=== PATIENT | female | born 1965 | race Caucasian/White ===

== ENCOUNTER 2018-04-27 13:51 | Inpatient (IN) | payer OTHER ==
[~2018-04-27] VITALS: Ht 177.8 cm; Wt 64.2 kg
[2018-04-27] MEDS ORDERED: SODIUM CHLORIDE 0.9% 1,000ML IVBOLUS ONE (15:00)
[2018-04-27] MEDS ORDERED: SODIUM CHLORIDE FLUSH 10ML SYR IVF ONE (15:00)
[2018-04-27 15:24] LABS: ALBUMIN 3.7 g/dL (3.4-5.0); ANION GAP 6 mmol/L (5-15); CALCIUM 8.6 mg/dL (8.5-10.1); CHLORIDE 111 mmol/L (98-107)
[2018-04-27 15:28] LABS: ALANINE AMINOTRANSFERASE 34 U/L (12-78); ALKALINE PHOSPHATASE 79 U/L (45-117); BILIRUBIN,TOTAL 0.7 mg/dL (0.2-1.0); CREATININE 0.86 mg/dL (0.55-1.02); TOTAL PROTEIN 6.9 g/dL (6.4-8.2)
--- NOTE | 2018-04-27 15:33 | NUR ---
PT AMBULTORY WITH STEADY GAIT.
--- NOTE | 2018-04-27 15:55 | NUR ---
TASK RN: 52 Y/O FEMALE PRESENTS TO ED WITH C/O ABNORMAL LABS. "I HAVEN'T BEEN FEELING FOR GOOD FOR ABOUT 4 WEEKS. I DECIDED TO GET LABS YESTERDAY. MY DR CALLED ME AND SAID TO COME HERE THAT MY LABS WERE OFF. MY WBC WAS 56 AND MY HGB WAS 4 OR SOMETHING. I JUST DON'T FEEL GOOD. I THOUGHT IT WAS THE FLU." PIV ESTABLISHED. PT TOLERATED WITH NO COMPLICATIONS. NO C/O N/V/D, TRAUMA, SYNCOPE, CP, SOB. PT PLACED ON FOUNDRY ENGINEER, NIBP, CONT PULSE OX,
--- NOTE | 2018-04-27 16:38 | NUR ---
TASK RN: BEDSIDE REPORT TO FRANCES PAULINO.
[2018-04-27 16:43] LABS: MEAN CORPUSCULAR HEMOGLOBIN 34.4 pg (27.0-34.8); MEAN CORPUSCULAR HGB CONC 34.3 g/dL (32.4-35.8); MEAN CORPUSCULAR VOLUME 100.3 fL (80-100); RED BLOOD COUNT 1.35 x10^6/uL (3.82-5.3); RED CELL DISTRIBUTION WIDTH 16.3 % (9.6-15.2)
[2018-04-27 16:44] LABS: HEMOGRAM NOTE RECHECKED; MEAN PLATELET VOLUME 10.5 fL (7.4-10.4)
[2018-04-27 16:47] LABS: PLATELET COUNT 34 x10^3/uL (130-400)
[2018-04-27 16:48] LABS: MD YES
[2018-04-27] MEDS ORDERED: POTASSIUM CHLORIDE 20 MEQ TAB.ER.PRT PO ONE (17:00)
--- NOTE | 2018-04-27 17:35 | NUR ---
TASK RN: NEW ORDER FOR IRRADIATED PRBC. SPOKE WITH BLOOD BANK. CHANGES BEING MADE.
[2018-04-27] MEDS ORDERED: NS + 20MEQ KCL 1,000 ML IV SCH (17:48)
[2018-04-27 17:50] LABS: INTERNATIONAL NORMALIZED RATIO 1.05 (0.93-1.1)
--- NOTE | 2018-04-27 17:53 | NUR ---
REPORT GIVEN TO ONC RN, ROOM DIRTY AT THIS TIME, WILL CALL WHEN READY
[2018-04-27] MEDS ORDERED: ONDANSETRON 2MG/ML, 2ML IVPush PRN (18:00)
--- NOTE | 2018-04-27 18:32 | NUR ---
PT AMBULATED TO BATHROOM WITH STEADY GAIT, PT BACK TO ROOM AND PLACED ON MONITOR. AWIATING ONC BED TO BE CLEANED
[2018-04-27 18:46] VITALS: BP 104/61
--- NOTE | 2018-04-27 18:50 | NUR ---
FIRST UNIT OF BLOOD STARTED
[2018-04-27 19:09] VITALS: BP 119/65
--- NOTE | 2018-04-27 19:13 | NUR ---
PT RESTING ON GURNEY, PRBC'S INFUSING, NO S/S OF TRANSFUSION REACTION NOTED, MONITORS IN PLACE, SIDERAILS UP X2, CALL LIGHT WITHIN REACH. AWAITING ROOM TO BE CLEANED FOR PT TRANSFER
[2018-04-27] MEDS ORDERED: PROG100C16 PO (19:25)
[2018-04-27 19:44] LABS: LYMPH#(MANUAL) 10.82 x10^3/uL (1-3.4); LYMPHS% (MANUAL) 13 % (22-44); METAMYELOCYTES# (MANUAL) 0.83 x10^3/uL (0-0); METAMYELOCYTES% (MANUAL) 1 % (0-1); MONOS#(MANUAL) 5.82 x10^3/uL (0.3-2.7); MONOS% (MANUAL) 7 % (2-9); MYELOCYTES# (MANUAL) 1.66 x10^3/uL (0-0); MYELOCYTES% (MANUAL) 2 % (0-0); SEG#(MANUAL) 14.14 x10^3/uL (1.8-6.8); SEGS% (MANUAL) 17 % (42-75)
[2018-04-27 19:45] LABS: BLASTS # (MANUAL) 49.92 x10^3/uL (0-0); BLASTS % (MANUAL) 60 % (0-0)
[2018-04-27 19:46] LABS: ANISOCYTOSIS 1+; HYPOCHROMIA 1+; MICROCYTOSIS 1+
[2018-04-27 19:47] LABS: <PLATELET ESTIMATE> DECREASED; <PLT MORPHOLOGY> QNS FOR PLT MORPH
[2018-04-27] MEDS ORDERED: SODIUM CHLORIDE 0.9% 1,000 ML IV SCH (20:00)
[2018-04-27] MEDS ORDERED: HYDROXYUREA 500 MG CAPSULE PO ONE (20:00)
[2018-04-27] MEDS ORDERED: ALLOPURINOL 300 MG TABLET PO ONE (20:00)
[2018-04-27 20:06] VITALS: BP 112/70
[2018-04-27 20:31] VITALS: BP 118/73
[2018-04-27 20:36] LABS: RED BLOOD COUNT 1.32 x10^6/uL (3.82-5.3)
[2018-04-27] MEDS: ACETAMINOPHEN 325 MG TABLET PO PRN (20:52)
[2018-04-27 21:05] VITALS: BP 116/71
[2018-04-27 21:13] LABS: ABSOLUTE RETICS # 0.01 x10^6/uL (0.5-2.5); RETICULOCYTE COUNT % 0.73 % (0.5-1.5)
[2018-04-27] MEDS: NS + 20MEQ KCL 1,000 ML IV SCH (22:30)
[2018-04-27 22:33] VITALS: BP 94/57
[2018-04-28] VITALS (15 sets, daily range): BP systolic 101–122; BP diastolic 66–82
[2018-04-28 04:05] LABS: ALANINE AMINOTRANSFERASE 25 U/L (12-78); ALBUMIN 2.9 g/dL (3.4-5.0); ANION GAP 6 mmol/L (5-15); CALCIUM 7.6 mg/dL (8.5-10.1); CHLORIDE 118 mmol/L (98-107); CREATININE 0.67 mg/dL (0.55-1.02)
[2018-04-28 04:07] LABS: ALKALINE PHOSPHATASE 67 U/L (45-117); BILIRUBIN,TOTAL 0.3 mg/dL (0.2-1.0); TOTAL PROTEIN 5.6 g/dL (6.4-8.2)
[2018-04-28 04:56] LABS: MEAN CORPUSCULAR HEMOGLOBIN 32.1 pg (27.0-34.8); MEAN CORPUSCULAR VOLUME 94.4 fL (80-100); RED BLOOD COUNT 1.75 x10^6/uL (3.82-5.3); RED CELL DISTRIBUTION WIDTH 17.9 % (9.6-15.2)
[2018-04-28 05:51] LABS: MD YES
[2018-04-28] MEDS: NS + 20MEQ KCL 1,000 ML IV SCH ×2 (05:59→14:18)
[2018-04-28 06:07] LABS: BASOS#(MANUAL) 0.51 x10^3/uL (0-0.1); BASOS% (MANUAL) 1 % (0-1); EOS#(MANUAL) 0.51 x10^3/uL (0.0-0.4); EOS% (MANUAL) 1 % (1-7); LYMPH#(MANUAL) 6.57 x10^3/uL (1-3.4); LYMPHS% (MANUAL) 13 % (22-44); METAMYELOCYTES# (MANUAL) 0.51 x10^3/uL (0-0); METAMYELOCYTES% (MANUAL) 1 % (0-1); MONOS#(MANUAL) 2.53 x10^3/uL (0.3-2.7); MONOS% (MANUAL) 5 % (2-9); MYELOCYTES# (MANUAL) 0.51 x10^3/uL (0-0); MYELOCYTES% (MANUAL) 1 % (0-0); SEGS% (MANUAL) 19 % (42-75)
[2018-04-28 06:08] LABS: BLASTS % (MANUAL) 59 % (0-0); MEAN PLATELET VOLUME 11.2 fL (7.4-10.4); PLATELET COUNT 21 x10^3/uL (130-400)
[2018-04-28 06:09] LABS: <PLATELET ESTIMATE> DECREASED; ANISOCYTOSIS 1+; HYPOCHROMIA 1+; HYPOGRAN PLTS 1+; LARGE PLATELETS 1+; MICROCYTOSIS 1+
[2018-04-28 06:11] LABS: OVALOCYTES 1+
[2018-04-28 06:22] LABS: MICROSCOPIC NOT IND
[2018-04-28 06:25] LABS: CULTURE INDICATED? NO
[2018-04-28] MEDS ORDERED: ACETAMINOPHEN 325 MG TABLET PO ONE (06:30)
[2018-04-28] MEDS ORDERED: DIPHENHYDRAMINE 25 MG CAPSULE PO ONE (06:30)
[2018-04-28 09:26] LABS: ALANINE AMINOTRANSFERASE 28 U/L (12-78); ALBUMIN 3.2 g/dL (3.4-5.0); ANION GAP 10 mmol/L (5-15); CHLORIDE 114 mmol/L (98-107); CREATININE 0.69 mg/dL (0.55-1.02)
[2018-04-28 09:28] LABS: ALKALINE PHOSPHATASE 77 U/L (45-117); BILIRUBIN,TOTAL 0.4 mg/dL (0.2-1.0); TOTAL PROTEIN 6.1 g/dL (6.4-8.2)
[2018-04-28] MEDS: ALLOPURINOL 300 MG TABLET PO SCH (09:50)
[2018-04-28 10:08] LABS: MEAN CORPUSCULAR HEMOGLOBIN 31.8 pg (27.0-34.8); MEAN CORPUSCULAR HGB CONC 34.1 g/dL (32.4-35.8); MEAN CORPUSCULAR VOLUME 93.2 fL (80-100); MEAN PLATELET VOLUME 9.9 fL (7.4-10.4); RED CELL DISTRIBUTION WIDTH 18.7 % (9.6-15.2)
[2018-04-28 10:10] LABS: PLATELET COUNT 23 x10^3/uL (130-400)
[2018-04-28 10:11] LABS: MD YES
[2018-04-28 10:27] LABS: BAND#(MANUAL) 1.66 x10^3/uL; BANDS%(MANUAL) 3 % (0-7); EOS#(MANUAL) 0.55 x10^3/uL (0.0-0.4); EOS% (MANUAL) 1 % (1-7); LYMPH#(MANUAL) 6.65 x10^3/uL (1-3.4); LYMPHS% (MANUAL) 12 % (22-44); METAMYELOCYTES# (MANUAL) 1.66 x10^3/uL (0-0); METAMYELOCYTES% (MANUAL) 3 % (0-1); MONOS#(MANUAL) 1.66 x10^3/uL (0.3-2.7); MONOS% (MANUAL) 3 % (2-9); MYELOCYTES# (MANUAL) 0.55 x10^3/uL (0-0); MYELOCYTES% (MANUAL) 1 % (0-0); SEG#(MANUAL) 11.63 x10^3/uL (1.8-6.8); SEGS% (MANUAL) 21 % (42-75)
[2018-04-28 10:28] LABS: <PLATELET ESTIMATE> ADEQUATE; ANISOCYTOSIS 1+; BLASTS # (MANUAL) 31.02 x10^3/uL (0-0); BLASTS % (MANUAL) 56 % (0-0); HYPOCHROMIA 1+; MICROCYTOSIS 1+; OVALOCYTES 1+
[2018-04-28 10:29] LABS: HYPOGRAN PLTS 1+; LARGE PLATELETS 1+
[2018-04-28 18:13] LABS: ALANINE AMINOTRANSFERASE 33 U/L (12-78); ALBUMIN 3.1 g/dL (3.4-5.0); ANION GAP 8 mmol/L (5-15); CALCIUM 7.8 mg/dL (8.5-10.1); CHLORIDE 116 mmol/L (98-107); CREATININE 0.68 mg/dL (0.55-1.02)
[2018-04-28 18:15] LABS: ALKALINE PHOSPHATASE 74 U/L (45-117); BILIRUBIN,TOTAL 0.6 mg/dL (0.2-1.0)
[2018-04-28 18:22] LABS: MEAN CORPUSCULAR HEMOGLOBIN 31.2 pg (27.0-34.8); MEAN CORPUSCULAR HGB CONC 34.1 g/dL (32.4-35.8); MEAN CORPUSCULAR VOLUME 91.5 fL (80-100); MEAN PLATELET VOLUME 8.9 fL (7.4-10.4); PLATELET COUNT 60 x10^3/uL (130-400); RED CELL DISTRIBUTION WIDTH 18.2 % (9.6-15.2)
[2018-04-28 18:24] LABS: MD YES
[2018-04-28] MEDS ORDERED: HYDROXYUREA 500 MG CAPSULE PO ONE ×2 (19:00→21:00)
[2018-04-28 19:02] LABS: BAND#(MANUAL) 0.44 x10^3/uL; BANDS%(MANUAL) 1 % (0-7); BASOS#(MANUAL) 0.44 x10^3/uL (0-0.1); BASOS% (MANUAL) 1 % (0-1); LYMPH#(MANUAL) 4.88 x10^3/uL (1-3.4); LYMPHS% (MANUAL) 11 % (22-44); METAMYELOCYTES# (MANUAL) 1.33 x10^3/uL (0-0); METAMYELOCYTES% (MANUAL) 3 % (0-1); MONOS#(MANUAL) 1.33 x10^3/uL (0.3-2.7); MONOS% (MANUAL) 3 % (2-9); MYELOCYTES# (MANUAL) 0.89 x10^3/uL (0-0); MYELOCYTES% (MANUAL) 2 % (0-0); SEG#(MANUAL) 7.99 x10^3/uL (1.8-6.8); SEGS% (MANUAL) 18 % (42-75)
[2018-04-28 19:03] LABS: BLASTS # (MANUAL) 27.08 x10^3/uL (0-0); BLASTS % (MANUAL) 61 % (0-0)
[2018-04-28 19:06] LABS: ANISOCYTOSIS 1+; HYPOCHROMIA 1+; MICROCYTOSIS 1+; OVALOCYTES 1+
[2018-04-28 19:07] LABS: <PLATELET ESTIMATE> DECREASED; HYPOGRAN PLTS 1+; LARGE PLATELETS 1+
[2018-04-28 19:08] LABS: HEMOGRAM NOTE RECHECKED
[2018-04-28] MEDS: SODIUM CHLORIDE 0.9% 1,000 ML IV SCH (19:45)
[2018-04-28] MEDS: ACETAMINOPHEN 325 MG TABLET PO PRN (20:22)
[2018-04-29 01:41] VITALS: BP 107/62
[2018-04-29] MEDS: SODIUM CHLORIDE 0.9% 1,000 ML IV SCH ×2 (02:36→19:47)
[2018-04-29 05:53] LABS: MEAN CORPUSCULAR HEMOGLOBIN 31.6 pg (27.0-34.8); MEAN CORPUSCULAR HGB CONC 34.5 g/dL (32.4-35.8); MEAN CORPUSCULAR VOLUME 91.6 fL (80-100); MEAN PLATELET VOLUME 9.3 fL (7.4-10.4); PLATELET COUNT 61 x10^3/uL (130-400); RED BLOOD COUNT 2.36 x10^6/uL (3.82-5.3); RED CELL DISTRIBUTION WIDTH 18.6 % (9.6-15.2)
[2018-04-29 06:01] LABS: CHLORIDE 117 mmol/L (98-107)
[2018-04-29 06:05] LABS: ALANINE AMINOTRANSFERASE 45 U/L (12-78); ALBUMIN 3.1 g/dL (3.4-5.0); ALKALINE PHOSPHATASE 78 U/L (45-117); ANION GAP 6 mmol/L (5-15); BILIRUBIN,TOTAL 0.5 mg/dL (0.2-1.0); CALCIUM 7.8 mg/dL (8.5-10.1); CREATININE 0.59 mg/dL (0.55-1.02); TOTAL PROTEIN 5.8 g/dL (6.4-8.2)
[2018-04-29 06:23] LABS: MD YES
[2018-04-29 06:29] LABS: BAND#(MANUAL) 1.55 x10^3/uL; BANDS%(MANUAL) 4 % (0-7); EOS#(MANUAL) 0.39 x10^3/uL (0.0-0.4); EOS% (MANUAL) 1 % (1-7); LYMPH#(MANUAL) 3.87 x10^3/uL (1-3.4); LYMPHS% (MANUAL) 10 % (22-44); MONOS#(MANUAL) 2.71 x10^3/uL (0.3-2.7); MONOS% (MANUAL) 7 % (2-9); SEG#(MANUAL) 6.97 x10^3/uL (1.8-6.8); SEGS% (MANUAL) 18 % (42-75)
[2018-04-29 06:31] LABS: BLASTS # (MANUAL) 23.22 x10^3/uL (0-0); BLASTS % (MANUAL) 60 % (0-0); NRBC % (MANUAL) 1 % (0-1)
[2018-04-29 06:32] LABS: ANISOCYTOSIS 1+; HYPOCHROMIA 1+
[2018-04-29 06:33] LABS: <PLATELET ESTIMATE> DECREASED; LARGE PLATELETS 1+; OVALOCYTES 1+
[2018-04-29 06:34] LABS: HYPOGRAN PLTS 1+
[2018-04-29 06:48] VITALS: BP 115/74
[2018-04-29] MEDS ORDERED: LIDOCAINE-MPF 1%, 5ML ONE (08:31)
[2018-04-29] MEDS ORDERED: FENTANYL PF 100 MCG/2ML ONE (08:52)
[2018-04-29] MEDS ORDERED: NALOXONE 1 MG/ML, 2ML ONE (08:52)
[2018-04-29] MEDS ORDERED: MIDAZOLAM 1 MG/ML, 5ML ONE ×2 (08:52)
[2018-04-29] MEDS ORDERED: FLUMAZENIL 0.1 MG/1 ML, 5ML ONE (08:52)
[2018-04-29 12:47] VITALS: BP 93/73
[2018-04-29] MEDS: ALLOPURINOL 300 MG TABLET PO SCH (13:57)
[2018-04-29] MEDS: ACETAMINOPHEN 325 MG TABLET PO PRN ×2 (14:48→21:21)
[2018-04-29 19:24] VITALS: BP 110/61
[2018-04-29] MEDS ORDERED: OMEPRAZOLE 20 MG CAPSULE.DR ONE (21:20)
[2018-04-30 00:37] VITALS: BP 102/61
[2018-04-30] MEDS: SODIUM CHLORIDE 0.9% 1,000 ML IV SCH ×2 (02:52→14:28)
[2018-04-30] MEDS: OMEPRAZOLE 20 MG CAPSULE.DR PO SCH (05:40)
[2018-04-30] MEDS: ACETAMINOPHEN 325 MG TABLET PO PRN ×2 (05:40→11:19)
[2018-04-30 06:04] LABS: CHLORIDE 112 mmol/L (98-107)
[2018-04-30 06:16] LABS: ALANINE AMINOTRANSFERASE 36 U/L (12-78); ALKALINE PHOSPHATASE 86 U/L (45-117); ANION GAP 7 mmol/L (5-15); BILIRUBIN,TOTAL 0.5 mg/dL (0.2-1.0); CALCIUM 8.2 mg/dL (8.5-10.1); CREATININE 0.59 mg/dL (0.55-1.02); TOTAL PROTEIN 5.8 g/dL (6.4-8.2)
[2018-04-30 07:18] VITALS: BP 114/72
[2018-04-30] MEDS ORDERED: POTASSIUM CHLORIDE 20 MEQ TAB.ER.PRT PO ONE (07:30)
[2018-04-30] MEDS: ALLOPURINOL 300 MG TABLET PO SCH (07:48)
[2018-04-30 08:49] LABS: MEAN CORPUSCULAR HEMOGLOBIN 31.7 pg (27.0-34.8); MEAN CORPUSCULAR HGB CONC 34.8 g/dL (32.4-35.8); MEAN CORPUSCULAR VOLUME 91.1 fL (80-100); MEAN PLATELET VOLUME 8.9 fL (7.4-10.4); RED BLOOD COUNT 2.34 x10^6/uL (3.82-5.3); RED CELL DISTRIBUTION WIDTH 19.2 % (9.6-15.2)
[2018-04-30 08:52] LABS: PLATELET COUNT 44 x10^3/uL (130-400)
[2018-04-30 08:53] LABS: MD YES
[2018-04-30 09:07] LABS: BAND#(MANUAL) 1.03 x10^3/uL; BANDS%(MANUAL) 3 % (0-7); BASOS#(MANUAL) 1.03 x10^3/uL (0-0.1); BASOS% (MANUAL) 3 % (0-1); EOS#(MANUAL) 0.34 x10^3/uL (0.0-0.4); EOS% (MANUAL) 1 % (1-7); METAMYELOCYTES# (MANUAL) 0.34 x10^3/uL (0-0); METAMYELOCYTES% (MANUAL) 1 % (0-1); MONOS#(MANUAL) 1.38 x10^3/uL (0.3-2.7); MONOS% (MANUAL) 4 % (2-9); MYELOCYTES# (MANUAL) 0.34 x10^3/uL (0-0); MYELOCYTES% (MANUAL) 1 % (0-0); PROGRANULOCYTES# (MANUAL) 0.34 x10^3/uL (0-0); PROGRANULOCYTES% (MANUAL) 1 % (0-0)
[2018-04-30 09:10] LABS: LYMPH#(MANUAL) 4.13 x10^3/uL (1-3.4); LYMPHS% (MANUAL) 12 % (22-44)
[2018-04-30 09:12] LABS: SEG#(MANUAL) 8.94 x10^3/uL (1.8-6.8); SEGS% (MANUAL) 26 % (42-75)
[2018-04-30 09:13] LABS: BLASTS % (MANUAL) 48 % (0-0)
[2018-04-30 09:14] LABS: <PLATELET ESTIMATE> DECREASED; <PLT MORPHOLOGY> NORMAL PLT MORPH
[2018-04-30 09:16] LABS: ANISOCYTOSIS 1+
[2018-04-30 09:17] LABS: OVALOCYTES 1+
[2018-04-30 13:18] VITALS: BP 125/72
[2018-04-30 20:40] VITALS: BP 127/80
[2018-05-01] MEDS: SODIUM CHLORIDE 0.9% 1,000 ML IV SCH ×3 (00:17→22:12)
[2018-05-01 02:19] VITALS: BP 122/72
[2018-05-01] MEDS: OMEPRAZOLE 20 MG CAPSULE.DR PO SCH (05:25)
[2018-05-01 05:52] LABS: ALANINE AMINOTRANSFERASE 34 U/L (12-78); ALBUMIN 2.9 g/dL (3.4-5.0); ANION GAP 6 mmol/L (5-15); CHLORIDE 115 mmol/L (98-107)
[2018-05-01 05:57] LABS: ALKALINE PHOSPHATASE 80 U/L (45-117); BILIRUBIN,TOTAL 0.3 mg/dL (0.2-1.0); CREATININE 0.62 mg/dL (0.55-1.02); TOTAL PROTEIN 5.7 g/dL (6.4-8.2)
[2018-05-01 06:13] LABS: MEAN CORPUSCULAR HEMOGLOBIN 30.9 pg (27.0-34.8); MEAN CORPUSCULAR HGB CONC 33.8 g/dL (32.4-35.8); MEAN CORPUSCULAR VOLUME 91.6 fL (80-100); RED BLOOD COUNT 2.39 x10^6/uL (3.82-5.3); RED CELL DISTRIBUTION WIDTH 18.4 % (9.6-15.2)
[2018-05-01 06:15] LABS: MEAN PLATELET VOLUME 9.4 fL (7.4-10.4); PLATELET COUNT 40 x10^3/uL (130-400)
[2018-05-01 06:16] LABS: MD YES
[2018-05-01 06:21] LABS: BAND#(MANUAL) 2.02 x10^3/uL; BANDS%(MANUAL) 5 % (0-7); LYMPH#(MANUAL) 6.05 x10^3/uL (1-3.4); LYMPHS% (MANUAL) 15 % (22-44); METAMYELOCYTES# (MANUAL) 0.81 x10^3/uL (0-0); METAMYELOCYTES% (MANUAL) 2 % (0-1); MONOS#(MANUAL) 0.81 x10^3/uL (0.3-2.7); MONOS% (MANUAL) 2 % (2-9); MYELOCYTES# (MANUAL) 0.81 x10^3/uL (0-0); MYELOCYTES% (MANUAL) 2 % (0-0)
[2018-05-01 06:25] LABS: BASOS#(MANUAL) 1.61 x10^3/uL (0-0.1); BASOS% (MANUAL) 4 % (0-1); SEG#(MANUAL) 7.25 x10^3/uL (1.8-6.8); SEGS% (MANUAL) 18 % (42-75)
[2018-05-01 06:26] LABS: BLASTS % (MANUAL) 52 % (0-0)
[2018-05-01 06:27] LABS: ANISOCYTOSIS 1+; OVALOCYTES 1+
[2018-05-01 06:28] LABS: <PLATELET ESTIMATE> DECREASED; <PLT MORPHOLOGY> NORMAL PLT MORPH
[2018-05-01 07:23] VITALS: BP 115/66
[2018-05-01] MEDS: SENNA/DOCUSATE TABLET PO SCH (07:42)
[2018-05-01] MEDS: ALLOPURINOL 300 MG TABLET PO SCH (07:42)
[2018-05-01] MEDS: DIPHENHYDRAMINE/ZINC CRM 2%, 30GM TP PRN (07:43)
[2018-05-01 14:08] VITALS: BP 117/74
[2018-05-01 19:49] VITALS: BP 115/73
[2018-05-02 03:40] VITALS: BP 113/70
[2018-05-02] MEDS: OMEPRAZOLE 20 MG CAPSULE.DR PO SCH (06:34)
[2018-05-02] MEDS: SODIUM CHLORIDE 0.9% 1,000 ML IV SCH ×2 (06:35→17:29)
[2018-05-02 07:50] VITALS: BP 110/68
[2018-05-02] MEDS: SENNA/DOCUSATE TABLET PO SCH (09:00)
[2018-05-02] MEDS: ALLOPURINOL 300 MG TABLET PO SCH (09:08)
[2018-05-02 12:06] LABS: ALANINE AMINOTRANSFERASE 37 U/L (12-78); ALBUMIN 3.3 g/dL (3.4-5.0); ANION GAP 6 mmol/L (5-15); CALCIUM 8.7 mg/dL (8.5-10.1); CHLORIDE 112 mmol/L (98-107); CREATININE 0.71 mg/dL (0.55-1.02)
[2018-05-02 12:08] LABS: ALKALINE PHOSPHATASE 92 U/L (45-117); BILIRUBIN,TOTAL 0.4 mg/dL (0.2-1.0); TOTAL PROTEIN 6.5 g/dL (6.4-8.2)
[2018-05-02 12:21] LABS: MD YES; MEAN CORPUSCULAR HEMOGLOBIN 31.4 pg (27.0-34.8); MEAN CORPUSCULAR HGB CONC 34.1 g/dL (32.4-35.8); MEAN CORPUSCULAR VOLUME 91.8 fL (80-100); MEAN PLATELET VOLUME 9.8 fL (7.4-10.4); RED BLOOD COUNT 2.57 x10^6/uL (3.82-5.3); RED CELL DISTRIBUTION WIDTH 18.8 % (9.6-15.2)
[2018-05-02 12:31] LABS: PLATELET COUNT 35 x10^3/uL (130-400)
[2018-05-02 12:33] LABS: BAND#(MANUAL) 2.17 x10^3/uL; BANDS%(MANUAL) 4 % (0-7); BLASTS # (MANUAL) 29.32 x10^3/uL (0-0); BLASTS % (MANUAL) 54 % (0-0); EOS#(MANUAL) 1.09 x10^3/uL (0.0-0.4); EOS% (MANUAL) 2 % (1-7); LYMPH#(MANUAL) 6.52 x10^3/uL (1-3.4); LYMPHS% (MANUAL) 12 % (22-44); METAMYELOCYTES# (MANUAL) 2.72 x10^3/uL (0-0); METAMYELOCYTES% (MANUAL) 5 % (0-1); MONOS#(MANUAL) 3.26 x10^3/uL (0.3-2.7); MONOS% (MANUAL) 6 % (2-9); SEG#(MANUAL) 9.23 x10^3/uL (1.8-6.8); SEGS% (MANUAL) 17 % (42-75)
[2018-05-02 12:34] LABS: <PLATELET ESTIMATE> DECREASED; <PLT MORPHOLOGY> NORMAL PLT MORPH; ANISOCYTOSIS 1+; OVALOCYTES 1+
[2018-05-02 13:24] VITALS: BP 100/65
[2018-05-02] MEDS ORDERED: POTASSIUM CHLORIDE 20 MEQ TAB.ER.PRT PO ONE (13:30)
[2018-05-02] MEDS: HYDROXYUREA 500 MG CAPSULE PO SCH (17:25)
[2018-05-02] MEDS ORDERED: HYDROCORTISONE OINT 1%, 28GM TP PRN (17:30)
[2018-05-02 19:34] VITALS: BP 111/71
[2018-05-02] MEDS: HYDROCORTISONE CRM 1%, 30GM TP PRN (22:22)
[2018-05-03 03:26] VITALS: BP 100/64
[2018-05-03] MEDS: SODIUM CHLORIDE 0.9% 1,000 ML IV SCH ×2 (03:41→14:54)
[2018-05-03 04:30] LABS: ALBUMIN 2.9 g/dL (3.4-5.0); ANION GAP 5 mmol/L (5-15); CALCIUM 8.4 mg/dL (8.5-10.1); CHLORIDE 113 mmol/L (98-107)
[2018-05-03 04:38] LABS: ALANINE AMINOTRANSFERASE 39 U/L (12-78); ALKALINE PHOSPHATASE 83 U/L (45-117); BILIRUBIN,TOTAL 0.5 mg/dL (0.2-1.0); CREATININE 0.58 mg/dL (0.55-1.02); TOTAL PROTEIN 5.8 g/dL (6.4-8.2)
[2018-05-03 04:40] LABS: MEAN CORPUSCULAR HEMOGLOBIN 30.2 pg (27.0-34.8); MEAN CORPUSCULAR VOLUME 91.4 fL (80-100); MEAN PLATELET VOLUME 9.7 fL (7.4-10.4); RED BLOOD COUNT 2.31 x10^6/uL (3.82-5.3); RED CELL DISTRIBUTION WIDTH 18.6 % (9.6-15.2)
[2018-05-03 05:06] LABS: PLATELET COUNT 36 x10^3/uL (130-400)
[2018-05-03 05:41] LABS: MD YES
[2018-05-03 06:09] LABS: BAND#(MANUAL) 1.45 x10^3/uL; BANDS%(MANUAL) 3 % (0-7); BASOS#(MANUAL) 0.48 x10^3/uL (0-0.1); BASOS% (MANUAL) 1 % (0-1); EOS#(MANUAL) 0.48 x10^3/uL (0.0-0.4); EOS% (MANUAL) 1 % (1-7); LYMPH#(MANUAL) 8.69 x10^3/uL (1-3.4); LYMPHS% (MANUAL) 18 % (22-44); METAMYELOCYTES# (MANUAL) 1.93 x10^3/uL (0-0); METAMYELOCYTES% (MANUAL) 4 % (0-1); MONOS#(MANUAL) 0.97 x10^3/uL (0.3-2.7); MONOS% (MANUAL) 2 % (2-9); MYELOCYTES# (MANUAL) 1.93 x10^3/uL (0-0); MYELOCYTES% (MANUAL) 4 % (0-0); SEG#(MANUAL) 9.18 x10^3/uL (1.8-6.8); SEGS% (MANUAL) 19 % (42-75)
[2018-05-03 06:15] LABS: BLASTS # (MANUAL) 23.18 x10^3/uL (0-0); BLASTS % (MANUAL) 48 % (0-0)
[2018-05-03 06:17] LABS: <PLATELET ESTIMATE> DECREASED; <PLT MORPHOLOGY> NORMAL PLT MORPH; ANISOCYTOSIS 1+; OVALOCYTES 1+
[2018-05-03] MEDS: OMEPRAZOLE 20 MG CAPSULE.DR PO SCH (07:35)
[2018-05-03 08:30] VITALS: BP 128/75
[2018-05-03] MEDS: SENNA/DOCUSATE TABLET PO SCH (09:00)
[2018-05-03] MEDS: ALLOPURINOL 300 MG TABLET PO SCH (09:02)
[2018-05-03] MEDS: HYDROXYUREA 500 MG CAPSULE PO SCH (09:05)
[2018-05-03] MEDS: HYDROCORTISONE CRM 1%, 30GM TP PRN ×2 (12:10→20:52)
[2018-05-03] MEDS ORDERED: ACETAMINOPHEN 325 MG TABLET PO ONE (16:00)
[2018-05-03] MEDS ORDERED: DIPHENHYDRAMINE 50 MG/ML, 1ML IVPush ONE (16:00)
[2018-05-03 18:13] VITALS: BP 111/74
[2018-05-03 18:30] VITALS: BP 124/76
[2018-05-03 19:57] VITALS: BP 121/75
[2018-05-03 19:58] VITALS: BP 121/75
[2018-05-04] MEDS: SODIUM CHLORIDE 0.9% 1,000 ML IV SCH ×5 (02:19→23:24)
[2018-05-04 04:53] VITALS: BP 119/73
[2018-05-04] MEDS: OMEPRAZOLE 20 MG CAPSULE.DR PO SCH (04:56)
[2018-05-04 05:28] LABS: MEAN CORPUSCULAR HEMOGLOBIN 31.1 pg (27.0-34.8); MEAN CORPUSCULAR HGB CONC 34.6 g/dL (32.4-35.8); MEAN CORPUSCULAR VOLUME 89.9 fL (80-100); RED BLOOD COUNT 2.69 x10^6/uL (3.82-5.3); RED CELL DISTRIBUTION WIDTH 17.8 % (9.6-15.2)
[2018-05-04 05:33] LABS: CHLORIDE 114 mmol/L (98-107)
[2018-05-04 05:39] LABS: ALANINE AMINOTRANSFERASE 41 U/L (12-78); ALKALINE PHOSPHATASE 86 U/L (45-117); ANION GAP 7 mmol/L (5-15); BILIRUBIN,TOTAL 0.3 mg/dL (0.2-1.0); CALCIUM 8.2 mg/dL (8.5-10.1); CREATININE 0.67 mg/dL (0.55-1.02); TOTAL PROTEIN 5.9 g/dL (6.4-8.2)
[2018-05-04 06:25] LABS: MD YES
[2018-05-04 06:42] LABS: BAND#(MANUAL) 4.92 x10^3/uL; BANDS%(MANUAL) 11 % (0-7); BASOS#(MANUAL) 1.34 x10^3/uL (0-0.1); BASOS% (MANUAL) 3 % (0-1); LYMPH#(MANUAL) 6.71 x10^3/uL (1-3.4); LYMPHS% (MANUAL) 15 % (22-44); METAMYELOCYTES# (MANUAL) 0.89 x10^3/uL (0-0); METAMYELOCYTES% (MANUAL) 2 % (0-1); MONOS#(MANUAL) 2.24 x10^3/uL (0.3-2.7); MONOS% (MANUAL) 5 % (2-9); SEG#(MANUAL) 6.26 x10^3/uL (1.8-6.8); SEGS% (MANUAL) 14 % (42-75)
[2018-05-04 06:46] LABS: BLASTS # (MANUAL) 22.35 x10^3/uL (0-0); BLASTS % (MANUAL) 50 % (0-0); MEAN PLATELET VOLUME 10.5 fL (7.4-10.4); PLATELET COUNT 27 x10^3/uL (130-400)
[2018-05-04 06:48] LABS: ANISOCYTOSIS 1+; OVALOCYTES 1+
[2018-05-04 06:49] LABS: <PLATELET ESTIMATE> DECREASED; LARGE PLATELETS 1+
[2018-05-04 07:36] VITALS: BP 124/81
[2018-05-04] MEDS: SENNA/DOCUSATE TABLET PO SCH (09:00)
[2018-05-04] MEDS: ALLOPURINOL 300 MG TABLET PO SCH (09:04)
[2018-05-04] MEDS: HYDROXYUREA 500 MG CAPSULE PO SCH (09:04)
[2018-05-04] MEDS ORDERED: CATHFLO-ALTEPLASE 2 MG/2 ML CATHFLUSH ONE ×2 (12:30)
[2018-05-04] MEDS ORDERED: FOSAPREPITANT 150 MG in SODIUM CHLORIDE 0.9% 145 ML IV ONE (14:00)
[2018-05-04] MEDS ORDERED: ONDANSETRON 16 MG, DEXAMETHASONE 10 MG in SODIUM CHLORIDE 0.9% 50 ML IVPB SCH (14:00)
[2018-05-04 14:36] VITALS: BP 123/71
[2018-05-04] MEDS: HYDROCORTISONE CRM 1%, 30GM TP PRN ×2 (15:32→20:17)
[2018-05-04 19:52] VITALS: BP 112/69
[2018-05-05 03:00] VITALS: BP 115/73
[2018-05-05] MEDS: OMEPRAZOLE 20 MG CAPSULE.DR PO SCH (04:58)
[2018-05-05 05:45] LABS: MEAN CORPUSCULAR HEMOGLOBIN 31.1 pg (27.0-34.8); MEAN CORPUSCULAR HGB CONC 34.6 g/dL (32.4-35.8); MEAN CORPUSCULAR VOLUME 90.1 fL (80-100); RED BLOOD COUNT 2.76 x10^6/uL (3.82-5.3); RED CELL DISTRIBUTION WIDTH 18.1 % (9.6-15.2)
[2018-05-05 05:53] LABS: ANION GAP 6 mmol/L (5-15); CALCIUM 8.3 mg/dL (8.5-10.1); CHLORIDE 111 mmol/L (98-107)
[2018-05-05 05:58] LABS: ALANINE AMINOTRANSFERASE 41 U/L (12-78); ALKALINE PHOSPHATASE 79 U/L (45-117); BILIRUBIN,TOTAL 0.5 mg/dL (0.2-1.0); CREATININE 0.62 mg/dL (0.55-1.02); TOTAL PROTEIN 6.2 g/dL (6.4-8.2)
[2018-05-05 06:31] LABS: MD YES
[2018-05-05 06:34] LABS: BAND#(MANUAL) 0.79 x10^3/uL; BANDS%(MANUAL) 2 % (0-7); BASOS% (MANUAL) 1 % (0-1); BLASTS # (MANUAL) 20.64 x10^3/uL (0-0); EOS#(MANUAL) 0.79 x10^3/uL (0.0-0.4); EOS% (MANUAL) 2 % (1-7); LYMPH#(MANUAL) 4.76 x10^3/uL (1-3.4); LYMPHS% (MANUAL) 12 % (22-44); METAMYELOCYTES% (MANUAL) 1 % (0-1); MONOS#(MANUAL) 2.38 x10^3/uL (0.3-2.7); MONOS% (MANUAL) 6 % (2-9); NRBC % (MANUAL) 1 % (0-1); SEG#(MANUAL) 9.53 x10^3/uL (1.8-6.8); SEGS% (MANUAL) 24 % (42-75)
[2018-05-05 06:36] LABS: MEAN PLATELET VOLUME 11.1 fL (7.4-10.4)
[2018-05-05 06:37] LABS: ANISOCYTOSIS 1+; BLASTS % (MANUAL) 52 % (0-0); PLATELET COUNT 23 x10^3/uL (130-400)
[2018-05-05 06:38] LABS: <PLATELET ESTIMATE> DECREASED; LARGE PLATELETS 1+; OVALOCYTES 1+
[2018-05-05] MEDS ORDERED: POTASSIUM CHLORIDE 20 MEQ TAB.ER.PRT PO ONE (07:00)
[2018-05-05 07:28] VITALS: BP 120/74
[2018-05-05] MEDS: SENNA/DOCUSATE TABLET PO SCH (09:00)
[2018-05-05] MEDS: ALLOPURINOL 300 MG TABLET PO SCH (10:20)
[2018-05-05] MEDS: SODIUM CHLORIDE 0.9% 1,000 ML IV SCH ×2 (10:20→23:37)
[2018-05-05] MEDS ORDERED: NYSTATIN/TRIAMCINOLONE OINT 15GM TP PRN (13:30)
[2018-05-05] MEDS ORDERED: CLOTRIMAZOLE CRM 1%, 15GM TP PRN (13:30)
[2018-05-05 14:25] VITALS: BP 103/66
[2018-05-05 20:30] VITALS: BP 110/70
[2018-05-05] MEDS: DIPHENHYDRAMINE/ZINC CRM 2%, 30GM TP PRN (20:56)
[2018-05-06 06:23] LABS: ALBUMIN 2.9 g/dL (3.4-5.0); ANION GAP 6 mmol/L (5-15); CALCIUM 8.3 mg/dL (8.5-10.1); CHLORIDE 113 mmol/L (98-107)
[2018-05-06 06:26] VITALS: BP 111/71
[2018-05-06 06:28] LABS: ALANINE AMINOTRANSFERASE 41 U/L (12-78); ALKALINE PHOSPHATASE 72 U/L (45-117); BILIRUBIN,TOTAL 0.3 mg/dL (0.2-1.0); CREATININE 0.69 mg/dL (0.55-1.02)
[2018-05-06] MEDS: OMEPRAZOLE 20 MG CAPSULE.DR PO SCH (06:28)
[2018-05-06 07:43] LABS: MEAN CORPUSCULAR HEMOGLOBIN 31.1 pg (27.0-34.8); MEAN CORPUSCULAR HGB CONC 34.2 g/dL (32.4-35.8); MEAN PLATELET VOLUME 10.1 fL (7.4-10.4); RED BLOOD COUNT 2.68 x10^6/uL (3.82-5.3); RED CELL DISTRIBUTION WIDTH 17.5 % (9.6-15.2)
[2018-05-06 07:45] LABS: MD YES
[2018-05-06 07:49] LABS: <PLATELET ESTIMATE> DECREASED; ANISOCYTOSIS 1+; BAND#(MANUAL) 0.81 x10^3/uL; BANDS%(MANUAL) 2 % (0-7); BLASTS # (MANUAL) 21.92 x10^3/uL (0-0); LARGE PLATELETS 1+; LYMPH#(MANUAL) 3.65 x10^3/uL (1-3.4); LYMPHS% (MANUAL) 9 % (22-44); METAMYELOCYTES# (MANUAL) 0.41 x10^3/uL (0-0); METAMYELOCYTES% (MANUAL) 1 % (0-1); MONOS#(MANUAL) 3.25 x10^3/uL (0.3-2.7); MONOS% (MANUAL) 8 % (2-9); MYELOCYTES# (MANUAL) 1.62 x10^3/uL (0-0); MYELOCYTES% (MANUAL) 4 % (0-0); OVALOCYTES 1+; PROGRANULOCYTES# (MANUAL) 0.41 x10^3/uL (0-0); PROGRANULOCYTES% (MANUAL) 1 % (0-0); SEG#(MANUAL) 8.53 x10^3/uL (1.8-6.8); SEGS% (MANUAL) 21 % (42-75)
[2018-05-06 07:50] LABS: BLASTS % (MANUAL) 54 % (0-0); PLATELET COUNT 30 x10^3/uL (130-400)
[2018-05-06 07:52] LABS: SMUDGE CELLS 1+
[2018-05-06] MEDS: SENNA/DOCUSATE TABLET PO SCH (09:00)
[2018-05-06] MEDS: ALLOPURINOL 300 MG TABLET PO SCH (09:14)
[2018-05-06] MEDS: SODIUM CHLORIDE 0.9% 1,000 ML IV SCH ×2 (09:15→19:42)
[2018-05-06 13:48] VITALS: BP 95/59
[2018-05-06] MEDS ORDERED: FOSAPREPITANT 150 MG in SODIUM CHLORIDE 0.9% 145 ML IV ONE (15:30)
[2018-05-06] MEDS ORDERED: CYTARABINE IV SCH (16:30)
[2018-05-06] MEDS ORDERED: SODIUM CHLORIDE 0.9% IV SCH (16:30)
[2018-05-06] MEDS: ONDANSETRON 16 MG, DEXAMETHASONE 10 MG in SODIUM CHLORIDE 0.9% 50 ML IVPB SCH (17:37)
[2018-05-06] MEDS ORDERED: maalox/diphenh/lido/sucralfate 5 ML PO PRN (19:00)
[2018-05-06] MEDS ORDERED: PROCHLORPERAZINE 25 MG SUPP PR PRN (19:00)
[2018-05-06] MEDS ORDERED: PROCHLORPERAZINE 10MG TABLET PO PRN (19:00)
[2018-05-06 19:39] VITALS: BP 93/58
[2018-05-06] MEDS: IDARUBICIN IV SCH (20:28)
[2018-05-06] MEDS: SODIUM CHLORIDE 0.9% IV SCH (21:42)
[2018-05-06] MEDS: CYTARABINE IV SCH (21:42)
[2018-05-06] MEDS: NYSTATIN 500,000 UNITS/5 ML UDC PO SCH (22:09)
[2018-05-07] MEDS: SODIUM CHLORIDE 0.9% 1,000 ML IV SCH ×2 (04:43→14:28)
[2018-05-07 06:00] VITALS: BP 96/59
[2018-05-07 06:27] LABS: MEAN CORPUSCULAR HEMOGLOBIN 29.8 pg (27.0-34.8); MEAN CORPUSCULAR HGB CONC 32.8 g/dL (32.4-35.8); MEAN CORPUSCULAR VOLUME 90.8 fL (80-100); RED BLOOD COUNT 2.73 x10^6/uL (3.82-5.3); RED CELL DISTRIBUTION WIDTH 17.3 % (9.6-15.2)
[2018-05-07 06:28] LABS: MEAN PLATELET VOLUME 11.3 fL (7.4-10.4); PLATELET COUNT 23 x10^3/uL (130-400)
[2018-05-07 06:33] LABS: ANION GAP 8 mmol/L (5-15); CALCIUM 8.6 mg/dL (8.5-10.1); CHLORIDE 112 mmol/L (98-107)
[2018-05-07 06:36] LABS: ALANINE AMINOTRANSFERASE 37 U/L (12-78); ALKALINE PHOSPHATASE 78 U/L (45-117); BILIRUBIN,TOTAL 0.3 mg/dL (0.2-1.0); CREATININE 0.54 mg/dL (0.55-1.02); TOTAL PROTEIN 6.4 g/dL (6.4-8.2)
[2018-05-07] MEDS: OMEPRAZOLE 20 MG CAPSULE.DR PO SCH (06:45)
[2018-05-07] MEDS: NYSTATIN 500,000 UNITS/5 ML UDC PO SCH ×3 (06:45→18:34)
[2018-05-07 06:55] LABS: MD YES
[2018-05-07 06:58] LABS: ANISOCYTOSIS 1+; BAND#(MANUAL) 0.44 x10^3/uL; BANDS%(MANUAL) 1 % (0-7); BLASTS # (MANUAL) 25.02 x10^3/uL (0-0); LYMPH#(MANUAL) 5.27 x10^3/uL (1-3.4); LYMPHS% (MANUAL) 12 % (22-44); MONOS#(MANUAL) 5.27 x10^3/uL (0.3-2.7); MONOS% (MANUAL) 12 % (2-9); OVALOCYTES 1+; SEGS% (MANUAL) 18 % (42-75)
[2018-05-07 06:59] LABS: <PLATELET ESTIMATE> DECREASED; LARGE PLATELETS 1+; SMUDGE CELLS 1+
[2018-05-07 07:02] LABS: BLASTS % (MANUAL) 57 % (0-0)
[2018-05-07 07:54] VITALS: BP 99/64
[2018-05-07] MEDS: SENNA/DOCUSATE TABLET PO SCH (09:00)
[2018-05-07] MEDS: ALLOPURINOL 300 MG TABLET PO SCH (10:21)
[2018-05-07 14:11] VITALS: BP 96/60
[2018-05-07] MEDS: ONDANSETRON 16 MG, DEXAMETHASONE 10 MG in SODIUM CHLORIDE 0.9% 50 ML IVPB SCH (20:42)
[2018-05-07 20:52] VITALS: BP 111/71
[2018-05-07] MEDS: IDARUBICIN IV SCH (21:34)
[2018-05-07] MEDS: SODIUM CHLORIDE 0.9% IV SCH (21:35)
[2018-05-07] MEDS: CYTARABINE IV SCH (21:35)
[2018-05-07] MEDS: ZOLPIDEM 5MG TABLET PO PRN (22:07)
[2018-05-08] MEDS: SODIUM CHLORIDE 0.9% 1,000 ML IV SCH ×3 (00:30→20:44)
[2018-05-08] MEDS: NYSTATIN 500,000 UNITS/5 ML UDC PO SCH ×4 (02:17→20:36)
[2018-05-08 02:20] VITALS: BP 106/70
[2018-05-08 02:48] LABS: MEAN CORPUSCULAR VOLUME 90.8 fL (80-100); RED BLOOD COUNT 2.57 x10^6/uL (3.82-5.3); RED CELL DISTRIBUTION WIDTH 17.3 % (9.6-15.2)
[2018-05-08 02:57] LABS: ALANINE AMINOTRANSFERASE 32 U/L (12-78); ALBUMIN 2.9 g/dL (3.4-5.0); ANION GAP 7 mmol/L (5-15); CALCIUM 8.3 mg/dL (8.5-10.1); CHLORIDE 113 mmol/L (98-107); CREATININE 0.68 mg/dL (0.55-1.02)
[2018-05-08 02:59] LABS: ALKALINE PHOSPHATASE 69 U/L (45-117); BILIRUBIN,TOTAL 0.2 mg/dL (0.2-1.0); MEAN PLATELET VOLUME 11.6 fL (7.4-10.4); PLATELET COUNT 21 x10^3/uL (130-400); TOTAL PROTEIN 6.1 g/dL (6.4-8.2)
[2018-05-08 03:32] LABS: MD YES
[2018-05-08 03:35] LABS: EOS#(MANUAL) 0.34 x10^3/uL (0.0-0.4); EOS% (MANUAL) 1 % (1-7); LYMPH#(MANUAL) 4.04 x10^3/uL (1-3.4); LYMPHS% (MANUAL) 12 % (22-44); MONOS#(MANUAL) 1.69 x10^3/uL (0.3-2.7); MONOS% (MANUAL) 5 % (2-9); SEG#(MANUAL) 9.44 x10^3/uL (1.8-6.8); SEGS% (MANUAL) 28 % (42-75)
[2018-05-08 03:36] LABS: <PLATELET ESTIMATE> DECREASED; ANISOCYTOSIS 1+; BLASTS % (MANUAL) 54 % (0-0); OVALOCYTES 1+; SMUDGE CELLS 1+
[2018-05-08 03:37] LABS: LARGE PLATELETS 1+
[2018-05-08] MEDS: OMEPRAZOLE 20 MG CAPSULE.DR PO SCH (06:25)
[2018-05-08 07:10] VITALS: BP 97/58
[2018-05-08] MEDS: SENNA/DOCUSATE TABLET PO SCH (09:00)
[2018-05-08] MEDS: ALLOPURINOL 300 MG TABLET PO SCH (09:45)
[2018-05-08] MEDS ORDERED: HYDROCORTISONE 100 MG INJ. IVPush PRN (12:30)
[2018-05-08 14:49] VITALS: BP 96/64
[2018-05-08 18:48] LABS: MD YES; MEAN CORPUSCULAR HEMOGLOBIN 30.7 pg (27.0-34.8); MEAN CORPUSCULAR HGB CONC 33.9 g/dL (32.4-35.8); MEAN CORPUSCULAR VOLUME 90.6 fL (80-100); MEAN PLATELET VOLUME 11.5 fL (7.4-10.4); RED BLOOD COUNT 2.48 x10^6/uL (3.82-5.3); RED CELL DISTRIBUTION WIDTH 17.4 % (9.6-15.2)
[2018-05-08 18:52] LABS: LYMPH#(MANUAL) 2.64 x10^3/uL (1-3.4); LYMPHS% (MANUAL) 10 % (22-44)
[2018-05-08 18:55] LABS: SEGS% (MANUAL) 25 % (42-75)
[2018-05-08 18:56] LABS: BLASTS # (MANUAL) 14.78 x10^3/uL (0-0); MONOS#(MANUAL) 2.38 x10^3/uL (0.3-2.7); MONOS% (MANUAL) 9 % (2-9)
[2018-05-08 18:58] LABS: BLASTS % (MANUAL) 56 % (0-0); PLATELET COUNT 20 x10^3/uL (130-400)
[2018-05-08 18:59] LABS: ANISOCYTOSIS 1+; OVALOCYTES 1+; SMUDGE CELLS 1+
[2018-05-08 19:00] LABS: <PLATELET ESTIMATE> DECREASED; LARGE PLATELETS 1+
[2018-05-08 20:12] VITALS: BP 93/56
[2018-05-08] MEDS ORDERED: DIPHENHYDRAMINE 50 MG/ML, 1ML IVPush ONE (20:30)
[2018-05-08] MEDS ORDERED: ACETAMINOPHEN 325 MG TABLET PO ONE (20:30)
[2018-05-08] MEDS ORDERED: methylPREDNISolone SOD SUCC 125 MG/2 ML IVPush ONE (21:00)
[2018-05-08] MEDS ORDERED: ONDANSETRON 16 MG, DEXAMETHASONE 10 MG in SODIUM CHLORIDE 0.9% 50 ML IVPB ONE ×2 (21:00→23:30)
[2018-05-08] MEDS ORDERED: FILTER 0.22 MICRON IV ONE (21:30)
[2018-05-08] MEDS ORDERED: SODIUM CHLORIDE 0.9% IVPB ONE (21:30)
[2018-05-08] MEDS ORDERED: IDARUBICIN IV ONE (21:30)
[2018-05-08] MEDS ORDERED: ACETAMINOPHEN 325 MG TABLET PO PRN (21:30)
[2018-05-08] MEDS ORDERED: DIPHENHYDRAMINE 50 MG/ML, 1ML IVPush PRN (21:30)
[2018-05-08] MEDS ORDERED: [UNRECOGNIZED DRUG - OTHER] IVPB ONE (21:30)
[2018-05-09] MEDS ORDERED: IDARUBICIN IV ONE
[2018-05-09] MEDS ORDERED: ACETAMINOPHEN 325 MG TABLET PO PRN (00:30)
[2018-05-09] MEDS: CYTARABINE IV SCH (01:12)
[2018-05-09] MEDS: SODIUM CHLORIDE 0.9% IV SCH (01:12)
[2018-05-09] MEDS: NYSTATIN 500,000 UNITS/5 ML UDC PO SCH ×4 (01:30→20:48)
[2018-05-09 01:37] VITALS: BP 102/59
[2018-05-09] MEDS: OMEPRAZOLE 20 MG CAPSULE.DR PO SCH (06:08)
[2018-05-09] MEDS: SODIUM CHLORIDE 0.9% 1,000 ML IV SCH ×2 (06:08→18:34)
[2018-05-09 06:41] LABS: ALANINE AMINOTRANSFERASE 27 U/L (12-78); ALBUMIN 2.8 g/dL (3.4-5.0); ANION GAP 7 mmol/L (5-15); CALCIUM 8.5 mg/dL (8.5-10.1); CHLORIDE 111 mmol/L (98-107); CREATININE 0.53 mg/dL (0.55-1.02)
[2018-05-09 06:44] LABS: ALKALINE PHOSPHATASE 61 U/L (45-117); BILIRUBIN,TOTAL 0.3 mg/dL (0.2-1.0)
[2018-05-09 07:07] LABS: MEAN CORPUSCULAR HEMOGLOBIN 30.1 pg (27.0-34.8); MEAN CORPUSCULAR HGB CONC 33.2 g/dL (32.4-35.8); MEAN CORPUSCULAR VOLUME 90.8 fL (80-100); RED BLOOD COUNT 2.55 x10^6/uL (3.82-5.3); RED CELL DISTRIBUTION WIDTH 17.5 % (9.6-15.2)
[2018-05-09 07:09] LABS: MD YES; PLATELET COUNT 21 x10^3/uL (130-400)
[2018-05-09 07:15] VITALS: BP 96/62
[2018-05-09 07:17] LABS: LYMPH#(MANUAL) 2.12 x10^3/uL (1-3.4); LYMPHS% (MANUAL) 18 % (22-44); MONOS#(MANUAL) 0.94 x10^3/uL (0.3-2.7); MONOS% (MANUAL) 8 % (2-9)
[2018-05-09 07:19] LABS: BLASTS % (MANUAL) 53 % (0-0)
[2018-05-09 07:20] LABS: BLASTS # (MANUAL) 6.25 x10^3/uL (0-0); SEG#(MANUAL) 2.48 x10^3/uL (1.8-6.8); SEGS% (MANUAL) 21 % (42-75)
[2018-05-09 07:21] LABS: ANISOCYTOSIS 1+; OVALOCYTES 1+
[2018-05-09 07:23] LABS: <PLATELET ESTIMATE> DECREASED; <PLT MORPHOLOGY> NORMAL PLT MORPH
[2018-05-09] MEDS: SENNA/DOCUSATE TABLET PO SCH (08:06)
[2018-05-09] MEDS: ALLOPURINOL 300 MG TABLET PO SCH (08:46)
[2018-05-09 13:17] VITALS: BP 100/63
[2018-05-09 20:40] VITALS: BP 102/65
[2018-05-09] MEDS: ZOLPIDEM 5MG TABLET PO PRN (20:48)
[2018-05-09] MEDS: PROCHLORPERAZINE 5 MG/ML, 2ML IVPush PRN (20:48)
[2018-05-10 00:32] VITALS: BP 106/62
[2018-05-10] MEDS: SODIUM CHLORIDE 0.9% IV SCH (00:36)
[2018-05-10] MEDS: CYTARABINE IV SCH (00:36)
[2018-05-10] MEDS: NYSTATIN 500,000 UNITS/5 ML UDC PO SCH ×4 (02:04→20:30)
[2018-05-10] MEDS: SODIUM CHLORIDE 0.9% 1,000 ML IV SCH ×2 (03:07→12:56)
[2018-05-10] MEDS: OMEPRAZOLE 20 MG CAPSULE.DR PO SCH (05:33)
[2018-05-10 06:02] LABS: CHLORIDE 110 mmol/L (98-107)
[2018-05-10 06:11] LABS: ALANINE AMINOTRANSFERASE 24 U/L (12-78); ALBUMIN 2.8 g/dL (3.4-5.0); ALKALINE PHOSPHATASE 57 U/L (45-117); ANION GAP 7 mmol/L (5-15); BILIRUBIN,TOTAL 0.4 mg/dL (0.2-1.0); CALCIUM 8.2 mg/dL (8.5-10.1); CREATININE 0.41 mg/dL (0.55-1.02); TOTAL PROTEIN 5.8 g/dL (6.4-8.2)
[2018-05-10 06:19] LABS: MEAN CORPUSCULAR HEMOGLOBIN 30.5 pg (27.0-34.8); MEAN CORPUSCULAR HGB CONC 33.9 g/dL (32.4-35.8); MEAN CORPUSCULAR VOLUME 90.1 fL (80-100); RED BLOOD COUNT 2.64 x10^6/uL (3.82-5.3); RED CELL DISTRIBUTION WIDTH 17.3 % (9.6-15.2)
[2018-05-10 06:40] LABS: MD YES
[2018-05-10 06:43] LABS: MEAN PLATELET VOLUME 11.5 fL (7.4-10.4); PLATELET COUNT 18 x10^3/uL (130-400)
[2018-05-10 06:48] LABS: BAND#(MANUAL) 0.03 x10^3/uL; BANDS%(MANUAL) 1 % (0-7); BLASTS # (MANUAL) 0.84 x10^3/uL (0-0); LYMPHS% (MANUAL) 40 % (22-44); MONOS#(MANUAL) 0.33 x10^3/uL (0.3-2.7); MONOS% (MANUAL) 11 % (2-9); SEGS% (MANUAL) 20 % (42-75)
[2018-05-10 06:49] LABS: <PLATELET ESTIMATE> DECREASED; <PLT MORPHOLOGY> NORMAL PLT MORPH; ANISOCYTOSIS 1+; OVALOCYTES 1+
[2018-05-10 06:52] LABS: BLASTS % (MANUAL) 28 % (0-0)
[2018-05-10] MEDS: PROCHLORPERAZINE 5 MG/ML, 2ML IVPush PRN ×3 (09:33→22:12)
[2018-05-10] MEDS: ALLOPURINOL 300 MG TABLET PO SCH (09:34)
[2018-05-10] MEDS: SENNA/DOCUSATE TABLET PO SCH (09:35)
[2018-05-10 09:59] VITALS: BP 108/72
[2018-05-10] MEDS: ONDANSETRON 2MG/ML, 2ML IVPush PRN ×2 (12:55→18:49)
[2018-05-10 15:55] VITALS: BP 87/70
[2018-05-10 16:20] VITALS: BP 100/50
[2018-05-10] MEDS: LEVOFLOXACIN 500 MG TABLET PO SCH (18:47)
[2018-05-10] MEDS: ACYCLOVIR 200 MG CAPSULE PO SCH (20:30)
[2018-05-10] MEDS: ZOLPIDEM 5MG TABLET PO PRN (20:35)
[2018-05-10 21:15] VITALS: BP_SYST 94; BP_SYST 96; BP_DIAS 62
[2018-05-11] MEDS: CYTARABINE IV SCH (00:27)
[2018-05-11] MEDS: SODIUM CHLORIDE 0.9% IV SCH (00:27)
[2018-05-11] MEDS: SODIUM CHLORIDE 0.9% 1,000 ML IV SCH ×3 (00:30→20:21)
[2018-05-11 02:00] VITALS: BP 95/62
[2018-05-11] MEDS: NYSTATIN 500,000 UNITS/5 ML UDC PO SCH ×3 (02:06→13:35)
[2018-05-11] MEDS: OMEPRAZOLE 20 MG CAPSULE.DR PO SCH (05:31)
[2018-05-11] MEDS: ONDANSETRON 2MG/ML, 2ML IVPush PRN ×3 (05:35→20:18)
[2018-05-11 06:06] LABS: ALANINE AMINOTRANSFERASE 21 U/L (12-78); ALBUMIN 2.8 g/dL (3.4-5.0); ANION GAP 7 mmol/L (5-15); CALCIUM 8.4 mg/dL (8.5-10.1); CHLORIDE 107 mmol/L (98-107); CREATININE 0.49 mg/dL (0.55-1.02)
[2018-05-11 06:08] LABS: ALKALINE PHOSPHATASE 52 U/L (45-117); BILIRUBIN,TOTAL 0.4 mg/dL (0.2-1.0); TOTAL PROTEIN 5.8 g/dL (6.4-8.2)
[2018-05-11 06:35] LABS: MEAN CORPUSCULAR HEMOGLOBIN 31.1 pg (27.0-34.8); MEAN CORPUSCULAR HGB CONC 34.9 g/dL (32.4-35.8); MEAN CORPUSCULAR VOLUME 89.2 fL (80-100); RED BLOOD COUNT 2.53 x10^6/uL (3.82-5.3); RED CELL DISTRIBUTION WIDTH 16.9 % (9.6-15.2)
[2018-05-11 06:38] LABS: MEAN PLATELET VOLUME 11.3 fL (7.4-10.4)
[2018-05-11 06:39] LABS: PLATELET COUNT 13 x10^3/uL (130-400)
[2018-05-11 07:59] VITALS: BP 95/61
[2018-05-11 08:01] LABS: MD YES
[2018-05-11 08:12] LABS: BAND#(MANUAL) 0.01 x10^3/uL; BANDS%(MANUAL) 1 % (0-7); LYMPHS% (MANUAL) 44 % (22-44); MONOS#(MANUAL) 0.05 x10^3/uL (0.3-2.7); MONOS% (MANUAL) 6 % (2-9); REACTIVE LYMPHS # (MANUAL) 0.02 x10^3/uL (0-0); REACTIVE LYMPHS % (MANUAL) 2 % (0-0)
[2018-05-11 08:14] LABS: BLASTS # (MANUAL) 0.19 x10^3/uL (0-0); BLASTS % (MANUAL) 21 % (0-0)
[2018-05-11 08:15] LABS: SEG#(MANUAL) 0.23 x10^3/uL (1.8-6.8); SEGS% (MANUAL) 26 % (42-75)
[2018-05-11 08:16] LABS: <PLATELET ESTIMATE> DECREASED; ANISOCYTOSIS 1+; OVALOCYTES 1+
[2018-05-11 08:17] LABS: LARGE PLATELETS 1+
[2018-05-11] MEDS: ALLOPURINOL 300 MG TABLET PO SCH (09:37)
[2018-05-11] MEDS: SENNA/DOCUSATE TABLET PO SCH (09:37)
[2018-05-11] MEDS: ACYCLOVIR 200 MG CAPSULE PO SCH ×2 (09:37→21:52)
[2018-05-11] MEDS: PROCHLORPERAZINE 5 MG/ML, 2ML IVPush PRN ×2 (09:37→18:09)
[2018-05-11 13:24] VITALS: BP 100/69
[2018-05-11] MEDS: LEVOFLOXACIN 500 MG TABLET PO SCH (17:57)
[2018-05-11] MEDS: POSACONAZOLE 200 MG/5 ML ORAL SUSP PO SCH (17:58)
[2018-05-11 19:51] VITALS: BP 94/60
[2018-05-12] MEDS: PROCHLORPERAZINE 5 MG/ML, 2ML IVPush PRN ×2 (00:16→16:09)
[2018-05-12] MEDS: SODIUM CHLORIDE 0.9% IV SCH (02:12)
[2018-05-12] MEDS: CYTARABINE IV SCH (02:12)
[2018-05-12] MEDS: ONDANSETRON 2MG/ML, 2ML IVPush PRN ×2 (02:26→20:08)
[2018-05-12 02:33] VITALS: BP 98/65
[2018-05-12] MEDS: SODIUM CHLORIDE 0.9% 1,000 ML IV SCH ×2 (05:55→16:09)
[2018-05-12 06:05] LABS: MEAN CORPUSCULAR HEMOGLOBIN 30.5 pg (27.0-34.8); MEAN CORPUSCULAR HGB CONC 34.3 g/dL (32.4-35.8); MEAN CORPUSCULAR VOLUME 88.8 fL (80-100); RED BLOOD COUNT 2.39 x10^6/uL (3.82-5.3); RED CELL DISTRIBUTION WIDTH 16.4 % (9.6-15.2)
[2018-05-12 06:09] LABS: ALBUMIN 2.7 g/dL (3.4-5.0); ANION GAP 5 mmol/L (5-15); CALCIUM 8.3 mg/dL (8.5-10.1); CHLORIDE 107 mmol/L (98-107)
[2018-05-12 06:14] LABS: ALANINE AMINOTRANSFERASE 19 U/L (12-78); ALKALINE PHOSPHATASE 56 U/L (45-117); BILIRUBIN,TOTAL 0.4 mg/dL (0.2-1.0); CREATININE 0.47 mg/dL (0.55-1.02); TOTAL PROTEIN 5.9 g/dL (6.4-8.2)
[2018-05-12 06:35] LABS: PLATELET COUNT 11 x10^3/uL (130-400)
[2018-05-12 06:53] LABS: MD YES
[2018-05-12 07:01] LABS: BLASTS # (MANUAL) 0.08 x10^3/uL (0-0); LYMPH#(MANUAL) 0.43 x10^3/uL (1-3.4); LYMPHS% (MANUAL) 61 % (22-44); MONOS#(MANUAL) 0.01 x10^3/uL (0.3-2.7); MONOS% (MANUAL) 1 % (2-9); SEG#(MANUAL) 0.19 x10^3/uL (1.8-6.8); SEGS% (MANUAL) 27 % (42-75)
[2018-05-12 07:03] LABS: <PLATELET ESTIMATE> DECREASED; ANISOCYTOSIS 1+; BLASTS % (MANUAL) 11 % (0-0)
[2018-05-12 07:17] VITALS: BP 95/63
[2018-05-12 07:18] LABS: LARGE PLATELETS 1+
[2018-05-12 07:21] LABS: OVALOCYTES 1+
[2018-05-12] MEDS ORDERED: POSACONAZOLE 200 MG/5 ML ORAL SUSP PO SCH (09:00)
[2018-05-12] MEDS: SENNA/DOCUSATE TABLET PO SCH (09:00)
[2018-05-12] MEDS: ACYCLOVIR 200 MG CAPSULE PO SCH ×2 (09:22→21:05)
[2018-05-12] MEDS: POSACONAZOLE 200 MG/5 ML ORAL SUSP PO SCH ×3 (09:22→17:30)
[2018-05-12] MEDS: ALLOPURINOL 300 MG TABLET PO SCH (09:23)
[2018-05-12 12:36] VITALS: BP 102/68
[2018-05-12] MEDS: ONDANSETRON 8 MG TABLET PO PRN (13:52)
[2018-05-12] MEDS: LEVOFLOXACIN 500 MG TABLET PO SCH (17:30)
[2018-05-12 20:22] VITALS: BP 93/57
[2018-05-12] MEDS: ZOLPIDEM 5MG TABLET PO PRN (21:20)
[2018-05-13] VITALS (7 sets, daily range): BP systolic 80–99; BP diastolic 53–66
[2018-05-13] MEDS: PROCHLORPERAZINE 5 MG/ML, 2ML IVPush PRN ×2 (01:03→10:06)
[2018-05-13] MEDS: SODIUM CHLORIDE 0.9% 1,000 ML IV SCH ×3 (01:13→21:17)
[2018-05-13] MEDS ORDERED: SODIUM CHLORIDE 0.9% IV ONE (02:00)
[2018-05-13] MEDS ORDERED: CYTARABINE IV ONE (02:00)
[2018-05-13] MEDS: ONDANSETRON 2MG/ML, 2ML IVPush PRN ×3 (06:27→21:17)
[2018-05-13 06:50] LABS: ALANINE AMINOTRANSFERASE 20 U/L (12-78); ALBUMIN 2.8 g/dL (3.4-5.0); ANION GAP 7 mmol/L (5-15); CALCIUM 8.5 mg/dL (8.5-10.1); CHLORIDE 108 mmol/L (98-107); CREATININE 0.58 mg/dL (0.55-1.02)
[2018-05-13 06:52] LABS: ALKALINE PHOSPHATASE 57 U/L (45-117); BILIRUBIN,TOTAL 0.4 mg/dL (0.2-1.0); TOTAL PROTEIN 5.9 g/dL (6.4-8.2)
[2018-05-13 07:13] LABS: MEAN CORPUSCULAR HEMOGLOBIN 30.2 pg (27.0-34.8); MEAN CORPUSCULAR HGB CONC 34.2 g/dL (32.4-35.8); MEAN CORPUSCULAR VOLUME 88.4 fL (80-100); MEAN PLATELET VOLUME 11.1 fL (7.4-10.4); RED BLOOD COUNT 2.34 x10^6/uL (3.82-5.3); RED CELL DISTRIBUTION WIDTH 16.2 % (9.6-15.2)
[2018-05-13 07:14] LABS: MD YES; PLATELET COUNT 7 x10^3/uL (130-400)
[2018-05-13 07:20] LABS: BASOS#(MANUAL) 0.01 x10^3/uL (0-0.1); BASOS% (MANUAL) 1 % (0-1); EOS#(MANUAL) 0.04 x10^3/uL (0.0-0.4); EOS% (MANUAL) 7 % (1-7); LYMPH#(MANUAL) 0.35 x10^3/uL (1-3.4); LYMPHS% (MANUAL) 58 % (22-44); MONOS#(MANUAL) 0.01 x10^3/uL (0.3-2.7); MONOS% (MANUAL) 1 % (2-9); SEGS% (MANUAL) 33 % (42-75)
[2018-05-13 07:22] LABS: <PLATELET ESTIMATE> DECREASED; ANISOCYTOSIS 1+; OVALOCYTES 1+
[2018-05-13 07:23] LABS: <PLT MORPHOLOGY> NORMAL PLT MORPH
[2018-05-13] MEDS: ALLOPURINOL 300 MG TABLET PO SCH (09:55)
[2018-05-13] MEDS: SENNA/DOCUSATE TABLET PO SCH (09:55)
[2018-05-13] MEDS: POSACONAZOLE 200 MG/5 ML ORAL SUSP PO SCH ×3 (09:56→18:51)
[2018-05-13] MEDS: ACYCLOVIR 200 MG CAPSULE PO SCH ×2 (09:56→21:17)
[2018-05-13] MEDS: LEVOFLOXACIN 500 MG TABLET PO SCH (19:07)
[2018-05-13] MEDS: ZOLPIDEM 5MG TABLET PO PRN (21:17)
[2018-05-14] VITALS (7 sets, daily range): BP systolic 94–110; BP diastolic 58–72
[2018-05-14] MEDS: PROCHLORPERAZINE 5 MG/ML, 2ML IVPush PRN ×3 (01:42→20:12)
[2018-05-14] MEDS: ONDANSETRON 2MG/ML, 2ML IVPush PRN ×2 (06:16→15:57)
[2018-05-14] MEDS: SODIUM CHLORIDE 0.9% 1,000 ML IV SCH ×2 (06:27→20:12)
[2018-05-14 06:47] LABS: MEAN CORPUSCULAR HEMOGLOBIN 30.9 pg (27.0-34.8); MEAN CORPUSCULAR HGB CONC 35.1 g/dL (32.4-35.8); MEAN CORPUSCULAR VOLUME 88.2 fL (80-100); MEAN PLATELET VOLUME 9.1 fL (7.4-10.4); RED BLOOD COUNT 2.21 x10^6/uL (3.82-5.3); RED CELL DISTRIBUTION WIDTH 16.3 % (9.6-15.2)
[2018-05-14 06:48] LABS: PLATELET COUNT 36 x10^3/uL (130-400)
[2018-05-14 06:58] LABS: ALBUMIN 2.8 g/dL (3.4-5.0); ANION GAP 5 mmol/L (5-15); CALCIUM 8.4 mg/dL (8.5-10.1); CHLORIDE 109 mmol/L (98-107)
[2018-05-14 07:01] LABS: ALANINE AMINOTRANSFERASE 20 U/L (12-78); ALKALINE PHOSPHATASE 58 U/L (45-117); BILIRUBIN,TOTAL 0.4 mg/dL (0.2-1.0); CREATININE 0.59 mg/dL (0.55-1.02); TOTAL PROTEIN 5.9 g/dL (6.4-8.2)
[2018-05-14 07:08] LABS: MD YES
[2018-05-14 07:23] LABS: BAND#(MANUAL) 0.01 x10^3/uL; BANDS%(MANUAL) 2 % (0-7); BASOS#(MANUAL) 0.05 x10^3/uL (0-0.1); BASOS% (MANUAL) 7 % (0-1); EOS#(MANUAL) 0.01 x10^3/uL (0.0-0.4); EOS% (MANUAL) 1 % (1-7); LYMPH#(MANUAL) 0.38 x10^3/uL (1-3.4); LYMPHS% (MANUAL) 54 % (22-44); METAMYELOCYTES# (MANUAL) 0.01 x10^3/uL (0-0); METAMYELOCYTES% (MANUAL) 1 % (0-1); SEG#(MANUAL) 0.23 x10^3/uL (1.8-6.8); SEGS% (MANUAL) 33 % (42-75)
[2018-05-14 07:26] LABS: BLASTS # (MANUAL) 0.01 x10^3/uL (0-0); BLASTS % (MANUAL) 2 % (0-0)
[2018-05-14 07:27] LABS: ANISOCYTOSIS 1+; OVALOCYTES 1+
[2018-05-14 07:31] LABS: <PLATELET ESTIMATE> DECREASED; <PLT MORPHOLOGY> NORMAL PLT MORPH
[2018-05-14] MEDS: ALLOPURINOL 300 MG TABLET PO SCH (08:56)
[2018-05-14] MEDS: POSACONAZOLE 200 MG/5 ML ORAL SUSP PO SCH ×3 (08:56→17:46)
[2018-05-14] MEDS: SENNA/DOCUSATE TABLET PO SCH (08:57)
[2018-05-14] MEDS: ACYCLOVIR 200 MG CAPSULE PO SCH ×2 (09:02→20:12)
[2018-05-14] MEDS ORDERED: ACETAMINOPHEN 325 MG TABLET PO ONE (10:00)
[2018-05-14] MEDS ORDERED: DIPHENHYDRAMINE 25 MG CAPSULE PO ONE (10:00)
[2018-05-14] MEDS: LEVOFLOXACIN 500 MG TABLET PO SCH (17:49)
[2018-05-14] MEDS: ZOLPIDEM 5MG TABLET PO PRN (20:12)
[2018-05-15] MEDS: ONDANSETRON 2MG/ML, 2ML IVPush PRN ×2 (01:09→20:20)
[2018-05-15 01:15] VITALS: BP 93/56
[2018-05-15] MEDS: SODIUM CHLORIDE 0.9% 1,000 ML IV SCH ×2 (05:21→16:37)
[2018-05-15] MEDS: PROCHLORPERAZINE 5 MG/ML, 2ML IVPush PRN ×2 (05:37→16:37)
[2018-05-15 06:13] LABS: ALANINE AMINOTRANSFERASE 17 U/L (12-78); ALBUMIN 2.5 g/dL (3.4-5.0); CHLORIDE 111 mmol/L (98-107)
[2018-05-15 06:14] LABS: MEAN CORPUSCULAR HEMOGLOBIN 31.2 pg (27.0-34.8); MEAN CORPUSCULAR HGB CONC 35.6 g/dL (32.4-35.8); MEAN CORPUSCULAR VOLUME 87.7 fL (80-100); RED BLOOD COUNT 2.28 x10^6/uL (3.82-5.3)
[2018-05-15 06:20] LABS: ALKALINE PHOSPHATASE 51 U/L (45-117); ANION GAP 7 mmol/L (5-15); BILIRUBIN,TOTAL 0.3 mg/dL (0.2-1.0); CALCIUM 7.8 mg/dL (8.5-10.1); CREATININE 0.46 mg/dL (0.55-1.02); TOTAL PROTEIN 5.3 g/dL (6.4-8.2)
[2018-05-15 06:50] LABS: MD YES; MEAN PLATELET VOLUME 9.2 fL (7.4-10.4)
[2018-05-15 06:51] LABS: PLATELET COUNT 21 x10^3/uL (130-400)
[2018-05-15 07:12] LABS: EOS#(MANUAL) 0.05 x10^3/uL (0.0-0.4); EOS% (MANUAL) 7 % (1-7); LYMPH#(MANUAL) 0.36 x10^3/uL (1-3.4); LYMPHS% (MANUAL) 52 % (22-44); SEG#(MANUAL) 0.29 x10^3/uL (1.8-6.8); SEGS% (MANUAL) 41 % (42-75)
[2018-05-15 07:13] LABS: <PLATELET ESTIMATE> DECREASED; <PLT MORPHOLOGY> NORMAL PLT MORPH; ANISOCYTOSIS 1+; OVALOCYTES 1+
[2018-05-15 07:57] VITALS: BP 100/63
[2018-05-15] MEDS: ACYCLOVIR 200 MG CAPSULE PO SCH ×2 (09:02→20:21)
[2018-05-15] MEDS: POSACONAZOLE 200 MG/5 ML ORAL SUSP PO SCH ×3 (09:02→17:00)
[2018-05-15] MEDS: SENNA/DOCUSATE TABLET PO SCH ×2 (09:02→09:03)
[2018-05-15] MEDS: ALLOPURINOL 300 MG TABLET PO SCH (09:02)
[2018-05-15] MEDS: ONDANSETRON 8 MG TABLET PO PRN (11:26)
[2018-05-15 13:30] VITALS: BP 101/63
[2018-05-15] MEDS: LEVOFLOXACIN 500 MG TABLET PO SCH (17:23)
[2018-05-15 19:55] VITALS: BP 96/61
[2018-05-15] MEDS ORDERED: TEMAZEPAM 15 MG CAPSULE ONE (20:18)
[2018-05-15] MEDS: TEMAZEPAM 15 MG CAPSULE PO PRN (20:21)
[2018-05-16] MEDS: SODIUM CHLORIDE 0.9% 1,000 ML IV SCH ×2 (01:16→17:11)
[2018-05-16] MEDS: PROCHLORPERAZINE 5 MG/ML, 2ML IVPush PRN (01:16)
[2018-05-16 02:15] VITALS: BP 102/89
[2018-05-16] MEDS: ONDANSETRON 2MG/ML, 2ML IVPush PRN (05:41)
[2018-05-16 06:17] LABS: ALBUMIN 2.5 g/dL (3.4-5.0); ANION GAP 7 mmol/L (5-15); CALCIUM 8.5 mg/dL (8.5-10.1); CHLORIDE 108 mmol/L (98-107)
[2018-05-16 06:22] LABS: ALANINE AMINOTRANSFERASE 16 U/L (12-78); ALKALINE PHOSPHATASE 55 U/L (45-117); BILIRUBIN,TOTAL 0.3 mg/dL (0.2-1.0); CREATININE 0.46 mg/dL (0.55-1.02); TOTAL PROTEIN 5.7 g/dL (6.4-8.2)
[2018-05-16 06:49] LABS: MEAN CORPUSCULAR HEMOGLOBIN 30.6 pg (27.0-34.8); MEAN CORPUSCULAR HGB CONC 34.7 g/dL (32.4-35.8); MEAN CORPUSCULAR VOLUME 88.1 fL (80-100); MEAN PLATELET VOLUME 9.4 fL (7.4-10.4); RED BLOOD COUNT 2.39 x10^6/uL (3.82-5.3); RED CELL DISTRIBUTION WIDTH 15.1 % (9.6-15.2)
[2018-05-16 06:52] LABS: PLATELET COUNT 15 x10^3/uL (130-400)
[2018-05-16 06:54] LABS: MD YES
[2018-05-16 06:57] LABS: EOS#(MANUAL) 0.02 x10^3/uL (0.0-0.4); EOS% (MANUAL) 4 % (1-7); LYMPH#(MANUAL) 0.31 x10^3/uL (1-3.4); LYMPHS% (MANUAL) 52 % (22-44); SEG#(MANUAL) 0.26 x10^3/uL (1.8-6.8); SEGS% (MANUAL) 44 % (42-75)
[2018-05-16 06:58] LABS: <PLATELET ESTIMATE> DECREASED; <PLT MORPHOLOGY> NORMAL PLT MORPH; ANISOCYTOSIS 1+; ROULEAUX 1+
[2018-05-16 07:50] VITALS: BP 96/66
[2018-05-16] MEDS: POSACONAZOLE 200 MG/5 ML ORAL SUSP PO SCH ×3 (08:12→17:10)
[2018-05-16] MEDS: SENNA/DOCUSATE TABLET PO SCH (09:00)
[2018-05-16] MEDS: ACYCLOVIR 200 MG CAPSULE PO SCH ×2 (09:15→20:26)
[2018-05-16] MEDS: ALLOPURINOL 300 MG TABLET PO SCH (09:15)
[2018-05-16] MEDS ORDERED: CATHFLO-ALTEPLASE 2 MG/2 ML CATHFLUSH ONE ×2 (10:30)
[2018-05-16 14:00] VITALS: BP 105/67
[2018-05-16] MEDS: LEVOFLOXACIN 500 MG TABLET PO SCH (17:51)
[2018-05-16 18:50] VITALS: BP 100/68
[2018-05-16 19:11] LABS: OCCULT BLOOD POSITIVE (NEGATIVE)
[2018-05-16] MEDS: TEMAZEPAM 15 MG CAPSULE PO PRN (20:25)
[2018-05-16 20:52] LABS: CLOSTRIDIUM DIFFICILE ANTIGEN NEGATIVE; CLOSTRIDIUM DIFFICILE TOXIN NEGATIVE (Negative)
[2018-05-16 22:00] LABS: MEAN CORPUSCULAR HEMOGLOBIN 31.4 pg (27.0-34.8); MEAN CORPUSCULAR HGB CONC 35.6 g/dL (32.4-35.8); MEAN CORPUSCULAR VOLUME 88.1 fL (80-100); MEAN PLATELET VOLUME 8.8 fL (7.4-10.4); RED BLOOD COUNT 2.33 x10^6/uL (3.82-5.3); RED CELL DISTRIBUTION WIDTH 15.1 % (9.6-15.2)
[2018-05-16 22:01] LABS: PLATELET COUNT 13 x10^3/uL (130-400)
[2018-05-16 22:03] LABS: MD YES
[2018-05-16 22:29] LABS: ANISOCYTOSIS 1+; BASOS#(MANUAL) 0.01 x10^3/uL (0-0.1); BASOS% (MANUAL) 1 % (0-1); EOS#(MANUAL) 0.03 x10^3/uL (0.0-0.4); EOS% (MANUAL) 5 % (1-7); LYMPH#(MANUAL) 0.37 x10^3/uL (1-3.4); LYMPHS% (MANUAL) 61 % (22-44); OVALOCYTES 1+; SEGS% (MANUAL) 33 % (42-75); TEAR DROPS 1+
[2018-05-16 22:30] LABS: <PLATELET ESTIMATE> DECREASED; <PLT MORPHOLOGY> QNS FOR PLT MORPH
[2018-05-16] MEDS ORDERED: DIPHENHYDRAMINE 25 MG CAPSULE PO ONE (22:30)
[2018-05-16] MEDS ORDERED: ACETAMINOPHEN 325 MG TABLET PO ONE (22:30)
[2018-05-17] VITALS (7 sets, daily range): BP systolic 91–115; BP diastolic 53–74
[2018-05-17] MEDS: SODIUM CHLORIDE 0.9% 1,000 ML IV SCH ×3 (04:07→23:58)
[2018-05-17 06:19] LABS: MEAN CORPUSCULAR HEMOGLOBIN 30.6 pg (27.0-34.8); MEAN CORPUSCULAR VOLUME 87.5 fL (80-100); MEAN PLATELET VOLUME 7.4 fL (7.4-10.4); PLATELET COUNT 62 x10^3/uL (130-400); RED BLOOD COUNT 2.29 x10^6/uL (3.82-5.3); RED CELL DISTRIBUTION WIDTH 14.7 % (9.6-15.2)
[2018-05-17 06:24] LABS: ALANINE AMINOTRANSFERASE 17 U/L (12-78); ALBUMIN 2.6 g/dL (3.4-5.0); ANION GAP 8 mmol/L (5-15); CALCIUM 8.3 mg/dL (8.5-10.1); CHLORIDE 107 mmol/L (98-107); CREATININE 0.52 mg/dL (0.55-1.02)
[2018-05-17 06:26] LABS: ALKALINE PHOSPHATASE 60 U/L (45-117); BILIRUBIN,TOTAL 0.3 mg/dL (0.2-1.0); TOTAL PROTEIN 5.8 g/dL (6.4-8.2)
[2018-05-17 06:39] LABS: MD YES
[2018-05-17 06:49] LABS: ANISOCYTOSIS 1+; EOS#(MANUAL) 0.03 x10^3/uL (0.0-0.4); EOS% (MANUAL) 6 % (1-7); LYMPH#(MANUAL) 0.39 x10^3/uL (1-3.4); LYMPHS% (MANUAL) 78 % (22-44); OVALOCYTES 1+; SEG#(MANUAL) 0.08 x10^3/uL (1.8-6.8); SEGS% (MANUAL) 16 % (42-75)
[2018-05-17 06:50] LABS: <PLATELET ESTIMATE> DECREASED; <PLT MORPHOLOGY> NORMAL PLT MORPH
[2018-05-17] MEDS: POSACONAZOLE 200 MG/5 ML ORAL SUSP PO SCH ×3 (08:06→17:00)
[2018-05-17] MEDS: SENNA/DOCUSATE TABLET PO SCH (09:00)
[2018-05-17] MEDS: ALLOPURINOL 300 MG TABLET PO SCH (09:41)
[2018-05-17] MEDS: ACYCLOVIR 200 MG CAPSULE PO SCH ×2 (09:41→20:00)
[2018-05-17] MEDS: PROCHLORPERAZINE 5 MG/ML, 2ML IVPush PRN (13:26)
[2018-05-17] MEDS: LEVOFLOXACIN 500 MG TABLET PO SCH (17:43)
[2018-05-17] MEDS: TEMAZEPAM 15 MG CAPSULE PO PRN (20:00)
[2018-05-18] VITALS (7 sets, daily range): BP systolic 93–105; BP diastolic 61–68
[2018-05-18] MEDS: ONDANSETRON 2MG/ML, 2ML IVPush PRN ×3 (05:43→20:21)
[2018-05-18 06:07] LABS: MEAN CORPUSCULAR HEMOGLOBIN 30.9 pg (27.0-34.8); MEAN CORPUSCULAR HGB CONC 35.5 g/dL (32.4-35.8); MEAN CORPUSCULAR VOLUME 87.1 fL (80-100); RED BLOOD COUNT 2.33 x10^6/uL (3.82-5.3); RED CELL DISTRIBUTION WIDTH 14.9 % (9.6-15.2)
[2018-05-18 06:09] LABS: CHLORIDE 108 mmol/L (98-107)
[2018-05-18 06:43] LABS: ALANINE AMINOTRANSFERASE 20 U/L (12-78); ALBUMIN 2.8 g/dL (3.4-5.0); ALKALINE PHOSPHATASE 64 U/L (45-117); ANION GAP 5 mmol/L (5-15); BILIRUBIN,TOTAL 0.4 mg/dL (0.2-1.0); CALCIUM 8.5 mg/dL (8.5-10.1); CREATININE 0.56 mg/dL (0.55-1.02); TOTAL PROTEIN 6.1 g/dL (6.4-8.2)
[2018-05-18 06:59] LABS: MEAN PLATELET VOLUME 7.2 fL (7.4-10.4)
[2018-05-18 07:01] LABS: PLATELET COUNT 44 x10^3/uL (130-400)
[2018-05-18 07:06] LABS: MD YES
[2018-05-18 07:10] LABS: EOS#(MANUAL) 0.02 x10^3/uL (0.0-0.4); EOS% (MANUAL) 4 % (1-7)
[2018-05-18 07:11] LABS: <PLATELET ESTIMATE> DECREASED; <PLT MORPHOLOGY> NORMAL PLT MORPH; ANISOCYTOSIS 1+; LYMPH#(MANUAL) 0.34 x10^3/uL (1-3.4); LYMPHS% (MANUAL) 68 % (22-44); OVALOCYTES 1+; SEG#(MANUAL) 0.14 x10^3/uL (1.8-6.8); SEGS% (MANUAL) 28 % (42-75)
[2018-05-18] MEDS: POSACONAZOLE 200 MG/5 ML ORAL SUSP PO SCH ×3 (08:14→16:54)
[2018-05-18] MEDS: SENNA/DOCUSATE TABLET PO SCH (09:00)
[2018-05-18] MEDS: ACYCLOVIR 200 MG CAPSULE PO SCH ×2 (10:03→20:14)
[2018-05-18] MEDS: SODIUM CHLORIDE 0.9% 1,000 ML IV SCH ×2 (10:03→20:14)
[2018-05-18] MEDS: ALLOPURINOL 300 MG TABLET PO SCH (10:03)
[2018-05-18] MEDS ORDERED: DIPHENHYDRAMINE 25 MG CAPSULE PO ONE (12:30)
[2018-05-18] MEDS ORDERED: ACETAMINOPHEN 325 MG TABLET PO ONE (12:30)
[2018-05-18] MEDS: LEVOFLOXACIN 500 MG TABLET PO SCH (16:54)
[2018-05-18] MEDS: TEMAZEPAM 15 MG CAPSULE PO PRN (20:14)
[2018-05-19] VITALS (10 sets, daily range): BP systolic 87–173; BP diastolic 57–84
[2018-05-19] MEDS: ONDANSETRON 2MG/ML, 2ML IVPush PRN ×3 (01:59→17:57)
[2018-05-19] MEDS: SODIUM CHLORIDE 0.9% 1,000 ML IV SCH ×2 (05:42→16:04)
[2018-05-19 06:00] LABS: MEAN CORPUSCULAR HEMOGLOBIN 30.6 pg (27.0-34.8); MEAN CORPUSCULAR HGB CONC 35.7 g/dL (32.4-35.8); MEAN CORPUSCULAR VOLUME 85.8 fL (80-100); MEAN PLATELET VOLUME 6.6 fL (7.4-10.4); RED BLOOD COUNT 2.17 x10^6/uL (3.82-5.3); RED CELL DISTRIBUTION WIDTH 14.6 % (9.6-15.2)
[2018-05-19 06:08] LABS: ALBUMIN 2.6 g/dL (3.4-5.0); ANION GAP 5 mmol/L (5-15); CHLORIDE 106 mmol/L (98-107)
[2018-05-19 06:12] LABS: ALANINE AMINOTRANSFERASE 17 U/L (12-78); ALKALINE PHOSPHATASE 64 U/L (45-117); BILIRUBIN,TOTAL 0.4 mg/dL (0.2-1.0)
[2018-05-19 06:34] LABS: PLATELET COUNT 49 x10^3/uL (130-400)
[2018-05-19 06:47] LABS: MD YES
[2018-05-19 06:53] LABS: ANISOCYTOSIS 1+; LYMPH#(MANUAL) 0.33 x10^3/uL (1-3.4); LYMPHS% (MANUAL) 82 % (22-44); SEG#(MANUAL) 0.07 x10^3/uL (1.8-6.8); SEGS% (MANUAL) 18 % (42-75)
[2018-05-19 06:54] LABS: <PLATELET ESTIMATE> DECREASED; <PLT MORPHOLOGY> NORMAL PLT MORPH; OVALOCYTES 1+
[2018-05-19] MEDS ORDERED: DIPHENHYDRAMINE 25 MG CAPSULE PO ONE (07:00)
[2018-05-19] MEDS ORDERED: ACETAMINOPHEN 325 MG TABLET PO ONE (07:00)
[2018-05-19] MEDS: POSACONAZOLE 200 MG/5 ML ORAL SUSP PO SCH ×4 (08:00→17:00)
[2018-05-19] MEDS: SENNA/DOCUSATE TABLET PO SCH ×2 (09:00→09:53)
[2018-05-19] MEDS: ALLOPURINOL 300 MG TABLET PO SCH (09:53)
[2018-05-19] MEDS: ACYCLOVIR 200 MG CAPSULE PO SCH ×2 (09:53→21:00)
[2018-05-19] MEDS: ONDANSETRON 8 MG TABLET PO PRN (14:32)
[2018-05-19] MEDS ORDERED: MAGNESIUM SULFATE PMX 2GM/50ML 50 ML IV ONE (16:00)
[2018-05-19] MEDS: LEVOFLOXACIN 500 MG TABLET PO SCH (17:56)
[2018-05-19] MEDS ORDERED: PROCHLORPERAZINE 5 MG/ML, 2ML IVPush PRN (20:30)
[2018-05-19] MEDS: PROCHLORPERAZINE 5 MG/ML, 2ML IVPush PRN (21:13)
[2018-05-19] MEDS: ACETAMINOPHEN 325 MG TABLET PO PRN (21:14)
[2018-05-19] MEDS ORDERED: VANCOMYCIN 1,000 MG in SODIUM CHLORIDE 0.9% 100 ML IV SCH (21:30)
[2018-05-19] MEDS ORDERED: VANCOMYCIN PMX 1GM/200ML 200 ML IV ONE (22:00)
[2018-05-19] MEDS: MEROPENEM 2 GM in SODIUM CHLORIDE 0.9% 100 ML IV SCH (23:00)
[2018-05-20 02:05] VITALS: BP 127/71
[2018-05-20 02:08] LABS: MICROSCOPIC INDICATED
[2018-05-20 02:14] LABS: CULTURE INDICATED? NO
[2018-05-20] MEDS: SODIUM CHLORIDE 0.9% 1,000 ML IV SCH ×3 (06:13→21:54)
[2018-05-20 06:42] LABS: MEAN CORPUSCULAR HEMOGLOBIN 30.3 pg (27.0-34.8); MEAN CORPUSCULAR HGB CONC 35.7 g/dL (32.4-35.8); RED BLOOD COUNT 2.88 x10^6/uL (3.82-5.3); RED CELL DISTRIBUTION WIDTH 15.3 % (9.6-15.2)
[2018-05-20 06:50] LABS: ALANINE AMINOTRANSFERASE 15 U/L (12-78); ALBUMIN 2.4 g/dL (3.4-5.0); ANION GAP 8 mmol/L (5-15); CALCIUM 7.7 mg/dL (8.5-10.1); CHLORIDE 103 mmol/L (98-107)
[2018-05-20 06:52] LABS: ALKALINE PHOSPHATASE 60 U/L (45-117); BILIRUBIN,TOTAL 0.7 mg/dL (0.2-1.0); TOTAL PROTEIN 5.9 g/dL (6.4-8.2)
[2018-05-20 06:57] LABS: MD YES; MEAN PLATELET VOLUME 7.2 fL (7.4-10.4)
[2018-05-20 06:58] LABS: PLATELET COUNT 21 x10^3/uL (130-400)
[2018-05-20 07:22] LABS: EOS#(MANUAL) 0.01 x10^3/uL (0.0-0.4); EOS% (MANUAL) 4 % (1-7); LYMPH#(MANUAL) 0.18 x10^3/uL (1-3.4); LYMPHS% (MANUAL) 92 % (22-44); SEG#(MANUAL) 0.01 x10^3/uL (1.8-6.8); SEGS% (MANUAL) 4 % (42-75)
[2018-05-20 07:23] LABS: <PLATELET ESTIMATE> DECREASED; <PLT MORPHOLOGY> NORMAL PLT MORPH; ANISOCYTOSIS 1+; OVALOCYTES 1+
[2018-05-20] MEDS: MEROPENEM 2 GM in SODIUM CHLORIDE 0.9% 100 ML IV SCH ×3 (07:35→22:48)
[2018-05-20 07:37] VITALS: BP 100/64
[2018-05-20] MEDS: POSACONAZOLE 200 MG/5 ML ORAL SUSP PO SCH ×3 (08:00→17:00)
[2018-05-20] MEDS: SENNA/DOCUSATE TABLET PO SCH (08:03)
[2018-05-20] MEDS: ACYCLOVIR 200 MG CAPSULE PO SCH ×2 (08:03→20:14)
[2018-05-20] MEDS: ALLOPURINOL 300 MG TABLET PO SCH (08:04)
[2018-05-20] MEDS ORDERED: POTASSIUM CHLORIDE 20 MEQ TAB.ER.PRT PO ONE (08:30)
[2018-05-20] MEDS ORDERED: LIDOCAINE-MPF 1%, 5ML ONE (09:19)
[2018-05-20] MEDS ORDERED: MIDAZOLAM 1 MG/ML, 5ML ONE (09:43)
[2018-05-20] MEDS ORDERED: FLUMAZENIL 0.1 MG/1 ML, 5ML ONE (09:43)
[2018-05-20] MEDS ORDERED: FENTANYL PF 100 MCG/2ML ONE (09:43)
[2018-05-20] MEDS ORDERED: NALOXONE 1 MG/ML, 2ML ONE (09:43)
[2018-05-20 10:52] VITALS: BP 110/70
[2018-05-20] MEDS ORDERED: POTASSIUM CHLORIDE 40 MEQ in SODIUM CHLORIDE 0.9% 100 ML IV ONE (12:00)
[2018-05-20 13:03] VITALS: BP 96/63
[2018-05-20] MEDS: ACETAMINOPHEN 325 MG TABLET PO PRN ×2 (15:46→18:21)
[2018-05-20] MEDS: PROCHLORPERAZINE 5 MG/ML, 2ML IVPush PRN ×2 (15:46→22:48)
[2018-05-20 20:04] VITALS: BP 95/59
[2018-05-20] MEDS: ONDANSETRON 2MG/ML, 2ML IVPush PRN (20:14)
[2018-05-21] VITALS (7 sets, daily range): BP systolic 89–101; BP diastolic 52–66
[2018-05-21] MEDS: ONDANSETRON 2MG/ML, 2ML IVPush PRN ×3 (04:41→19:11)
[2018-05-21] MEDS: PROCHLORPERAZINE 5 MG/ML, 2ML IVPush PRN ×3 (06:09→21:46)
[2018-05-21 07:18] LABS: CHLORIDE 107 mmol/L (98-107)
[2018-05-21 07:25] LABS: ALANINE AMINOTRANSFERASE 12 U/L (12-78); ALBUMIN 2.2 g/dL (3.4-5.0); ALKALINE PHOSPHATASE 55 U/L (45-117); ANION GAP 6 mmol/L (5-15); BILIRUBIN,TOTAL 0.6 mg/dL (0.2-1.0); CREATININE 0.42 mg/dL (0.55-1.02); TOTAL PROTEIN 5.7 g/dL (6.4-8.2)
[2018-05-21 07:44] LABS: MEAN CORPUSCULAR HEMOGLOBIN 29.6 pg (27.0-34.8); MEAN CORPUSCULAR HGB CONC 34.6 g/dL (32.4-35.8); MEAN CORPUSCULAR VOLUME 85.4 fL (80-100); MEAN PLATELET VOLUME 8.8 fL (7.4-10.4); RED CELL DISTRIBUTION WIDTH 15.2 % (9.6-15.2)
[2018-05-21 07:47] LABS: PLATELET COUNT 9 x10^3/uL (130-400)
[2018-05-21] MEDS: POSACONAZOLE 200 MG/5 ML ORAL SUSP PO SCH ×4 (08:00→16:14)
[2018-05-21 08:12] LABS: MD YES
[2018-05-21 08:14] LABS: LYMPH#(MANUAL) 0.19 x10^3/uL (1-3.4); LYMPHS% (MANUAL) 96 % (22-44); SEG#(MANUAL) 0.01 x10^3/uL (1.8-6.8)
[2018-05-21 08:17] LABS: <PLATELET ESTIMATE> DECREASED; <PLT MORPHOLOGY> NORMAL PLT MORPH; ANISOCYTOSIS 1+; OVALOCYTES 1+
[2018-05-21 08:18] LABS: SEGS% (MANUAL) 4 % (42-75)
[2018-05-21] MEDS: MEROPENEM 2 GM in SODIUM CHLORIDE 0.9% 100 ML IV SCH ×3 (08:23→23:54)
[2018-05-21] MEDS: ALLOPURINOL 300 MG TABLET PO SCH (08:26)
[2018-05-21] MEDS: ACYCLOVIR 200 MG CAPSULE PO SCH ×2 (08:26→19:11)
[2018-05-21] MEDS ORDERED: POTASSIUM PHOSPHATE 44 MEQ in SODIUM CHLORIDE 0.9% 500 ML IV ONE (08:30)
[2018-05-21] MEDS: SENNA/DOCUSATE TABLET PO SCH (09:00)
[2018-05-21] MEDS: LACTATED RINGERS 1,000 ML IV SCH ×2 (14:45→21:47)
[2018-05-21] MEDS ORDERED: FAMOTIDINE 20 MG/2 ML ONE (21:43)
[2018-05-21] MEDS: FAMOTIDINE 20 MG/2 ML IVPush SCH (21:47)
[2018-05-22] VITALS (7 sets, daily range): BP systolic 87–102; BP diastolic 54–66
[2018-05-22] MEDS: ONDANSETRON 2MG/ML, 2ML IVPush PRN ×4 (01:23→22:59)
[2018-05-22] MEDS: PROCHLORPERAZINE 5 MG/ML, 2ML IVPush PRN ×3 (05:24→19:04)
[2018-05-22 06:26] LABS: CHLORIDE 105 mmol/L (98-107)
[2018-05-22 06:32] LABS: ALANINE AMINOTRANSFERASE 10 U/L (12-78); ALBUMIN 2.1 g/dL (3.4-5.0); ALKALINE PHOSPHATASE 54 U/L (45-117); ANION GAP 6 mmol/L (5-15); BILIRUBIN,TOTAL 0.5 mg/dL (0.2-1.0); CALCIUM 7.9 mg/dL (8.5-10.1); CREATININE 0.38 mg/dL (0.55-1.02); TOTAL PROTEIN 5.5 g/dL (6.4-8.2)
[2018-05-22 07:16] LABS: MEAN CORPUSCULAR HEMOGLOBIN 29.9 pg (27.0-34.8); MEAN CORPUSCULAR HGB CONC 34.9 g/dL (32.4-35.8); MEAN CORPUSCULAR VOLUME 85.6 fL (80-100); MEAN PLATELET VOLUME 8.4 fL (7.4-10.4); RED CELL DISTRIBUTION WIDTH 14.4 % (9.6-15.2)
[2018-05-22 07:18] LABS: PLATELET COUNT 24 x10^3/uL (130-400)
[2018-05-22 07:37] LABS: MD YES
[2018-05-22 07:40] LABS: LYMPH#(MANUAL) 0.29 x10^3/uL (1-3.4); LYMPHS% (MANUAL) 96 % (22-44); SEG#(MANUAL) 0.01 x10^3/uL (1.8-6.8)
[2018-05-22 07:41] LABS: <PLATELET ESTIMATE> DECREASED; <PLT MORPHOLOGY> NORMAL PLT MORPH; ANISOCYTOSIS 1+; OVALOCYTES 1+
[2018-05-22 07:42] LABS: SEGS% (MANUAL) 4 % (42-75)
[2018-05-22] MEDS ORDERED: POTASSIUM PHOSPHATE 44 MEQ in SODIUM CHLORIDE 0.9% 500 ML IV ONE (08:00)
[2018-05-22] MEDS: MEROPENEM 2 GM in SODIUM CHLORIDE 0.9% 100 ML IV SCH ×2 (08:49→18:00)
[2018-05-22] MEDS: NEUTRA PHOS K 250 MG TABLET PO SCH ×3 (08:49→20:22)
[2018-05-22] MEDS: ACYCLOVIR 200 MG CAPSULE PO SCH ×2 (08:49→20:21)
[2018-05-22] MEDS: ALLOPURINOL 300 MG TABLET PO SCH (08:49)
[2018-05-22] MEDS: SENNA/DOCUSATE TABLET PO SCH (08:50)
[2018-05-22] MEDS: FAMOTIDINE 20 MG/2 ML IVPush SCH (08:50)
[2018-05-22] MEDS: POSACONAZOLE 200 MG/5 ML ORAL SUSP PO SCH ×4 (08:50→16:21)
[2018-05-22] MEDS: LACTATED RINGERS 1,000 ML IV SCH ×2 (12:04→20:21)
[2018-05-22] MEDS ORDERED: OXYMETAZOLINE NASAL SPRAY 0.05%, 15ML NAS PRN (13:00)
[2018-05-22] MEDS: TEMAZEPAM 15 MG CAPSULE PO PRN (20:22)
[2018-05-23 02:00] VITALS: BP 101/65
[2018-05-23] MEDS: MEROPENEM 2 GM in SODIUM CHLORIDE 0.9% 100 ML IV SCH ×4 (02:00→19:56)
[2018-05-23] MEDS: PROCHLORPERAZINE 5 MG/ML, 2ML IVPush PRN ×3 (02:27→17:50)
[2018-05-23] MEDS: ONDANSETRON 2MG/ML, 2ML IVPush PRN ×3 (05:42→20:51)
[2018-05-23] MEDS: LACTATED RINGERS 1,000 ML IV SCH ×2 (05:42→17:50)
[2018-05-23 06:34] LABS: CHLORIDE 106 mmol/L (98-107)
[2018-05-23 06:37] LABS: MEAN CORPUSCULAR HEMOGLOBIN 30.8 pg (27.0-34.8); MEAN CORPUSCULAR HGB CONC 35.8 g/dL (32.4-35.8); MEAN CORPUSCULAR VOLUME 86.1 fL (80-100); RED BLOOD COUNT 2.34 x10^6/uL (3.82-5.3); RED CELL DISTRIBUTION WIDTH 14.3 % (9.6-15.2)
[2018-05-23 06:55] LABS: ALANINE AMINOTRANSFERASE 12 U/L (12-78); ALBUMIN 2.4 g/dL (3.4-5.0); ALKALINE PHOSPHATASE 56 U/L (45-117); ANION GAP 6 mmol/L (5-15); BILIRUBIN,TOTAL 0.4 mg/dL (0.2-1.0); CALCIUM 8.3 mg/dL (8.5-10.1); CREATININE 0.38 mg/dL (0.55-1.02); TOTAL PROTEIN 5.9 g/dL (6.4-8.2)
[2018-05-23 06:57] LABS: MD YES
[2018-05-23 07:05] LABS: LYMPHS% (MANUAL) 100 % (22-44)
[2018-05-23 07:22] LABS: SEGS% (MANUAL) 0 % (42-75)
[2018-05-23 07:23] LABS: <PLATELET ESTIMATE> DECREASED; <PLT MORPHOLOGY> NORMAL PLT MORPH; ANISOCYTOSIS 1+; OVALOCYTES 1+
[2018-05-23 07:25] LABS: MEAN PLATELET VOLUME 7.3 fL (7.4-10.4)
[2018-05-23 07:26] LABS: PLATELET COUNT 42 x10^3/uL (130-400)
[2018-05-23] MEDS ORDERED: POTASSIUM CHLORIDE 10% 40 MEQ/30 ML UDC PO ONE (07:30)
[2018-05-23] MEDS ORDERED: POTASSIUM PHOSPHATE 44 MEQ in SODIUM CHLORIDE 0.9% 500 ML IV ONE (07:30)
[2018-05-23] MEDS: SENNA/DOCUSATE TABLET PO SCH (09:00)
[2018-05-23] MEDS: ALLOPURINOL 300 MG TABLET PO SCH (09:24)
[2018-05-23] MEDS: POSACONAZOLE 200 MG/5 ML ORAL SUSP PO SCH ×3 (09:24→17:50)
[2018-05-23] MEDS: NEUTRA PHOS K 250 MG TABLET PO SCH ×3 (09:24→20:55)
[2018-05-23] MEDS: ACYCLOVIR 200 MG CAPSULE PO SCH ×2 (09:24→20:51)
[2018-05-23] MEDS: FAMOTIDINE 20 MG/2 ML IVPush SCH (09:24)
[2018-05-23 09:39] VITALS: BP 92/59
[2018-05-23 13:29] VITALS: BP 92/59
[2018-05-23 18:43] VITALS: BP 93/67
[2018-05-23] MEDS: MICAFUNGIN 100 MG in SODIUM CHLORIDE 0.9% 100 ML IV SCH (20:51)
[2018-05-23] MEDS: TEMAZEPAM 15 MG CAPSULE PO PRN (20:51)
[2018-05-24] MEDS: LACTATED RINGERS 1,000 ML IV SCH ×2 (00:33→09:37)
[2018-05-24 01:23] VITALS: BP 96/64
[2018-05-24] MEDS: MEROPENEM 2 GM in SODIUM CHLORIDE 0.9% 100 ML IV SCH ×3 (04:06→21:21)
[2018-05-24] MEDS: PROCHLORPERAZINE 5 MG/ML, 2ML IVPush PRN ×2 (04:11→19:04)
[2018-05-24 04:36] LABS: ALBUMIN 2.5 g/dL (3.4-5.0); ANION GAP 4 mmol/L (5-15); CALCIUM 8.7 mg/dL (8.5-10.1); CHLORIDE 105 mmol/L (98-107)
[2018-05-24 04:40] LABS: ALANINE AMINOTRANSFERASE 15 U/L (12-78); ALKALINE PHOSPHATASE 57 U/L (45-117); BILIRUBIN,TOTAL 0.7 mg/dL (0.2-1.0); CREATININE 0.37 mg/dL (0.55-1.02); TOTAL PROTEIN 6.1 g/dL (6.4-8.2)
[2018-05-24 04:52] LABS: MEAN CORPUSCULAR HEMOGLOBIN 29.1 pg (27.0-34.8); MEAN CORPUSCULAR HGB CONC 33.9 g/dL (32.4-35.8); MEAN CORPUSCULAR VOLUME 85.9 fL (80-100); MEAN PLATELET VOLUME 7.3 fL (7.4-10.4); RED BLOOD COUNT 2.44 x10^6/uL (3.82-5.3); RED CELL DISTRIBUTION WIDTH 14.6 % (9.6-15.2)
[2018-05-24 04:56] LABS: PLATELET COUNT 35 x10^3/uL (130-400)
[2018-05-24 05:44] LABS: MD YES
[2018-05-24 05:47] LABS: LYMPHS% (MANUAL) 100 % (22-44)
[2018-05-24 05:48] LABS: <PLATELET ESTIMATE> DECREASED; <PLT MORPHOLOGY> NORMAL PLT MORPH; ANISOCYTOSIS 1+; OVALOCYTES 1+
[2018-05-24 08:14] VITALS: BP 105/66
[2018-05-24] MEDS: SENNA/DOCUSATE TABLET PO SCH (09:00)
[2018-05-24] MEDS: ACYCLOVIR 200 MG CAPSULE PO SCH ×2 (09:35→21:21)
[2018-05-24] MEDS: ALLOPURINOL 300 MG TABLET PO SCH (09:35)
[2018-05-24] MEDS: FAMOTIDINE 20 MG/2 ML IVPush SCH (09:35)
[2018-05-24 13:16] VITALS: BP 90/56
[2018-05-24] MEDS: ONDANSETRON 2MG/ML, 2ML IVPush PRN (16:14)
[2018-05-24] MEDS ORDERED: MIDOSTAURIN 25 MG HOMEMEDPO SCH (19:30)
[2018-05-24] MEDS: MICAFUNGIN 100 MG in SODIUM CHLORIDE 0.9% 100 ML IV SCH (19:46)
[2018-05-24] MEDS: MIDOSTAURIN 25 MG HOMEMEDPO SCH (19:46)
[2018-05-24 20:15] VITALS: BP 112/69
[2018-05-24] MEDS: FAMOTIDINE 20 MG TABLET PO SCH (21:21)
[2018-05-24] MEDS: TEMAZEPAM 15 MG CAPSULE PO PRN (21:22)
[2018-05-25 03:09] VITALS: BP 90/57
[2018-05-25] MEDS: MEROPENEM 2 GM in SODIUM CHLORIDE 0.9% 100 ML IV SCH ×3 (05:39→21:34)
[2018-05-25 06:18] LABS: ALANINE AMINOTRANSFERASE 16 U/L (12-78); ALBUMIN 2.7 g/dL (3.4-5.0); ANION GAP 6 mmol/L (5-15); CHLORIDE 105 mmol/L (98-107); MEAN CORPUSCULAR HEMOGLOBIN 30.6 pg (27.0-34.8); MEAN CORPUSCULAR HGB CONC 35.6 g/dL (32.4-35.8); RED BLOOD COUNT 2.54 x10^6/uL (3.82-5.3); RED CELL DISTRIBUTION WIDTH 13.7 % (9.6-15.2)
[2018-05-25 06:33] LABS: ALKALINE PHOSPHATASE 64 U/L (45-117); BILIRUBIN,TOTAL 0.3 mg/dL (0.2-1.0); TOTAL PROTEIN 6.4 g/dL (6.4-8.2)
[2018-05-25 06:46] LABS: MEAN PLATELET VOLUME 7.2 fL (7.4-10.4)
[2018-05-25 06:47] LABS: MD YES
[2018-05-25 06:48] LABS: PLATELET COUNT 27 x10^3/uL (130-400)
[2018-05-25 06:50] LABS: LYMPH#(MANUAL) 0.58 x10^3/uL (1-3.4); LYMPHS% (MANUAL) 96 % (22-44); SEG#(MANUAL) 0.02 x10^3/uL (1.8-6.8); SEGS% (MANUAL) 4 % (42-75)
[2018-05-25 06:51] LABS: <PLATELET ESTIMATE> DECREASED; <PLT MORPHOLOGY> NORMAL PLT MORPH; ANISOCYTOSIS 1+; HYPOCHROMIA 1+; MICROCYTOSIS 1+; OVALOCYTES 1+
[2018-05-25] MEDS: ONDANSETRON 2MG/ML, 2ML IVPush PRN ×2 (07:21→19:34)
[2018-05-25 07:25] VITALS: BP 101/58
[2018-05-25] MEDS: MIDOSTAURIN 25 MG HOMEMEDPO SCH ×2 (07:52→19:53)
[2018-05-25] MEDS: SENNA/DOCUSATE TABLET PO SCH (09:00)
[2018-05-25] MEDS ORDERED: LACTATED RINGERS 1,000 ML IV SCH (09:00)
[2018-05-25] MEDS: ACYCLOVIR 200 MG CAPSULE PO SCH ×2 (09:36→21:34)
[2018-05-25] MEDS: ALLOPURINOL 300 MG TABLET PO SCH (09:36)
[2018-05-25] MEDS: MICAFUNGIN 100 MG in SODIUM CHLORIDE 0.9% 100 ML IV SCH (19:44)
[2018-05-25 19:49] VITALS: BP 93/63
[2018-05-25] MEDS: FAMOTIDINE 20 MG TABLET PO SCH (21:34)
[2018-05-25] MEDS: TEMAZEPAM 15 MG CAPSULE PO PRN (21:34)
[2018-05-26 03:00] VITALS: BP 94/67
[2018-05-26] MEDS: MEROPENEM 2 GM in SODIUM CHLORIDE 0.9% 100 ML IV SCH ×3 (05:18→20:35)
[2018-05-26 05:36] LABS: MEAN CORPUSCULAR HEMOGLOBIN 29.4 pg (27.0-34.8); MEAN CORPUSCULAR HGB CONC 34.5 g/dL (32.4-35.8); MEAN CORPUSCULAR VOLUME 85.2 fL (80-100); MEAN PLATELET VOLUME 7.5 fL (7.4-10.4); RED BLOOD COUNT 2.41 x10^6/uL (3.82-5.3)
[2018-05-26 05:38] LABS: PLATELET COUNT 18 x10^3/uL (130-400)
[2018-05-26 05:49] LABS: CHLORIDE 105 mmol/L (98-107)
[2018-05-26 06:04] LABS: ALANINE AMINOTRANSFERASE 17 U/L (12-78); ALBUMIN 2.7 g/dL (3.4-5.0); ALKALINE PHOSPHATASE 63 U/L (45-117); ANION GAP 5 mmol/L (5-15); BILIRUBIN,TOTAL 0.3 mg/dL (0.2-1.0); CALCIUM 9.1 mg/dL (8.5-10.1); CREATININE 0.49 mg/dL (0.55-1.02); TOTAL PROTEIN 6.2 g/dL (6.4-8.2)
[2018-05-26 06:41] LABS: MD YES
[2018-05-26 07:10] LABS: ANISOCYTOSIS 1+; BASOS#(MANUAL) 0.01 x10^3/uL (0-0.1); BASOS% (MANUAL) 2 % (0-1); LYMPH#(MANUAL) 0.49 x10^3/uL (1-3.4); LYMPHS% (MANUAL) 98 % (22-44); SEGS% (MANUAL) 0 % (42-75)
[2018-05-26 07:11] LABS: <PLATELET ESTIMATE> DECREASED; <PLT MORPHOLOGY> NORMAL PLT MORPH; MICROCYTOSIS 1+; OVALOCYTES 1+
[2018-05-26] MEDS: ONDANSETRON 2MG/ML, 2ML IVPush PRN ×2 (07:27→19:53)
[2018-05-26 07:35] VITALS: BP 91/60
[2018-05-26] MEDS: SENNA/DOCUSATE TABLET PO SCH (08:22)
[2018-05-26] MEDS: ALLOPURINOL 300 MG TABLET PO SCH (08:23)
[2018-05-26] MEDS: ACYCLOVIR 200 MG CAPSULE PO SCH ×2 (08:23→20:35)
[2018-05-26] MEDS: MIDOSTAURIN 25 MG HOMEMEDPO SCH ×2 (08:26→20:34)
[2018-05-26 13:25] VITALS: BP 96/57
[2018-05-26 19:42] VITALS: BP 103/70
[2018-05-26] MEDS: MICAFUNGIN 100 MG in SODIUM CHLORIDE 0.9% 100 ML IV SCH (19:53)
[2018-05-26] MEDS: FAMOTIDINE 20 MG TABLET PO SCH (20:35)
[2018-05-26] MEDS: TEMAZEPAM 15 MG CAPSULE PO PRN (20:35)
[2018-05-27] VITALS (10 sets, daily range): BP systolic 91–101; BP diastolic 55–68
[2018-05-27] MEDS: MEROPENEM 2 GM in SODIUM CHLORIDE 0.9% 100 ML IV SCH ×3 (05:04→21:14)
[2018-05-27 05:52] LABS: CHLORIDE 107 mmol/L (98-107)
[2018-05-27 06:07] LABS: MEAN CORPUSCULAR HGB CONC 35.3 g/dL (32.4-35.8); MEAN PLATELET VOLUME 7.6 fL (7.4-10.4); RED BLOOD COUNT 2.26 x10^6/uL (3.82-5.3); RED CELL DISTRIBUTION WIDTH 13.9 % (9.6-15.2)
[2018-05-27 06:09] LABS: ALANINE AMINOTRANSFERASE 16 U/L (12-78); ALBUMIN 2.7 g/dL (3.4-5.0); ALKALINE PHOSPHATASE 66 U/L (45-117); ANION GAP 6 mmol/L (5-15); BILIRUBIN,TOTAL 0.2 mg/dL (0.2-1.0); CALCIUM 8.8 mg/dL (8.5-10.1); CREATININE 0.52 mg/dL (0.55-1.02); PLATELET COUNT 11 x10^3/uL (130-400); TOTAL PROTEIN 6.2 g/dL (6.4-8.2)
[2018-05-27 06:13] LABS: MD YES
[2018-05-27 06:20] LABS: LYMPH#(MANUAL) 0.49 x10^3/uL (1-3.4); LYMPHS% (MANUAL) 98 % (22-44); MONOS#(MANUAL) 0.01 x10^3/uL (0.3-2.7); MONOS% (MANUAL) 2 % (2-9); SEGS% (MANUAL) 0 % (42-75)
[2018-05-27 06:21] LABS: <PLATELET ESTIMATE> DECREASED; <PLT MORPHOLOGY> NORMAL PLT MORPH; ANISOCYTOSIS 1+; MICROCYTOSIS 1+; OVALOCYTES 1+
[2018-05-27 06:25] LABS: SEDIMENTATION RATE > 120 mm/hr (0-20)
[2018-05-27 06:41] LABS: HCT (SEDRATE) 19.2 % (34.6-47.8)
[2018-05-27] MEDS: ONDANSETRON 8 MG TABLET PO PRN (08:06)
[2018-05-27] MEDS: ACYCLOVIR 200 MG CAPSULE PO SCH ×2 (08:07→21:47)
[2018-05-27] MEDS: MIDOSTAURIN 25 MG HOMEMEDPO SCH ×2 (08:51→21:14)
[2018-05-27] MEDS: SENNA/DOCUSATE TABLET PO SCH (09:00)
[2018-05-27] MEDS ORDERED: ACETAMINOPHEN 325 MG TABLET PO ONE (11:30)
[2018-05-27] MEDS: DIPHENHYDRAMINE 25 MG CAPSULE PO PRN (12:05)
[2018-05-27] MEDS ORDERED: CATHFLO-ALTEPLASE 2 MG/2 ML CATHFLUSH ONE (19:30)
[2018-05-27] MEDS: MICAFUNGIN 100 MG in SODIUM CHLORIDE 0.9% 100 ML IV SCH (20:23)
[2018-05-27] MEDS: FAMOTIDINE 20 MG TABLET PO SCH (20:23)
[2018-05-27] MEDS: ONDANSETRON 2MG/ML, 2ML IVPush PRN (20:24)
[2018-05-27] MEDS: TEMAZEPAM 15 MG CAPSULE PO PRN (20:24)
[2018-05-28 05:02] VITALS: BP 95/63
[2018-05-28] MEDS: MEROPENEM 2 GM in SODIUM CHLORIDE 0.9% 100 ML IV SCH ×3 (05:02→20:54)
[2018-05-28 05:50] LABS: MEAN CORPUSCULAR HEMOGLOBIN 29.3 pg (27.0-34.8); MEAN CORPUSCULAR HGB CONC 34.5 g/dL (32.4-35.8); MEAN CORPUSCULAR VOLUME 84.9 fL (80-100); RED BLOOD COUNT 2.45 x10^6/uL (3.82-5.3); RED CELL DISTRIBUTION WIDTH 14.4 % (9.6-15.2)
[2018-05-28 05:51] LABS: ALANINE AMINOTRANSFERASE 14 U/L (12-78); ALBUMIN 2.6 g/dL (3.4-5.0); ANION GAP 5 mmol/L (5-15); CALCIUM 8.7 mg/dL (8.5-10.1); CHLORIDE 106 mmol/L (98-107); CREATININE 0.47 mg/dL (0.55-1.02)
[2018-05-28 05:54] LABS: ALKALINE PHOSPHATASE 68 U/L (45-117); BILIRUBIN,TOTAL 0.4 mg/dL (0.2-1.0)
[2018-05-28 06:16] LABS: MEAN PLATELET VOLUME 7.3 fL (7.4-10.4)
[2018-05-28 06:19] LABS: MD YES
[2018-05-28 06:20] LABS: PLATELET COUNT 18 x10^3/uL (130-400)
[2018-05-28 06:24] LABS: LYMPHS% (MANUAL) 100 % (22-44); SEGS% (MANUAL) 0 % (42-75)
[2018-05-28 06:25] LABS: <PLATELET ESTIMATE> DECREASED; <PLT MORPHOLOGY> NORMAL PLT MORPH; ANISOCYTOSIS 1+; MICROCYTOSIS 1+; OVALOCYTES 1+
[2018-05-28 07:55] VITALS: BP 90/59
[2018-05-28] MEDS: ACYCLOVIR 200 MG CAPSULE PO SCH ×2 (08:06→20:19)
[2018-05-28] MEDS: ONDANSETRON 2MG/ML, 2ML IVPush PRN ×2 (08:06→20:16)
[2018-05-28] MEDS: MIDOSTAURIN 25 MG HOMEMEDPO SCH ×2 (08:45→20:54)
[2018-05-28] MEDS: SENNA/DOCUSATE TABLET PO SCH (08:46)
[2018-05-28 13:30] VITALS: BP 100/69
[2018-05-28 19:39] VITALS: BP 109/67
[2018-05-28] MEDS: MICAFUNGIN 100 MG in SODIUM CHLORIDE 0.9% 100 ML IV SCH (20:16)
[2018-05-28] MEDS: FAMOTIDINE 20 MG TABLET PO SCH (20:18)
[2018-05-28] MEDS: TEMAZEPAM 15 MG CAPSULE PO PRN (20:58)
[2018-05-29 04:52] VITALS: BP 99/62
[2018-05-29] MEDS: MEROPENEM 2 GM in SODIUM CHLORIDE 0.9% 100 ML IV SCH ×3 (05:05→21:01)
[2018-05-29 05:38] LABS: ALBUMIN 2.6 g/dL (3.4-5.0); ANION GAP 7 mmol/L (5-15); CALCIUM 8.8 mg/dL (8.5-10.1); CHLORIDE 107 mmol/L (98-107)
[2018-05-29 05:39] LABS: MEAN CORPUSCULAR HEMOGLOBIN 30.1 pg (27.0-34.8); MEAN CORPUSCULAR HGB CONC 35.6 g/dL (32.4-35.8); MEAN CORPUSCULAR VOLUME 84.4 fL (80-100); RED BLOOD COUNT 2.34 x10^6/uL (3.82-5.3); RED CELL DISTRIBUTION WIDTH 13.7 % (9.6-15.2)
[2018-05-29 05:45] LABS: ALANINE AMINOTRANSFERASE 17 U/L (12-78); ALKALINE PHOSPHATASE 71 U/L (45-117); BILIRUBIN,TOTAL 0.3 mg/dL (0.2-1.0); CREATININE 0.47 mg/dL (0.55-1.02)
[2018-05-29 06:03] LABS: MD YES
[2018-05-29 06:09] LABS: LYMPHS% (MANUAL) 100 % (22-44); SEGS% (MANUAL) 0 % (42-75)
[2018-05-29 06:10] LABS: <PLATELET ESTIMATE> DECREASED; <PLT MORPHOLOGY> NORMAL PLT MORPH; ANISOCYTOSIS 1+; MICROCYTOSIS 1+; OVALOCYTES 1+
[2018-05-29 06:17] LABS: MEAN PLATELET VOLUME 7.9 fL (7.4-10.4); PLATELET COUNT 12 x10^3/uL (130-400)
[2018-05-29 07:32] VITALS: BP 92/61
[2018-05-29] MEDS: ONDANSETRON 2MG/ML, 2ML IVPush PRN ×2 (08:08→19:57)
[2018-05-29] MEDS: MIDOSTAURIN 25 MG HOMEMEDPO SCH ×2 (08:55→20:34)
[2018-05-29] MEDS: SENNA/DOCUSATE TABLET PO SCH (08:55)
[2018-05-29] MEDS: ACYCLOVIR 200 MG CAPSULE PO SCH ×2 (08:56→19:57)
[2018-05-29 13:36] VITALS: BP 92/66
[2018-05-29] MEDS: FAMOTIDINE 20 MG TABLET PO SCH (19:57)
[2018-05-29] MEDS: MICAFUNGIN 100 MG in SODIUM CHLORIDE 0.9% 100 ML IV SCH (19:57)
[2018-05-29 20:00] VITALS: BP 101/67
[2018-05-29] MEDS: TEMAZEPAM 15 MG CAPSULE PO PRN (20:34)
[2018-05-30] VITALS (10 sets, daily range): BP systolic 88–122; BP diastolic 56–74
[2018-05-30] MEDS: MEROPENEM 2 GM in SODIUM CHLORIDE 0.9% 100 ML IV SCH ×3 (05:15→20:50)
[2018-05-30 05:39] LABS: ALANINE AMINOTRANSFERASE 17 U/L (12-78); ALBUMIN 2.8 g/dL (3.4-5.0); ANION GAP 6 mmol/L (5-15); CALCIUM 8.6 mg/dL (8.5-10.1); CHLORIDE 109 mmol/L (98-107); CREATININE 0.48 mg/dL (0.55-1.02)
[2018-05-30 05:42] LABS: ALKALINE PHOSPHATASE 68 U/L (45-117); BILIRUBIN,TOTAL 0.2 mg/dL (0.2-1.0); TOTAL PROTEIN 5.9 g/dL (6.4-8.2)
[2018-05-30 06:07] LABS: MEAN CORPUSCULAR HGB CONC 35.6 g/dL (32.4-35.8); MEAN CORPUSCULAR VOLUME 84.2 fL (80-100); MEAN PLATELET VOLUME 7.9 fL (7.4-10.4); RED BLOOD COUNT 2.23 x10^6/uL (3.82-5.3); RED CELL DISTRIBUTION WIDTH 13.9 % (9.6-15.2)
[2018-05-30 06:10] LABS: PLATELET COUNT 11 x10^3/uL (130-400)
[2018-05-30 06:21] LABS: LYMPHS% (MANUAL) 100 % (22-44); MD YES
[2018-05-30 06:22] LABS: <PLATELET ESTIMATE> DECREASED; <PLT MORPHOLOGY> NORMAL PLT MORPH; ANISOCYTOSIS 1+; MICROCYTOSIS 1+; OVALOCYTES 1+; SEGS% (MANUAL) 0 % (42-75)
[2018-05-30] MEDS ORDERED: POTASSIUM CHLORIDE 60 MEQ in SODIUM CHLORIDE 0.9% 1,000 ML IV ONE (07:30)
[2018-05-30] MEDS: SENNA/DOCUSATE TABLET PO SCH (09:00)
[2018-05-30] MEDS: ACYCLOVIR 200 MG CAPSULE PO SCH ×2 (09:05→20:06)
[2018-05-30] MEDS: NEUTRA PHOS K 250 MG TABLET PO SCH ×2 (09:05→20:07)
[2018-05-30] MEDS: ONDANSETRON 2MG/ML, 2ML IVPush PRN ×2 (09:05→20:07)
[2018-05-30] MEDS: MIDOSTAURIN 25 MG HOMEMEDPO SCH ×2 (09:42→20:50)
[2018-05-30] MEDS: DIPHENHYDRAMINE 25 MG CAPSULE PO PRN (11:51)
[2018-05-30] MEDS: FAMOTIDINE 20 MG TABLET PO SCH (20:07)
[2018-05-30] MEDS: MICAFUNGIN 100 MG in SODIUM CHLORIDE 0.9% 100 ML IV SCH (20:07)
[2018-05-30] MEDS: TEMAZEPAM 15 MG CAPSULE PO PRN (20:50)
[2018-05-31 05:03] VITALS: BP 112/66
[2018-05-31] MEDS: MEROPENEM 2 GM in SODIUM CHLORIDE 0.9% 100 ML IV SCH ×3 (05:17→21:54)
[2018-05-31 05:49] LABS: ALBUMIN 2.8 g/dL (3.4-5.0); ANION GAP 6 mmol/L (5-15); CALCIUM 8.2 mg/dL (8.5-10.1); CHLORIDE 109 mmol/L (98-107)
[2018-05-31 05:52] LABS: ALANINE AMINOTRANSFERASE 22 U/L (12-78); ALKALINE PHOSPHATASE 74 U/L (45-117); BILIRUBIN,TOTAL 0.2 mg/dL (0.2-1.0); CREATININE 0.48 mg/dL (0.55-1.02); TOTAL PROTEIN 6.1 g/dL (6.4-8.2)
[2018-05-31 06:41] LABS: MEAN CORPUSCULAR HGB CONC 35.5 g/dL (32.4-35.8); MEAN CORPUSCULAR VOLUME 84.7 fL (80-100); MEAN PLATELET VOLUME 7.6 fL (7.4-10.4); RED BLOOD COUNT 2.52 x10^6/uL (3.82-5.3); RED CELL DISTRIBUTION WIDTH 13.1 % (9.6-15.2)
[2018-05-31 06:43] LABS: PLATELET COUNT 46 x10^3/uL (130-400)
[2018-05-31 06:44] LABS: MD YES
[2018-05-31 06:48] LABS: SEGS% (MANUAL) 0 % (42-75)
[2018-05-31 06:49] LABS: LYMPHS% (MANUAL) 100 % (22-44)
[2018-05-31 06:53] LABS: <PLATELET ESTIMATE> DECREASED; <PLT MORPHOLOGY> NORMAL PLT MORPH; ANISOCYTOSIS 1+; MICROCYTOSIS 1+; OVALOCYTES 1+
[2018-05-31] MEDS ORDERED: POTASSIUM CHLORIDE 10% 40 MEQ/30 ML UDC PO ONE (07:00)
[2018-05-31 07:12] VITALS: BP 103/69
[2018-05-31] MEDS: ONDANSETRON 2MG/ML, 2ML IVPush PRN ×2 (08:27→20:08)
[2018-05-31] MEDS: SENNA/DOCUSATE TABLET PO SCH (09:00)
[2018-05-31] MEDS: ACYCLOVIR 200 MG CAPSULE PO SCH ×2 (09:02→20:08)
[2018-05-31] MEDS: NEUTRA PHOS K 250 MG TABLET PO SCH ×2 (09:02→21:54)
[2018-05-31] MEDS: MIDOSTAURIN 25 MG HOMEMEDPO SCH ×2 (09:03→20:08)
[2018-05-31 15:53] VITALS: BP 99/71
[2018-05-31] MEDS: FAMOTIDINE 20 MG TABLET PO SCH (20:07)
[2018-05-31] MEDS: MICAFUNGIN 100 MG in SODIUM CHLORIDE 0.9% 100 ML IV SCH (20:08)
[2018-05-31 20:16] VITALS: BP 100/64
[2018-05-31] MEDS: TEMAZEPAM 15 MG CAPSULE PO PRN (21:54)
[2018-06-01 02:45] VITALS: BP 108/68
[2018-06-01] MEDS: MEROPENEM 2 GM in SODIUM CHLORIDE 0.9% 100 ML IV SCH ×3 (05:24→21:55)
[2018-06-01 05:51] LABS: ALANINE AMINOTRANSFERASE 19 U/L (12-78); ALBUMIN 2.9 g/dL (3.4-5.0); ANION GAP 6 mmol/L (5-15); CALCIUM 8.4 mg/dL (8.5-10.1); CHLORIDE 107 mmol/L (98-107); CREATININE 0.59 mg/dL (0.55-1.02)
[2018-06-01 05:53] LABS: ALKALINE PHOSPHATASE 78 U/L (45-117); BILIRUBIN,TOTAL 0.2 mg/dL (0.2-1.0); TOTAL PROTEIN 6.5 g/dL (6.4-8.2)
[2018-06-01 07:02] LABS: MEAN CORPUSCULAR HEMOGLOBIN 29.6 pg (27.0-34.8); MEAN CORPUSCULAR HGB CONC 35.1 g/dL (32.4-35.8); MEAN CORPUSCULAR VOLUME 84.3 fL (80-100); MEAN PLATELET VOLUME 7.6 fL (7.4-10.4); RED BLOOD COUNT 2.58 x10^6/uL (3.82-5.3); RED CELL DISTRIBUTION WIDTH 13.5 % (9.6-15.2)
[2018-06-01 07:15] VITALS: BP 99/64
[2018-06-01 07:37] LABS: PLATELET COUNT 38 x10^3/uL (130-400)
[2018-06-01 07:57] LABS: MD YES
[2018-06-01 08:04] LABS: LYMPHS% (MANUAL) 100 % (22-44); SEGS% (MANUAL) 0 % (42-75)
[2018-06-01 08:05] LABS: <PLATELET ESTIMATE> DECREASED; <PLT MORPHOLOGY> NORMAL PLT MORPH; ANISOCYTOSIS 1+; MICROCYTOSIS 1+; OVALOCYTES 1+
[2018-06-01] MEDS: SENNA/DOCUSATE TABLET PO SCH (09:00)
[2018-06-01] MEDS: ONDANSETRON 2MG/ML, 2ML IVPush PRN (09:07)
[2018-06-01] MEDS: ACYCLOVIR 200 MG CAPSULE PO SCH ×2 (09:15→20:41)
[2018-06-01] MEDS: MIDOSTAURIN 25 MG HOMEMEDPO SCH ×2 (09:15→21:55)
[2018-06-01 12:18] VITALS: BP 94/64
[2018-06-01] MEDS: NEUTRA PHOS K 250 MG TABLET PO SCH ×2 (13:27→20:41)
[2018-06-01] MEDS: FAMOTIDINE 20 MG TABLET PO SCH (18:21)
[2018-06-01 19:56] VITALS: BP 110/68
[2018-06-01] MEDS: MICAFUNGIN 100 MG in SODIUM CHLORIDE 0.9% 100 ML IV SCH (20:41)
[2018-06-01] MEDS: TEMAZEPAM 15 MG CAPSULE PO PRN (22:00)
[2018-06-02 01:34] VITALS: BP 97/57
[2018-06-02] MEDS: MEROPENEM 2 GM in SODIUM CHLORIDE 0.9% 100 ML IV SCH ×3 (05:39→22:48)
[2018-06-02] MEDS: ONDANSETRON 2MG/ML, 2ML IVPush PRN ×3 (05:50→19:58)
[2018-06-02 06:12] LABS: ANION GAP 7 mmol/L (5-15); CALCIUM 8.3 mg/dL (8.5-10.1); CHLORIDE 105 mmol/L (98-107)
[2018-06-02 06:16] LABS: ALANINE AMINOTRANSFERASE 20 U/L (12-78); ALKALINE PHOSPHATASE 70 U/L (45-117); BILIRUBIN,TOTAL 0.4 mg/dL (0.2-1.0); CREATININE 0.55 mg/dL (0.55-1.02); TOTAL PROTEIN 6.7 g/dL (6.4-8.2)
[2018-06-02 06:21] LABS: MEAN CORPUSCULAR HEMOGLOBIN 29.7 pg (27.0-34.8); MEAN CORPUSCULAR HGB CONC 35.6 g/dL (32.4-35.8); MEAN CORPUSCULAR VOLUME 83.4 fL (80-100); MEAN PLATELET VOLUME 7.1 fL (7.4-10.4); RED BLOOD COUNT 2.61 x10^6/uL (3.82-5.3); RED CELL DISTRIBUTION WIDTH 13.4 % (9.6-15.2)
[2018-06-02 06:22] LABS: PLATELET COUNT 20 x10^3/uL (130-400)
[2018-06-02 06:38] LABS: MD YES
[2018-06-02 06:45] LABS: ANISOCYTOSIS 1+; LYMPHS% (MANUAL) 100 % (22-44); MICROCYTOSIS 1+
[2018-06-02 06:46] LABS: <PLATELET ESTIMATE> DECREASED; <PLT MORPHOLOGY> NORMAL PLT MORPH; OVALOCYTES 1+
[2018-06-02 06:57] VITALS: BP 100/66
[2018-06-02] MEDS: ACYCLOVIR 200 MG CAPSULE PO SCH ×2 (08:50→20:00)
[2018-06-02] MEDS: NEUTRA PHOS K 250 MG TABLET PO SCH ×2 (08:50→20:00)
[2018-06-02] MEDS: SENNA/DOCUSATE TABLET PO SCH (09:00)
[2018-06-02] MEDS: MIDOSTAURIN 25 MG HOMEMEDPO SCH ×2 (09:36→20:21)
[2018-06-02 12:54] VITALS: BP 94/60
[2018-06-02] MEDS: PROCHLORPERAZINE 5 MG/ML, 2ML IVPush PRN (14:40)
[2018-06-02 19:41] VITALS: BP 92/60
[2018-06-02] MEDS: ACETAMINOPHEN 325 MG TABLET PO PRN (19:59)
[2018-06-02] MEDS: MICAFUNGIN 100 MG in SODIUM CHLORIDE 0.9% 100 ML IV SCH (20:00)
[2018-06-02] MEDS: FAMOTIDINE 20 MG TABLET PO SCH (20:00)
[2018-06-02] MEDS: TEMAZEPAM 15 MG CAPSULE PO PRN (20:20)
[2018-06-03 05:33] VITALS: BP 90/59
[2018-06-03] MEDS: MEROPENEM 2 GM in SODIUM CHLORIDE 0.9% 100 ML IV SCH ×4 (05:51→21:57)
[2018-06-03] MEDS: ACETAMINOPHEN 325 MG TABLET PO PRN (06:02)
[2018-06-03 06:41] LABS: ALBUMIN 2.9 g/dL (3.4-5.0); ANION GAP 7 mmol/L (5-15); CALCIUM 8.4 mg/dL (8.5-10.1); CHLORIDE 104 mmol/L (98-107)
[2018-06-03 06:44] LABS: ALANINE AMINOTRANSFERASE 18 U/L (12-78); ALKALINE PHOSPHATASE 74 U/L (45-117); BILIRUBIN,TOTAL 0.6 mg/dL (0.2-1.0); CREATININE 0.61 mg/dL (0.55-1.02); TOTAL PROTEIN 6.6 g/dL (6.4-8.2)
[2018-06-03 06:51] LABS: MD YES
[2018-06-03 07:14] LABS: MEAN CORPUSCULAR HEMOGLOBIN 29.7 pg (27.0-34.8); MEAN CORPUSCULAR VOLUME 82.6 fL (80-100); MEAN PLATELET VOLUME 7.7 fL (7.4-10.4); RED BLOOD COUNT 2.54 x10^6/uL (3.82-5.3); RED CELL DISTRIBUTION WIDTH 13.4 % (9.6-15.2)
[2018-06-03 07:16] LABS: PLATELET COUNT 16 x10^3/uL (130-400)
[2018-06-03 07:19] LABS: LYMPH#(MANUAL) 0.38 x10^3/uL (1-3.4); LYMPHS% (MANUAL) 96 % (22-44); MONOS#(MANUAL) 0.01 x10^3/uL (0.3-2.7); MONOS% (MANUAL) 2 % (2-9); SEG#(MANUAL) 0.01 x10^3/uL (1.8-6.8); SEGS% (MANUAL) 2 % (42-75)
[2018-06-03 07:22] LABS: ANISOCYTOSIS 1+; MICROCYTOSIS 1+
[2018-06-03 07:23] LABS: <PLATELET ESTIMATE> DECREASED
[2018-06-03 07:37] VITALS: BP 91/56
[2018-06-03] MEDS: ONDANSETRON 2MG/ML, 2ML IVPush PRN ×2 (07:58→20:57)
[2018-06-03] MEDS: SENNA/DOCUSATE TABLET PO SCH (08:00)
[2018-06-03] MEDS: NEUTRA PHOS K 250 MG TABLET PO SCH ×4 (08:45→20:56)
[2018-06-03] MEDS: ACYCLOVIR 200 MG CAPSULE PO SCH ×2 (08:45→20:56)
[2018-06-03] MEDS: MIDOSTAURIN 25 MG HOMEMEDPO SCH ×2 (08:46→20:56)
[2018-06-03 14:08] VITALS: BP 102/72
[2018-06-03 19:00] VITALS: BP 88/54
[2018-06-03 19:29] VITALS: BP 101/61
[2018-06-03] MEDS: MICAFUNGIN 100 MG in SODIUM CHLORIDE 0.9% 100 ML IV SCH (19:40)
[2018-06-03 20:03] LABS: MICROSCOPIC INDICATED
[2018-06-03 20:13] LABS: CULTURE INDICATED? NO
[2018-06-03] MEDS: TEMAZEPAM 15 MG CAPSULE PO PRN (20:56)
[2018-06-03] MEDS: FAMOTIDINE 20 MG TABLET PO SCH (20:56)
[2018-06-04] VITALS (11 sets, daily range): BP systolic 88–101; BP diastolic 54–63
[2018-06-04] MEDS: MEROPENEM 2 GM in SODIUM CHLORIDE 0.9% 100 ML IV SCH ×3 (06:04→22:09)
[2018-06-04 06:43] LABS: ALBUMIN 2.6 g/dL (3.4-5.0); ANION GAP 6 mmol/L (5-15); CALCIUM 8.4 mg/dL (8.5-10.1); CHLORIDE 105 mmol/L (98-107)
[2018-06-04 06:47] LABS: ALANINE AMINOTRANSFERASE 18 U/L (12-78); ALKALINE PHOSPHATASE 59 U/L (45-117); BILIRUBIN,TOTAL 0.6 mg/dL (0.2-1.0); CREATININE 0.56 mg/dL (0.55-1.02); TOTAL PROTEIN 6.1 g/dL (6.4-8.2)
[2018-06-04 07:27] LABS: MEAN CORPUSCULAR HEMOGLOBIN 30.1 pg (27.0-34.8); MEAN CORPUSCULAR HGB CONC 35.9 g/dL (32.4-35.8); MEAN CORPUSCULAR VOLUME 83.7 fL (80-100); MEAN PLATELET VOLUME 7.3 fL (7.4-10.4); RED BLOOD COUNT 2.17 x10^6/uL (3.82-5.3); RED CELL DISTRIBUTION WIDTH 13.1 % (9.6-15.2)
[2018-06-04 07:28] LABS: PLATELET COUNT 8 x10^3/uL (130-400)
[2018-06-04] MEDS ORDERED: CATHFLO-ALTEPLASE 2 MG/2 ML CATHFLUSH STA (07:46)
[2018-06-04 07:59] LABS: MD YES
[2018-06-04 08:03] LABS: LYMPH#(MANUAL) 0.28 x10^3/uL (1-3.4); REACTIVE LYMPHS # (MANUAL) 0.02 x10^3/uL (0-0); REACTIVE LYMPHS % (MANUAL) 6 % (0-0)
[2018-06-04 08:08] LABS: LYMPHS% (MANUAL) 92 % (22-44); SEG#(MANUAL) 0.01 x10^3/uL (1.8-6.8); SEGS% (MANUAL) 2 % (42-75)
[2018-06-04 08:10] LABS: <PLATELET ESTIMATE> DECREASED; <PLT MORPHOLOGY> NORMAL PLT MORPH; ANISOCYTOSIS 1+; MICROCYTOSIS 1+
[2018-06-04] MEDS: ACYCLOVIR 200 MG CAPSULE PO SCH ×2 (09:26→20:36)
[2018-06-04] MEDS: NEUTRA PHOS K 250 MG TABLET PO SCH ×3 (09:26→20:35)
[2018-06-04] MEDS: SENNA/DOCUSATE TABLET PO SCH (09:27)
[2018-06-04] MEDS: ONDANSETRON 2MG/ML, 2ML IVPush PRN ×2 (09:30→20:35)
[2018-06-04] MEDS: MIDOSTAURIN 25 MG HOMEMEDPO SCH ×2 (09:41→20:47)
[2018-06-04] MEDS: MICAFUNGIN 100 MG in SODIUM CHLORIDE 0.9% 100 ML IV SCH (19:47)
[2018-06-04] MEDS: TEMAZEPAM 15 MG CAPSULE PO PRN (20:36)
[2018-06-04] MEDS: FAMOTIDINE 20 MG TABLET PO SCH (21:00)
[2018-06-05] VITALS (7 sets, daily range): BP systolic 87–97; BP diastolic 56–63
[2018-06-05] MEDS: MEROPENEM 2 GM in SODIUM CHLORIDE 0.9% 100 ML IV SCH ×3 (06:19→22:19)
[2018-06-05 06:29] LABS: MEAN CORPUSCULAR HEMOGLOBIN 29.7 pg (27.0-34.8); MEAN CORPUSCULAR HGB CONC 35.8 g/dL (32.4-35.8); RED CELL DISTRIBUTION WIDTH 14.3 % (9.6-15.2)
[2018-06-05 06:36] LABS: ALANINE AMINOTRANSFERASE 19 U/L (12-78); ALBUMIN 2.6 g/dL (3.4-5.0); ANION GAP 5 mmol/L (5-15); CALCIUM 8.1 mg/dL (8.5-10.1); CHLORIDE 107 mmol/L (98-107); CREATININE 0.49 mg/dL (0.55-1.02)
[2018-06-05 06:38] LABS: ALKALINE PHOSPHATASE 73 U/L (45-117); BILIRUBIN,TOTAL 0.5 mg/dL (0.2-1.0)
[2018-06-05 07:23] LABS: MEAN PLATELET VOLUME 7.1 fL (7.4-10.4); PLATELET COUNT 39 x10^3/uL (130-400)
[2018-06-05 07:25] LABS: MD YES
[2018-06-05 07:32] LABS: LYMPH#(MANUAL) 0.29 x10^3/uL (1-3.4); LYMPHS% (MANUAL) 98 % (22-44); SEG#(MANUAL) 0.01 x10^3/uL (1.8-6.8); SEGS% (MANUAL) 2 % (42-75)
[2018-06-05 07:33] LABS: ANISOCYTOSIS 1+; MICROCYTOSIS 1+
[2018-06-05 07:34] LABS: OVALOCYTES 1+
[2018-06-05 07:35] LABS: <PLATELET ESTIMATE> DECREASED
[2018-06-05 07:38] LABS: <PLT MORPHOLOGY> NORMAL PLT MORPH
[2018-06-05] MEDS ORDERED: POTASSIUM CHLORIDE 20 MEQ TAB.ER.PRT PO ONE ×2 (08:00→11:00)
[2018-06-05] MEDS ORDERED: SODIUM PHOSPHATE 4 MEQ/ML IV SCH (08:00)
[2018-06-05] MEDS ORDERED: SODIUM PHOSPHATE 30 MMOL in SODIUM CHLORIDE 0.9% 500 ML IV ONE (08:00)
[2018-06-05] MEDS: ONDANSETRON 2MG/ML, 2ML IVPush PRN ×2 (08:33→21:19)
[2018-06-05] MEDS: NEUTRA PHOS K 250 MG TABLET PO SCH ×3 (08:34→20:29)
[2018-06-05] MEDS: ACYCLOVIR 200 MG CAPSULE PO SCH ×2 (08:34→20:29)
[2018-06-05] MEDS: SENNA/DOCUSATE TABLET PO SCH (09:00)
[2018-06-05] MEDS: MIDOSTAURIN 25 MG HOMEMEDPO SCH ×2 (10:47→21:19)
[2018-06-05] MEDS: FAMOTIDINE 20 MG TABLET PO SCH (20:29)
[2018-06-05] MEDS: MICAFUNGIN 100 MG in SODIUM CHLORIDE 0.9% 100 ML IV SCH (20:29)
[2018-06-05] MEDS: TEMAZEPAM 15 MG CAPSULE PO PRN (21:19)
[2018-06-06 00:37] VITALS: BP 101/65
[2018-06-06] MEDS: MEROPENEM 2 GM in SODIUM CHLORIDE 0.9% 100 ML IV SCH ×3 (05:39→22:40)
[2018-06-06 06:05] LABS: CHLORIDE 110 mmol/L (98-107)
[2018-06-06 06:18] LABS: ALANINE AMINOTRANSFERASE 17 U/L (12-78); ALBUMIN 2.6 g/dL (3.4-5.0); ALKALINE PHOSPHATASE 79 U/L (45-117); ANION GAP 4 mmol/L (5-15); BILIRUBIN,TOTAL 0.6 mg/dL (0.2-1.0); CALCIUM 8.3 mg/dL (8.5-10.1); TOTAL PROTEIN 6.1 g/dL (6.4-8.2)
[2018-06-06 06:32] LABS: MEAN CORPUSCULAR HEMOGLOBIN 29.1 pg (27.0-34.8); MEAN CORPUSCULAR HGB CONC 35.9 g/dL (32.4-35.8); MEAN CORPUSCULAR VOLUME 81.2 fL (80-100); RED BLOOD COUNT 2.83 x10^6/uL (3.82-5.3); RED CELL DISTRIBUTION WIDTH 15.5 % (9.6-15.2)
[2018-06-06 07:22] LABS: MD YES
[2018-06-06 07:27] LABS: BAND#(MANUAL) 0.01 x10^3/uL; BANDS%(MANUAL) 2 % (0-7); LYMPH#(MANUAL) 0.37 x10^3/uL (1-3.4); LYMPHS% (MANUAL) 92 % (22-44); MONOS#(MANUAL) 0.01 x10^3/uL (0.3-2.7); MONOS% (MANUAL) 2 % (2-9); SEG#(MANUAL) 0.02 x10^3/uL (1.8-6.8); SEGS% (MANUAL) 4 % (42-75)
[2018-06-06 07:28] LABS: <PLATELET ESTIMATE> DECREASED; <PLT MORPHOLOGY> NORMAL PLT MORPH; ANISOCYTOSIS 1+; MICROCYTOSIS 1+; OVALOCYTES 1+
[2018-06-06 07:30] LABS: MEAN PLATELET VOLUME 6.8 fL (7.4-10.4); PLATELET COUNT 31 x10^3/uL (130-400)
[2018-06-06 08:18] VITALS: BP 106/69
[2018-06-06] MEDS: ACYCLOVIR 200 MG CAPSULE PO SCH ×2 (08:26→20:33)
[2018-06-06] MEDS: NEUTRA PHOS K 250 MG TABLET PO SCH ×3 (08:26→20:33)
[2018-06-06] MEDS: ONDANSETRON 2MG/ML, 2ML IVPush PRN ×2 (08:26→20:34)
[2018-06-06] MEDS: SENNA/DOCUSATE TABLET PO SCH (08:30)
[2018-06-06] MEDS: MIDOSTAURIN 25 MG HOMEMEDPO SCH ×2 (09:13→20:33)
[2018-06-06 13:03] VITALS: BP 102/64
[2018-06-06 20:06] VITALS: BP 98/62
[2018-06-06] MEDS: TEMAZEPAM 15 MG CAPSULE PO PRN (20:33)
[2018-06-06] MEDS: FAMOTIDINE 20 MG TABLET PO SCH (20:33)
[2018-06-07 03:00] VITALS: BP 117/79
[2018-06-07] MEDS: MEROPENEM 2 GM in SODIUM CHLORIDE 0.9% 100 ML IV SCH ×3 (06:12→22:18)
[2018-06-07 06:50] LABS: ALBUMIN 2.7 g/dL (3.4-5.0); ANION GAP 4 mmol/L (5-15); CALCIUM 8.6 mg/dL (8.5-10.1); CHLORIDE 110 mmol/L (98-107)
[2018-06-07 06:54] LABS: ALANINE AMINOTRANSFERASE 19 U/L (12-78); ALKALINE PHOSPHATASE 85 U/L (45-117); BILIRUBIN,TOTAL 0.4 mg/dL (0.2-1.0); CREATININE 0.52 mg/dL (0.55-1.02); TOTAL PROTEIN 6.4 g/dL (6.4-8.2)
[2018-06-07] MEDS ORDERED: POTASSIUM CHLORIDE 20 MEQ TAB.ER.PRT PO ONE ×2 (07:30)
[2018-06-07 07:37] LABS: MEAN CORPUSCULAR HEMOGLOBIN 28.1 pg (27.0-34.8); MEAN CORPUSCULAR HGB CONC 34.6 g/dL (32.4-35.8); MEAN CORPUSCULAR VOLUME 81.4 fL (80-100); RED BLOOD COUNT 2.97 x10^6/uL (3.82-5.3); RED CELL DISTRIBUTION WIDTH 15.2 % (9.6-15.2)
[2018-06-07 07:38] LABS: PLATELET COUNT 27 x10^3/uL (130-400)
[2018-06-07 07:46] LABS: MD YES
[2018-06-07 07:49] LABS: <PLATELET ESTIMATE> DECREASED; <PLT MORPHOLOGY> NORMAL PLT MORPH; ANISOCYTOSIS 1+; BAND#(MANUAL) 0.01 x10^3/uL; BANDS%(MANUAL) 2 % (0-7); LYMPH#(MANUAL) 0.26 x10^3/uL (1-3.4); LYMPHS% (MANUAL) 88 % (22-44); MICROCYTOSIS 1+; MONOS#(MANUAL) 0.01 x10^3/uL (0.3-2.7); MONOS% (MANUAL) 2 % (2-9); OVALOCYTES 1+; SEG#(MANUAL) 0.02 x10^3/uL (1.8-6.8); SEGS% (MANUAL) 8 % (42-75)
[2018-06-07 08:00] VITALS: BP 110/72
[2018-06-07] MEDS: ONDANSETRON 2MG/ML, 2ML IVPush PRN (08:30)
[2018-06-07] MEDS: SENNA/DOCUSATE TABLET PO SCH (09:00)
[2018-06-07] MEDS: ACYCLOVIR 200 MG CAPSULE PO SCH ×2 (09:27→20:06)
[2018-06-07] MEDS: NEUTRA PHOS K 250 MG TABLET PO SCH ×3 (09:27→20:06)
[2018-06-07] MEDS: MIDOSTAURIN 25 MG HOMEMEDPO SCH (09:27)
[2018-06-07 14:00] VITALS: BP 97/63
[2018-06-07] MEDS: TEMAZEPAM 15 MG CAPSULE PO PRN (20:06)
[2018-06-07] MEDS: FAMOTIDINE 20 MG TABLET PO SCH (20:06)
[2018-06-07 20:15] VITALS: BP 94/62
[2018-06-08 01:46] VITALS: BP 92/60
[2018-06-08] MEDS: MEROPENEM 2 GM in SODIUM CHLORIDE 0.9% 100 ML IV SCH ×3 (05:25→21:58)
[2018-06-08 06:02] LABS: CHLORIDE 110 mmol/L (98-107)
[2018-06-08 06:11] LABS: MEAN CORPUSCULAR HEMOGLOBIN 29.3 pg (27.0-34.8); MEAN CORPUSCULAR HGB CONC 35.6 g/dL (32.4-35.8); MEAN CORPUSCULAR VOLUME 82.1 fL (80-100); MEAN PLATELET VOLUME 7.3 fL (7.4-10.4); RED BLOOD COUNT 3.12 x10^6/uL (3.82-5.3); RED CELL DISTRIBUTION WIDTH 14.9 % (9.6-15.2)
[2018-06-08 06:17] LABS: ALANINE AMINOTRANSFERASE 21 U/L (12-78); ALBUMIN 2.8 g/dL (3.4-5.0); ALKALINE PHOSPHATASE 80 U/L (45-117); ANION GAP 6 mmol/L (5-15); BILIRUBIN,TOTAL 0.6 mg/dL (0.2-1.0); CREATININE 0.72 mg/dL (0.55-1.02); TOTAL PROTEIN 6.9 g/dL (6.4-8.2)
[2018-06-08 06:20] LABS: PLATELET COUNT 22 x10^3/uL (130-400)
[2018-06-08 06:34] LABS: MD YES
[2018-06-08 06:41] LABS: LYMPH#(MANUAL) 0.49 x10^3/uL (1-3.4); LYMPHS% (MANUAL) 82 % (22-44); MONOS#(MANUAL) 0.01 x10^3/uL (0.3-2.7); MONOS% (MANUAL) 2 % (2-9); SEGS% (MANUAL) 16 % (42-75)
[2018-06-08 06:42] LABS: <PLATELET ESTIMATE> DECREASED; <PLT MORPHOLOGY> NORMAL PLT MORPH; ANISOCYTOSIS 1+; OVALOCYTES 1+
[2018-06-08] MEDS: SENNA/DOCUSATE TABLET PO SCH (09:00)
[2018-06-08] MEDS: ACYCLOVIR 200 MG CAPSULE PO SCH ×2 (09:26→20:08)
[2018-06-08] MEDS: TBO-FILGRASTIM 480 MCG/0.8 ML SQ SCH (09:27)
[2018-06-08 09:28] VITALS: BP 96/69
[2018-06-08 14:02] VITALS: BP 93/64
[2018-06-08] MEDS ORDERED: LIDODERM 5% PATCH TD PRN (18:00)
[2018-06-08 20:06] VITALS: BP 91/57
[2018-06-08] MEDS: FAMOTIDINE 20 MG TABLET PO SCH (20:08)
[2018-06-08] MEDS: TEMAZEPAM 15 MG CAPSULE PO PRN (20:08)
[2018-06-09 03:58] VITALS: BP 88/55
[2018-06-09] MEDS: MEROPENEM 2 GM in SODIUM CHLORIDE 0.9% 100 ML IV SCH ×3 (05:44→21:50)
[2018-06-09 05:47] LABS: ALANINE AMINOTRANSFERASE 21 U/L (12-78); ALBUMIN 2.8 g/dL (3.4-5.0); ANION GAP 6 mmol/L (5-15); CALCIUM 8.6 mg/dL (8.5-10.1); CHLORIDE 108 mmol/L (98-107)
[2018-06-09 05:50] LABS: ALKALINE PHOSPHATASE 77 U/L (45-117); BILIRUBIN,TOTAL 0.5 mg/dL (0.2-1.0); TOTAL PROTEIN 6.4 g/dL (6.4-8.2)
[2018-06-09 05:58] LABS: MEAN CORPUSCULAR HEMOGLOBIN 28.2 pg (27.0-34.8); MEAN CORPUSCULAR HGB CONC 34.7 g/dL (32.4-35.8); MEAN CORPUSCULAR VOLUME 81.4 fL (80-100); RED BLOOD COUNT 3.08 x10^6/uL (3.82-5.3); RED CELL DISTRIBUTION WIDTH 15.1 % (9.6-15.2)
[2018-06-09 06:22] LABS: MEAN PLATELET VOLUME 8.1 fL (7.4-10.4)
[2018-06-09 06:23] LABS: MD YES
[2018-06-09 06:25] LABS: PLATELET COUNT 14 x10^3/uL (130-400)
[2018-06-09 06:29] LABS: <PLATELET ESTIMATE> DECREASED; ANISOCYTOSIS 1+; BANDS%(MANUAL) 14 % (0-7); LYMPH#(MANUAL) 0.43 x10^3/uL (1-3.4); LYMPHS% (MANUAL) 62 % (22-44); OVALOCYTES 1+; SEG#(MANUAL) 0.17 x10^3/uL (1.8-6.8); SEGS% (MANUAL) 24 % (42-75)
[2018-06-09 06:30] LABS: <PLT MORPHOLOGY> NORMAL PLT MORPH; TOXIC GRAN 1+
[2018-06-09 07:02] VITALS: BP 91/60
[2018-06-09] MEDS: SENNA/DOCUSATE TABLET PO SCH (09:00)
[2018-06-09] MEDS: ACYCLOVIR 200 MG CAPSULE PO SCH ×2 (09:53→20:28)
[2018-06-09] MEDS: TBO-FILGRASTIM 480 MCG/0.8 ML SQ SCH (10:58)
[2018-06-09 13:47] VITALS: BP 92/61
[2018-06-09 20:10] VITALS: BP 94/57
[2018-06-09] MEDS: TEMAZEPAM 15 MG CAPSULE PO PRN (20:28)
[2018-06-09] MEDS: FAMOTIDINE 20 MG TABLET PO SCH (20:28)
[2018-06-10 05:36] VITALS: BP 98/57
[2018-06-10] MEDS: MEROPENEM 2 GM in SODIUM CHLORIDE 0.9% 100 ML IV SCH ×3 (05:39→21:33)
[2018-06-10 06:01] LABS: HCT (SEDRATE) 23.6 % (34.6-47.8)
[2018-06-10 06:08] LABS: ALBUMIN 2.7 g/dL (3.4-5.0); ANION GAP 6 mmol/L (5-15); CALCIUM 9.1 mg/dL (8.5-10.1); CHLORIDE 110 mmol/L (98-107)
[2018-06-10 06:09] LABS: MEAN CORPUSCULAR HEMOGLOBIN 28.9 pg (27.0-34.8); MEAN CORPUSCULAR HGB CONC 35.4 g/dL (32.4-35.8); MEAN CORPUSCULAR VOLUME 81.4 fL (80-100); MEAN PLATELET VOLUME 7.1 fL (7.4-10.4); RED BLOOD COUNT 2.88 x10^6/uL (3.82-5.3); RED CELL DISTRIBUTION WIDTH 14.9 % (9.6-15.2)
[2018-06-10 06:13] LABS: PLATELET COUNT 13 x10^3/uL (130-400)
[2018-06-10 06:19] LABS: ALANINE AMINOTRANSFERASE 21 U/L (12-78); ALKALINE PHOSPHATASE 78 U/L (45-117); BILIRUBIN,TOTAL 0.6 mg/dL (0.2-1.0); CREATINE KINASE, TOTAL 33 U/L (26-192); CREATININE 0.57 mg/dL (0.55-1.02); TOTAL PROTEIN 6.4 g/dL (6.4-8.2)
[2018-06-10 08:07] LABS: MD YES
[2018-06-10 08:18] LABS: BAND#(MANUAL) 0.13 x10^3/uL; BANDS%(MANUAL) 14 % (0-7); NRBC % (MANUAL) 2 % (0-1)
[2018-06-10 08:19] LABS: LYMPH#(MANUAL) 0.34 x10^3/uL (1-3.4); LYMPHS% (MANUAL) 38 % (22-44); SEG#(MANUAL) 0.43 x10^3/uL (1.8-6.8); SEGS% (MANUAL) 48 % (42-75)
[2018-06-10 08:20] LABS: ANISOCYTOSIS 1+
[2018-06-10 08:21] LABS: <PLATELET ESTIMATE> DECREASED; <PLT MORPHOLOGY> NORMAL PLT MORPH; TOXIC GRAN 1+
[2018-06-10 08:26] VITALS: BP 101/70
[2018-06-10] MEDS: TBO-FILGRASTIM 480 MCG/0.8 ML SQ SCH (09:51)
[2018-06-10] MEDS: SENNA/DOCUSATE TABLET PO SCH (09:51)
[2018-06-10] MEDS: ACYCLOVIR 200 MG CAPSULE PO SCH ×2 (09:51→19:48)
[2018-06-10 14:14] VITALS: BP 110/76
[2018-06-10 19:17] VITALS: BP 105/68
[2018-06-10] MEDS: FAMOTIDINE 20 MG TABLET PO SCH (19:47)
[2018-06-10] MEDS: TEMAZEPAM 15 MG CAPSULE PO PRN (19:47)
[2018-06-11 03:55] VITALS: BP 100/66
[2018-06-11] MEDS: MEROPENEM 2 GM in SODIUM CHLORIDE 0.9% 100 ML IV SCH ×3 (05:40→22:15)
[2018-06-11 06:04] LABS: MEAN CORPUSCULAR HEMOGLOBIN 28.9 pg (27.0-34.8); MEAN CORPUSCULAR HGB CONC 35.4 g/dL (32.4-35.8); MEAN CORPUSCULAR VOLUME 81.5 fL (80-100); RED CELL DISTRIBUTION WIDTH 14.9 % (9.6-15.2)
[2018-06-11 06:12] LABS: ALANINE AMINOTRANSFERASE 18 U/L (12-78); ALBUMIN 2.7 g/dL (3.4-5.0); ANION GAP 6 mmol/L (5-15); CALCIUM 8.6 mg/dL (8.5-10.1); CHLORIDE 110 mmol/L (98-107)
[2018-06-11 06:15] LABS: ALKALINE PHOSPHATASE 81 U/L (45-117); BILIRUBIN,TOTAL 0.3 mg/dL (0.2-1.0); TOTAL PROTEIN 6.3 g/dL (6.4-8.2)
[2018-06-11 06:38] LABS: PLATELET COUNT 12 x10^3/uL (130-400)
[2018-06-11 06:39] LABS: MD YES
[2018-06-11 06:41] LABS: BAND#(MANUAL) 0.04 x10^3/uL; BANDS%(MANUAL) 4 % (0-7); LYMPH#(MANUAL) 0.68 x10^3/uL (1-3.4); LYMPHS% (MANUAL) 62 % (22-44); MONOS#(MANUAL) 0.02 x10^3/uL (0.3-2.7); MONOS% (MANUAL) 2 % (2-9); SEG#(MANUAL) 0.35 x10^3/uL (1.8-6.8); SEGS% (MANUAL) 32 % (42-75)
[2018-06-11 06:42] LABS: <PLATELET ESTIMATE> DECREASED; <PLT MORPHOLOGY> NORMAL PLT MORPH; ANISOCYTOSIS 1+
[2018-06-11 06:43] LABS: TOXIC GRAN 1+
[2018-06-11 06:49] VITALS: BP 89/60
[2018-06-11] MEDS: ACYCLOVIR 200 MG CAPSULE PO SCH ×2 (08:30→20:01)
[2018-06-11 08:35] VITALS: BP 94/59
[2018-06-11] MEDS: SENNA/DOCUSATE TABLET PO SCH (09:00)
[2018-06-11] MEDS: TBO-FILGRASTIM 480 MCG/0.8 ML SQ SCH (10:14)
[2018-06-11 14:35] VITALS: BP 114/74
[2018-06-11 19:53] VITALS: BP 104/71
[2018-06-11] MEDS: FAMOTIDINE 20 MG TABLET PO SCH (20:01)
[2018-06-11] MEDS: TEMAZEPAM 15 MG CAPSULE PO PRN (20:03)
[2018-06-12 05:33] VITALS: BP 107/67
[2018-06-12] MEDS: MEROPENEM 2 GM in SODIUM CHLORIDE 0.9% 100 ML IV SCH ×2 (05:47→17:47)
[2018-06-12 06:16] LABS: ALANINE AMINOTRANSFERASE 20 U/L (12-78); ALBUMIN 2.8 g/dL (3.4-5.0); ANION GAP 7 mmol/L (5-15); CALCIUM 8.9 mg/dL (8.5-10.1); CHLORIDE 109 mmol/L (98-107)
[2018-06-12 06:19] LABS: ALKALINE PHOSPHATASE 89 U/L (45-117); BILIRUBIN,TOTAL 0.5 mg/dL (0.2-1.0); TOTAL PROTEIN 6.4 g/dL (6.4-8.2)
[2018-06-12 06:49] LABS: MEAN CORPUSCULAR HEMOGLOBIN 28.6 pg (27.0-34.8); MEAN CORPUSCULAR HGB CONC 35.6 g/dL (32.4-35.8); MEAN CORPUSCULAR VOLUME 80.3 fL (80-100); MEAN PLATELET VOLUME 9.3 fL (7.4-10.4); PLATELET COUNT 10 x10^3/uL (130-400); RED BLOOD COUNT 2.77 x10^6/uL (3.82-5.3); RED CELL DISTRIBUTION WIDTH 14.8 % (9.6-15.2)
[2018-06-12 06:50] LABS: MD YES
[2018-06-12 06:53] LABS: BAND#(MANUAL) 0.11 x10^3/uL; BANDS%(MANUAL) 10 % (0-7); EOS#(MANUAL) 0.02 x10^3/uL (0.0-0.4); EOS% (MANUAL) 2 % (1-7); LYMPH#(MANUAL) 0.44 x10^3/uL (1-3.4); LYMPHS% (MANUAL) 40 % (22-44); MONOS#(MANUAL) 0.04 x10^3/uL (0.3-2.7); MONOS% (MANUAL) 4 % (2-9); SEG#(MANUAL) 0.48 x10^3/uL (1.8-6.8); SEGS% (MANUAL) 44 % (42-75)
[2018-06-12 06:54] LABS: ANISOCYTOSIS 1+
[2018-06-12 06:56] LABS: <PLATELET ESTIMATE> DECREASED; <PLT MORPHOLOGY> NORMAL PLT MORPH; TOXIC GRAN 1+
[2018-06-12 07:50] VITALS: BP 99/64
[2018-06-12] MEDS: SENNA/DOCUSATE TABLET PO SCH (10:35)
[2018-06-12] MEDS: TBO-FILGRASTIM 480 MCG/0.8 ML SQ SCH (10:36)
[2018-06-12] MEDS: ACYCLOVIR 200 MG CAPSULE PO SCH ×2 (10:36→19:52)
[2018-06-12 13:15] VITALS: BP 100/64
[2018-06-12 19:45] VITALS: BP 91/59
[2018-06-12] MEDS: TEMAZEPAM 15 MG CAPSULE PO PRN (19:52)
[2018-06-12] MEDS: FAMOTIDINE 20 MG TABLET PO SCH (19:52)
[2018-06-13 04:18] VITALS: BP 88/55
[2018-06-13] MEDS: MEROPENEM 2 GM in SODIUM CHLORIDE 0.9% 100 ML IV SCH (04:31)
[2018-06-13 05:03] LABS: CHLORIDE 108 mmol/L (98-107); MEAN CORPUSCULAR HEMOGLOBIN 28.7 pg (27.0-34.8); MEAN CORPUSCULAR HGB CONC 35.2 g/dL (32.4-35.8); MEAN CORPUSCULAR VOLUME 81.6 fL (80-100); RED BLOOD COUNT 2.67 x10^6/uL (3.82-5.3); RED CELL DISTRIBUTION WIDTH 14.8 % (9.6-15.2)
[2018-06-13 05:10] LABS: ALANINE AMINOTRANSFERASE 19 U/L (12-78); ALBUMIN 2.8 g/dL (3.4-5.0); ALKALINE PHOSPHATASE 89 U/L (45-117); ANION GAP 7 mmol/L (5-15); BILIRUBIN,TOTAL 0.5 mg/dL (0.2-1.0); CALCIUM 8.4 mg/dL (8.5-10.1); CREATININE 0.61 mg/dL (0.55-1.02); TOTAL PROTEIN 6.4 g/dL (6.4-8.2)
[2018-06-13 05:47] LABS: MD YES
[2018-06-13 05:49] LABS: PLATELET COUNT 13 x10^3/uL (130-400)
[2018-06-13 05:52] LABS: <PLATELET ESTIMATE> DECREASED; <PLT MORPHOLOGY> NORMAL PLT MORPH; ANISOCYTOSIS 1+; BAND#(MANUAL) 0.07 x10^3/uL; BANDS%(MANUAL) 4 % (0-7); LYMPH#(MANUAL) 0.72 x10^3/uL (1-3.4); LYMPHS% (MANUAL) 40 % (22-44); MONOS#(MANUAL) 0.07 x10^3/uL (0.3-2.7); MONOS% (MANUAL) 4 % (2-9); SEG#(MANUAL) 0.94 x10^3/uL (1.8-6.8); SEGS% (MANUAL) 52 % (42-75); TOXIC GRAN 1+
[2018-06-13 05:56] LABS: SPHEROCYTES 1+
[2018-06-13 08:39] VITALS: BP 94/62
[2018-06-13] MEDS: ACYCLOVIR 200 MG CAPSULE PO SCH ×2 (10:15→20:15)
[2018-06-13] MEDS: SENNA/DOCUSATE TABLET PO SCH (10:15)
[2018-06-13] MEDS: TBO-FILGRASTIM 480 MCG/0.8 ML SQ SCH (10:15)
[2018-06-13 14:10] VITALS: BP 94/68
[2018-06-13] MEDS: FAMOTIDINE 20 MG TABLET PO SCH (20:15)
[2018-06-13] MEDS: TEMAZEPAM 15 MG CAPSULE PO PRN (20:15)
[2018-06-13 20:22] VITALS: BP 108/73
[2018-06-14 05:46] LABS: MEAN CORPUSCULAR HEMOGLOBIN 28.8 pg (27.0-34.8); MEAN CORPUSCULAR HGB CONC 34.8 g/dL (32.4-35.8); MEAN CORPUSCULAR VOLUME 82.8 fL (80-100); RED BLOOD COUNT 2.98 x10^6/uL (3.82-5.3); RED CELL DISTRIBUTION WIDTH 14.8 % (9.6-15.2)
[2018-06-14 05:50] LABS: PLATELET COUNT 13 x10^3/uL (130-400)
[2018-06-14 05:52] LABS: ANION GAP 6 mmol/L (5-15); CALCIUM 8.9 mg/dL (8.5-10.1); CHLORIDE 109 mmol/L (98-107)
[2018-06-14 05:57] LABS: ALANINE AMINOTRANSFERASE 19 U/L (12-78); ALKALINE PHOSPHATASE 96 U/L (45-117); BILIRUBIN,TOTAL 0.5 mg/dL (0.2-1.0); CREATININE 0.54 mg/dL (0.55-1.02); TOTAL PROTEIN 6.7 g/dL (6.4-8.2)
[2018-06-14 06:05] VITALS: BP 84/59
[2018-06-14 06:15] LABS: MD YES
[2018-06-14 06:18] LABS: BAND#(MANUAL) 0.06 x10^3/uL; BANDS%(MANUAL) 2 % (0-7); LYMPH#(MANUAL) 0.65 x10^3/uL (1-3.4); LYMPHS% (MANUAL) 21 % (22-44); MONOS#(MANUAL) 0.19 x10^3/uL (0.3-2.7); MONOS% (MANUAL) 6 % (2-9); SEGS% (MANUAL) 71 % (42-75)
[2018-06-14 06:19] LABS: ANISOCYTOSIS 1+; OVALOCYTES 1+
[2018-06-14 06:20] LABS: <PLATELET ESTIMATE> DECREASED; <PLT MORPHOLOGY> NORMAL PLT MORPH
[2018-06-14] MEDS ORDERED: POTASSIUM PHOSPHATE 44 MEQ in SODIUM CHLORIDE 0.9% 500 ML IV ONE (08:00)
[2018-06-14] MEDS: TBO-FILGRASTIM 480 MCG/0.8 ML SQ SCH (09:07)
[2018-06-14] MEDS: ACYCLOVIR 200 MG CAPSULE PO SCH (09:07)
[2018-06-14] MEDS: SENNA/DOCUSATE TABLET PO SCH (09:07)
[2018-06-14 09:45] VITALS: BP 101/69
[2018-06-14 14:44] VITALS: BP 89/60
[2018-06-14 19:35] VITALS: BP 109/72
[2018-06-14] MEDS: FAMOTIDINE 20 MG TABLET PO SCH (20:22)
[2018-06-14] MEDS: TEMAZEPAM 15 MG CAPSULE PO PRN (20:25)
[2018-06-15 03:59] VITALS: BP 108/75
[2018-06-15 04:51] LABS: ALBUMIN 2.8 g/dL (3.4-5.0); ANION GAP 5 mmol/L (5-15); CALCIUM 8.7 mg/dL (8.5-10.1); CHLORIDE 111 mmol/L (98-107)
[2018-06-15 04:55] LABS: ALANINE AMINOTRANSFERASE 19 U/L (12-78); ALKALINE PHOSPHATASE 103 U/L (45-117); BILIRUBIN,TOTAL 0.3 mg/dL (0.2-1.0); CREATININE 0.57 mg/dL (0.55-1.02); TOTAL PROTEIN 6.4 g/dL (6.4-8.2)
[2018-06-15 05:31] LABS: MEAN CORPUSCULAR HEMOGLOBIN 29.7 pg (27.0-34.8); MEAN CORPUSCULAR HGB CONC 35.8 g/dL (32.4-35.8); MEAN CORPUSCULAR VOLUME 82.9 fL (80-100); RED BLOOD COUNT 2.57 x10^6/uL (3.82-5.3); RED CELL DISTRIBUTION WIDTH 14.6 % (9.6-15.2)
[2018-06-15 06:04] LABS: MD YES
[2018-06-15 06:06] LABS: MEAN PLATELET VOLUME 8.8 fL (7.4-10.4)
[2018-06-15 06:07] LABS: PLATELET COUNT 15 x10^3/uL (130-400)
[2018-06-15 06:11] LABS: <PLATELET ESTIMATE> DECREASED; <PLT MORPHOLOGY> NORMAL PLT MORPH; ANISOCYTOSIS 1+; BAND#(MANUAL) 0.14 x10^3/uL; BANDS%(MANUAL) 6 % (0-7); BASOS#(MANUAL) 0.02 x10^3/uL (0-0.1); BASOS% (MANUAL) 1 % (0-1); LYMPH#(MANUAL) 0.82 x10^3/uL (1-3.4); LYMPHS% (MANUAL) 34 % (22-44); MONOS#(MANUAL) 0.05 x10^3/uL (0.3-2.7); MONOS% (MANUAL) 2 % (2-9); NRBC % (MANUAL) 1 % (0-1); OVALOCYTES 1+; SEG#(MANUAL) 1.37 x10^3/uL (1.8-6.8); SEGS% (MANUAL) 57 % (42-75)
[2018-06-15 06:12] LABS: POLYCHROMASIA 1+
[2018-06-15 06:14] LABS: TOXIC GRAN 1+
[2018-06-15 06:56] VITALS: BP 92/61
[2018-06-15] MEDS: SENNA/DOCUSATE TABLET PO SCH (08:47)
[2018-06-15 12:56] VITALS: BP 95/63
[2018-06-15 13:29] LABS: MEAN CORPUSCULAR HEMOGLOBIN 29.3 pg (27.0-34.8); MEAN CORPUSCULAR HGB CONC 35.3 g/dL (32.4-35.8); MEAN PLATELET VOLUME 9.9 fL (7.4-10.4); RED CELL DISTRIBUTION WIDTH 14.6 % (9.6-15.2)
[2018-06-15 13:30] LABS: PLATELET COUNT 16 x10^3/uL (130-400)
[2018-06-15 13:32] LABS: BASOPHILS # (AUTO) 0.03 x10^3/uL (0-0.1); BASOPHILS % (AUTO) 1 % (0-1); EOSINOPHILS % (AUTO) 0 % (1-7); LYMPHOCYTES # (AUTO) 1.02 x10^3/uL (1-3.4); LYMPHOCYTES % (AUTO) 32 % (22-44); MD SCAN; MONOCYTES % (AUTO) 6 % (2-9); NEUTROPHILS # (AUTO) 1.96 x10^3/uL (1.8-6.8); NEUTROPHILS % (AUTO) 61 % (42-75)
[2018-06-15 19:33] VITALS: BP 88/62
[2018-06-15] MEDS: FAMOTIDINE 20 MG TABLET PO SCH (20:58)
[2018-06-15] MEDS: TEMAZEPAM 15 MG CAPSULE PO PRN (20:58)
[2018-06-16 05:24] VITALS: BP 93/62
[2018-06-16 05:41] LABS: MEAN CORPUSCULAR HEMOGLOBIN 28.8 pg (27.0-34.8); MEAN CORPUSCULAR HGB CONC 35.1 g/dL (32.4-35.8); MEAN CORPUSCULAR VOLUME 81.8 fL (80-100); RED BLOOD COUNT 2.47 x10^6/uL (3.82-5.3); RED CELL DISTRIBUTION WIDTH 15.1 % (9.6-15.2)
[2018-06-16 05:44] LABS: PLATELET COUNT 15 x10^3/uL (130-400)
[2018-06-16 05:45] LABS: CHLORIDE 112 mmol/L (98-107)
[2018-06-16 05:50] LABS: ALANINE AMINOTRANSFERASE 21 U/L (12-78); ALBUMIN 2.9 g/dL (3.4-5.0); ALKALINE PHOSPHATASE 103 U/L (45-117); ANION GAP 5 mmol/L (5-15); BILIRUBIN,TOTAL 0.4 mg/dL (0.2-1.0); CALCIUM 8.8 mg/dL (8.5-10.1); CREATININE 0.51 mg/dL (0.55-1.02); TOTAL PROTEIN 6.1 g/dL (6.4-8.2)
[2018-06-16 06:06] LABS: BASOPHILS # (AUTO) 0.01 x10^3/uL (0-0.1); BASOPHILS % (AUTO) 0 % (0-1); EOSINOPHILS % (AUTO) 0 % (1-7); LYMPHOCYTES # (AUTO) 0.65 x10^3/uL (1-3.4); LYMPHOCYTES % (AUTO) 34 % (22-44); MD SCAN; MONOCYTES # (AUTO) 0.16 x10^3/uL (0.2-0.8); MONOCYTES % (AUTO) 8 % (2-9); NEUTROPHILS # (AUTO) 1.14 x10^3/uL (1.8-6.8); NEUTROPHILS % (AUTO) 58 % (42-75)
[2018-06-16 06:53] VITALS: BP 92/62
[2018-06-16] MEDS: SENNA/DOCUSATE TABLET PO SCH (09:00)
[2018-06-16] MEDS: POTASSIUM CHLORIDE 20 MEQ TAB.ER.PRT PO SCH ×2 (09:21→17:34)
[2018-06-16] MEDS: MAGNESIUM HYDROXIDE 8%, 30ML UDC PO SCH (09:46)
[2018-06-16 13:47] VITALS: BP 95/70
[2018-06-16 17:49] LABS: MD YES; MEAN CORPUSCULAR HEMOGLOBIN 29.1 pg (27.0-34.8); MEAN CORPUSCULAR HGB CONC 35.2 g/dL (32.4-35.8); MEAN CORPUSCULAR VOLUME 82.8 fL (80-100); MEAN PLATELET VOLUME 9.6 fL (7.4-10.4); RED BLOOD COUNT 2.54 x10^6/uL (3.82-5.3); RED CELL DISTRIBUTION WIDTH 14.9 % (9.6-15.2)
[2018-06-16 17:51] LABS: BANDS%(MANUAL) 4 % (0-7); LYMPHS% (MANUAL) 38 % (22-44); MONOS% (MANUAL) 3 % (2-9); SEGS% (MANUAL) 55 % (42-75)
[2018-06-16 17:53] LABS: BAND#(MANUAL) 0.08 x10^3/uL; LYMPH#(MANUAL) 0.72 x10^3/uL (1-3.4); MONOS#(MANUAL) 0.06 x10^3/uL (0.3-2.7); SEG#(MANUAL) 1.05 x10^3/uL (1.8-6.8)
[2018-06-16 17:54] LABS: PLATELET COUNT 18 x10^3/uL (130-400)
[2018-06-16 17:55] LABS: ANISOCYTOSIS 1+; OVALOCYTES 1+; TOXIC GRAN 1+
[2018-06-16 17:56] LABS: TEAR DROPS 1+
[2018-06-16 17:57] LABS: <PLATELET ESTIMATE> DECREASED; <PLT MORPHOLOGY> NORMAL PLT MORPH
[2018-06-16] MEDS: FAMOTIDINE 20 MG TABLET PO SCH (19:52)
[2018-06-16] MEDS: TEMAZEPAM 15 MG CAPSULE PO PRN (19:52)
[2018-06-16 19:57] VITALS: BP 95/68
[2018-06-16 19:58] VITALS: BP 95/68
[2018-06-16 20:14] VITALS: BP 102/61
[2018-06-17] VITALS (7 sets, daily range): BP systolic 84–99; BP diastolic 59–65
[2018-06-17 06:26] LABS: MEAN CORPUSCULAR HEMOGLOBIN 28.8 pg (27.0-34.8); MEAN CORPUSCULAR HGB CONC 35.1 g/dL (32.4-35.8); MEAN CORPUSCULAR VOLUME 82.1 fL (80-100); MEAN PLATELET VOLUME 9.8 fL (7.4-10.4); RED CELL DISTRIBUTION WIDTH 14.9 % (9.6-15.2)
[2018-06-17 06:27] LABS: PLATELET COUNT 18 x10^3/uL (130-400)
[2018-06-17 06:34] LABS: ALANINE AMINOTRANSFERASE 25 U/L (12-78); ALBUMIN 2.9 g/dL (3.4-5.0); ANION GAP 5 mmol/L (5-15); CALCIUM 8.7 mg/dL (8.5-10.1); CHLORIDE 112 mmol/L (98-107)
[2018-06-17 06:36] LABS: ALKALINE PHOSPHATASE 103 U/L (45-117); BILIRUBIN,TOTAL 0.3 mg/dL (0.2-1.0); TOTAL PROTEIN 6.2 g/dL (6.4-8.2)
[2018-06-17 06:51] LABS: MD YES
[2018-06-17 06:55] LABS: BAND#(MANUAL) 0.08 x10^3/uL; BANDS%(MANUAL) 5 % (0-7); LYMPH#(MANUAL) 0.57 x10^3/uL (1-3.4); LYMPHS% (MANUAL) 38 % (22-44); MONOS#(MANUAL) 0.09 x10^3/uL (0.3-2.7); MONOS% (MANUAL) 6 % (2-9); SEG#(MANUAL) 0.77 x10^3/uL (1.8-6.8); SEGS% (MANUAL) 51 % (42-75)
[2018-06-17 07:12] LABS: <PLATELET ESTIMATE> DECREASED; <PLT MORPHOLOGY> NORMAL PLT MORPH; ANISOCYTOSIS 1+; OVALOCYTES 1+
[2018-06-17 07:13] LABS: TOXIC GRAN 1+
[2018-06-17] MEDS: DIPHENHYDRAMINE 25 MG CAPSULE PO PRN (07:24)
[2018-06-17] MEDS: POTASSIUM CHLORIDE 20 MEQ TAB.ER.PRT PO SCH ×2 (08:00→17:20)
[2018-06-17] MEDS: SENNA/DOCUSATE TABLET PO SCH (09:00)
[2018-06-17] MEDS: MAGNESIUM HYDROXIDE 8%, 30ML UDC PO SCH (09:00)
[2018-06-17] MEDS: MEROPENEM 1 GM in SODIUM CHLORIDE 0.9% 100 ML IV SCH ×2 (12:10→20:15)
[2018-06-17] MEDS ORDERED: FENTANYL PF 100 MCG/2ML ONE (13:30)
[2018-06-17] MEDS ORDERED: FLUMAZENIL 0.1 MG/1 ML, 5ML ONE (13:30)
[2018-06-17] MEDS ORDERED: MIDAZOLAM 1 MG/ML, 5ML ONE (13:30)
[2018-06-17] MEDS ORDERED: NALOXONE 1 MG/ML, 2ML ONE (13:30)
[2018-06-17] MEDS ORDERED: LIDOCAINE-MPF 1%, 5ML ONE (13:31)
[2018-06-17] MEDS: TEMAZEPAM 15 MG CAPSULE PO PRN (20:15)
[2018-06-17] MEDS: FAMOTIDINE 20 MG TABLET PO SCH (20:15)
[2018-06-18 03:40] VITALS: BP 88/60
[2018-06-18] MEDS: MEROPENEM 1 GM in SODIUM CHLORIDE 0.9% 100 ML IV SCH ×2 (03:50→09:26)
[2018-06-18 04:14] LABS: MEAN CORPUSCULAR HEMOGLOBIN 29.3 pg (27.0-34.8); MEAN CORPUSCULAR HGB CONC 35.4 g/dL (32.4-35.8); MEAN CORPUSCULAR VOLUME 82.8 fL (80-100); RED CELL DISTRIBUTION WIDTH 14.5 % (9.6-15.2)
[2018-06-18 04:24] LABS: CALCIUM 8.7 mg/dL (8.5-10.1); CHLORIDE 110 mmol/L (98-107)
[2018-06-18 04:29] LABS: ALANINE AMINOTRANSFERASE 27 U/L (12-78); ALBUMIN 3.1 g/dL (3.4-5.0); ALKALINE PHOSPHATASE 100 U/L (45-117); ANION GAP 5 mmol/L (5-15); BILIRUBIN,TOTAL 0.4 mg/dL (0.2-1.0); CREATININE 0.59 mg/dL (0.55-1.02); TOTAL PROTEIN 6.3 g/dL (6.4-8.2)
[2018-06-18 05:15] LABS: BAND#(MANUAL) 0.06 x10^3/uL; BANDS%(MANUAL) 4 % (0-7); LYMPH#(MANUAL) 0.48 x10^3/uL (1-3.4); LYMPHS% (MANUAL) 30 % (22-44); MD YES; MEAN PLATELET VOLUME 7.7 fL (7.4-10.4); MONOS% (MANUAL) 6 % (2-9); PLATELET COUNT 67 x10^3/uL (130-400); SEG#(MANUAL) 0.96 x10^3/uL (1.8-6.8); SEGS% (MANUAL) 60 % (42-75)
[2018-06-18 05:16] LABS: <PLATELET ESTIMATE> DECREASED; <PLT MORPHOLOGY> NORMAL PLT MORPH; ANISOCYTOSIS 1+; OVALOCYTES 1+; TOXIC GRAN 1+
[2018-06-18 06:50] VITALS: BP 83/51
[2018-06-18] MEDS: MAGNESIUM HYDROXIDE 8%, 30ML UDC PO SCH (08:24)
[2018-06-18] MEDS: SENNA/DOCUSATE TABLET PO SCH (08:24)
[2018-06-18] MEDS: POTASSIUM CHLORIDE 20 MEQ TAB.ER.PRT PO SCH ×2 (08:24→17:51)
[2018-06-18 13:50] VITALS: BP 92/62
[2018-06-18] MEDS ORDERED: ACYC-114 PO (15:10)
[2018-06-18] MEDS ORDERED: LEVO500T47 PO (15:10)
[2018-06-18] MEDS ORDERED: LIDO700A20 TD (15:10)
[2018-06-18] MEDS ORDERED: FAMO20TA7 PO (15:10)
[2018-06-18] MEDS ORDERED: SENN-177 PO (15:10)
[2018-06-18] MEDS ORDERED: ONDA8TAB15 PO (15:11)
[2018-06-18] MEDS: FAMOTIDINE 20 MG TABLET PO SCH (20:16)
[2018-06-18] MEDS: TEMAZEPAM 15 MG CAPSULE PO PRN ×2 (20:16→21:02)
[2018-06-18 20:25] VITALS: BP 92/61
[2018-06-19 05:00] VITALS: BP 115/62
[2018-06-19 05:56] LABS: MEAN CORPUSCULAR HEMOGLOBIN 28.7 pg (27.0-34.8); MEAN CORPUSCULAR HGB CONC 34.5 g/dL (32.4-35.8); MEAN CORPUSCULAR VOLUME 83.2 fL (80-100); PLATELET COUNT 62 x10^3/uL (130-400); RED BLOOD COUNT 2.59 x10^6/uL (3.82-5.3); RED CELL DISTRIBUTION WIDTH 14.6 % (9.6-15.2)
[2018-06-19 06:03] LABS: CHLORIDE 110 mmol/L (98-107)
[2018-06-19 06:39] LABS: MD YES
[2018-06-19 06:41] LABS: ALANINE AMINOTRANSFERASE 23 U/L (12-78); ALBUMIN 3.1 g/dL (3.4-5.0); ALKALINE PHOSPHATASE 103 U/L (45-117); ANION GAP 7 mmol/L (5-15); BILIRUBIN,TOTAL 0.3 mg/dL (0.2-1.0); CALCIUM 9.4 mg/dL (8.5-10.1); CREATININE 0.62 mg/dL (0.55-1.02); TOTAL PROTEIN 6.6 g/dL (6.4-8.2)
[2018-06-19 06:42] LABS: LYMPH#(MANUAL) 0.56 x10^3/uL (1-3.4); LYMPHS% (MANUAL) 47 % (22-44)
[2018-06-19 06:43] LABS: BAND#(MANUAL) 0.02 x10^3/uL; BANDS%(MANUAL) 2 % (0-7); MONOS#(MANUAL) 0.11 x10^3/uL (0.3-2.7); MONOS% (MANUAL) 9 % (2-9); SEGS% (MANUAL) 42 % (42-75)
[2018-06-19 06:44] LABS: ANISOCYTOSIS 1+; OVALOCYTES 1+
[2018-06-19 06:45] LABS: <PLATELET ESTIMATE> DECREASED; <PLT MORPHOLOGY> NORMAL PLT MORPH; TOXIC GRAN 1+
[2018-06-19 07:56] VITALS: BP 91/61
[2018-06-19] MEDS: SENNA/DOCUSATE TABLET PO SCH (08:08)
[2018-06-19] MEDS: MAGNESIUM HYDROXIDE 8%, 30ML UDC PO SCH (08:08)
[2018-06-19] MEDS ORDERED: TEMA15CA6 PO (12:50)
[2018-06-19 13:04] VITALS: BP 82/57
== END 2018-06-19 14:39 | disposition home health service (06) | DRG 834 ==
LOC: ED 16:05 → EDIP 16:47 → 3NW 19:29 → 3NE 05-17 12:17 → 3NW 05-17 12:19
PROVIDERS: ADMIT Internal Medicine; ATTEND Internal Medicine
PROC: 30233N1 Transfusion of Nonautologous Red Blood Cells into Peripheral Vein, Percutaneous Approach (ICD-10-PCS; 2018-04-27)
PROC: 02HV33Z Insertion of Infusion Device into Superior Vena Cava, Percutaneous Approach (ICD-10-PCS; principal; 2018-04-28)
PROC: B5181ZA Fluoroscopy of Superior Vena Cava using Low Osmolar Contrast, Guidance (ICD-10-PCS; 2018-04-28)
PROC: B548ZZA Ultrasonography of Superior Vena Cava, Guidance (ICD-10-PCS; 2018-04-28)
PROC: 30233R1 Transfusion of Nonautologous Platelets into Peripheral Vein, Percutaneous Approach (ICD-10-PCS; 2018-04-28)
PROC: 07DR3ZX Extraction of Iliac Bone Marrow, Percutaneous Approach, Diagnostic (ICD-10-PCS; 2018-04-29)
PROC: 07DR3ZX Extraction of Iliac Bone Marrow, Percutaneous Approach, Diagnostic (ICD-10-PCS; 2018-05-20)
PROC: 07DR3ZX Extraction of Iliac Bone Marrow, Percutaneous Approach, Diagnostic (ICD-10-PCS; 2018-06-17)
DX: C92.00 Acute myeloblastic leukemia, not having achieved remission (principal); D61.810 Antineoplastic chemotherapy induced pancytopenia; E87.1 Hypo-osmolality and hyponatremia; D63.0 Anemia in neoplastic disease; D69.59 Other secondary thrombocytopenia; E83.39 Other disorders of phosphorus metabolism; E83.42 Hypomagnesemia; E87.6 Hypokalemia; G47.00 Insomnia, unspecified; D70.9 Neutropenia, unspecified; I10 Essential (primary) hypertension; K59.00 Constipation, unspecified; R04.0 Epistaxis; R50.81 Fever presenting with conditions classified elsewhere; T45.1X5A Adverse effect of antineoplastic and immunosuppressive drugs, initial encounter; Z79.899 Other long term (current) drug therapy; Z85.828 Personal history of other malignant neoplasm of skin; Z91.89 Other specified personal risk factors, not elsewhere classified
CPT/HCPCS: 36415; 87449; 87806; 99285; J3490; 36573; 38222; 71045; 71046; 76700; 77012; 80053; 81001; 81003; 82272; 82550; 82728; 83540; 83550; 83605; 83615; 83735; 84100; 84443; 84550; 85025; 85045; 85060; 85097; 85384; 85610; 85651; 85730; 86140; 86644; 86645; 86694; 86695; 86696; 86704; 86706; 86708; 86803; 86850; 86900; 86923; 87040; 87305; 87324; 87340; 88237; 88264; 88280; 88305; 88311; 88313; 88360; 93005; 93306; 99156; 99157; G0378; J1100; J1453; J2185; J2248; J2250; J2405; J2997; J3010; J3370; J3480; J9100; J9211; Q0162; C1751; G0475; J0780; J1200; J1447; J2310; J2930; J3475; J7030; J7040; J7120; J9203; P9037; P9040; Q0163

== ENCOUNTER 2018-08-05 09:30 | Inpatient (IN) | payer OTHER ==
[~2018-08-05] VITALS: Ht 172.7 cm; Wt 68.8 kg
[~2018-08-05 09:30] MED LIST: ACYC-114 PO; FAMO20TA7 PO; LEVO500T47 PO; LIDO700A20 TD; ONDA8TAB15 PO; PROG100C16 PO; SENN-177 PO; TEMA15CA6 PO
[2018-08-07 13:26] VITALS: BP 103/66
[2018-08-07 14:05] LABS: ALANINE AMINOTRANSFERASE 27 U/L (12-78); ANION GAP 6 mmol/L (5-15); CALCIUM 9.4 mg/dL (8.5-10.1); CHLORIDE 110 mmol/L (98-107); CREATININE 1.06 mg/dL (0.55-1.02)
[2018-08-07 14:07] LABS: ALKALINE PHOSPHATASE 83 U/L (45-117); BILIRUBIN,TOTAL 0.3 mg/dL (0.2-1.0); TOTAL PROTEIN 7.5 g/dL (6.4-8.2)
[2018-08-07] MEDS ORDERED: PROCHLORPERAZINE 10MG TABLET PO PRN (17:30)
[2018-08-07] MEDS: SODIUM CHLORIDE 0.9% 1,000 ML IV SCH (17:30)
[2018-08-07] MEDS ORDERED: CATHFLO-ALTEPLASE 2 MG/2 ML CATHFLUSH ONE (17:30)
[2018-08-07] MEDS: predniSOLONE OPHTH SUSP 1%, 5ML EACHEYE SCH (18:24)
[2018-08-07] MEDS: ONDANSETRON 16 MG, DEXAMETHASONE 10 MG in SODIUM CHLORIDE 0.9% 50 ML IVPB SCH (18:24)
[2018-08-07] MEDS ORDERED: FOSAPREPITANT 150 MG in SODIUM CHLORIDE 0.9% 150 ML IV ONE (18:30)
[2018-08-07 19:48] VITALS: BP 105/72
[2018-08-07] MEDS: ENOXAPARIN 40 MG/0.4 ML SQ SCH (20:28)
[2018-08-07] MEDS: ACYCLOVIR 200 MG CAPSULE PO SCH (20:28)
[2018-08-07] MEDS: SODIUM CHLORIDE 0.9% IV SCH (20:37)
[2018-08-07] MEDS: CYTARABINE IV SCH (20:37)
[2018-08-07] MEDS: TEMAZEPAM 15 MG CAPSULE PO PRN (20:57)
[2018-08-08] MEDS: predniSOLONE OPHTH SUSP 1%, 5ML EACHEYE SCH ×4 (00:21→17:51)
[2018-08-08 04:00] VITALS: BP 100/64
[2018-08-08] MEDS: SODIUM CHLORIDE 0.9% 1,000 ML IV SCH ×3 (04:08→22:21)
[2018-08-08 05:00] LABS: ALBUMIN 3.7 g/dL (3.4-5.0); ANION GAP 7 mmol/L (5-15); CALCIUM 8.9 mg/dL (8.5-10.1); CHLORIDE 113 mmol/L (98-107)
[2018-08-08 05:03] LABS: MEAN CORPUSCULAR HEMOGLOBIN 34.1 pg (27.0-34.8); MEAN CORPUSCULAR HGB CONC 33.4 g/dL (32.4-35.8); MEAN CORPUSCULAR VOLUME 102.2 fL (80-100); MEAN PLATELET VOLUME 8.2 fL (7.4-10.4); PLATELET COUNT 145 x10^3/uL (130-400); RED BLOOD COUNT 3.44 x10^6/uL (3.82-5.3); RED CELL DISTRIBUTION WIDTH 19.1 % (9.6-15.2)
[2018-08-08 05:04] LABS: ALANINE AMINOTRANSFERASE 23 U/L (12-78); ALKALINE PHOSPHATASE 76 U/L (45-117); BILIRUBIN,TOTAL 0.4 mg/dL (0.2-1.0); CREATININE 0.83 mg/dL (0.55-1.02); TOTAL PROTEIN 6.9 g/dL (6.4-8.2)
[2018-08-08 06:02] LABS: BASOPHILS % (AUTO) 0 % (0-1); EOSINOPHILS % (AUTO) 0 % (1-7); LYMPHOCYTES # (AUTO) 0.31 x10^3/uL (1-3.4); LYMPHOCYTES % (AUTO) 11 % (22-44); MD SCAN; MONOCYTES # (AUTO) 0.03 x10^3/uL (0.2-0.8); MONOCYTES % (AUTO) 1 % (2-9); NEUTROPHILS # (AUTO) 2.59 x10^3/uL (1.8-6.8); NEUTROPHILS % (AUTO) 88 % (42-75)
[2018-08-08 07:54] VITALS: BP 101/57
[2018-08-08] MEDS: CYTARABINE IV SCH (08:45)
[2018-08-08] MEDS: SODIUM CHLORIDE 0.9% IV SCH (08:45)
[2018-08-08] MEDS: ACYCLOVIR 200 MG CAPSULE PO SCH ×2 (09:03→20:38)
[2018-08-08] MEDS: SENNOSIDES 8.6 MG TABLET PO SCH (09:03)
[2018-08-08 13:59] VITALS: BP 109/62
[2018-08-08] MEDS ORDERED: ONDANSETRON 2MG/ML, 2ML IV PRN (19:00)
[2018-08-08] MEDS ORDERED: ONDANSETRON ODT 8 MG PO PRN (19:00)
[2018-08-08 19:12] VITALS: BP 118/70
[2018-08-08] MEDS: TEMAZEPAM 15 MG CAPSULE PO PRN (20:38)
[2018-08-08] MEDS: ENOXAPARIN 40 MG/0.4 ML SQ SCH (20:40)
[2018-08-09] MEDS: predniSOLONE OPHTH SUSP 1%, 5ML EACHEYE SCH ×4 (00:57→18:23)
[2018-08-09 01:06] VITALS: BP 118/79
[2018-08-09 05:10] LABS: MEAN CORPUSCULAR HEMOGLOBIN 34.7 pg (27.0-34.8); MEAN CORPUSCULAR HGB CONC 33.9 g/dL (32.4-35.8); MEAN CORPUSCULAR VOLUME 102.3 fL (80-100); MEAN PLATELET VOLUME 8.8 fL (7.4-10.4); PLATELET COUNT 111 x10^3/uL (130-400); RED BLOOD COUNT 3.24 x10^6/uL (3.82-5.3); RED CELL DISTRIBUTION WIDTH 19.5 % (9.6-15.2)
[2018-08-09 05:20] LABS: ALBUMIN 3.6 g/dL (3.4-5.0); ANION GAP 6 mmol/L (5-15); CALCIUM 8.9 mg/dL (8.5-10.1); CHLORIDE 113 mmol/L (98-107)
[2018-08-09 05:25] LABS: ALANINE AMINOTRANSFERASE 22 U/L (12-78); ALKALINE PHOSPHATASE 71 U/L (45-117); BILIRUBIN,TOTAL 0.5 mg/dL (0.2-1.0); CREATININE 0.57 mg/dL (0.55-1.02); TOTAL PROTEIN 6.8 g/dL (6.4-8.2)
[2018-08-09 05:53] LABS: BASOPHILS # (AUTO) 0.01 x10^3/uL (0-0.1); BASOPHILS % (AUTO) 0 % (0-1); EOSINOPHILS # (AUTO) 0.01 x10^3/uL (0-0.4); EOSINOPHILS % (AUTO) 0 % (1-7); LYMPHOCYTES # (AUTO) 0.45 x10^3/uL (1-3.4); LYMPHOCYTES % (AUTO) 11 % (22-44); MD SCAN; MONOCYTES # (AUTO) 0.31 x10^3/uL (0.2-0.8); MONOCYTES % (AUTO) 7 % (2-9); NEUTROPHILS # (AUTO) 3.45 x10^3/uL (1.8-6.8); NEUTROPHILS % (AUTO) 82 % (42-75)
[2018-08-09 07:03] VITALS: BP 115/72
[2018-08-09] MEDS: SENNOSIDES 8.6 MG TABLET PO SCH (10:56)
[2018-08-09] MEDS: ACYCLOVIR 200 MG CAPSULE PO SCH ×2 (10:56→21:01)
[2018-08-09] MEDS: SODIUM CHLORIDE 0.9% 1,000 ML IV SCH ×2 (10:56→18:56)
[2018-08-09 13:49] VITALS: BP 109/73
[2018-08-09] MEDS ORDERED: FOSAPREPITANT 150 MG in SODIUM CHLORIDE 0.9% 150 ML IV ONE (18:30)
[2018-08-09 19:01] VITALS: BP 121/82
[2018-08-09] MEDS: ONDANSETRON 16 MG, DEXAMETHASONE 10 MG in SODIUM CHLORIDE 0.9% 50 ML IVPB SCH (21:01)
[2018-08-09] MEDS: ENOXAPARIN 40 MG/0.4 ML SQ SCH (21:01)
[2018-08-09] MEDS: TEMAZEPAM 15 MG CAPSULE PO PRN (21:01)
[2018-08-09] MEDS: CYTARABINE IV SCH (21:44)
[2018-08-09] MEDS: SODIUM CHLORIDE 0.9% IV SCH (21:44)
[2018-08-10] MEDS: predniSOLONE OPHTH SUSP 1%, 5ML EACHEYE SCH ×4 (00:48→17:34)
[2018-08-10 00:49] VITALS: BP 107/62
[2018-08-10] MEDS: SODIUM CHLORIDE 0.9% 1,000 ML IV SCH ×2 (05:02→14:40)
[2018-08-10 05:28] LABS: ALBUMIN 3.4 g/dL (3.4-5.0); ANION GAP 7 mmol/L (5-15); CHLORIDE 111 mmol/L (98-107)
[2018-08-10 05:32] LABS: ALANINE AMINOTRANSFERASE 21 U/L (12-78); ALKALINE PHOSPHATASE 64 U/L (45-117); BILIRUBIN,TOTAL 0.3 mg/dL (0.2-1.0); CREATININE 0.69 mg/dL (0.55-1.02); TOTAL PROTEIN 6.9 g/dL (6.4-8.2)
[2018-08-10 05:45] LABS: MEAN CORPUSCULAR HEMOGLOBIN 33.4 pg (27.0-34.8); MEAN CORPUSCULAR HGB CONC 33.4 g/dL (32.4-35.8); MEAN CORPUSCULAR VOLUME 100.1 fL (80-100); MEAN PLATELET VOLUME 8.1 fL (7.4-10.4); PLATELET COUNT 132 x10^3/uL (130-400); RED BLOOD COUNT 3.33 x10^6/uL (3.82-5.3); RED CELL DISTRIBUTION WIDTH 18.4 % (9.6-15.2)
[2018-08-10 06:13] LABS: BASOPHILS # (AUTO) 0.02 x10^3/uL (0-0.1); BASOPHILS % (AUTO) 1 % (0-1); EOSINOPHILS % (AUTO) 0 % (1-7); LYMPHOCYTES # (AUTO) 0.12 x10^3/uL (1-3.4); LYMPHOCYTES % (AUTO) 6 % (22-44); MD SCAN; MONOCYTES # (AUTO) 0.01 x10^3/uL (0.2-0.8); MONOCYTES % (AUTO) 1 % (2-9); NEUTROPHILS # (AUTO) 1.91 x10^3/uL (1.8-6.8); NEUTROPHILS % (AUTO) 93 % (42-75)
[2018-08-10 06:57] VITALS: BP 104/65
[2018-08-10] MEDS: SENNOSIDES 8.6 MG TABLET PO SCH (09:00)
[2018-08-10] MEDS: SODIUM CHLORIDE 0.9% IV SCH (09:26)
[2018-08-10] MEDS: CYTARABINE IV SCH (09:26)
[2018-08-10] MEDS: ACYCLOVIR 200 MG CAPSULE PO SCH ×2 (09:35→20:43)
[2018-08-10 12:54] VITALS: BP 110/72
[2018-08-10 19:26] VITALS: BP 121/79
[2018-08-10] MEDS: TEMAZEPAM 15 MG CAPSULE PO PRN (20:43)
[2018-08-10] MEDS: ENOXAPARIN 40 MG/0.4 ML SQ SCH (20:45)
[2018-08-11] MEDS: predniSOLONE OPHTH SUSP 1%, 5ML EACHEYE SCH ×4 (00:48→18:01)
[2018-08-11] MEDS: SODIUM CHLORIDE 0.9% 1,000 ML IV SCH ×3 (00:49→19:56)
[2018-08-11 00:54] VITALS: BP 124/77
[2018-08-11 05:34] LABS: MEAN CORPUSCULAR HEMOGLOBIN 34.9 pg (27.0-34.8); MEAN CORPUSCULAR HGB CONC 34.2 g/dL (32.4-35.8); PLATELET COUNT 131 x10^3/uL (130-400); RED BLOOD COUNT 3.11 x10^6/uL (3.82-5.3); RED CELL DISTRIBUTION WIDTH 17.7 % (9.6-15.2)
[2018-08-11 05:40] LABS: ALANINE AMINOTRANSFERASE 21 U/L (12-78); ALBUMIN 3.7 g/dL (3.4-5.0); ANION GAP 7 mmol/L (5-15); CALCIUM 8.8 mg/dL (8.5-10.1); CHLORIDE 111 mmol/L (98-107); CREATININE 0.57 mg/dL (0.55-1.02)
[2018-08-11 05:42] LABS: ALKALINE PHOSPHATASE 65 U/L (45-117); BILIRUBIN,TOTAL 0.6 mg/dL (0.2-1.0); TOTAL PROTEIN 6.6 g/dL (6.4-8.2)
[2018-08-11 06:01] LABS: BASOPHILS % (AUTO) 0 % (0-1); EOSINOPHILS # (AUTO) 0.01 x10^3/uL (0-0.4); EOSINOPHILS % (AUTO) 0 % (1-7); LYMPHOCYTES # (AUTO) 0.41 x10^3/uL (1-3.4); LYMPHOCYTES % (AUTO) 12 % (22-44); MD SCAN; MONOCYTES % (AUTO) 3 % (2-9); NEUTROPHILS # (AUTO) 2.95 x10^3/uL (1.8-6.8); NEUTROPHILS % (AUTO) 85 % (42-75)
[2018-08-11] MEDS: SENNOSIDES 8.6 MG TABLET PO SCH (10:19)
[2018-08-11] MEDS: ACYCLOVIR 200 MG CAPSULE PO SCH ×2 (10:20→19:56)
[2018-08-11 10:33] VITALS: BP 116/72
[2018-08-11 14:00] VITALS: BP 107/73
[2018-08-11 19:17] VITALS: BP 109/75
[2018-08-11] MEDS: ENOXAPARIN 40 MG/0.4 ML SQ SCH (19:58)
[2018-08-11] MEDS: TEMAZEPAM 15 MG CAPSULE PO PRN (20:27)
[2018-08-11] MEDS: ONDANSETRON 16 MG, DEXAMETHASONE 10 MG in SODIUM CHLORIDE 0.9% 50 ML IVPB SCH (20:27)
[2018-08-11] MEDS: CYTARABINE IV SCH (20:56)
[2018-08-11] MEDS: SODIUM CHLORIDE 0.9% IV SCH (20:56)
[2018-08-12] MEDS: predniSOLONE OPHTH SUSP 1%, 5ML EACHEYE SCH ×2 (00:08→05:59)
[2018-08-12 05:34] VITALS: BP 104/63
[2018-08-12 06:22] LABS: MEAN CORPUSCULAR HEMOGLOBIN 34.6 pg (27.0-34.8); MEAN CORPUSCULAR HGB CONC 34.4 g/dL (32.4-35.8); MEAN CORPUSCULAR VOLUME 100.6 fL (80-100); MEAN PLATELET VOLUME 7.9 fL (7.4-10.4); PLATELET COUNT 136 x10^3/uL (130-400); RED BLOOD COUNT 3.22 x10^6/uL (3.82-5.3); RED CELL DISTRIBUTION WIDTH 17.2 % (9.6-15.2)
[2018-08-12 06:30] LABS: ALBUMIN 3.6 g/dL (3.4-5.0); ANION GAP 8 mmol/L (5-15); CALCIUM 9.1 mg/dL (8.5-10.1); CHLORIDE 110 mmol/L (98-107)
[2018-08-12 06:34] LABS: ALANINE AMINOTRANSFERASE 23 U/L (12-78); ALKALINE PHOSPHATASE 68 U/L (45-117); BILIRUBIN,TOTAL 0.7 mg/dL (0.2-1.0); CREATININE 0.65 mg/dL (0.55-1.02); TOTAL PROTEIN 6.8 g/dL (6.4-8.2)
[2018-08-12 06:41] LABS: MD YES
[2018-08-12] MEDS: SODIUM CHLORIDE 0.9% 1,000 ML IV SCH (06:42)
[2018-08-12 06:43] LABS: MONOS#(MANUAL) 0.02 x10^3/uL (0.3-2.7); MONOS% (MANUAL) 1 % (2-9)
[2018-08-12 06:44] LABS: ANISOCYTOSIS 1+; LYMPH#(MANUAL) 0.18 x10^3/uL (1-3.4); LYMPHS% (MANUAL) 10 % (22-44); OVALOCYTES 1+; SEGS% (MANUAL) 89 % (42-75)
[2018-08-12 06:45] LABS: <PLATELET ESTIMATE> ADEQUATE; <PLT MORPHOLOGY> NORMAL PLT MORPH
[2018-08-12 08:06] VITALS: BP 120/77
[2018-08-12] MEDS: SENNOSIDES 8.6 MG TABLET PO SCH ×2 (09:00→09:26)
[2018-08-12] MEDS: ACYCLOVIR 200 MG CAPSULE PO SCH (09:26)
[2018-08-12] MEDS: SODIUM CHLORIDE 0.9% IV SCH (09:45)
[2018-08-12] MEDS: CYTARABINE IV SCH (09:45)
== END 2018-08-12 13:58 | disposition home or self-care (01) | DRG 839 ==
LOC: 3NW 08-07 13:20
PROVIDERS: ADMIT Internal Medicine Hematology & Oncology; ATTEND Internal Medicine Hematology & Oncology
DX: Z51.11 Encounter for antineoplastic chemotherapy (principal); C92.00 Acute myeloblastic leukemia, not having achieved remission; F41.1 Generalized anxiety disorder; Z87.891 Personal history of nicotine dependence
CPT/HCPCS: 36415; Q0164; 80053; 85025; G0378; J1100; J1453; J1650; J2405; J9100; J7030; J7050

== ENCOUNTER 2018-08-20 14:39 | Inpatient (IN) | payer OTHER ==
[~2018-08-20] VITALS: Ht 172.7 cm; Wt 70.8 kg
[2018-08-20] MEDS ORDERED: SODIUM CHLORIDE 0.9% 1,000 ML IV ONE (15:11)
[2018-08-20] MEDS ORDERED: SODIUM CHLORIDE FLUSH 10ML SYR IVF ONE (15:30)
[2018-08-20] MEDS ORDERED: ONDANSETRON 2MG/ML, 2ML IVPush ONE (15:30)
[2018-08-20] MEDS ORDERED: PIPERACILLIN/TAZO/PMX 3.375GM 50 ML IVPB ONE (15:30)
[2018-08-20] MEDS ORDERED: VANCOMYCIN PER PHARMACY MC ONE (15:30)
[2018-08-20] MEDS ORDERED: ACETAMINOPHEN 500 MG TABLET PO ONE (15:30)
[2018-08-20] MEDS ORDERED: PIPERACILLIN/TAZO/PMX 3.375GM 50 ML ONE (15:51)
[2018-08-20] MEDS ORDERED: ONDANSETRON 2MG/ML, 2ML ONE (15:51)
[2018-08-20] MEDS ORDERED: VANCOMYCIN 1,400 MG in SODIUM CHLORIDE 0.9% 250 ML IV ONE (16:00)
[2018-08-20 16:13] LABS: ALANINE AMINOTRANSFERASE 22 U/L (12-78); ALBUMIN 3.4 g/dL (3.4-5.0); ANION GAP 12 mmol/L (5-15); CALCIUM 8.8 mg/dL (8.5-10.1); CHLORIDE 100 mmol/L (98-107); CREATININE 1.22 mg/dL (0.55-1.02)
[2018-08-20 16:16] LABS: ALKALINE PHOSPHATASE 69 U/L (45-117); BILIRUBIN,TOTAL 0.4 mg/dL (0.2-1.0); TOTAL PROTEIN 6.9 g/dL (6.4-8.2)
[2018-08-20] MEDS ORDERED: SODIUM CHLORIDE 0.9% 1,000ML IVBOLUS ONE (16:30)
[2018-08-20] MEDS ORDERED: ACETAMINOPHEN 500 MG TABLET ONE (16:48)
[2018-08-20 17:02] LABS: MEAN CORPUSCULAR HEMOGLOBIN 33.3 pg (27.0-34.8); MEAN CORPUSCULAR HGB CONC 33.6 g/dL (32.4-35.8); MEAN CORPUSCULAR VOLUME 99.2 fL (80-100); MEAN PLATELET VOLUME 10.5 fL (7.4-10.4); RED BLOOD COUNT 2.66 x10^6/uL (3.82-5.3); RED CELL DISTRIBUTION WIDTH 14.8 % (9.6-15.2)
[2018-08-20 17:04] LABS: PLATELET COUNT 14 x10^3/uL (130-400)
[2018-08-20] MEDS ORDERED: ONDANSETRON ODT 4 MG PO PRN (17:30)
[2018-08-20] MEDS ORDERED: DOCUSATE 100 MG CAPSULE PO PRN (17:30)
[2018-08-20] MEDS ORDERED: POTASSIUM CHLORIDE PMX 100 ML IV ONE (17:30)
[2018-08-20] MEDS ORDERED: BISACODYL 10 MG SUPP PR PRN (17:30)
[2018-08-20] MEDS ORDERED: ENALAPRILAT 1.25 MG/ML, 2ML IVPush PRN (17:30)
[2018-08-20] MEDS ORDERED: POLYETHYLENE GLYCOL 17 GM PACKET PO PRN (17:30)
[2018-08-20] MEDS ORDERED: ACETAMINOPHEN 325 MG TABLET PO PRN (17:30)
[2018-08-20] MEDS ORDERED: LABETALOL 5MG/ML, 20ML IVPush PRN (17:30)
[2018-08-20] MEDS ORDERED: [UNRECOGNIZED DRUG - REMARK] PO (17:50)
--- NOTE | 2018-08-20 17:50 | NUR ---
2ND LITER BOLUS INFUSING ON PUMP THROUGH PICC LINE W/O DIFFICULTY. PTS BP CONT LOW NOTED. PT VERBALIZES THAT HER NORMAL SBP IS IN TH 90'S. TEMP IS IMPROVED, NOW 99.4. PT DENIES NAUSEA. CALL LIGHT W/I REACH
--- NOTE | 2018-08-20 17:52 | NUR ---
LATE ENTRY FOR 1649. PT VERBALIZES THAT NAUSEA IS IMPROVED AFTER ZOFRAN. TYLENOP PO GIVEN FOR TEMP.
--- NOTE | 2018-08-20 17:55 | NUR ---
DISCUSSED PTS LOW BP WITH FARHAT DOMINGUEZ CHIEF OF STAFF DOCTOR. 2ND LITER NS BOLUS INFUSING NOW. TEMP IS IMPROVED AT 99.4. NO ADDITIONAL ORDERS REC'D
--- NOTE | 2018-08-20 18:21 | NUR ---
PT OOB TO COMMODE, DENIES ANY DIZZINESS, AND TRANSFERS INDEPENDENTLY. URINE SAMPLE COLLECTED AND SENT TO LAB. PT RTD TO BED INDEPENDENTLY W/O DIFFICULTY. IVF INFUSING W/O DIFFICULTY.
--- NOTE | 2018-08-20 18:27 | NUR ---
SBAR RPT GIVEN TO FRANCES BERNARD. JOANA REQUESTED THIS RN TO CALL [facility] AND REQUEST AND ORDER FOR ADDITIONAL BOLUS OF 1000ML. PT CURRENTLY HAS THE 2ND LITER BOLUS INFUSING NOW AND WILL GET ANOTHER 200ML FOR A TOTAL OF 2200ML BOLUS. MAINTENANCE FLUIDS WILL RUN AT 125ML/HR. PT IS ASYMPTOMATIC AT THIS TIME. ALEK MCGRATH ENROLLMENT MANAGEMENT COORDINATOR DID GIVE ORDER FOR ADDITIONAL BOLUS AT THIS TIME.
[2018-08-20 18:49] LABS: MICROSCOPIC AUTO
[2018-08-20 18:53] LABS: CULTURE INDICATED? NO
[2018-08-20] MEDS: FAMOTIDINE 20 MG/2 ML IVPush SCH (20:09)
[2018-08-20] MEDS: ACYCLOVIR 400 MG TABLET PO SCH (20:09)
[2018-08-20] MEDS: CEFEPIME 2 GM in DEXTROSE 5% 100 ML IV SCH (22:08)
[2018-08-20] MEDS: NS + 20MEQ KCL 1,000 ML IV SCH (22:08)
[2018-08-21] VITALS (7 sets, daily range): BP systolic 90–109; BP diastolic 57–65
[2018-08-21] MEDS: ONDANSETRON 2MG/ML, 2ML IVPush PRN ×2 (02:24→20:40)
[2018-08-21] MEDS: NS + 20MEQ KCL 1,000 ML IV SCH (04:34)
[2018-08-21] MEDS: CEFEPIME 2 GM in DEXTROSE 5% 100 ML IV SCH ×3 (04:35→20:31)
[2018-08-21 05:12] LABS: ALANINE AMINOTRANSFERASE 19 U/L (12-78); ALBUMIN 2.9 g/dL (3.4-5.0); ANION GAP 6 mmol/L (5-15); CALCIUM 8.4 mg/dL (8.5-10.1); CHLORIDE 112 mmol/L (98-107); CREATININE 0.73 mg/dL (0.55-1.02)
[2018-08-21 05:14] LABS: ALKALINE PHOSPHATASE 52 U/L (45-117); BILIRUBIN,TOTAL 0.3 mg/dL (0.2-1.0); TOTAL PROTEIN 5.9 g/dL (6.4-8.2)
[2018-08-21 05:27] LABS: MEAN CORPUSCULAR HEMOGLOBIN 32.5 pg (27.0-34.8); MEAN CORPUSCULAR HGB CONC 32.7 g/dL (32.4-35.8); MEAN CORPUSCULAR VOLUME 99.4 fL (80-100); RED BLOOD COUNT 2.22 x10^6/uL (3.82-5.3); RED CELL DISTRIBUTION WIDTH 14.5 % (9.6-15.2)
[2018-08-21 05:43] LABS: MEAN PLATELET VOLUME 8.5 fL (7.4-10.4)
[2018-08-21 05:47] LABS: PLATELET COUNT 5 x10^3/uL (130-400)
[2018-08-21 06:27] LABS: MD YES
[2018-08-21 06:28] LABS: LYMPHS% (MANUAL) 100 % (22-44); SEGS% (MANUAL) 0 % (42-75)
[2018-08-21 06:30] LABS: ANISOCYTOSIS 1+; OVALOCYTES 1+
[2018-08-21 06:31] LABS: <PLATELET ESTIMATE> DECREASED; <PLT MORPHOLOGY> NORMAL PLT MORPH
[2018-08-21] MEDS ORDERED: ACETAMINOPHEN 325 MG TABLET PO ONE (07:30)
[2018-08-21] MEDS: ACYCLOVIR 400 MG TABLET PO SCH ×2 (09:21→20:31)
[2018-08-21] MEDS: VANCOMYCIN 1,400 MG in SODIUM CHLORIDE 0.9% 250 ML IV SCH (13:40)
[2018-08-21 20:09] LABS: MD YES; MEAN CORPUSCULAR HEMOGLOBIN 34.4 pg (27.0-34.8); MEAN CORPUSCULAR HGB CONC 34.2 g/dL (32.4-35.8); MEAN CORPUSCULAR VOLUME 100.6 fL (80-100); RED CELL DISTRIBUTION WIDTH 14.8 % (9.6-15.2)
[2018-08-21 20:12] LABS: MEAN PLATELET VOLUME 8.2 fL (7.4-10.4)
[2018-08-21 20:22] LABS: ANISOCYTOSIS 1+; EOS% (MANUAL) 1 % (1-7); LYMPHS% (MANUAL) 98 % (22-44); SEGS% (MANUAL) 1 % (42-75)
[2018-08-21 20:23] LABS: <PLATELET ESTIMATE> DECREASED; <PLT MORPHOLOGY> NORMAL PLT MORPH; OVALOCYTES 1+
[2018-08-21 20:26] LABS: PLATELET COUNT 33 x10^3/uL (130-400)
[2018-08-21] MEDS: TEMAZEPAM 15 MG CAPSULE PO PRN (20:31)
[2018-08-21] MEDS: FAMOTIDINE 20 MG/2 ML IVPush SCH (20:31)
[2018-08-22 03:45] VITALS: BP 104/67
[2018-08-22] MEDS: CEFEPIME 2 GM in DEXTROSE 5% 100 ML IV SCH ×3 (04:47→21:05)
[2018-08-22 05:24] LABS: ANION GAP 6 mmol/L (5-15); CALCIUM 8.7 mg/dL (8.5-10.1); CHLORIDE 111 mmol/L (98-107); CREATININE 0.61 mg/dL (0.55-1.02)
[2018-08-22 06:11] LABS: MD YES
[2018-08-22 06:17] LABS: MEAN CORPUSCULAR HEMOGLOBIN 33.4 pg (27.0-34.8); MEAN CORPUSCULAR HGB CONC 33.8 g/dL (32.4-35.8); MEAN PLATELET VOLUME 7.8 fL (7.4-10.4); RED BLOOD COUNT 2.27 x10^6/uL (3.82-5.3); RED CELL DISTRIBUTION WIDTH 14.4 % (9.6-15.2)
[2018-08-22 06:19] LABS: <PLATELET ESTIMATE> DECREASED; <PLT MORPHOLOGY> NORMAL PLT MORPH; ANISOCYTOSIS 1+; LYMPHS% (MANUAL) 97 % (22-44); OVALOCYTES 1+; SEGS% (MANUAL) 3 % (42-75)
[2018-08-22 06:29] LABS: LYMPH#(MANUAL) 0.39 x10^3/uL (1-3.4); SEG#(MANUAL) 0.01 x10^3/uL (1.8-6.8)
[2018-08-22 06:31] LABS: PLATELET COUNT 26 x10^3/uL (130-400)
[2018-08-22 08:20] VITALS: BP 104/72
[2018-08-22] MEDS: ACYCLOVIR 400 MG TABLET PO SCH ×2 (10:03→21:05)
[2018-08-22 13:30] VITALS: BP 130/71
[2018-08-22] MEDS: VANCOMYCIN 1,400 MG in SODIUM CHLORIDE 0.9% 250 ML IV SCH (13:47)
[2018-08-22] MEDS: FLUCONAZOLE 200 MG TABLET PO SCH (13:48)
[2018-08-22] MEDS: ONDANSETRON 2MG/ML, 2ML IVPush PRN (19:46)
[2018-08-22 20:17] VITALS: BP 104/68
[2018-08-22] MEDS: MIDOSTAURIN 50 MG PO SCH (21:02)
[2018-08-22] MEDS: FAMOTIDINE 20 MG/2 ML IVPush SCH (21:05)
[2018-08-22] MEDS: TEMAZEPAM 15 MG CAPSULE PO PRN (21:12)
[2018-08-22] MEDS ORDERED: CATHFLO-ALTEPLASE 2 MG/2 ML CATHFLUSH ONE (22:00)
[2018-08-23 00:49] VITALS: BP 88/48
[2018-08-23] MEDS: CEFEPIME 2 GM in DEXTROSE 5% 100 ML IV SCH ×3 (04:52→23:10)
[2018-08-23 05:26] LABS: ANION GAP 8 mmol/L (5-15); CALCIUM 8.7 mg/dL (8.5-10.1); CHLORIDE 108 mmol/L (98-107); CREATININE 0.65 mg/dL (0.55-1.02)
[2018-08-23 05:32] LABS: MEAN CORPUSCULAR HEMOGLOBIN 34.3 pg (27.0-34.8); MEAN CORPUSCULAR HGB CONC 34.2 g/dL (32.4-35.8); MEAN CORPUSCULAR VOLUME 100.3 fL (80-100); MEAN PLATELET VOLUME 8.6 fL (7.4-10.4); RED BLOOD COUNT 2.39 x10^6/uL (3.82-5.3); RED CELL DISTRIBUTION WIDTH 14.4 % (9.6-15.2)
[2018-08-23 05:46] LABS: PLATELET COUNT 20 x10^3/uL (130-400)
[2018-08-23 06:10] LABS: MD YES
[2018-08-23 06:16] LABS: <PLATELET ESTIMATE> DECREASED; <PLT MORPHOLOGY> NORMAL PLT MORPH; ANISOCYTOSIS 1+; EOS#(MANUAL) 0.01 x10^3/uL (0.0-0.4); EOS% (MANUAL) 2 % (1-7); LYMPH#(MANUAL) 0.45 x10^3/uL (1-3.4); LYMPHS% (MANUAL) 90 % (22-44); MONOS#(MANUAL) 0.02 x10^3/uL (0.3-2.7); MONOS% (MANUAL) 4 % (2-9); OVALOCYTES 1+; SEG#(MANUAL) 0.02 x10^3/uL (1.8-6.8); SEGS% (MANUAL) 4 % (42-75)
[2018-08-23 07:30] VITALS: BP 103/69
[2018-08-23] MEDS ORDERED: POTASSIUM CHLORIDE 20 MEQ TAB.ER.PRT PO ONE (08:30)
[2018-08-23] MEDS: ONDANSETRON 2MG/ML, 2ML IVPush PRN ×2 (08:54→20:28)
[2018-08-23] MEDS: ACYCLOVIR 400 MG TABLET PO SCH ×2 (10:08→21:23)
[2018-08-23] MEDS: FLUCONAZOLE 200 MG TABLET PO SCH (10:08)
[2018-08-23] MEDS: MIDOSTAURIN 50 MG PO SCH ×2 (10:13→20:59)
[2018-08-23] MEDS ORDERED: PROCHLORPERAZINE 5 MG TABLET PO PRN ×2 (12:30)
[2018-08-23] MEDS: VANCOMYCIN 1,400 MG in SODIUM CHLORIDE 0.9% 250 ML IV SCH (12:36)
[2018-08-23 13:09] VITALS: BP 102/63
[2018-08-23] MEDS: CHLORHEXIDINE 15 ML UDC MM PRN ×2 (13:47→21:23)
[2018-08-23 19:10] VITALS: BP 103/67
[2018-08-23] MEDS: FAMOTIDINE 20 MG TABLET PO SCH (21:23)
[2018-08-23] MEDS: TEMAZEPAM 15 MG CAPSULE PO PRN (21:26)
[2018-08-24 00:30] VITALS: BP 92/62
[2018-08-24] MEDS: CEFEPIME 2 GM in DEXTROSE 5% 100 ML IV SCH ×3 (07:36→23:34)
[2018-08-24 07:51] VITALS: BP 95/60
[2018-08-24 07:51] LABS: ALANINE AMINOTRANSFERASE 17 U/L (12-78); ANION GAP 5 mmol/L (5-15); CHLORIDE 110 mmol/L (98-107); CREATININE 0.68 mg/dL (0.55-1.02)
[2018-08-24 07:53] LABS: ALKALINE PHOSPHATASE 68 U/L (45-117); BILIRUBIN,TOTAL 0.2 mg/dL (0.2-1.0); TOTAL PROTEIN 6.7 g/dL (6.4-8.2)
[2018-08-24 08:22] LABS: MEAN CORPUSCULAR HEMOGLOBIN 33.5 pg (27.0-34.8); MEAN CORPUSCULAR VOLUME 98.4 fL (80-100); MEAN PLATELET VOLUME 8.7 fL (7.4-10.4); RED BLOOD COUNT 2.47 x10^6/uL (3.82-5.3); RED CELL DISTRIBUTION WIDTH 14.1 % (9.6-15.2)
[2018-08-24 08:25] LABS: MD YES; PLATELET COUNT 14 x10^3/uL (130-400)
[2018-08-24 08:35] LABS: BAND#(MANUAL) 0.02 x10^3/uL; BANDS%(MANUAL) 2 % (0-7); EOS#(MANUAL) 0.02 x10^3/uL (0.0-0.4); EOS% (MANUAL) 2 % (1-7); LYMPH#(MANUAL) 0.59 x10^3/uL (1-3.4); LYMPHS% (MANUAL) 65 % (22-44); SEG#(MANUAL) 0.13 x10^3/uL (1.8-6.8); SEGS% (MANUAL) 14 % (42-75)
[2018-08-24 08:37] LABS: MONOS#(MANUAL) 0.11 x10^3/uL (0.3-2.7); MONOS% (MANUAL) 12 % (2-9)
[2018-08-24 08:38] LABS: OTHER CELLS # (MANUAL) 0.05 x10^3/uL (0-0); OTHER CELLS % (MANUAL) 5 % (0-0)
[2018-08-24 08:39] LABS: <PLATELET ESTIMATE> DECREASED; <PLT MORPHOLOGY> NORMAL PLT MORPH; ANISOCYTOSIS 1+
[2018-08-24] MEDS: MIDOSTAURIN 50 MG PO SCH ×2 (09:00→20:51)
[2018-08-24] MEDS: ACYCLOVIR 400 MG TABLET PO SCH ×2 (09:26→20:52)
[2018-08-24] MEDS: ONDANSETRON 2MG/ML, 2ML IVPush PRN ×2 (09:27→20:14)
[2018-08-24] MEDS: FLUCONAZOLE 200 MG TABLET PO SCH (09:27)
[2018-08-24] MEDS: CHLORHEXIDINE 15 ML UDC MM PRN (10:25)
[2018-08-24 13:31] VITALS: BP 100/63
[2018-08-24 20:20] VITALS: BP 110/71
[2018-08-24] MEDS: FAMOTIDINE 20 MG TABLET PO SCH (20:52)
[2018-08-24] MEDS: TEMAZEPAM 15 MG CAPSULE PO PRN (20:54)
[2018-08-25] VITALS (8 sets, daily range): BP systolic 94–111; BP diastolic 57–70
[2018-08-25 04:55] LABS: ANION GAP 7 mmol/L (5-15); CALCIUM 9.2 mg/dL (8.5-10.1); CHLORIDE 110 mmol/L (98-107); CREATININE 0.64 mg/dL (0.55-1.02)
[2018-08-25 05:14] LABS: MEAN CORPUSCULAR HEMOGLOBIN 34.5 pg (27.0-34.8); MEAN CORPUSCULAR HGB CONC 34.5 g/dL (32.4-35.8); MEAN CORPUSCULAR VOLUME 99.9 fL (80-100); MEAN PLATELET VOLUME 7.2 fL (7.4-10.4); RED BLOOD COUNT 2.48 x10^6/uL (3.82-5.3); RED CELL DISTRIBUTION WIDTH 14.1 % (9.6-15.2)
[2018-08-25 05:26] LABS: PLATELET COUNT 9 x10^3/uL (130-400)
[2018-08-25 05:43] LABS: MD YES
[2018-08-25 05:48] LABS: <PLATELET ESTIMATE> DECREASED; <PLT MORPHOLOGY> NORMAL PLT MORPH; ANISOCYTOSIS 1+; BAND#(MANUAL) 0.08 x10^3/uL; BANDS%(MANUAL) 5 % (0-7); LYMPH#(MANUAL) 0.91 x10^3/uL (1-3.4); LYMPHS% (MANUAL) 57 % (22-44); MONOS#(MANUAL) 0.24 x10^3/uL (0.3-2.7); MONOS% (MANUAL) 15 % (2-9); SEG#(MANUAL) 0.37 x10^3/uL (1.8-6.8); SEGS% (MANUAL) 23 % (42-75)
[2018-08-25] MEDS ORDERED: ACETAMINOPHEN 325 MG TABLET PO ONE (06:00)
[2018-08-25] MEDS: CEFEPIME 2 GM in DEXTROSE 5% 100 ML IV SCH ×2 (08:16→17:00)
[2018-08-25] MEDS: FLUCONAZOLE 200 MG TABLET PO SCH (08:16)
[2018-08-25] MEDS: ACYCLOVIR 400 MG TABLET PO SCH ×2 (08:17→20:50)
[2018-08-25] MEDS: ONDANSETRON 2MG/ML, 2ML IVPush PRN ×2 (09:16→20:27)
[2018-08-25] MEDS: MIDOSTAURIN 50 MG PO SCH ×2 (10:42→21:00)
[2018-08-25] MEDS: TEMAZEPAM 15 MG CAPSULE PO PRN (20:50)
[2018-08-25] MEDS: FAMOTIDINE 20 MG TABLET PO SCH (20:50)
[2018-08-26] MEDS: CEFEPIME 2 GM in DEXTROSE 5% 100 ML IV SCH ×2 (01:17→09:08)
[2018-08-26 01:24] VITALS: BP 92/54
[2018-08-26 05:18] LABS: MEAN CORPUSCULAR HEMOGLOBIN 34.2 pg (27.0-34.8); MEAN CORPUSCULAR HGB CONC 33.9 g/dL (32.4-35.8); MEAN CORPUSCULAR VOLUME 100.9 fL (80-100); RED BLOOD COUNT 2.51 x10^6/uL (3.82-5.3); RED CELL DISTRIBUTION WIDTH 13.9 % (9.6-15.2)
[2018-08-26 05:19] LABS: PLATELET COUNT 47 x10^3/uL (130-400)
[2018-08-26 05:28] LABS: ANION GAP 8 mmol/L (5-15); CHLORIDE 111 mmol/L (98-107); CREATININE 0.62 mg/dL (0.55-1.02)
[2018-08-26 05:51] LABS: MD YES
[2018-08-26 06:04] LABS: <PLATELET ESTIMATE> DECREASED; <PLT MORPHOLOGY> NORMAL PLT MORPH; ANISOCYTOSIS 1+; BAND#(MANUAL) 0.08 x10^3/uL; BANDS%(MANUAL) 3 % (0-7); LYMPH#(MANUAL) 0.95 x10^3/uL (1-3.4); LYMPHS% (MANUAL) 34 % (22-44); MONOS#(MANUAL) 0.36 x10^3/uL (0.3-2.7); MONOS% (MANUAL) 13 % (2-9); MYELOCYTES# (MANUAL) 0.06 x10^3/uL (0-0); MYELOCYTES% (MANUAL) 2 % (0-0); SEG#(MANUAL) 1.34 x10^3/uL (1.8-6.8); SEGS% (MANUAL) 48 % (42-75)
[2018-08-26 08:09] VITALS: BP 98/66
[2018-08-26] MEDS: MIDOSTAURIN 50 MG PO SCH (09:00)
[2018-08-26] MEDS: ACYCLOVIR 400 MG TABLET PO SCH (09:08)
[2018-08-26] MEDS: FLUCONAZOLE 200 MG TABLET PO SCH (09:08)
[2018-08-26] MEDS: ONDANSETRON 2MG/ML, 2ML IVPush PRN (09:08)
[2018-08-26] MEDS ORDERED: POTASSIUM CHLORIDE 20 MEQ TAB.ER.PRT PO ONE (11:00)
== END 2018-08-26 16:07 | disposition home or self-care (01) | DRG 871 ==
LOC: ED 17:25 → 3NW 17:26 → ED 18:04
PROVIDERS: ADMIT Hospitalist; ATTEND Hospitalist
PROC: 30233R1 Transfusion of Nonautologous Platelets into Peripheral Vein, Percutaneous Approach (ICD-10-PCS; principal; 2018-08-21)
DX: A41.9 Sepsis, unspecified organism (principal); R65.21 Severe sepsis with septic shock; D61.810 Antineoplastic chemotherapy induced pancytopenia; C92.00 Acute myeloblastic leukemia, not having achieved remission; E87.1 Hypo-osmolality and hyponatremia; R50.81 Fever presenting with conditions classified elsewhere; B37.9 Candidiasis, unspecified; E87.6 Hypokalemia; T45.1X5A Adverse effect of antineoplastic and immunosuppressive drugs, initial encounter; Z82.49 Family history of ischemic heart disease and other diseases of the circulatory system; Z87.891 Personal history of nicotine dependence
CPT/HCPCS: 36415; 84145; 99291; J3490; 36430; 71045; 80048; 80053; 80202; 81001; 83605; 83735; 84100; 85025; 85027; 87040; 93005; 96365; 96375; G0378; J2405; J2543; J2997; J3370; J3480; J7030; J7050; P9037; Q0164

== ENCOUNTER 2018-09-05 15:17 | Outpatient (CLI) | payer OTHER | END 2018-09-05 23:59 | disposition home or self-care (01) | LOC: CARD 15:17 | PROVIDERS: ATTEND Internal Medicine Critical Care Medicine | DX: Z01.818 Encounter for other preprocedural examination (principal); C92.00 Acute myeloblastic leukemia, not having achieved remission | CPT/HCPCS: 94060; 94726; 94729 ==

== ENCOUNTER 2018-09-16 08:27 | Day surgery (SDC) | payer OTHER ==
[~2018-09-16] VITALS: Ht 172.7 cm; Wt 71.1 kg
[2018-09-16 09:02] VITALS: BP 105/71
== END 2018-09-16 13:40 | disposition home or self-care (01) ==
LOC: OUT 08:27
PROVIDERS: ATTEND Internal Medicine Hematology & Oncology
DX: C92.00 Acute myeloblastic leukemia, not having achieved remission (principal); F41.9 Anxiety disorder, unspecified; Z87.891 Personal history of nicotine dependence; Z98.890 Other specified postprocedural states
CPT/HCPCS: 36415; 38222; 77012; 85025; 85097; 88237; 88264; 88280; 88305; 88311; 99156; 99157; J2250; J3010; 88313; J2310

== ENCOUNTER → 2018-12-09 | Outpatient (CLI) | payer OTHER ==
[~2018-12-09] MED LIST changes: +[UNRECOGNIZED DRUG - CODE] PO; +[UNRECOGNIZED DRUG - REMARK] PO
[2018-12-09 09:16] LABS: MEAN CORPUSCULAR HEMOGLOBIN 30.9 pg (27.0-34.8); MEAN CORPUSCULAR HGB CONC 33.2 g/dL (32.4-35.8); MEAN PLATELET VOLUME 7.5 fL (7.4-10.4); PLATELET COUNT 174 x10^3/uL (130-400); RED BLOOD COUNT 2.85 x10^6/uL (3.82-5.3); RED CELL DISTRIBUTION WIDTH 22.9 % (9.6-15.2)
[2018-12-09 09:22] LABS: ALANINE AMINOTRANSFERASE 25 U/L (12-78); ALBUMIN 3.6 g/dL (3.4-5.0); ANION GAP 5 mmol/L (5-15); CHLORIDE 111 mmol/L (98-107); CREATININE 1.16 mg/dL (0.55-1.02)
[2018-12-09 09:25] LABS: ALKALINE PHOSPHATASE 70 U/L (45-117); BILIRUBIN,TOTAL 0.3 mg/dL (0.2-1.0); TOTAL PROTEIN 6.7 g/dL (6.4-8.2)
[2018-12-09 09:26] LABS: MD YES
[2018-12-09 09:31] LABS: BAND#(MANUAL) 0.03 x10^3/uL; BANDS%(MANUAL) 1 % (0-7); LYMPH#(MANUAL) 0.34 x10^3/uL (1-3.4); LYMPHS% (MANUAL) 13 % (22-44); MONOS#(MANUAL) 0.47 x10^3/uL (0.3-2.7); MONOS% (MANUAL) 18 % (2-9); NRBC % (MANUAL) 1 % (0-1)
[2018-12-09 09:32] LABS: ANISOCYTOSIS 2+; EOS#(MANUAL) 0.08 x10^3/uL (0.0-0.4); EOS% (MANUAL) 3 % (1-7); MICROCYTOSIS 1+; OVALOCYTES 1+; POLYCHROMASIA 1+; SEG#(MANUAL) 1.69 x10^3/uL (1.8-6.8); SEGS% (MANUAL) 65 % (42-75); TEAR DROPS 1+
[2018-12-09 09:33] LABS: <PLATELET ESTIMATE> ADEQUATE; <PLT MORPHOLOGY> NORMAL PLT MORPH
== END | disposition home or self-care (01) ==
LOC: LAB 08:55
PROVIDERS: ATTEND Specialist
DX: Z01.818 Encounter for other preprocedural examination (principal); C92.00 Acute myeloblastic leukemia, not having achieved remission; F12.11 Cannabis abuse, in remission; Z84.89 Family history of other specified conditions
CPT/HCPCS: 36415; 80053; 80197; 85025

== ENCOUNTER → 2018-12-25 | Outpatient (CLI) | payer OTHER ==
[2018-12-25 12:02] LABS: ALANINE AMINOTRANSFERASE 21 U/L (12-78); ANION GAP 6 mmol/L (5-15); CALCIUM 9.3 mg/dL (8.5-10.1); CHLORIDE 110 mmol/L (98-107); CREATININE 1.03 mg/dL (0.55-1.02)
[2018-12-25 12:05] LABS: ALKALINE PHOSPHATASE 74 U/L (45-117); BILIRUBIN,TOTAL 0.4 mg/dL (0.2-1.0); TOTAL PROTEIN 7.1 g/dL (6.4-8.2)
[2018-12-25 12:07] LABS: MEAN CORPUSCULAR HEMOGLOBIN 32.9 pg (27.0-34.8); MEAN CORPUSCULAR HGB CONC 33.4 g/dL (32.4-35.8); MEAN CORPUSCULAR VOLUME 98.6 fL (80-100); MEAN PLATELET VOLUME 8.6 fL (7.4-10.4); PLATELET COUNT 163 x10^3/uL (130-400); RED CELL DISTRIBUTION WIDTH 25.6 % (9.6-15.2)
[2018-12-25 12:25] LABS: BASOPHILS # (AUTO) 0.01 x10^3/uL (0-0.1); BASOPHILS % (AUTO) 0 % (0-1); EOSINOPHILS # (AUTO) 0.11 x10^3/uL (0-0.4); EOSINOPHILS % (AUTO) 3 % (1-7); LYMPHOCYTES # (AUTO) 0.53 x10^3/uL (1-3.4); LYMPHOCYTES % (AUTO) 14 % (22-44); MD MORPH REVIEW ONLY; MONOCYTES # (AUTO) 0.42 x10^3/uL (0.2-0.8); MONOCYTES % (AUTO) 11 % (2-9); NEUTROPHILS # (AUTO) 2.76 x10^3/uL (1.8-6.8); NEUTROPHILS % (AUTO) 72 % (42-75)
[2018-12-25 12:26] LABS: <PLATELET ESTIMATE> ADEQUATE; <PLT MORPHOLOGY> NORMAL PLT MORPH; ANISOCYTOSIS 2+; OVALOCYTES 1+; POLYCHROMASIA 1+; TEAR DROPS 1+
== END | disposition home or self-care (01) ==
LOC: LAB 10:03
PROVIDERS: ATTEND Family Medicine
DX: Z01.818 Encounter for other preprocedural examination (principal); C92.01 Acute myeloblastic leukemia, in remission
CPT/HCPCS: 36415; 80053; 80197; 85025; 87496

== ENCOUNTER → 2019-01-01 | Outpatient (CLI) | payer OTHER ==
[2019-01-01 10:17] LABS: MEAN CORPUSCULAR HEMOGLOBIN 34.2 pg (27.0-34.8); MEAN CORPUSCULAR HGB CONC 33.5 g/dL (32.4-35.8); MEAN PLATELET VOLUME 8.5 fL (7.4-10.4); PLATELET COUNT 164 x10^3/uL (130-400); RED BLOOD COUNT 3.23 x10^6/uL (3.82-5.3); RED CELL DISTRIBUTION WIDTH 24.9 % (9.6-15.2)
[2019-01-01 10:29] LABS: ALANINE AMINOTRANSFERASE 26 U/L (12-78); ANION GAP 5 mmol/L (5-15); CALCIUM 9.1 mg/dL (8.5-10.1); CHLORIDE 111 mmol/L (98-107); CREATININE 1.14 mg/dL (0.55-1.02)
[2019-01-01 10:31] LABS: ALKALINE PHOSPHATASE 89 U/L (45-117); BASOPHILS # (AUTO) 0.01 x10^3/uL (0-0.1); BASOPHILS % (AUTO) 0 % (0-1); BILIRUBIN,TOTAL 0.5 mg/dL (0.2-1.0); EOSINOPHILS # (AUTO) 0.24 x10^3/uL (0-0.4); EOSINOPHILS % (AUTO) 7 % (1-7); LYMPHOCYTES # (AUTO) 0.49 x10^3/uL (1-3.4); LYMPHOCYTES % (AUTO) 14 % (22-44); MD MORPH REVIEW ONLY; MONOCYTES # (AUTO) 0.44 x10^3/uL (0.2-0.8); MONOCYTES % (AUTO) 12 % (2-9); NEUTROPHILS # (AUTO) 2.45 x10^3/uL (1.8-6.8); NEUTROPHILS % (AUTO) 67 % (42-75); TOTAL PROTEIN 6.8 g/dL (6.4-8.2)
[2019-01-01 10:32] LABS: ANISOCYTOSIS 2+; OVALOCYTES 1+; POLYCHROMASIA 1+; TEAR DROPS 1+
[2019-01-01 10:33] LABS: <PLATELET ESTIMATE> ADEQUATE; <PLT MORPHOLOGY> NORMAL PLT MORPH
== END | disposition home or self-care (01) ==
LOC: LAB 09:59
PROVIDERS: ATTEND Specialist
DX: Z01.818 Encounter for other preprocedural examination (principal); C92.00 Acute myeloblastic leukemia, not having achieved remission; F12.10 Cannabis abuse, uncomplicated
CPT/HCPCS: 36415; 80053; 80197; 85025; 87497

== ENCOUNTER → 2019-01-15 | Outpatient (CLI) | payer OTHER ==
[2019-01-15 10:12] LABS: BASOPHILS # (AUTO) 0.01 x10^3/uL (0-0.1); BASOPHILS % (AUTO) 0 % (0-1); EOSINOPHILS % (AUTO) 6 % (1-7); LYMPHOCYTES # (AUTO) 0.48 x10^3/uL (1-3.4); LYMPHOCYTES % (AUTO) 13 % (22-44); MD NO; MEAN CORPUSCULAR HEMOGLOBIN 34.8 pg (27.0-34.8); MEAN CORPUSCULAR HGB CONC 33.6 g/dL (32.4-35.8); MEAN CORPUSCULAR VOLUME 103.7 fL (80-100); MEAN PLATELET VOLUME 8.7 fL (7.4-10.4); MONOCYTES # (AUTO) 0.36 x10^3/uL (0.2-0.8); MONOCYTES % (AUTO) 10 % (2-9); NEUTROPHILS % (AUTO) 71 % (42-75); PLATELET COUNT 154 x10^3/uL (130-400); RED BLOOD COUNT 3.54 x10^6/uL (3.82-5.3); RED CELL DISTRIBUTION WIDTH 21.8 % (9.6-15.2)
[2019-01-15 10:24] LABS: ALANINE AMINOTRANSFERASE 32 U/L (12-78); ALBUMIN 4.2 g/dL (3.4-5.0); ANION GAP 8 mmol/L (5-15); CALCIUM 9.6 mg/dL (8.5-10.1); CHLORIDE 110 mmol/L (98-107); CREATININE 1.33 mg/dL (0.55-1.02)
[2019-01-15 10:26] LABS: ALKALINE PHOSPHATASE 97 U/L (45-117); BILIRUBIN,TOTAL 0.6 mg/dL (0.2-1.0); TOTAL PROTEIN 7.4 g/dL (6.4-8.2)
== END | disposition home or self-care (01) ==
LOC: LAB 09:52
PROVIDERS: ATTEND Specialist
DX: Z01.818 Encounter for other preprocedural examination (principal); C92.01 Acute myeloblastic leukemia, in remission
CPT/HCPCS: 36415; 80053; 80197; 85025; 87497

== ENCOUNTER 2019-06-13 10:56 | Inpatient (IN) | payer OTHER ==
[~2019-06-13] VITALS: Ht 172.7 cm; Wt 73.2 kg
[~2019-06-13 10:56] MED LIST changes: -ONDA8TAB15 PO; +ONDA8TAB18 PO
[2019-06-13 12:05] VITALS: BP 105/75
[2019-06-13] MEDS ORDERED: hydrALAzine 20 MG/ML, 1ML IVPush PRN (13:30)
[2019-06-13] MEDS ORDERED: PROMETHAZINE 25 MG/ML, 1ML IM PRN (13:30)
[2019-06-13] MEDS ORDERED: ACETAMINOPHEN 325 MG TABLET PO PRN (13:30)
[2019-06-13] MEDS ORDERED: LABETALOL 5MG/ML, 20ML IVPush PRN (13:30)
[2019-06-13 13:46] LABS: ALANINE AMINOTRANSFERASE 37 U/L (12-78); ALBUMIN 3.7 g/dL (3.4-5.0); ANION GAP 8 mmol/L (5-15); CALCIUM 8.8 mg/dL (8.5-10.1); CHLORIDE 109 mmol/L (98-107); CREATININE 0.96 mg/dL (0.55-1.02)
[2019-06-13 13:48] LABS: ALKALINE PHOSPHATASE 78 U/L (45-117); BILIRUBIN,TOTAL 0.2 mg/dL (0.2-1.0); TOTAL PROTEIN 6.7 g/dL (6.4-8.2)
[2019-06-13] MEDS ORDERED: PLEASE ENTER HEIGHT MC SCH (14:00)
[2019-06-13 14:19] LABS: MD YES; MEAN CORPUSCULAR HEMOGLOBIN 35.8 pg (27.0-34.8); MEAN CORPUSCULAR HGB CONC 33.5 g/dL (32.4-35.8); MEAN CORPUSCULAR VOLUME 106.7 fL (80-100); MEAN PLATELET VOLUME 9.5 fL (7.4-10.4); RED BLOOD COUNT 2.63 x10^6/uL (3.82-5.3); RED CELL DISTRIBUTION WIDTH 15.5 % (9.6-15.2)
[2019-06-13 14:20] LABS: PLATELET COUNT 38 x10^3/uL (130-400)
[2019-06-13 14:46] LABS: BASOS% (MANUAL) 2 % (0-1); LYMPH#(MANUAL) 1.74 x10^3/uL (1-3.4); LYMPHS% (MANUAL) 7 % (22-44); MONOS#(MANUAL) 0.25 x10^3/uL (0.3-2.7); MONOS% (MANUAL) 1 % (2-9); SEG#(MANUAL) 1.98 x10^3/uL (1.8-6.8); SEGS% (MANUAL) 8 % (42-75)
[2019-06-13 14:48] LABS: ANISOCYTOSIS 1+; OTHER CELLS # (MANUAL) 20.34 x10^3/uL (0-0); OTHER CELLS % (MANUAL) 82 % (0-0)
[2019-06-13 14:49] LABS: <PLATELET ESTIMATE> DECREASED; LARGE PLATELETS 1+; OVALOCYTES 1+
[2019-06-13] MEDS: SODIUM CHLORIDE 0.9% 1,000 ML IV SCH (14:59)
[2019-06-13 15:09] LABS: HCT (SEDRATE) 28.1 % (34.6-47.8)
[2019-06-13 16:23] LABS: INTERNATIONAL NORMALIZED RATIO 1.14 (0.93-1.1); PROTHROMBIN TIME 12.1 Seconds (9.6-11.5)
[2019-06-13 16:51] LABS: MICROSCOPIC AUTO
[2019-06-13 20:00] VITALS: BP 110/71
[2019-06-13] MEDS ORDERED: KETOROLAC 30 MG/1 ML ONE (20:43)
[2019-06-13] MEDS: MIRTAZAPINE 15 MG TABLET PO SCH (20:49)
[2019-06-13] MEDS: MELATONIN 5 MG TABLET PO SCH (20:50)
[2019-06-13] MEDS ORDERED: TACROLIMUS 0.5 MG CAPSULE PO SCH ×2 (21:00)
[2019-06-13] MEDS ORDERED: KETOROLAC 30 MG/1 ML IVPush SCH (21:00)
[2019-06-13] MEDS ORDERED: ROPINIROLE 0.5MG TABLET ONE (23:54)
[2019-06-13] MEDS ORDERED: TEMAZEPAM 15 MG CAPSULE ONE (23:54)
[2019-06-13] MEDS: TEMAZEPAM 15 MG CAPSULE PO PRN (23:59)
[2019-06-13] MEDS: ROPINIROLE 0.25MG TABLET PO PRN (23:59)
[2019-06-14 01:35] VITALS: BP_SYST 109; BP_SYST 84; BP_DIAS 53
[2019-06-14] MEDS: TEMAZEPAM 15 MG CAPSULE PO PRN (01:42)
[2019-06-14] MEDS: SODIUM CHLORIDE 0.9% 1,000 ML IV SCH ×2 (01:42→14:34)
[2019-06-14] MEDS ORDERED: GABAPENTIN 300 MG CAPSULE ONE (03:58)
[2019-06-14] MEDS ORDERED: GABAPENTIN 300 MG CAPSULE PO ONE (04:30)
[2019-06-14 05:28] LABS: ALBUMIN 3.7 g/dL (3.4-5.0); ANION GAP 8 mmol/L (5-15); CALCIUM 8.7 mg/dL (8.5-10.1); CHLORIDE 108 mmol/L (98-107)
[2019-06-14 05:33] LABS: ALANINE AMINOTRANSFERASE 34 U/L (12-78); ALKALINE PHOSPHATASE 76 U/L (45-117); BILIRUBIN,TOTAL 0.4 mg/dL (0.2-1.0); CREATININE 0.84 mg/dL (0.55-1.02); TOTAL PROTEIN 6.5 g/dL (6.4-8.2)
[2019-06-14 06:45] VITALS: BP 115/75
[2019-06-14] MEDS ORDERED: POTASSIUM CHLORIDE 20 MEQ TAB.ER.PRT PO SCH (08:00)
[2019-06-14] MEDS ORDERED: ACYCLOVIR 200 MG CAPSULE PO SCH (09:00)
[2019-06-14] MEDS ORDERED: TACROLIMUS 0.5 MG CAPSULE PO SCH (09:00)
[2019-06-14 10:03] LABS: MD YES; MEAN CORPUSCULAR HEMOGLOBIN 35.6 pg (27.0-34.8); MEAN CORPUSCULAR HGB CONC 33.6 g/dL (32.4-35.8); MEAN CORPUSCULAR VOLUME 105.9 fL (80-100); RED BLOOD COUNT 2.63 x10^6/uL (3.82-5.3); RED CELL DISTRIBUTION WIDTH 14.9 % (9.6-15.2)
[2019-06-14 10:26] LABS: BAND#(MANUAL) 0.29 x10^3/uL; BANDS%(MANUAL) 1 % (0-7); BASOS#(MANUAL) 0.57 x10^3/uL (0-0.1); BASOS% (MANUAL) 2 % (0-1); LYMPH#(MANUAL) 2.28 x10^3/uL (1-3.4); LYMPHS% (MANUAL) 8 % (22-44); MONOS#(MANUAL) 0.57 x10^3/uL (0.3-2.7); MONOS% (MANUAL) 2 % (2-9); SEGS% (MANUAL) 7 % (42-75)
[2019-06-14 10:27] LABS: BLASTS % (MANUAL) 80 % (0-0)
[2019-06-14 10:28] LABS: ANISOCYTOSIS 1+; SMUDGE CELLS 1+
[2019-06-14 10:29] LABS: <PLATELET ESTIMATE> DECREASED; <PLT MORPHOLOGY> NORMAL PLT MORPH; PLATELET COUNT 32 x10^3/uL (130-400)
[2019-06-14] MEDS: HYDROXYUREA 500 MG CAPSULE PO SCH ×2 (11:22→19:45)
[2019-06-14] MEDS: TACROLIMUS 0.5 MG CAPSULE PO SCH (11:23)
[2019-06-14] MEDS: CEFTRIAXONE PMX 1GM/50ML 50 ML IV SCH (11:23)
[2019-06-14] MEDS: FOLIC ACID 1 MG TABLET PO SCH (11:25)
[2019-06-14] MEDS: POTASSIUM CHLORIDE 20 MEQ TAB.ER.PRT PO SCH ×2 (11:26→17:58)
[2019-06-14] MEDS: OXYcodone IR 5MG TABLET PO PRN ×2 (11:40→19:42)
[2019-06-14] MEDS: ATOVAQUONE 150 MG/ML PO SCH (14:24)
[2019-06-14 14:36] VITALS: BP 126/87
[2019-06-14] MEDS: ONDANSETRON 2MG/ML, 2ML IVPush PRN ×2 (17:52→20:04)
[2019-06-14] MEDS ORDERED: ROPINIROLE 0.5MG TABLET ONE (19:40)
[2019-06-14] MEDS: MIRTAZAPINE 15 MG TABLET PO SCH (19:42)
[2019-06-14] MEDS: ROPINIROLE 0.25MG TABLET PO PRN (19:43)
[2019-06-14] MEDS: ACYCLOVIR 400 MG TABLET PO SCH (19:43)
[2019-06-14] MEDS: MELATONIN 5 MG TABLET PO SCH (19:43)
[2019-06-14] MEDS: KETOROLAC 30 MG/1 ML IVPush PRN (19:43)
[2019-06-15] MEDS ORDERED: ROPINIROLE 0.5MG TABLET ONE (01:51)
[2019-06-15] MEDS: KETOROLAC 30 MG/1 ML IVPush PRN (01:56)
[2019-06-15] MEDS: OXYcodone IR 5MG TABLET PO PRN ×3 (01:57→20:27)
[2019-06-15] MEDS: ROPINIROLE 0.25MG TABLET PO PRN (01:57)
[2019-06-15 02:02] VITALS: BP 131/89
[2019-06-15] MEDS: SODIUM CHLORIDE 0.9% 1,000 ML IV SCH ×2 (02:05→20:34)
[2019-06-15 06:12] LABS: CHLORIDE 111 mmol/L (98-107)
[2019-06-15 06:20] LABS: ALANINE AMINOTRANSFERASE 31 U/L (12-78); ALBUMIN 3.3 g/dL (3.4-5.0); ALKALINE PHOSPHATASE 75 U/L (45-117); ANION GAP 7 mmol/L (5-15); BILIRUBIN,TOTAL 0.5 mg/dL (0.2-1.0); CALCIUM 8.8 mg/dL (8.5-10.1); CREATININE 0.73 mg/dL (0.55-1.02); TOTAL PROTEIN 6.3 g/dL (6.4-8.2)
[2019-06-15 06:41] LABS: MEAN CORPUSCULAR HEMOGLOBIN 35.4 pg (27.0-34.8); MEAN CORPUSCULAR HGB CONC 33.2 g/dL (32.4-35.8); MEAN CORPUSCULAR VOLUME 106.5 fL (80-100); RED CELL DISTRIBUTION WIDTH 15.4 % (9.6-15.2)
[2019-06-15 06:59] LABS: MD YES; MEAN PLATELET VOLUME 10.9 fL (7.4-10.4)
[2019-06-15 07:01] LABS: BAND#(MANUAL) 0.36 x10^3/uL; BANDS%(MANUAL) 1 % (0-7); LYMPH#(MANUAL) 2.88 x10^3/uL (1-3.4); LYMPHS% (MANUAL) 8 % (22-44); MONOS#(MANUAL) 0.36 x10^3/uL (0.3-2.7); MONOS% (MANUAL) 1 % (2-9); SEGS% (MANUAL) 5 % (42-75)
[2019-06-15 07:03] LABS: ANISOCYTOSIS 1+; BLASTS % (MANUAL) 85 % (0-0); OVALOCYTES 1+; PLATELET COUNT 24 x10^3/uL (130-400)
[2019-06-15 07:04] LABS: <PLATELET ESTIMATE> DECREASED; LARGE PLATELETS 1+; SMUDGE CELLS 1+
[2019-06-15 08:25] VITALS: BP 120/77
[2019-06-15] MEDS ORDERED: TRAZODONE 50MG TABLET PO PRN (08:30)
[2019-06-15] MEDS: TACROLIMUS 0.5 MG CAPSULE PO SCH (09:57)
[2019-06-15] MEDS: POTASSIUM CHLORIDE 20 MEQ TAB.ER.PRT PO SCH ×2 (09:57→16:53)
[2019-06-15] MEDS: ACYCLOVIR 400 MG TABLET PO SCH ×2 (09:57→20:26)
[2019-06-15] MEDS: FOLIC ACID 1 MG TABLET PO SCH (09:57)
[2019-06-15] MEDS: ATOVAQUONE 150 MG/ML PO SCH (09:58)
[2019-06-15] MEDS: POSACONAZOLE PO SCH (09:58)
[2019-06-15] MEDS: CEFTRIAXONE PMX 1GM/50ML 50 ML IV SCH (09:58)
[2019-06-15] MEDS: HYDROXYUREA 500 MG CAPSULE PO SCH (10:00)
[2019-06-15] MEDS: PANTOPRAZOLE 40MG TABLET PO SCH (10:14)
[2019-06-15] MEDS: ONDANSETRON 2MG/ML, 2ML IVPush PRN ×2 (10:23→19:54)
[2019-06-15] MEDS ORDERED: ONDANSETRON ODT 4 MG ONE (10:52)
[2019-06-15 14:30] VITALS: BP 105/65
[2019-06-15] MEDS: GABAPENTIN 100 MG CAPSULE PO SCH ×2 (16:52→20:26)
[2019-06-15 19:34] VITALS: BP 118/70
[2019-06-15] MEDS: MIRTAZAPINE 15 MG TABLET PO SCH (20:26)
[2019-06-15] MEDS: MELATONIN 5 MG TABLET PO SCH (20:26)
[2019-06-15] MEDS ORDERED: HYDROXYUREA 500 MG CAPSULE PO SCH (21:00)
[2019-06-16] MEDS: OXYcodone IR 5MG TABLET PO PRN ×2 (03:46→08:26)
[2019-06-16 03:58] VITALS: BP 117/73
[2019-06-16 05:07] LABS: MEAN CORPUSCULAR HEMOGLOBIN 35.4 pg (27.0-34.8); MEAN CORPUSCULAR HGB CONC 33.5 g/dL (32.4-35.8); MEAN CORPUSCULAR VOLUME 105.8 fL (80-100); RED BLOOD COUNT 2.45 x10^6/uL (3.82-5.3); RED CELL DISTRIBUTION WIDTH 15.8 % (9.6-15.2)
[2019-06-16 05:08] LABS: ALANINE AMINOTRANSFERASE 27 U/L (12-78); ALBUMIN 3.5 g/dL (3.4-5.0); ANION GAP 9 mmol/L (5-15); CALCIUM 8.9 mg/dL (8.5-10.1); CHLORIDE 109 mmol/L (98-107)
[2019-06-16 05:13] LABS: ALKALINE PHOSPHATASE 73 U/L (45-117); BILIRUBIN,TOTAL 0.6 mg/dL (0.2-1.0); CREATINE KINASE, TOTAL 62 U/L (26-192); TOTAL PROTEIN 6.2 g/dL (6.4-8.2)
[2019-06-16] MEDS: PANTOPRAZOLE 40MG TABLET PO SCH (06:13)
[2019-06-16 06:16] LABS: MD YES
[2019-06-16 06:17] LABS: BAND#(MANUAL) 1.21 x10^3/uL; BANDS%(MANUAL) 3 % (0-7); BLASTS # (MANUAL) 33.05 x10^3/uL (0-0); LYMPH#(MANUAL) 2.42 x10^3/uL (1-3.4); LYMPHS% (MANUAL) 6 % (22-44); SEG#(MANUAL) 3.63 x10^3/uL (1.8-6.8); SEGS% (MANUAL) 9 % (42-75)
[2019-06-16 06:20] LABS: MEAN PLATELET VOLUME 11.1 fL (7.4-10.4)
[2019-06-16 06:21] LABS: BLASTS % (MANUAL) 82 % (0-0)
[2019-06-16 06:22] LABS: PLATELET COUNT 21 x10^3/uL (130-400)
[2019-06-16 06:23] LABS: <PLATELET ESTIMATE> DECREASED; HYPOGRAN PLTS 1+; LARGE PLATELETS 1+
[2019-06-16 06:24] LABS: ANISOCYTOSIS 1+
[2019-06-16 06:27] LABS: BITE CELLS 1+; OVALOCYTES 1+; TEAR DROPS 1+
[2019-06-16 06:29] LABS: MICROCYTOSIS 1+
[2019-06-16 06:31] LABS: SCHISTOCYTES 1+; SPHEROCYTES 1+
[2019-06-16 07:03] VITALS: BP 106/70
[2019-06-16] MEDS: CEFTRIAXONE PMX 1GM/50ML 50 ML IV SCH (08:24)
[2019-06-16] MEDS: ATOVAQUONE 150 MG/ML PO SCH (08:25)
[2019-06-16] MEDS: ACYCLOVIR 400 MG TABLET PO SCH ×2 (08:26→21:00)
[2019-06-16] MEDS: POTASSIUM CHLORIDE 20 MEQ TAB.ER.PRT PO SCH (08:26)
[2019-06-16] MEDS: TACROLIMUS 0.5 MG CAPSULE PO SCH (08:26)
[2019-06-16] MEDS: FOLIC ACID 1 MG TABLET PO SCH (08:26)
[2019-06-16] MEDS: GABAPENTIN 100 MG CAPSULE PO SCH (08:26)
[2019-06-16] MEDS: POSACONAZOLE PO SCH (08:27)
[2019-06-16] MEDS: CEFDINIR 300 MG CAPSULE PO SCH ×2 (09:00→21:00)
[2019-06-16] MEDS ORDERED: MAGNESIUM SULFATE PMX 2GM/50ML 50 ML IV ONE (09:00)
[2019-06-16] MEDS: SODIUM CHLORIDE 0.9% 1,000 ML IV SCH (10:16)
[2019-06-16] MEDS: CHOLECALCIFEROL 1,000 UNIT TABLET PO SCH (10:18)
[2019-06-16] MEDS: HYDROXYUREA 500 MG CAPSULE PO SCH ×3 (10:34→23:34)
[2019-06-16] MEDS: ONDANSETRON 16 MG in SODIUM CHLORIDE 0.9% 50 ML IVPB SCH (15:14)
[2019-06-16] MEDS: SODIUM CHLORIDE 0.9% IVPush SCH (16:39)
[2019-06-16] MEDS: AZACITIDINE IVPush SCH (16:39)
[2019-06-16] MEDS: GABAPENTIN 400 MG CAPSULE PO SCH ×2 (16:51→21:00)
[2019-06-16 19:27] VITALS: BP 107/71
[2019-06-16] MEDS ORDERED: ROPINIROLE 0.5MG TABLET ONE (20:12)
[2019-06-16] MEDS: MELATONIN 5 MG TABLET PO SCH (20:14)
[2019-06-16] MEDS: ROPINIROLE 0.25MG TABLET PO PRN (20:16)
[2019-06-16] MEDS: MIRTAZAPINE 15 MG TABLET PO SCH (21:00)
[2019-06-16] MEDS: ONDANSETRON 2MG/ML, 2ML IVPush PRN (21:24)
[2019-06-17 04:11] VITALS: BP 91/57
[2019-06-17 06:20] LABS: MEAN CORPUSCULAR HEMOGLOBIN 35.3 pg (27.0-34.8); MEAN CORPUSCULAR HGB CONC 33.9 g/dL (32.4-35.8); MEAN CORPUSCULAR VOLUME 104.1 fL (80-100); RED BLOOD COUNT 2.19 x10^6/uL (3.82-5.3); RED CELL DISTRIBUTION WIDTH 15.7 % (9.6-15.2)
[2019-06-17 06:23] LABS: MEAN PLATELET VOLUME 10.9 fL (7.4-10.4); PLATELET COUNT 18 x10^3/uL (130-400)
[2019-06-17 06:48] LABS: ALBUMIN 3.2 g/dL (3.4-5.0); ANION GAP 10 mmol/L (5-15); CALCIUM 8.6 mg/dL (8.5-10.1); CHLORIDE 106 mmol/L (98-107); CREATININE 0.93 mg/dL (0.55-1.02)
[2019-06-17 06:54] LABS: ALANINE AMINOTRANSFERASE 33 U/L (12-78); ALKALINE PHOSPHATASE 66 U/L (45-117); BILIRUBIN,TOTAL 0.4 mg/dL (0.2-1.0); TOTAL PROTEIN 5.9 g/dL (6.4-8.2)
[2019-06-17 07:08] VITALS: BP 99/58
[2019-06-17 07:27] LABS: MD YES
[2019-06-17 07:29] LABS: BAND#(MANUAL) 0.23 x10^3/uL; BANDS%(MANUAL) 1 % (0-7); EOS#(MANUAL) 0.23 x10^3/uL (0.0-0.4); EOS% (MANUAL) 1 % (1-7); LYMPH#(MANUAL) 3.21 x10^3/uL (1-3.4); LYMPHS% (MANUAL) 14 % (22-44); MONOS#(MANUAL) 0.46 x10^3/uL (0.3-2.7); MONOS% (MANUAL) 2 % (2-9); SEG#(MANUAL) 1.37 x10^3/uL (1.8-6.8); SEGS% (MANUAL) 6 % (42-75)
[2019-06-17 07:30] LABS: ANISOCYTOSIS 1+; BLASTS % (MANUAL) 76 % (0-0); MICROCYTOSIS 1+; OVALOCYTES 1+; SCHISTOCYTES 1+; TEAR DROPS 1+
[2019-06-17 07:31] LABS: <PLATELET ESTIMATE> DECREASED
[2019-06-17 07:32] LABS: <PLT MORPHOLOGY> NORMAL PLT MORPH
[2019-06-17 07:33] LABS: SMUDGE CELLS 1+
[2019-06-17] MEDS: POSACONAZOLE PO SCH (09:00)
[2019-06-17] MEDS: CEFDINIR 300 MG CAPSULE PO SCH ×2 (09:00→21:00)
[2019-06-17] MEDS: SODIUM CHLORIDE 0.9% 1,000 ML IV SCH ×2 (09:56→21:56)
[2019-06-17] MEDS: CHOLECALCIFEROL 1,000 UNIT TABLET PO SCH (10:05)
[2019-06-17] MEDS: ONDANSETRON 2MG/ML, 2ML IVPush PRN (10:05)
[2019-06-17] MEDS: TACROLIMUS 0.5 MG CAPSULE PO SCH (10:05)
[2019-06-17] MEDS: PANTOPRAZOLE 40MG TABLET PO SCH (10:05)
[2019-06-17] MEDS: GABAPENTIN 400 MG CAPSULE PO SCH ×3 (10:05→21:00)
[2019-06-17] MEDS: FOLIC ACID 1 MG TABLET PO SCH (10:05)
[2019-06-17] MEDS: ATOVAQUONE 150 MG/ML PO SCH (10:06)
[2019-06-17] MEDS: ACYCLOVIR 400 MG TABLET PO SCH ×2 (10:06→21:00)
[2019-06-17] MEDS: HYDROXYUREA 500 MG CAPSULE PO SCH ×2 (10:12→18:08)
[2019-06-17 14:40] VITALS: BP 92/59
[2019-06-17] MEDS: ONDANSETRON 16 MG in SODIUM CHLORIDE 0.9% 50 ML IVPB SCH (15:12)
[2019-06-17] MEDS: SODIUM CHLORIDE 0.9% IVPush SCH (15:39)
[2019-06-17] MEDS: AZACITIDINE IVPush SCH (15:39)
[2019-06-17] MEDS: [UNRECOGNIZED DRUG - OTHER] PO SCH (17:00)
[2019-06-17 19:22] VITALS: BP 94/60
[2019-06-17] MEDS: MIRTAZAPINE 15 MG TABLET PO SCH (20:59)
[2019-06-17] MEDS: MELATONIN 5 MG TABLET PO SCH (21:00)
[2019-06-18] VITALS (11 sets, daily range): BP systolic 88–107; BP diastolic 49–71
[2019-06-18] MEDS: PANTOPRAZOLE 40MG TABLET PO SCH (06:00)
[2019-06-18 06:31] LABS: MEAN CORPUSCULAR HEMOGLOBIN 36.4 pg (27.0-34.8); MEAN CORPUSCULAR HGB CONC 34.7 g/dL (32.4-35.8); MEAN CORPUSCULAR VOLUME 104.7 fL (80-100); RED BLOOD COUNT 1.93 x10^6/uL (3.82-5.3); RED CELL DISTRIBUTION WIDTH 16.2 % (9.6-15.2)
[2019-06-18 06:38] LABS: CHLORIDE 113 mmol/L (98-107)
[2019-06-18 06:46] LABS: ALANINE AMINOTRANSFERASE 81 U/L (12-78); ALBUMIN 2.6 g/dL (3.4-5.0); ALKALINE PHOSPHATASE 86 U/L (45-117); ANION GAP 6 mmol/L (5-15); BILIRUBIN,TOTAL 0.3 mg/dL (0.2-1.0); CREATININE 0.87 mg/dL (0.55-1.02); TOTAL PROTEIN 5.3 g/dL (6.4-8.2)
[2019-06-18 07:23] LABS: MD YES; PLATELET COUNT 8 x10^3/uL (130-400)
[2019-06-18 08:24] LABS: BAND#(MANUAL) 0.14 x10^3/uL; BANDS%(MANUAL) 1 % (0-7); BASOS#(MANUAL) 0.28 x10^3/uL (0-0.1); BASOS% (MANUAL) 2 % (0-1); BLASTS # (MANUAL) 9.38 x10^3/uL (0-0); BLASTS % (MANUAL) 67 % (0-0); LYMPH#(MANUAL) 3.22 x10^3/uL (1-3.4); LYMPHS% (MANUAL) 23 % (22-44); MONOS#(MANUAL) 0.28 x10^3/uL (0.3-2.7); MONOS% (MANUAL) 2 % (2-9); SEGS% (MANUAL) 5 % (42-75)
[2019-06-18 08:25] LABS: <PLATELET ESTIMATE> DECREASED; <PLT MORPHOLOGY> NORMAL PLT MORPH; ANISOCYTOSIS 1+; OVALOCYTES 1+
[2019-06-18] MEDS: CEFDINIR 300 MG CAPSULE PO SCH ×2 (09:00→20:34)
[2019-06-18] MEDS ORDERED: DIPHENHYDRAMINE 25 MG CAPSULE PO ONE (09:00)
[2019-06-18] MEDS: [UNRECOGNIZED DRUG - OTHER] PO SCH (09:00)
[2019-06-18] MEDS ORDERED: ACETAMINOPHEN 325 MG TABLET PO ONE (09:00)
[2019-06-18] MEDS: FOLIC ACID 1 MG TABLET PO SCH (10:06)
[2019-06-18] MEDS: GABAPENTIN 400 MG CAPSULE PO SCH ×3 (10:07→20:32)
[2019-06-18] MEDS: ATOVAQUONE 150 MG/ML PO SCH (10:07)
[2019-06-18] MEDS: TACROLIMUS 0.5 MG CAPSULE PO SCH (10:08)
[2019-06-18] MEDS: CHOLECALCIFEROL 1,000 UNIT TABLET PO SCH (10:08)
[2019-06-18] MEDS: ACYCLOVIR 400 MG TABLET PO SCH ×2 (10:08→20:33)
[2019-06-18] MEDS: SODIUM CHLORIDE 0.9% 1,000 ML IV SCH ×2 (10:20→20:42)
[2019-06-18 11:49] LABS: MEAN PLATELET VOLUME 8.6 fL (7.4-10.4)
[2019-06-18] MEDS: ONDANSETRON 16 MG in SODIUM CHLORIDE 0.9% 50 ML IVPB SCH (15:54)
[2019-06-18] MEDS: SODIUM CHLORIDE 0.9% IVPush SCH (16:55)
[2019-06-18] MEDS: AZACITIDINE IVPush SCH (16:55)
[2019-06-18] MEDS ORDERED: SODIUM CHLORIDE 0.9%, 500ML IVBOLUS ONE (18:30)
[2019-06-18] MEDS: MELATONIN 5 MG TABLET PO SCH (20:32)
[2019-06-18] MEDS: MIRTAZAPINE 15 MG TABLET PO SCH (20:33)
[2019-06-19 02:11] VITALS: BP 105/70
[2019-06-19 06:27] LABS: MEAN CORPUSCULAR HEMOGLOBIN 34.5 pg (27.0-34.8); MEAN CORPUSCULAR HGB CONC 33.8 g/dL (32.4-35.8); MEAN CORPUSCULAR VOLUME 101.9 fL (80-100); MEAN PLATELET VOLUME 9.2 fL (7.4-10.4); RED BLOOD COUNT 2.15 x10^6/uL (3.82-5.3)
[2019-06-19 06:29] LABS: PLATELET COUNT 33 x10^3/uL (130-400); RED CELL DISTRIBUTION WIDTH 19.2 % (9.6-15.2)
[2019-06-19 06:33] LABS: ALANINE AMINOTRANSFERASE 56 U/L (12-78); ALBUMIN 2.7 g/dL (3.4-5.0); ANION GAP 5 mmol/L (5-15); CALCIUM 8.4 mg/dL (8.5-10.1); CHLORIDE 116 mmol/L (98-107)
[2019-06-19 06:36] LABS: ALKALINE PHOSPHATASE 67 U/L (45-117); BILIRUBIN,TOTAL 0.4 mg/dL (0.2-1.0); TOTAL PROTEIN 5.3 g/dL (6.4-8.2)
[2019-06-19 06:49] LABS: MD YES
[2019-06-19 06:57] LABS: BASOS#(MANUAL) 0.21 x10^3/uL (0-0.1); BASOS% (MANUAL) 3 % (0-1); MONOS#(MANUAL) 0.14 x10^3/uL (0.3-2.7); MONOS% (MANUAL) 2 % (2-9); SEG#(MANUAL) 0.35 x10^3/uL (1.8-6.8); SEGS% (MANUAL) 5 % (42-75)
[2019-06-19 06:58] LABS: REACTIVE LYMPHS # (MANUAL) 0.07 x10^3/uL (0-0); REACTIVE LYMPHS % (MANUAL) 1 % (0-0)
[2019-06-19 07:21] LABS: LYMPH#(MANUAL) 2.03 x10^3/uL (1-3.4); LYMPHS% (MANUAL) 29 % (22-44)
[2019-06-19 07:22] LABS: <PLATELET ESTIMATE> DECREASED; BLASTS % (MANUAL) 60 % (0-0)
[2019-06-19 07:23] LABS: <PLT MORPHOLOGY> NORMAL PLT MORPH; ANISOCYTOSIS 1+
[2019-06-19 07:24] LABS: OVALOCYTES 1+
[2019-06-19 07:39] VITALS: BP 119/76
[2019-06-19] MEDS: [UNRECOGNIZED DRUG - OTHER] PO SCH (09:00)
[2019-06-19] MEDS: CEFDINIR 300 MG CAPSULE PO SCH ×2 (09:00→20:39)
[2019-06-19] MEDS: SODIUM CHLORIDE 0.9% 1,000 ML IV SCH (09:59)
[2019-06-19] MEDS: PANTOPRAZOLE 40MG TABLET PO SCH (09:59)
[2019-06-19] MEDS: ACYCLOVIR 400 MG TABLET PO SCH ×2 (09:59→20:40)
[2019-06-19] MEDS: CHOLECALCIFEROL 1,000 UNIT TABLET PO SCH (10:00)
[2019-06-19] MEDS: FOLIC ACID 1 MG TABLET PO SCH (10:00)
[2019-06-19] MEDS: GABAPENTIN 400 MG CAPSULE PO SCH (10:00)
[2019-06-19] MEDS: ATOVAQUONE 150 MG/ML PO SCH (10:02)
[2019-06-19 14:15] VITALS: BP 106/68
[2019-06-19] MEDS: ONDANSETRON 16 MG in SODIUM CHLORIDE 0.9% 50 ML IVPB SCH (15:23)
[2019-06-19] MEDS: SODIUM CHLORIDE 0.9% IVPush SCH (15:49)
[2019-06-19] MEDS: AZACITIDINE IVPush SCH (15:49)
[2019-06-19] MEDS: GABAPENTIN 300 MG CAPSULE PO SCH ×2 (15:58→20:39)
[2019-06-19 19:12] VITALS: BP 121/80
[2019-06-19] MEDS: MIRTAZAPINE 15 MG TABLET PO SCH (20:39)
[2019-06-19] MEDS: MELATONIN 5 MG TABLET PO SCH (20:40)
[2019-06-20 01:25] VITALS: BP 99/62
[2019-06-20] MEDS: SODIUM CHLORIDE 0.9% 1,000 ML IV SCH ×2 (02:11→15:42)
[2019-06-20] MEDS: PANTOPRAZOLE 40MG TABLET PO SCH (05:49)
[2019-06-20 06:25] LABS: ALANINE AMINOTRANSFERASE 44 U/L (12-78); ALBUMIN 2.7 g/dL (3.4-5.0); ANION GAP 5 mmol/L (5-15); CALCIUM 8.6 mg/dL (8.5-10.1); CHLORIDE 116 mmol/L (98-107)
[2019-06-20 06:27] LABS: ALKALINE PHOSPHATASE 70 U/L (45-117); BILIRUBIN,TOTAL 0.3 mg/dL (0.2-1.0); CREATININE 0.79 mg/dL (0.55-1.02); TOTAL PROTEIN 5.3 g/dL (6.4-8.2)
[2019-06-20 06:47] LABS: MD YES; MEAN CORPUSCULAR HEMOGLOBIN 34.9 pg (27.0-34.8); MEAN CORPUSCULAR VOLUME 102.7 fL (80-100); MEAN PLATELET VOLUME 8.9 fL (7.4-10.4); RED BLOOD COUNT 2.09 x10^6/uL (3.82-5.3); RED CELL DISTRIBUTION WIDTH 18.8 % (9.6-15.2)
[2019-06-20 06:50] LABS: LYMPH#(MANUAL) 0.69 x10^3/uL (1-3.4); LYMPHS% (MANUAL) 21 % (22-44); MONOS#(MANUAL) 0.03 x10^3/uL (0.3-2.7); MONOS% (MANUAL) 1 % (2-9); SEG#(MANUAL) 0.13 x10^3/uL (1.8-6.8); SEGS% (MANUAL) 4 % (42-75)
[2019-06-20 06:51] LABS: BLASTS # (MANUAL) 2.44 x10^3/uL (0-0)
[2019-06-20 06:52] LABS: ANISOCYTOSIS 1+; BLASTS % (MANUAL) 74 % (0-0); OVALOCYTES 1+; PLATELET COUNT 25 x10^3/uL (130-400); TEAR DROPS 1+
[2019-06-20 06:53] LABS: <PLATELET ESTIMATE> DECREASED; <PLT MORPHOLOGY> NORMAL PLT MORPH
[2019-06-20 07:10] VITALS: BP 117/80
[2019-06-20] MEDS: [UNRECOGNIZED DRUG - OTHER] PO SCH (09:00)
[2019-06-20] MEDS: CEFDINIR 300 MG CAPSULE PO SCH ×2 (09:00→20:59)
[2019-06-20] MEDS: CHOLECALCIFEROL 1,000 UNIT TABLET PO SCH (10:46)
[2019-06-20] MEDS: GABAPENTIN 400 MG CAPSULE PO SCH ×3 (10:48→21:00)
[2019-06-20] MEDS: ACYCLOVIR 400 MG TABLET PO SCH ×2 (10:48→20:59)
[2019-06-20] MEDS: TACROLIMUS 0.5 MG CAPSULE PO SCH (10:49)
[2019-06-20] MEDS: ATOVAQUONE 150 MG/ML PO SCH (10:49)
[2019-06-20] MEDS: FOLIC ACID 1 MG TABLET PO SCH (10:49)
[2019-06-20 12:04] VITALS: BP 126/86
[2019-06-20] MEDS: ONDANSETRON 16 MG in SODIUM CHLORIDE 0.9% 50 ML IVPB SCH (15:02)
[2019-06-20] MEDS: SODIUM CHLORIDE 0.9% IVPush SCH (15:42)
[2019-06-20] MEDS: AZACITIDINE IVPush SCH (15:42)
[2019-06-20 19:16] VITALS: BP 106/75
[2019-06-20] MEDS: MIRTAZAPINE 15 MG TABLET PO SCH (20:59)
[2019-06-20] MEDS: MELATONIN 5 MG TABLET PO SCH (21:00)
[2019-06-21] VITALS (7 sets, daily range): BP systolic 14–144; BP diastolic 63–93
[2019-06-21] MEDS: PANTOPRAZOLE 40MG TABLET PO SCH ×2 (05:27→21:30)
[2019-06-21] MEDS: SODIUM CHLORIDE 0.9% 1,000 ML IV SCH ×2 (05:27→21:30)
[2019-06-21 06:08] LABS: ALBUMIN 2.8 g/dL (3.4-5.0); ANION GAP 9 mmol/L (5-15); CALCIUM 8.7 mg/dL (8.5-10.1); CHLORIDE 113 mmol/L (98-107)
[2019-06-21 06:11] LABS: ALANINE AMINOTRANSFERASE 39 U/L (12-78); ALKALINE PHOSPHATASE 70 U/L (45-117); BILIRUBIN,TOTAL 0.3 mg/dL (0.2-1.0); CREATININE 0.82 mg/dL (0.55-1.02); TOTAL PROTEIN 5.4 g/dL (6.4-8.2)
[2019-06-21 07:44] LABS: MEAN CORPUSCULAR HGB CONC 34.7 g/dL (32.4-35.8); MEAN CORPUSCULAR VOLUME 100.8 fL (80-100); MEAN PLATELET VOLUME 9.4 fL (7.4-10.4); RED BLOOD COUNT 2.06 x10^6/uL (3.82-5.3)
[2019-06-21 07:50] LABS: PLATELET COUNT 22 x10^3/uL (130-400)
[2019-06-21 07:51] LABS: MD YES
[2019-06-21 07:53] LABS: LYMPH#(MANUAL) 0.56 x10^3/uL (1-3.4); LYMPHS% (MANUAL) 33 % (22-44); MONOS#(MANUAL) 0.05 x10^3/uL (0.3-2.7); MONOS% (MANUAL) 3 % (2-9); SEG#(MANUAL) 0.07 x10^3/uL (1.8-6.8); SEGS% (MANUAL) 4 % (42-75)
[2019-06-21 07:54] LABS: BLASTS # (MANUAL) 1.02 x10^3/uL (0-0); BLASTS % (MANUAL) 60 % (0-0)
[2019-06-21 07:55] LABS: <PLATELET ESTIMATE> DECREASED; <PLT MORPHOLOGY> NORMAL PLT MORPH; ANISOCYTOSIS 1+; OVALOCYTES 1+; TEAR DROPS 1+
[2019-06-21] MEDS: FOLIC ACID 1 MG TABLET PO SCH (08:57)
[2019-06-21] MEDS: GABAPENTIN 400 MG CAPSULE PO SCH ×3 (08:58→21:25)
[2019-06-21] MEDS: CEFDINIR 300 MG CAPSULE PO SCH ×2 (08:58→21:25)
[2019-06-21] MEDS: CYANOCOBALAMIN 1,000 MCG TABLET PO SCH (08:58)
[2019-06-21] MEDS: ACYCLOVIR 400 MG TABLET PO SCH ×2 (08:58→21:25)
[2019-06-21] MEDS: CHOLECALCIFEROL 1,000 UNIT TABLET PO SCH (08:58)
[2019-06-21] MEDS: [UNRECOGNIZED DRUG - OTHER] PO SCH (09:00)
[2019-06-21] MEDS ORDERED: DIPHENHYDRAMINE 25 MG CAPSULE PO ONE (09:00)
[2019-06-21] MEDS ORDERED: ACETAMINOPHEN 325 MG TABLET PO ONE (09:00)
[2019-06-21] MEDS: ATOVAQUONE 150 MG/ML PO SCH (09:08)
[2019-06-21] MEDS: ONDANSETRON 16 MG in SODIUM CHLORIDE 0.9% 50 ML IVPB SCH (14:56)
[2019-06-21] MEDS: AZACITIDINE IVPush SCH (16:25)
[2019-06-21] MEDS: SODIUM CHLORIDE 0.9% IVPush SCH (16:25)
[2019-06-21] MEDS: MELATONIN 5 MG TABLET PO SCH (21:25)
[2019-06-21] MEDS: MIRTAZAPINE 15 MG TABLET PO SCH (21:25)
[2019-06-22 03:31] VITALS: BP 92/61
[2019-06-22 05:31] LABS: ALANINE AMINOTRANSFERASE 43 U/L (12-78); ALBUMIN 3.1 g/dL (3.4-5.0); ANION GAP 7 mmol/L (5-15); CALCIUM 8.8 mg/dL (8.5-10.1); CHLORIDE 112 mmol/L (98-107); CREATININE 0.88 mg/dL (0.55-1.02)
[2019-06-22 05:34] LABS: ALKALINE PHOSPHATASE 81 U/L (45-117); BILIRUBIN,TOTAL 0.3 mg/dL (0.2-1.0)
[2019-06-22 05:37] LABS: MEAN CORPUSCULAR HEMOGLOBIN 33.7 pg (27.0-34.8); MEAN CORPUSCULAR HGB CONC 34.4 g/dL (32.4-35.8); MEAN CORPUSCULAR VOLUME 98.1 fL (80-100); RED BLOOD COUNT 2.78 x10^6/uL (3.82-5.3)
[2019-06-22 05:55] LABS: MEAN PLATELET VOLUME 9.4 fL (7.4-10.4)
[2019-06-22 06:18] LABS: PLATELET COUNT 18 x10^3/uL (130-400)
[2019-06-22 06:33] LABS: MD YES
[2019-06-22 06:37] LABS: LYMPH#(MANUAL) 0.52 x10^3/uL (1-3.4); LYMPHS% (MANUAL) 43 % (22-44); MONOS#(MANUAL) 0.02 x10^3/uL (0.3-2.7); MONOS% (MANUAL) 2 % (2-9); MYELOCYTES# (MANUAL) 0.01 x10^3/uL (0-0); MYELOCYTES% (MANUAL) 1 % (0-0); SEG#(MANUAL) 0.13 x10^3/uL (1.8-6.8); SEGS% (MANUAL) 11 % (42-75)
[2019-06-22 06:38] LABS: ANISOCYTOSIS 1+; BLASTS # (MANUAL) 0.46 x10^3/uL (0-0); BLASTS % (MANUAL) 38 % (0-0); OVALOCYTES 1+; REACTIVE LYMPHS # (MANUAL) 0.06 x10^3/uL (0-0); REACTIVE LYMPHS % (MANUAL) 5 % (0-0)
[2019-06-22 06:39] LABS: <PLATELET ESTIMATE> DECREASED; <PLT MORPHOLOGY> NORMAL PLT MORPH
[2019-06-22 08:05] VITALS: BP 98/64
[2019-06-22] MEDS: CEFDINIR 300 MG CAPSULE PO SCH (09:00)
[2019-06-22] MEDS: [UNRECOGNIZED DRUG - OTHER] PO SCH (09:00)
[2019-06-22] MEDS: ACYCLOVIR 400 MG TABLET PO SCH (11:00)
[2019-06-22] MEDS: SODIUM CHLORIDE 0.9% 1,000 ML IV SCH (11:00)
[2019-06-22] MEDS: CYANOCOBALAMIN 1,000 MCG TABLET PO SCH (11:01)
[2019-06-22] MEDS: TACROLIMUS 0.5 MG CAPSULE PO SCH (11:01)
[2019-06-22] MEDS: FOLIC ACID 1 MG TABLET PO SCH (11:01)
[2019-06-22] MEDS: GABAPENTIN 400 MG CAPSULE PO SCH ×3 (11:01→17:05)
[2019-06-22] MEDS: CHOLECALCIFEROL 1,000 UNIT TABLET PO SCH (11:01)
[2019-06-22] MEDS: ATOVAQUONE 150 MG/ML PO SCH (11:01)
[2019-06-22] MEDS ORDERED: TACR0.5C4 PO (11:57)
[2019-06-22] MEDS ORDERED: FOLI-17 PO (11:57)
[2019-06-22] MEDS ORDERED: CYAN-27 PO (11:57)
[2019-06-22] MEDS ORDERED: GABA-827 PO (11:57)
[2019-06-22] MEDS ORDERED: CEFD300C37 PO (11:57)
[2019-06-22] MEDS ORDERED: ATOV750O PO (11:57)
[2019-06-22] MEDS ORDERED: CHOL10003 PO (11:57)
[2019-06-22] MEDS ORDERED: MIRT-34 PO (11:57)
[2019-06-22] MEDS ORDERED: ACYC-114 PO (11:57)
[2019-06-22 13:24] VITALS: BP 121/83
[2019-06-22 13:43] VITALS: BP 122/85
[2019-06-22 14:39] VITALS: BP 112/76
[2019-06-22] MEDS: ONDANSETRON 16 MG in SODIUM CHLORIDE 0.9% 50 ML IVPB SCH (15:15)
[2019-06-22] MEDS: AZACITIDINE IVPush SCH (15:55)
[2019-06-22] MEDS: SODIUM CHLORIDE 0.9% IVPush SCH (15:55)
== END 2019-06-22 18:00 | disposition home or self-care (01) | DRG 835 ==
LOC: 3WST 10:56
PROVIDERS: ADMIT Internal Medicine; ATTEND Internal Medicine
PROC: 02HV33Z Insertion of Infusion Device into Superior Vena Cava, Percutaneous Approach (ICD-10-PCS; principal; 2019-06-16)
PROC: B548ZZA Ultrasonography of Superior Vena Cava, Guidance (ICD-10-PCS; 2019-06-16)
PROC: B5181ZA Fluoroscopy of Superior Vena Cava using Low Osmolar Contrast, Guidance (ICD-10-PCS; 2019-06-16)
DX: C92.02 Acute myeloblastic leukemia, in relapse (principal); Z94.81 Bone marrow transplant status; D69.59 Other secondary thrombocytopenia; D53.9 Nutritional anemia, unspecified; G62.9 Polyneuropathy, unspecified; F41.9 Anxiety disorder, unspecified; R21 Rash and other nonspecific skin eruption; D70.9 Neutropenia, unspecified; Z80.6 Family history of leukemia; E83.42 Hypomagnesemia; G47.00 Insomnia, unspecified; Z80.1 Family history of malignant neoplasm of trachea, bronchus and lung; Z92.21 Personal history of antineoplastic chemotherapy
CPT/HCPCS: 36415; 36573; 71045; 80053; 81001; 82306; 82550; 82607; 83615; 83735; 84100; 84145; 84550; 85025; 85610; 85651; 85730; 86850; 86900; 86923; 87040; 87046; 87086; 87427; 89055; 93005; G0378; J0696; J1885; J2405; J7507; J9025; C1751; J3475; J7030; J7040; P9037; P9040; Q0163

== ENCOUNTER → 2019-06-28 | Outpatient (CLI) | payer OTHER ==
[~2019-06-28] MED LIST changes: +ATOV750O PO; +CEFD300C37 PO; +CHOL10003 PO; +CYAN-27 PO; +FOLI-17 PO; +GABA-827 PO; +MIRT-34 PO; +TACR0.5C4 PO
== END | disposition home or self-care (01) ==
LOC: CLISVCS 13:21
PROVIDERS: ATTEND Internal Medicine
DX: Z51.11 Encounter for antineoplastic chemotherapy (principal); C92.02 Acute myeloblastic leukemia, in relapse; Z79.899 Other long term (current) drug therapy
CPT/HCPCS: 93005

== ENCOUNTER 2019-07-08 08:38 | Inpatient (IN) | payer BC, OTHER ==
[2019-07-08] VITALS (8 sets, daily range): BP systolic 88–171; BP diastolic 52–80
[~2019-07-08] VITALS: Ht 172.7 cm; Wt 71.4 kg
[2019-07-08] MEDS ORDERED: ONDANSETRON 2MG/ML, 2ML ONE (09:22)
[2019-07-08] MEDS ORDERED: ACETAMINOPHEN 500 MG TABLET ONE (09:22)
[2019-07-08] MEDS ORDERED: ACETAMINOPHEN 500 MG TABLET PO ONE (09:30)
[2019-07-08] MEDS ORDERED: ONDANSETRON 2MG/ML, 2ML IVPush ONE (09:30)
[2019-07-08 10:10] LABS: ALANINE AMINOTRANSFERASE 34 U/L (12-78); ANION GAP 8 mmol/L (5-15); CALCIUM 7.6 mg/dL (8.5-10.1); CHLORIDE 103 mmol/L (98-107); CREATININE 1.64 mg/dL (0.55-1.02)
[2019-07-08 10:25] LABS: ALKALINE PHOSPHATASE 80 U/L (45-117); BILIRUBIN,TOTAL 0.7 mg/dL (0.2-1.0); MEAN CORPUSCULAR HEMOGLOBIN 33.7 pg (27.0-34.8); MEAN CORPUSCULAR VOLUME 96.3 fL (80-100); MEAN PLATELET VOLUME 10.4 fL (7.4-10.4); RED BLOOD COUNT 2.04 x10^6/uL (3.82-5.3); RED CELL DISTRIBUTION WIDTH 14.8 % (9.6-15.2); TOTAL PROTEIN 7.3 g/dL (6.4-8.2)
[2019-07-08 10:38] LABS: PLATELET COUNT 9 x10^3/uL (130-400)
[2019-07-08 10:39] LABS: MD YES
[2019-07-08 10:44] LABS: D-DIMER (DIC) 9.12 ug/mlFEU (0.00-0.52); PROTIME 10.5 Seconds (9.6-11.5)
[2019-07-08 10:47] LABS: BAND#(MANUAL) 0.01 x10^3/uL; BANDS%(MANUAL) 1 % (0-7); LYMPHS% (MANUAL) 69 % (22-44); MONOS#(MANUAL) 0.04 x10^3/uL (0.3-2.7); MONOS% (MANUAL) 8 % (2-9); REACTIVE LYMPHS # (MANUAL) 0.01 x10^3/uL (0-0); REACTIVE LYMPHS % (MANUAL) 2 % (0-0); SEGS% (MANUAL) 20 % (42-75)
[2019-07-08 10:48] LABS: LYMPH#(MANUAL) 0.35 x10^3/uL (1-3.4)
[2019-07-08 10:49] LABS: <PLATELET ESTIMATE> DECREASED; <PLT MORPHOLOGY> QNS FOR PLT MORPH; OVALOCYTES 1+; TEAR DROPS 1+
[2019-07-08] MEDS ORDERED: CEFOTETAN PMX 1GM/50ML 0 ML ONE (11:14)
[2019-07-08] MEDS ORDERED: CEFEPIME 1 GM in DEXTROSE 5% 50 ML IV ONE (11:30)
[2019-07-08] MEDS ORDERED: VANCOMYCIN PER PHARMACY MC PRN ×2 (11:30→18:30)
[2019-07-08] MEDS ORDERED: PHARMACOKINETIC MONITORING MC PRN ×2 (12:00→18:30)
[2019-07-08] MEDS ORDERED: VANCOMYCIN 1,800 MG in SODIUM CHLORIDE 0.9% 250 ML IV ONE (12:00)
[2019-07-08] MEDS ORDERED: PHARMACOKINETIC CONSULTATION MC ONE ×2 (12:00→18:30)
[2019-07-08] MEDS ORDERED: GABA100C PO (13:26)
[2019-07-08] MEDS ORDERED: GILT40TA PO (15:56)
[2019-07-08] MEDS: GABAPENTIN 100 MG CAPSULE PO SCH ×3 (17:36→20:52)
[2019-07-08] MEDS ORDERED: ONDA4TAB7 PO (17:57)
[2019-07-08] MEDS ORDERED: hydrALAzine 20 MG/ML, 1ML IVPush PRN (18:00)
[2019-07-08] MEDS ORDERED: DOCUSATE 100 MG CAPSULE PO PRN (18:00)
[2019-07-08] MEDS ORDERED: POLYETHYLENE GLYCOL 17 GM PACKET PO PRN (18:00)
[2019-07-08] MEDS ORDERED: TRAZODONE 50MG TABLET PO PRN (18:00)
[2019-07-08] MEDS ORDERED: BISACODYL 10 MG SUPP PR PRN (18:00)
[2019-07-08] MEDS ORDERED: ONDANSETRON 2MG/ML, 2ML IVPush PRN (18:00)
[2019-07-08] MEDS ORDERED: HYDROcodone/APAP 5/325 TABLET PO PRN (18:00)
[2019-07-08] MEDS ORDERED: CEFEPIME 1 GM in DEXTROSE 5% 50 ML IV SCH (18:30)
[2019-07-08] MEDS ORDERED: ONDANSETRON 4 MG TABLET PO PRN (18:30)
[2019-07-08] MEDS: ACETAMINOPHEN 325 MG TABLET PO PRN (18:43)
[2019-07-08] MEDS: NS + 20MEQ KCL 1,000 ML IV SCH (18:44)
[2019-07-08 20:41] LABS: HCT (SEDRATE) 21.5 % (34.6-47.8)
[2019-07-08] MEDS: MIRTAZAPINE 30 MG TABLET PO SCH (20:51)
[2019-07-08] MEDS: ACYCLOVIR 400 MG TABLET PO SCH (20:51)
[2019-07-08 20:53] LABS: FREE T4 (FREE THYROXINE) 1.26 ng/dL (0.76-1.46)
[2019-07-09] MEDS ORDERED: VANCOMYCIN 1,400 MG in SODIUM CHLORIDE 0.9% 250 ML IV SCH ×3 (00:15→18:00)
[2019-07-09 01:50] VITALS: BP 102/64
[2019-07-09] MEDS: NS + 20MEQ KCL 1,000 ML IV SCH (04:00)
[2019-07-09 04:34] LABS: ALANINE AMINOTRANSFERASE 36 U/L (12-78); ALBUMIN 2.6 g/dL (3.4-5.0); ANION GAP 7 mmol/L (5-15); CALCIUM 7.4 mg/dL (8.5-10.1); CHLORIDE 112 mmol/L (98-107); CREATININE 1.04 mg/dL (0.55-1.02)
[2019-07-09 04:41] LABS: ALKALINE PHOSPHATASE 74 U/L (45-117); BILIRUBIN,TOTAL 0.7 mg/dL (0.2-1.0); TOTAL PROTEIN 6.4 g/dL (6.4-8.2)
[2019-07-09 04:42] LABS: C-REACTIVE PROTEIN, QUANT > 19.00 mg/dL (0.02-0.49)
[2019-07-09 04:45] LABS: MEAN CORPUSCULAR HEMOGLOBIN 32.8 pg (27.0-34.8); MEAN CORPUSCULAR HGB CONC 34.8 g/dL (32.4-35.8); MEAN CORPUSCULAR VOLUME 94.2 fL (80-100); RED BLOOD COUNT 2.24 x10^6/uL (3.82-5.3); RED CELL DISTRIBUTION WIDTH 14.9 % (9.6-15.2)
[2019-07-09 05:47] LABS: MD YES
[2019-07-09 05:53] LABS: <PLATELET ESTIMATE> DECREASED; <PLT MORPHOLOGY> NORMAL PLT MORPH; BAND#(MANUAL) 0.01 x10^3/uL; BANDS%(MANUAL) 2 % (0-7); LYMPH#(MANUAL) 0.37 x10^3/uL (1-3.4); LYMPHS% (MANUAL) 62 % (22-44); MONOS#(MANUAL) 0.05 x10^3/uL (0.3-2.7); MONOS% (MANUAL) 8 % (2-9); OVALOCYTES 1+; SEG#(MANUAL) 0.17 x10^3/uL (1.8-6.8); SEGS% (MANUAL) 28 % (42-75); TEAR DROPS 1+
[2019-07-09 05:54] LABS: MEAN PLATELET VOLUME 8.4 fL (7.4-10.4)
[2019-07-09 05:56] LABS: PLATELET COUNT 34 x10^3/uL (130-400)
[2019-07-09] MEDS: PANTOPRAZOLE 40MG TABLET PO SCH (07:30)
[2019-07-09 08:00] VITALS: BP 96/65
[2019-07-09] MEDS: FOLIC ACID 1 MG TABLET PO SCH (08:32)
[2019-07-09] MEDS: CHOLECALCIFEROL 1,000 UNIT TABLET PO SCH (08:32)
[2019-07-09] MEDS: ACYCLOVIR 400 MG TABLET PO SCH ×2 (08:32→20:54)
[2019-07-09] MEDS: GABAPENTIN 100 MG CAPSULE PO SCH ×4 (08:33→20:54)
[2019-07-09] MEDS: ATOVAQUONE 150 MG/ML PO SCH (08:34)
[2019-07-09] MEDS: [UNRECOGNIZED DRUG - OTHER] HOMEMEDPO SCH (12:00)
[2019-07-09] MEDS: MEROPENEM 1 GM in SODIUM CHLORIDE 0.9% 100 ML IV SCH ×2 (12:35→20:54)
[2019-07-09 13:58] VITALS: BP 92/57
[2019-07-09 19:47] VITALS: BP 106/65
[2019-07-09] MEDS: MIRTAZAPINE 30 MG TABLET PO SCH (20:54)
[2019-07-10] VITALS (7 sets, daily range): BP systolic 92–107; BP diastolic 50–76
[2019-07-10] MEDS: MEROPENEM 1 GM in SODIUM CHLORIDE 0.9% 100 ML IV SCH ×3 (04:20→20:22)
[2019-07-10] MEDS: PANTOPRAZOLE 40MG TABLET PO SCH (07:30)
[2019-07-10 08:11] LABS: ANION GAP 10 mmol/L (5-15); CALCIUM 7.6 mg/dL (8.5-10.1); CHLORIDE 111 mmol/L (98-107); CREATININE 0.89 mg/dL (0.55-1.02)
[2019-07-10] MEDS ORDERED: POTASSIUM CHLORIDE 20 MEQ TAB.ER.PRT PO ONE ×2 (08:30→11:00)
[2019-07-10 08:43] LABS: MEAN CORPUSCULAR HEMOGLOBIN 32.6 pg (27.0-34.8); MEAN CORPUSCULAR HGB CONC 34.3 g/dL (32.4-35.8); MEAN CORPUSCULAR VOLUME 95.2 fL (80-100); MEAN PLATELET VOLUME 7.8 fL (7.4-10.4); RED BLOOD COUNT 2.17 x10^6/uL (3.82-5.3); RED CELL DISTRIBUTION WIDTH 15.3 % (9.6-15.2)
[2019-07-10 08:44] LABS: PLATELET COUNT 28 x10^3/uL (130-400)
[2019-07-10] MEDS: [UNRECOGNIZED DRUG - OTHER] HOMEMEDPO SCH (09:00)
[2019-07-10 09:14] LABS: MD YES
[2019-07-10] MEDS: ATOVAQUONE 150 MG/ML PO SCH (10:12)
[2019-07-10] MEDS: GABAPENTIN 100 MG CAPSULE PO SCH ×3 (10:13→20:22)
[2019-07-10] MEDS: FOLIC ACID 1 MG TABLET PO SCH (10:13)
[2019-07-10] MEDS: ACYCLOVIR 400 MG TABLET PO SCH ×2 (10:13→20:22)
[2019-07-10] MEDS: CHOLECALCIFEROL 1,000 UNIT TABLET PO SCH (10:13)
[2019-07-10 10:55] LABS: <PLATELET ESTIMATE> DECREASED; <PLT MORPHOLOGY> NORMAL PLT MORPH; BAND#(MANUAL) 0.01 x10^3/uL; BANDS%(MANUAL) 1 % (0-7); LYMPH#(MANUAL) 0.36 x10^3/uL (1-3.4); LYMPHS% (MANUAL) 72 % (22-44); MONOS#(MANUAL) 0.02 x10^3/uL (0.3-2.7); MONOS% (MANUAL) 4 % (2-9); OVALOCYTES 1+; REACTIVE LYMPHS # (MANUAL) 0.01 x10^3/uL (0-0); REACTIVE LYMPHS % (MANUAL) 2 % (0-0); SEG#(MANUAL) 0.11 x10^3/uL (1.8-6.8); SEGS% (MANUAL) 21 % (42-75)
[2019-07-10] MEDS: MIRTAZAPINE 30 MG TABLET PO SCH (20:38)
[2019-07-11 04:15] VITALS: BP 90/56
[2019-07-11] MEDS: MEROPENEM 1 GM in SODIUM CHLORIDE 0.9% 100 ML IV SCH (04:21)
[2019-07-11] MEDS: PANTOPRAZOLE 40MG TABLET PO SCH (07:30)
[2019-07-11 07:45] VITALS: BP 96/60
[2019-07-11 08:26] LABS: ANION GAP 7 mmol/L (5-15); CALCIUM 8.1 mg/dL (8.5-10.1); CHLORIDE 109 mmol/L (98-107); CREATININE 0.89 mg/dL (0.55-1.02)
[2019-07-11 08:56] LABS: MEAN CORPUSCULAR HEMOGLOBIN 32.9 pg (27.0-34.8); MEAN CORPUSCULAR HGB CONC 35.2 g/dL (32.4-35.8); MEAN CORPUSCULAR VOLUME 93.3 fL (80-100); PLATELET COUNT 21 x10^3/uL (130-400); RED BLOOD COUNT 2.58 x10^6/uL (3.82-5.3); RED CELL DISTRIBUTION WIDTH 15.3 % (9.6-15.2)
[2019-07-11] MEDS: ACYCLOVIR 400 MG TABLET PO SCH ×2 (08:58→19:54)
[2019-07-11] MEDS: CHOLECALCIFEROL 1,000 UNIT TABLET PO SCH (08:58)
[2019-07-11] MEDS: FOLIC ACID 1 MG TABLET PO SCH (08:58)
[2019-07-11] MEDS: GABAPENTIN 100 MG CAPSULE PO SCH ×3 (08:58→19:54)
[2019-07-11] MEDS: ATOVAQUONE 150 MG/ML PO SCH (08:59)
[2019-07-11] MEDS: [UNRECOGNIZED DRUG - OTHER] HOMEMEDPO SCH (08:59)
[2019-07-11 09:31] LABS: MD YES
[2019-07-11 09:32] LABS: MEAN PLATELET VOLUME 8.1 fL (7.4-10.4)
[2019-07-11 09:35] LABS: LYMPH#(MANUAL) 0.29 x10^3/uL (1-3.4); LYMPHS% (MANUAL) 73 % (22-44); MONOS#(MANUAL) 0.02 x10^3/uL (0.3-2.7); MONOS% (MANUAL) 6 % (2-9); SEG#(MANUAL) 0.08 x10^3/uL (1.8-6.8); SEGS% (MANUAL) 21 % (42-75)
[2019-07-11 09:36] LABS: <PLATELET ESTIMATE> DECREASED; <PLT MORPHOLOGY> NORMAL PLT MORPH; OVALOCYTES 1+
[2019-07-11 14:50] VITALS: BP 100/63
[2019-07-11] MEDS: CEFTRIAXONE PMX 2GM/50ML 50 ML IV SCH (15:07)
[2019-07-11] MEDS: POTASSIUM CHLORIDE 20 MEQ TAB.ER.PRT PO SCH (16:41)
[2019-07-11 19:47] VITALS: BP 105/72
[2019-07-11] MEDS: ACETAMINOPHEN 325 MG TABLET PO PRN (19:53)
[2019-07-11] MEDS: MIRTAZAPINE 30 MG TABLET PO SCH (19:54)
[2019-07-12 04:07] VITALS: BP 104/70
[2019-07-12 07:23] LABS: ANION GAP 11 mmol/L (5-15); CALCIUM 8.5 mg/dL (8.5-10.1); CHLORIDE 108 mmol/L (98-107); CREATININE 0.83 mg/dL (0.55-1.02)
[2019-07-12] MEDS: PANTOPRAZOLE 40MG TABLET PO SCH (07:30)
[2019-07-12 07:43] LABS: MD YES; MEAN CORPUSCULAR HEMOGLOBIN 32.5 pg (27.0-34.8); MEAN CORPUSCULAR HGB CONC 34.6 g/dL (32.4-35.8); MEAN CORPUSCULAR VOLUME 93.9 fL (80-100); MEAN PLATELET VOLUME 8.5 fL (7.4-10.4); RED BLOOD COUNT 2.88 x10^6/uL (3.82-5.3); RED CELL DISTRIBUTION WIDTH 15.6 % (9.6-15.2)
[2019-07-12 07:44] LABS: PLATELET COUNT 14 x10^3/uL (130-400)
[2019-07-12] MEDS: ATOVAQUONE 150 MG/ML PO SCH (07:59)
[2019-07-12] MEDS: ACYCLOVIR 400 MG TABLET PO SCH ×2 (07:59→21:06)
[2019-07-12] MEDS: GABAPENTIN 100 MG CAPSULE PO SCH ×3 (07:59→21:06)
[2019-07-12] MEDS: [UNRECOGNIZED DRUG - OTHER] HOMEMEDPO SCH (08:00)
[2019-07-12] MEDS: POTASSIUM CHLORIDE 20 MEQ TAB.ER.PRT PO SCH ×2 (08:00→16:24)
[2019-07-12] MEDS: FOLIC ACID 1 MG TABLET PO SCH (08:00)
[2019-07-12] MEDS: CHOLECALCIFEROL 1,000 UNIT TABLET PO SCH (08:00)
[2019-07-12] MEDS: ACETAMINOPHEN 325 MG TABLET PO PRN (08:00)
[2019-07-12 08:02] VITALS: BP 101/69
[2019-07-12 08:17] LABS: BANDS%(MANUAL) 1 % (0-7); LYMPH#(MANUAL) 0.31 x10^3/uL (1-3.4); LYMPHS% (MANUAL) 78 % (22-44); MONOS#(MANUAL) 0.02 x10^3/uL (0.3-2.7); MONOS% (MANUAL) 6 % (2-9); REACTIVE LYMPHS % (MANUAL) 1 % (0-0); SEG#(MANUAL) 0.06 x10^3/uL (1.8-6.8); SEGS% (MANUAL) 14 % (42-75)
[2019-07-12 08:18] LABS: <PLATELET ESTIMATE> DECREASED; <PLT MORPHOLOGY> NORMAL PLT MORPH; OVALOCYTES 1+
[2019-07-12 14:03] VITALS: BP 91/66
[2019-07-12] MEDS: CEFTRIAXONE PMX 2GM/50ML 50 ML IV SCH (16:23)
[2019-07-12 19:54] VITALS: BP 128/88
[2019-07-12] MEDS: MIRTAZAPINE 30 MG TABLET PO SCH (21:06)
[2019-07-13 02:23] VITALS: BP 93/61
[2019-07-13] MEDS: PANTOPRAZOLE 40MG TABLET PO SCH (07:30)
[2019-07-13] MEDS: CHOLECALCIFEROL 1,000 UNIT TABLET PO SCH (09:10)
[2019-07-13] MEDS: FOLIC ACID 1 MG TABLET PO SCH (09:10)
[2019-07-13] MEDS: POTASSIUM CHLORIDE 20 MEQ TAB.ER.PRT PO SCH ×2 (09:10→09:30)
[2019-07-13] MEDS: GABAPENTIN 100 MG CAPSULE PO SCH ×3 (09:10→19:49)
[2019-07-13] MEDS: ACYCLOVIR 400 MG TABLET PO SCH ×2 (09:10→19:49)
[2019-07-13] MEDS: [UNRECOGNIZED DRUG - OTHER] HOMEMEDPO SCH (09:12)
[2019-07-13] MEDS: ATOVAQUONE 150 MG/ML PO SCH (09:12)
[2019-07-13 09:15] VITALS: BP 86/54
[2019-07-13 09:34] LABS: MEAN CORPUSCULAR HEMOGLOBIN 32.4 pg (27.0-34.8); MEAN CORPUSCULAR HGB CONC 34.4 g/dL (32.4-35.8); MEAN CORPUSCULAR VOLUME 94.2 fL (80-100); MEAN PLATELET VOLUME 9.8 fL (7.4-10.4); RED BLOOD COUNT 2.73 x10^6/uL (3.82-5.3); RED CELL DISTRIBUTION WIDTH 15.4 % (9.6-15.2)
[2019-07-13 09:36] LABS: PLATELET COUNT 10 x10^3/uL (130-400)
[2019-07-13 10:07] LABS: MD YES
[2019-07-13 10:11] LABS: BAND#(MANUAL) 0.01 x10^3/uL; BANDS%(MANUAL) 2 % (0-7); LYMPH#(MANUAL) 0.38 x10^3/uL (1-3.4); LYMPHS% (MANUAL) 76 % (22-44); REACTIVE LYMPHS # (MANUAL) 0.01 x10^3/uL (0-0); REACTIVE LYMPHS % (MANUAL) 2 % (0-0); SEGS% (MANUAL) 20 % (42-75)
[2019-07-13 10:12] LABS: <PLATELET ESTIMATE> DECREASED; <PLT MORPHOLOGY> NORMAL PLT MORPH; OVALOCYTES 1+; TEAR DROPS 1+
[2019-07-13] MEDS: SODIUM CHLORIDE 0.9% 1,000 ML IV SCH ×2 (10:25→19:49)
[2019-07-13 14:00] VITALS: BP 110/73
[2019-07-13] MEDS: CEFTRIAXONE PMX 2GM/50ML 50 ML IV SCH (15:17)
[2019-07-13 19:47] VITALS: BP 113/77
[2019-07-13] MEDS: MIRTAZAPINE 30 MG TABLET PO SCH (19:49)
[2019-07-14] VITALS (7 sets, daily range): BP systolic 90–108; BP diastolic 56–74
[2019-07-14] MEDS: SODIUM CHLORIDE 0.9% 1,000 ML IV SCH (04:46)
[2019-07-14 05:37] LABS: ALANINE AMINOTRANSFERASE 27 U/L (12-78); ALBUMIN 2.3 g/dL (3.4-5.0); ANION GAP 8 mmol/L (5-15); CALCIUM 7.7 mg/dL (8.5-10.1); CHLORIDE 106 mmol/L (98-107); CREATININE 0.85 mg/dL (0.55-1.02)
[2019-07-14 05:39] LABS: ALKALINE PHOSPHATASE 74 U/L (45-117); BILIRUBIN,TOTAL 0.4 mg/dL (0.2-1.0); TOTAL PROTEIN 6.4 g/dL (6.4-8.2)
[2019-07-14 05:57] LABS: MEAN CORPUSCULAR HEMOGLOBIN 32.6 pg (27.0-34.8); MEAN CORPUSCULAR HGB CONC 34.8 g/dL (32.4-35.8); MEAN CORPUSCULAR VOLUME 93.7 fL (80-100); MEAN PLATELET VOLUME 10.3 fL (7.4-10.4); RED BLOOD COUNT 2.56 x10^6/uL (3.82-5.3); RED CELL DISTRIBUTION WIDTH 15.3 % (9.6-15.2)
[2019-07-14 05:58] LABS: PLATELET COUNT 9 x10^3/uL (130-400)
[2019-07-14 06:20] LABS: MD YES
[2019-07-14 06:31] LABS: LYMPH#(MANUAL) 0.55 x10^3/uL (1-3.4); LYMPHS% (MANUAL) 78 % (22-44); MONOS#(MANUAL) 0.02 x10^3/uL (0.3-2.7); MONOS% (MANUAL) 3 % (2-9); OVALOCYTES 1+; SEG#(MANUAL) 0.13 x10^3/uL (1.8-6.8); SEGS% (MANUAL) 19 % (42-75)
[2019-07-14 06:32] LABS: <PLATELET ESTIMATE> DECREASED; <PLT MORPHOLOGY> NORMAL PLT MORPH
[2019-07-14] MEDS: PANTOPRAZOLE 40MG TABLET PO SCH (07:30)
[2019-07-14] MEDS: [UNRECOGNIZED DRUG - OTHER] HOMEMEDPO SCH (09:00)
[2019-07-14] MEDS ORDERED: SODIUM CHLORIDE 0.9% 1,000 ML IV SCH (09:30)
[2019-07-14] MEDS: ACYCLOVIR 400 MG TABLET PO SCH (09:32)
[2019-07-14] MEDS: POTASSIUM CHLORIDE 20 MEQ TAB.ER.PRT PO SCH (09:32)
[2019-07-14] MEDS: FOLIC ACID 1 MG TABLET PO SCH (09:32)
[2019-07-14] MEDS: CHOLECALCIFEROL 1,000 UNIT TABLET PO SCH (09:32)
[2019-07-14] MEDS: GABAPENTIN 100 MG CAPSULE PO SCH ×2 (09:32→14:50)
[2019-07-14] MEDS: ATOVAQUONE 150 MG/ML PO SCH (09:33)
[2019-07-14] MEDS: CEFTRIAXONE PMX 2GM/50ML 50 ML IV SCH (14:50)
== END 2019-07-14 16:56 | disposition home or self-care (01) | DRG 871 ==
LOC: ED 09:16 → EDIP 11:03 → 4NW 12:36 → 3WST 07-09 15:27
PROVIDERS: ADMIT Hospitalist; ATTEND Internal Medicine
PROC: 30233R1 Transfusion of Nonautologous Platelets into Peripheral Vein, Percutaneous Approach (ICD-10-PCS; principal; 2019-07-08)
PROC: 30233N1 Transfusion of Nonautologous Red Blood Cells into Peripheral Vein, Percutaneous Approach (ICD-10-PCS; 2019-07-08)
PROC: 02HV33Z Insertion of Infusion Device into Superior Vena Cava, Percutaneous Approach (ICD-10-PCS; 2019-07-13)
PROC: B5181ZA Fluoroscopy of Superior Vena Cava using Low Osmolar Contrast, Guidance (ICD-10-PCS; 2019-07-13)
PROC: 07DR3ZX Extraction of Iliac Bone Marrow, Percutaneous Approach, Diagnostic (ICD-10-PCS; 2019-07-14)
DX: A41.59 Other Gram-negative sepsis (principal); D61.810 Antineoplastic chemotherapy induced pancytopenia; E43 Unspecified severe protein-calorie malnutrition; J15.0 Pneumonia due to Klebsiella pneumoniae; N17.0 Acute kidney failure with tubular necrosis; C92.02 Acute myeloblastic leukemia, in relapse; E87.1 Hypo-osmolality and hyponatremia; E87.2 Acidosis; Z94.81 Bone marrow transplant status; E87.6 Hypokalemia; F32.9 Major depressive disorder, single episode, unspecified; R50.81 Fever presenting with conditions classified elsewhere; T45.1X5A Adverse effect of antineoplastic and immunosuppressive drugs, initial encounter; Z20.828 Contact with and (suspected) exposure to other viral communicable diseases; D69.6 Thrombocytopenia, unspecified; Z68.23 Body mass index [BMI] 23.0-23.9, adult; Z80.6 Family history of leukemia; Z85.828 Personal history of other malignant neoplasm of skin; Z03.818 Encounter for observation for suspected exposure to other biological agents ruled out
CPT/HCPCS: 36415; 36573; 38222; 71045; 77012; 80048; 80053; 82728; 83605; 83615; 84145; 84439; 84443; 85025; 85049; 85060; 85097; 85379; 85384; 85610; 85651; 85730; 86140; 86850; 86900; 86923; 87040; 87070; 87086; 87186; 88237; 88264; 88280; 88305; 88311; 88313; 93005; 99285; G0378; J0692; J0696; J2185; J2405; J3370; J3480; Q0162; C1751; J7030; J7050; P9037; P9040; U0001-CS

== ENCOUNTER 2019-07-20 11:46 | Inpatient (IN) | payer BC ==
[~2019-07-20] VITALS: Ht 172.7 cm; Wt 77.0 kg
[2019-07-20] VITALS (8 sets, daily range): BP systolic 91–117; BP diastolic 59–73
[~2019-07-20 11:46] MED LIST changes: +GABA100C PO; +GILT40TA PO; +ONDA4TAB7 PO
[2019-07-20] MEDS ORDERED: LACTATED RINGERS 1,000 ML IVBOLUS ONE (12:30)
[2019-07-20] MEDS ORDERED: PLEASE ENTER HEIGHT AND WEIGHT MC SCH (13:00)
[2019-07-20] MEDS ORDERED: BACLOFEN 10 MG TABLET PO PRN (13:30)
[2019-07-20] MEDS ORDERED: TRAZODONE 50MG TABLET PO PRN (13:30)
[2019-07-20] MEDS ORDERED: GUAIFENESIN/DM 200-20MG, 10ML UDC PO PRN (13:30)
[2019-07-20] MEDS ORDERED: ONDANSETRON ODT 4 MG PO PRN (13:30)
[2019-07-20] MEDS ORDERED: hydrALAzine 20 MG/ML, 1ML IVPush PRN (13:30)
[2019-07-20] MEDS ORDERED: LABETALOL 5MG/ML, 20ML IVPush PRN (13:30)
[2019-07-20] MEDS ORDERED: BUTALB/APAP/CAFFEINE 50MG/325MG/40MG PO PRN ×2 (13:30)
[2019-07-20 13:51] LABS: ANION GAP 7 mmol/L (5-15); CALCIUM 8.3 mg/dL (8.5-10.1); CHLORIDE 106 mmol/L (98-107); CREATININE 0.98 mg/dL (0.55-1.02)
[2019-07-20 14:10] LABS: MEAN CORPUSCULAR HEMOGLOBIN 32.2 pg (27.0-34.8); MEAN CORPUSCULAR HGB CONC 34.6 g/dL (32.4-35.8); MEAN CORPUSCULAR VOLUME 92.9 fL (80-100); MEAN PLATELET VOLUME 8.6 fL (7.4-10.4); RED BLOOD COUNT 1.75 x10^6/uL (3.82-5.3)
[2019-07-20 14:12] LABS: PLATELET COUNT 39 x10^3/uL (130-400)
[2019-07-20 14:29] LABS: MD YES
[2019-07-20] MEDS ORDERED: CEFTRIAXONE 1,000 MG IM SCH (14:30)
[2019-07-20] MEDS ORDERED: POTASSIUM CHLORIDE 20 MEQ in SODIUM CHLORIDE 0.9% 250 ML IV ONE (14:30)
[2019-07-20] MEDS ORDERED: MAGNESIUM SULFATE PMX 2GM/50ML 50 ML IV ONE (14:30)
[2019-07-20] MEDS: DAPTOMYCIN 400 MG in SODIUM CHLORIDE 0.9% 100 ML IV SCH (14:30)
[2019-07-20 14:32] LABS: LYMPH#(MANUAL) 0.38 x10^3/uL (1-3.4); LYMPHS% (MANUAL) 64 % (22-44); SEG#(MANUAL) 0.22 x10^3/uL (1.8-6.8); SEGS% (MANUAL) 36 % (42-75)
[2019-07-20 14:35] LABS: OVALOCYTES 1+
[2019-07-20 14:36] LABS: <PLATELET ESTIMATE> DECREASED; <PLT MORPHOLOGY> NORMAL PLT MORPH
[2019-07-20] MEDS: CEFTRIAXONE PMX 2GM/50ML 50 ML IVPB SCH (14:41)
[2019-07-20] MEDS: ENOXAPARIN 40 MG/0.4 ML SQ SCH (14:56)
[2019-07-20] MEDS: CHOLECALCIFEROL 400 UNITS TABLET PO SCH (14:56)
[2019-07-20] MEDS ORDERED: DIPHENHYDRAMINE 25 MG CAPSULE PO ONE (17:00)
[2019-07-20] MEDS: ASCORBIC ACID 500 MG TABLET PO SCH (17:00)
[2019-07-20 19:22] LABS: CLOSTRIDIUM DIFFICILE ANTIGEN POSITIVE; CLOSTRIDIUM DIFFICILE TOXIN POSITIVE (Negative)
[2019-07-20] MEDS: ACYCLOVIR 400 MG TABLET PO SCH (20:36)
[2019-07-20] MEDS: GABAPENTIN 300 MG CAPSULE PO PRN (20:36)
[2019-07-20] MEDS: VANCOMYCIN 50 MG/ML ORAL SUSP PO SCH (20:37)
[2019-07-20] MEDS ORDERED: MIRTAZAPINE 15 MG TABLET PO ONE (21:30)
[2019-07-20] MEDS: ACETAMINOPHEN 325 MG TABLET PO PRN (22:57)
[2019-07-21] MEDS: VANCOMYCIN 50 MG/ML ORAL SUSP PO SCH ×4 (04:15→21:11)
[2019-07-21 04:24] VITALS: BP 103/63
[2019-07-21 05:09] LABS: MEAN CORPUSCULAR HEMOGLOBIN 32.1 pg (27.0-34.8); MEAN CORPUSCULAR HGB CONC 34.6 g/dL (32.4-35.8); MEAN CORPUSCULAR VOLUME 92.8 fL (80-100); RED BLOOD COUNT 3.04 x10^6/uL (3.82-5.3); RED CELL DISTRIBUTION WIDTH 14.8 % (9.6-15.2)
[2019-07-21 05:20] LABS: PLATELET COUNT 26 x10^3/uL (130-400)
[2019-07-21 05:49] LABS: MD YES
[2019-07-21 05:54] LABS: LYMPH#(MANUAL) 0.51 x10^3/uL (1-3.4); LYMPHS% (MANUAL) 64 % (22-44); MONOS#(MANUAL) 0.05 x10^3/uL (0.3-2.7); MONOS% (MANUAL) 6 % (2-9); SEG#(MANUAL) 0.24 x10^3/uL (1.8-6.8); SEGS% (MANUAL) 30 % (42-75)
[2019-07-21 05:56] LABS: <PLATELET ESTIMATE> DECREASED; <PLT MORPHOLOGY> NORMAL PLT MORPH
[2019-07-21 05:57] LABS: OVALOCYTES 1+
[2019-07-21 07:24] VITALS: BP 111/62
[2019-07-21] MEDS: ACYCLOVIR 400 MG TABLET PO SCH ×2 (08:27→21:10)
[2019-07-21] MEDS: GABAPENTIN 300 MG CAPSULE PO PRN ×2 (08:27→15:48)
[2019-07-21] MEDS: ASCORBIC ACID 500 MG TABLET PO SCH ×2 (08:27→15:38)
[2019-07-21] MEDS: MULTIVITS,STRESS FORMULA 1 TABLET PO SCH (08:28)
[2019-07-21 08:51] LABS: ANION GAP 10 mmol/L (5-15); CALCIUM 8.5 mg/dL (8.5-10.1); CHLORIDE 107 mmol/L (98-107); CREATININE 0.83 mg/dL (0.55-1.02)
[2019-07-21] MEDS: ZINC SULFATE 220 MG CAPSULE PO SCH (11:16)
[2019-07-21 13:04] VITALS: BP 119/63
[2019-07-21] MEDS: CEFTRIAXONE PMX 2GM/50ML 50 ML IVPB SCH (13:59)
[2019-07-21] MEDS: ENOXAPARIN 40 MG/0.4 ML SQ SCH (13:59)
[2019-07-21] MEDS: CHOLECALCIFEROL 400 UNITS TABLET PO SCH (15:37)
[2019-07-21] MEDS: DAPTOMYCIN 400 MG in SODIUM CHLORIDE 0.9% 100 ML IV SCH (15:37)
[2019-07-21] MEDS ORDERED: SODIUM CHLORIDE 0.9% 1,000ML IVBOLUS ONE (16:00)
[2019-07-21 19:12] VITALS: BP 97/71
[2019-07-21] MEDS ORDERED: [UNRECOGNIZED DRUG - REMARK] MC SCH (20:00)
[2019-07-21] MEDS ORDERED: NYSTATIN 500,000 UNITS/5 ML UDC PO SCH (21:00)
[2019-07-21] MEDS: NYSTATIN 500,000 UNITS/5 ML UDC PO SCH (21:11)
[2019-07-21] MEDS: MIRTAZAPINE 30 MG TABLET PO SCH (21:11)
[2019-07-21] MEDS: GABAPENTIN 300 MG CAPSULE PO SCH (21:11)
[2019-07-21] MEDS: POTASSIUM CHLORIDE 20 MEQ in SODIUM CHLORIDE 0.9% 250 ML IV SCH (21:49)
[2019-07-22 02:47] VITALS: BP 99/71
[2019-07-22] MEDS: NYSTATIN 500,000 UNITS/5 ML UDC PO SCH ×4 (04:35→21:46)
[2019-07-22] MEDS: VANCOMYCIN 50 MG/ML ORAL SUSP PO SCH ×4 (04:35→21:46)
[2019-07-22 07:34] LABS: ANION GAP 6 mmol/L (5-15); CALCIUM 7.9 mg/dL (8.5-10.1); CHLORIDE 110 mmol/L (98-107); CREATININE 0.76 mg/dL (0.55-1.02)
[2019-07-22 07:37] VITALS: BP 109/72
[2019-07-22 08:26] LABS: MEAN CORPUSCULAR VOLUME 93.9 fL (80-100); MEAN PLATELET VOLUME 8.9 fL (7.4-10.4); RED BLOOD COUNT 2.79 x10^6/uL (3.82-5.3); RED CELL DISTRIBUTION WIDTH 15.1 % (9.6-15.2)
[2019-07-22 08:28] LABS: MD YES; PLATELET COUNT 21 x10^3/uL (130-400)
[2019-07-22 08:36] LABS: BASOS#(MANUAL) 0.02 x10^3/uL (0-0.1); BASOS% (MANUAL) 1 % (0-1); LYMPH#(MANUAL) 1.14 x10^3/uL (1-3.4); LYMPHS% (MANUAL) 76 % (22-44); MONOS#(MANUAL) 0.02 x10^3/uL (0.3-2.7); MONOS% (MANUAL) 1 % (2-9); SEG#(MANUAL) 0.33 x10^3/uL (1.8-6.8); SEGS% (MANUAL) 22 % (42-75)
[2019-07-22 08:38] LABS: <PLATELET ESTIMATE> DECREASED; <PLT MORPHOLOGY> NORMAL PLT MORPH; OVALOCYTES 1+
[2019-07-22] MEDS: CEFEPIME 2 GM in DEXTROSE 5% 100 ML IV SCH (09:48)
[2019-07-22] MEDS: ACYCLOVIR 400 MG TABLET PO SCH ×2 (09:51→21:46)
[2019-07-22] MEDS: MULTIVITS,STRESS FORMULA 1 TABLET PO SCH (09:51)
[2019-07-22] MEDS: GABAPENTIN 300 MG CAPSULE PO SCH ×3 (09:51→21:46)
[2019-07-22] MEDS: ASCORBIC ACID 500 MG TABLET PO SCH ×2 (09:51→18:00)
[2019-07-22] MEDS: POTASSIUM CHLORIDE 20 MEQ in SODIUM CHLORIDE 0.9% 250 ML IV SCH ×2 (10:06→21:47)
[2019-07-22 11:10] LABS: MICROSCOPIC AUTO
[2019-07-22] MEDS: ZINC SULFATE 220 MG CAPSULE PO SCH (11:14)
[2019-07-22] MEDS: ATOVAQUONE 150 MG/ML PO SCH (12:01)
[2019-07-22] MEDS: DAPTOMYCIN 400 MG in SODIUM CHLORIDE 0.9% 100 ML IV SCH (15:42)
[2019-07-22] MEDS: CHOLECALCIFEROL 400 UNITS TABLET PO SCH (15:44)
[2019-07-22 15:49] VITALS: BP 111/76
[2019-07-22 19:50] VITALS: BP 112/70
[2019-07-22] MEDS: MIRTAZAPINE 30 MG TABLET PO SCH (21:46)
[2019-07-23] MEDS: CEFEPIME 2 GM in DEXTROSE 5% 100 ML IV SCH ×2 (00:05→11:15)
[2019-07-23 02:51] VITALS: BP 102/67
[2019-07-23] MEDS: VANCOMYCIN 50 MG/ML ORAL SUSP PO SCH ×4 (05:15→22:28)
[2019-07-23] MEDS: ACETAMINOPHEN 325 MG TABLET PO PRN ×2 (05:15→16:30)
[2019-07-23] MEDS: NYSTATIN 500,000 UNITS/5 ML UDC PO SCH ×4 (05:15→19:53)
[2019-07-23 06:01] LABS: ALBUMIN 1.9 g/dL (3.4-5.0); ANION GAP 6 mmol/L (5-15); CALCIUM 7.5 mg/dL (8.5-10.1); CHLORIDE 109 mmol/L (98-107); CREATININE 0.74 mg/dL (0.55-1.02)
[2019-07-23 06:19] LABS: MEAN CORPUSCULAR HEMOGLOBIN 31.8 pg (27.0-34.8); MEAN CORPUSCULAR HGB CONC 34.3 g/dL (32.4-35.8); MEAN CORPUSCULAR VOLUME 92.7 fL (80-100); MEAN PLATELET VOLUME 8.9 fL (7.4-10.4); RED BLOOD COUNT 2.62 x10^6/uL (3.82-5.3); RED CELL DISTRIBUTION WIDTH 14.7 % (9.6-15.2)
[2019-07-23 06:22] LABS: PLATELET COUNT 15 x10^3/uL (130-400)
[2019-07-23 06:25] LABS: MD YES
[2019-07-23 06:32] LABS: <PLATELET ESTIMATE> DECREASED; <PLT MORPHOLOGY> NORMAL PLT MORPH; LYMPH#(MANUAL) 0.57 x10^3/uL (1-3.4); LYMPHS% (MANUAL) 82 % (22-44); MONOS#(MANUAL) 0.01 x10^3/uL (0.3-2.7); MONOS% (MANUAL) 1 % (2-9); OVALOCYTES 1+; SEG#(MANUAL) 0.12 x10^3/uL (1.8-6.8); SEGS% (MANUAL) 17 % (42-75)
[2019-07-23 07:45] VITALS: BP 91/67
[2019-07-23] MEDS ORDERED: POTASSIUM PHOSPHATE 44 MEQ in SODIUM CHLORIDE 0.9% 500 ML IV ONE (08:00)
[2019-07-23] MEDS: ACYCLOVIR 400 MG TABLET PO SCH ×2 (08:16→19:53)
[2019-07-23] MEDS: ATOVAQUONE 150 MG/ML PO SCH (08:16)
[2019-07-23] MEDS: ZINC SULFATE 220 MG CAPSULE PO SCH (08:16)
[2019-07-23] MEDS: ASCORBIC ACID 500 MG TABLET PO SCH ×2 (08:16→16:13)
[2019-07-23] MEDS: GABAPENTIN 300 MG CAPSULE PO SCH ×3 (08:16→19:53)
[2019-07-23] MEDS: MULTIVITS,STRESS FORMULA 1 TABLET PO SCH (08:16)
[2019-07-23] MEDS: POTASSIUM CHLORIDE 20 MEQ in SODIUM CHLORIDE 0.9% 250 ML IV SCH (11:15)
[2019-07-23 15:30] VITALS: BP 144/85
[2019-07-23] MEDS: CHOLECALCIFEROL 400 UNITS TABLET PO SCH (16:12)
[2019-07-23] MEDS: DAPTOMYCIN 400 MG in SODIUM CHLORIDE 0.9% 100 ML IV SCH (16:12)
[2019-07-23 19:31] VITALS: BP 106/68
[2019-07-23] MEDS: MIRTAZAPINE 30 MG TABLET PO SCH (19:53)
[2019-07-24] MEDS: CEFEPIME 2 GM in DEXTROSE 5% 100 ML IV SCH ×2 (00:11→12:03)
[2019-07-24 01:45] VITALS: BP 125/82
[2019-07-24] MEDS: VANCOMYCIN 50 MG/ML ORAL SUSP PO SCH ×4 (04:13→22:06)
[2019-07-24 05:12] LABS: ALBUMIN 1.9 g/dL (3.4-5.0); ANION GAP 8 mmol/L (5-15); CALCIUM 7.9 mg/dL (8.5-10.1); CHLORIDE 109 mmol/L (98-107)
[2019-07-24 05:13] LABS: CREATININE 0.73 mg/dL (0.55-1.02)
[2019-07-24 05:50] LABS: MEAN CORPUSCULAR HEMOGLOBIN 31.8 pg (27.0-34.8); MEAN CORPUSCULAR HGB CONC 33.4 g/dL (32.4-35.8); MEAN CORPUSCULAR VOLUME 94.9 fL (80-100); MEAN PLATELET VOLUME 10.5 fL (7.4-10.4); RED BLOOD COUNT 2.83 x10^6/uL (3.82-5.3); RED CELL DISTRIBUTION WIDTH 14.7 % (9.6-15.2)
[2019-07-24 05:51] LABS: PLATELET COUNT 16 x10^3/uL (130-400)
[2019-07-24 05:52] LABS: MD YES
[2019-07-24 05:58] LABS: <PLATELET ESTIMATE> DECREASED; <PLT MORPHOLOGY> NORMAL PLT MORPH; LYMPH#(MANUAL) 1.83 x10^3/uL (1-3.4); LYMPHS% (MANUAL) 73 % (22-44); MONOS#(MANUAL) 0.05 x10^3/uL (0.3-2.7); MONOS% (MANUAL) 2 % (2-9); SEG#(MANUAL) 0.63 x10^3/uL (1.8-6.8); SEGS% (MANUAL) 25 % (42-75)
[2019-07-24 05:59] LABS: OVALOCYTES 1+
[2019-07-24] MEDS: NYSTATIN 500,000 UNITS/5 ML UDC PO SCH ×4 (06:21→19:55)
[2019-07-24] MEDS: ASCORBIC ACID 500 MG TABLET PO SCH ×2 (07:49→16:22)
[2019-07-24] MEDS: ACYCLOVIR 400 MG TABLET PO SCH ×2 (07:49→19:55)
[2019-07-24] MEDS: GABAPENTIN 300 MG CAPSULE PO SCH ×3 (07:49→19:55)
[2019-07-24] MEDS: MULTIVITS,STRESS FORMULA 1 TABLET PO SCH (07:49)
[2019-07-24] MEDS: ATOVAQUONE 150 MG/ML PO SCH (07:50)
[2019-07-24] MEDS: ZINC SULFATE 220 MG CAPSULE PO SCH (07:50)
[2019-07-24 08:13] VITALS: BP 106/65
[2019-07-24] MEDS: HYDROCORTISONE CRM 1%, 30GM TP SCH ×2 (10:22→19:57)
[2019-07-24] MEDS: DAPTOMYCIN 400 MG in SODIUM CHLORIDE 0.9% 100 ML IV SCH (13:56)
[2019-07-24 15:00] VITALS: BP 115/76
[2019-07-24] MEDS: CHOLECALCIFEROL 400 UNITS TABLET PO SCH (16:24)
[2019-07-24 19:12] VITALS: BP 93/61
[2019-07-24] MEDS: MIRTAZAPINE 30 MG TABLET PO SCH (19:55)
[2019-07-24] MEDS: ACETAMINOPHEN 325 MG TABLET PO PRN (22:06)
[2019-07-25] VITALS (8 sets, daily range): BP systolic 85–104; BP diastolic 53–66
[2019-07-25] MEDS: CEFEPIME 2 GM in DEXTROSE 5% 100 ML IV SCH ×3 (00:03→23:48)
[2019-07-25] MEDS: NYSTATIN 500,000 UNITS/5 ML UDC PO SCH ×4 (04:33→19:20)
[2019-07-25] MEDS: VANCOMYCIN 50 MG/ML ORAL SUSP PO SCH ×4 (04:33→22:06)
[2019-07-25 08:42] LABS: MEAN CORPUSCULAR HEMOGLOBIN 31.9 pg (27.0-34.8); MEAN CORPUSCULAR HGB CONC 33.9 g/dL (32.4-35.8); MEAN PLATELET VOLUME 9.7 fL (7.4-10.4); RED CELL DISTRIBUTION WIDTH 14.3 % (9.6-15.2)
[2019-07-25 08:43] LABS: PLATELET COUNT 7 x10^3/uL (130-400)
[2019-07-25 08:52] LABS: MD YES
[2019-07-25 08:55] LABS: BAND#(MANUAL) 0.01 x10^3/uL; BANDS%(MANUAL) 1 % (0-7); LYMPH#(MANUAL) 0.45 x10^3/uL (1-3.4); LYMPHS% (MANUAL) 75 % (22-44); MONOS#(MANUAL) 0.02 x10^3/uL (0.3-2.7); MONOS% (MANUAL) 4 % (2-9); SEG#(MANUAL) 0.12 x10^3/uL (1.8-6.8); SEGS% (MANUAL) 20 % (42-75)
[2019-07-25 08:56] LABS: OVALOCYTES 1+
[2019-07-25 08:57] LABS: <PLATELET ESTIMATE> DECREASED; <PLT MORPHOLOGY> QNS FOR PLT MORPH
[2019-07-25] MEDS: HYDROCORTISONE CRM 1%, 30GM TP SCH ×2 (09:00→19:24)
[2019-07-25] MEDS: MULTIVITS,STRESS FORMULA 1 TABLET PO SCH (10:05)
[2019-07-25] MEDS: GABAPENTIN 300 MG CAPSULE PO SCH ×3 (10:05→19:24)
[2019-07-25] MEDS: ATOVAQUONE 150 MG/ML PO SCH (10:05)
[2019-07-25] MEDS: ACYCLOVIR 400 MG TABLET PO SCH ×2 (10:05→19:24)
[2019-07-25] MEDS: ASCORBIC ACID 500 MG TABLET PO SCH ×2 (10:05→16:44)
[2019-07-25] MEDS: ZINC SULFATE 220 MG CAPSULE PO SCH (10:05)
[2019-07-25] MEDS: ONDANSETRON 2MG/ML, 2ML IVPush PRN ×2 (12:04→19:24)
[2019-07-25] MEDS: DAPTOMYCIN 400 MG in SODIUM CHLORIDE 0.9% 100 ML IV SCH (13:47)
[2019-07-25] MEDS: CHOLECALCIFEROL 400 UNITS TABLET PO SCH (16:45)
[2019-07-25] MEDS: MIRTAZAPINE 30 MG TABLET PO SCH (19:24)
[2019-07-26 04:00] VITALS: BP 108/65
[2019-07-26] MEDS: NYSTATIN 500,000 UNITS/5 ML UDC PO SCH ×4 (04:11→20:06)
[2019-07-26] MEDS: VANCOMYCIN 50 MG/ML ORAL SUSP PO SCH ×4 (04:13→22:07)
[2019-07-26 06:40] VITALS: BP 95/68
[2019-07-26] MEDS: ZINC SULFATE 220 MG CAPSULE PO SCH (08:40)
[2019-07-26] MEDS: ACYCLOVIR 400 MG TABLET PO SCH ×2 (08:40→20:06)
[2019-07-26] MEDS: GABAPENTIN 300 MG CAPSULE PO SCH ×3 (08:40→20:06)
[2019-07-26] MEDS: MULTIVITS,STRESS FORMULA 1 TABLET PO SCH (08:40)
[2019-07-26] MEDS: ATOVAQUONE 150 MG/ML PO SCH (08:40)
[2019-07-26] MEDS: HYDROCORTISONE CRM 1%, 30GM TP SCH (08:41)
[2019-07-26 09:00] LABS: MEAN CORPUSCULAR HEMOGLOBIN 32.1 pg (27.0-34.8); MEAN CORPUSCULAR VOLUME 94.5 fL (80-100); RED BLOOD COUNT 2.43 x10^6/uL (3.82-5.3); RED CELL DISTRIBUTION WIDTH 14.5 % (9.6-15.2)
[2019-07-26 09:07] LABS: ANION GAP 5 mmol/L (5-15); CALCIUM 8.4 mg/dL (8.5-10.1); CHLORIDE 109 mmol/L (98-107); CREATININE 0.73 mg/dL (0.55-1.02)
[2019-07-26 09:43] LABS: MEAN PLATELET VOLUME 8.1 fL (7.4-10.4)
[2019-07-26 09:45] LABS: MD YES; PLATELET COUNT 26 x10^3/uL (130-400)
[2019-07-26 10:00] LABS: BAND#(MANUAL) 0.01 x10^3/uL; BANDS%(MANUAL) 2 % (0-7); BASOS#(MANUAL) 0.01 x10^3/uL (0-0.1); BASOS% (MANUAL) 1 % (0-1); LYMPH#(MANUAL) 0.44 x10^3/uL (1-3.4); LYMPHS% (MANUAL) 73 % (22-44); MONOS#(MANUAL) 0.01 x10^3/uL (0.3-2.7); MONOS% (MANUAL) 1 % (2-9); REACTIVE LYMPHS # (MANUAL) 0.01 x10^3/uL (0-0); REACTIVE LYMPHS % (MANUAL) 2 % (0-0); SEG#(MANUAL) 0.13 x10^3/uL (1.8-6.8); SEGS% (MANUAL) 21 % (42-75)
[2019-07-26 10:01] LABS: <PLATELET ESTIMATE> DECREASED; <PLT MORPHOLOGY> NORMAL PLT MORPH; <RBC MORPHOLOGY> NORMAL
[2019-07-26] MEDS: ONDANSETRON 2MG/ML, 2ML IVPush PRN (10:40)
[2019-07-26] MEDS ORDERED: DEXTROSE 5% IV SCH (12:00)
[2019-07-26] MEDS ORDERED: VORICONAZOLE IV SCH (12:00)
[2019-07-26] MEDS: CEFEPIME 2 GM in DEXTROSE 5% 100 ML IV SCH (12:28)
[2019-07-26 13:05] VITALS: BP 96/66
[2019-07-26] MEDS: VORICONAZOLE IV SCH (13:21)
[2019-07-26] MEDS: DEXTROSE 5% IV SCH (13:21)
[2019-07-26] MEDS: DAPTOMYCIN 400 MG in SODIUM CHLORIDE 0.9% 100 ML IV SCH (15:19)
[2019-07-26] MEDS: CHOLECALCIFEROL 400 UNITS TABLET PO SCH (16:36)
[2019-07-26 19:30] VITALS: BP 88/61
[2019-07-26] MEDS: MIRTAZAPINE 30 MG TABLET PO SCH (20:06)
[2019-07-27] MEDS: CEFEPIME 2 GM in DEXTROSE 5% 100 ML IV SCH ×2 (00:14→12:19)
[2019-07-27] MEDS: DEXTROSE 5% IV SCH ×2 (03:20→16:41)
[2019-07-27] MEDS: VORICONAZOLE IV SCH ×2 (03:20→16:41)
[2019-07-27] MEDS: VANCOMYCIN 50 MG/ML ORAL SUSP PO SCH ×4 (04:11→21:46)
[2019-07-27 04:17] VITALS: BP 100/64
[2019-07-27 05:16] LABS: ALANINE AMINOTRANSFERASE 32 U/L (12-78); ALBUMIN 1.9 g/dL (3.4-5.0); ANION GAP 9 mmol/L (5-15); CALCIUM 8.7 mg/dL (8.5-10.1); CHLORIDE 109 mmol/L (98-107); CREATININE 0.76 mg/dL (0.55-1.02)
[2019-07-27 05:18] LABS: ALKALINE PHOSPHATASE 64 U/L (45-117); BILIRUBIN,TOTAL 0.4 mg/dL (0.2-1.0)
[2019-07-27] MEDS: NYSTATIN 500,000 UNITS/5 ML UDC PO SCH ×4 (05:22→20:44)
[2019-07-27 05:24] LABS: MEAN CORPUSCULAR HEMOGLOBIN 31.7 pg (27.0-34.8); MEAN CORPUSCULAR HGB CONC 33.8 g/dL (32.4-35.8); RED BLOOD COUNT 2.46 x10^6/uL (3.82-5.3); RED CELL DISTRIBUTION WIDTH 14.5 % (9.6-15.2)
[2019-07-27 06:07] LABS: MD YES
[2019-07-27 06:09] LABS: MEAN PLATELET VOLUME 8.7 fL (7.4-10.4)
[2019-07-27 06:10] LABS: PLATELET COUNT 19 x10^3/uL (130-400)
[2019-07-27 06:16] LABS: LYMPHS% (MANUAL) 87 % (22-44); MONOS#(MANUAL) 0.01 x10^3/uL (0.3-2.7); MONOS% (MANUAL) 1 % (2-9); REACTIVE LYMPHS # (MANUAL) 0.01 x10^3/uL (0-0); REACTIVE LYMPHS % (MANUAL) 1 % (0-0); SEG#(MANUAL) 0.09 x10^3/uL (1.8-6.8); SEGS% (MANUAL) 11 % (42-75)
[2019-07-27 06:17] LABS: <PLATELET ESTIMATE> DECREASED; <PLT MORPHOLOGY> NORMAL PLT MORPH; OVALOCYTES 1+
[2019-07-27 07:08] VITALS: BP 99/64
[2019-07-27] MEDS ORDERED: POTASSIUM CHLORIDE 40 MEQ in SODIUM CHLORIDE 0.9% 500 ML IV ONE (07:30)
[2019-07-27] MEDS: ACYCLOVIR 400 MG TABLET PO SCH ×2 (08:44→20:43)
[2019-07-27] MEDS: ATOVAQUONE 150 MG/ML PO SCH (08:44)
[2019-07-27] MEDS: MULTIVITS,STRESS FORMULA 1 TABLET PO SCH (08:44)
[2019-07-27] MEDS: ZINC SULFATE 220 MG CAPSULE PO SCH (08:44)
[2019-07-27] MEDS: GABAPENTIN 300 MG CAPSULE PO SCH ×3 (08:44→20:43)
[2019-07-27] MEDS ORDERED: DEXTROSE 5% IV SCH (12:00)
[2019-07-27] MEDS ORDERED: VORICONAZOLE IV SCH (12:00)
[2019-07-27 12:52] VITALS: BP 100/62
[2019-07-27] MEDS: ONDANSETRON 2MG/ML, 2ML IVPush PRN (13:20)
[2019-07-27] MEDS: DAPTOMYCIN 400 MG in SODIUM CHLORIDE 0.9% 100 ML IV SCH (15:00)
[2019-07-27] MEDS: CHOLECALCIFEROL 400 UNITS TABLET PO SCH (16:44)
[2019-07-27 19:20] VITALS: BP 90/61
[2019-07-27] MEDS: MIRTAZAPINE 30 MG TABLET PO SCH (20:43)
[2019-07-28] MEDS: CEFEPIME 2 GM in DEXTROSE 5% 100 ML IV SCH ×3 (00:32→14:54)
[2019-07-28] MEDS: DEXTROSE 5% IV SCH ×2 (04:21→18:50)
[2019-07-28] MEDS: VORICONAZOLE IV SCH ×2 (04:21→18:50)
[2019-07-28] MEDS: VANCOMYCIN 50 MG/ML ORAL SUSP PO SCH ×4 (04:22→21:51)
[2019-07-28] MEDS: ACETAMINOPHEN 325 MG TABLET PO PRN (04:30)
[2019-07-28 04:35] VITALS: BP 106/68
[2019-07-28 05:23] LABS: MEAN CORPUSCULAR HEMOGLOBIN 32.1 pg (27.0-34.8); MEAN CORPUSCULAR HGB CONC 34.4 g/dL (32.4-35.8); MEAN CORPUSCULAR VOLUME 93.3 fL (80-100); MEAN PLATELET VOLUME 8.8 fL (7.4-10.4); RED BLOOD COUNT 2.23 x10^6/uL (3.82-5.3); RED CELL DISTRIBUTION WIDTH 14.5 % (9.6-15.2)
[2019-07-28 05:24] LABS: PLATELET COUNT 17 x10^3/uL (130-400)
[2019-07-28 05:25] LABS: HCT (SEDRATE) 20.9 % (34.6-47.8)
[2019-07-28] MEDS: NYSTATIN 500,000 UNITS/5 ML UDC PO SCH ×5 (05:27→21:50)
[2019-07-28 05:31] LABS: ALANINE AMINOTRANSFERASE 34 U/L (12-78); ANION GAP 12 mmol/L (5-15); CALCIUM 8.7 mg/dL (8.5-10.1); CHLORIDE 109 mmol/L (98-107)
[2019-07-28 05:38] LABS: ALKALINE PHOSPHATASE 80 U/L (45-117); BILIRUBIN,TOTAL 0.4 mg/dL (0.2-1.0); TOTAL PROTEIN 7.5 g/dL (6.4-8.2)
[2019-07-28 05:49] LABS: MD YES
[2019-07-28 05:57] LABS: LYMPH#(MANUAL) 0.51 x10^3/uL (1-3.4); LYMPHS% (MANUAL) 85 % (22-44); SEG#(MANUAL) 0.09 x10^3/uL (1.8-6.8); SEGS% (MANUAL) 15 % (42-75)
[2019-07-28 05:59] LABS: <PLATELET ESTIMATE> DECREASED; <PLT MORPHOLOGY> NORMAL PLT MORPH; <RBC MORPHOLOGY> NORMAL
[2019-07-28 06:19] LABS: SEDIMENTATION RATE > 120 mm/hr (0-20)
[2019-07-28] MEDS ORDERED: POTASSIUM CHLORIDE 40 MEQ in SODIUM CHLORIDE 0.9% 500 ML IV ONE (07:30)
[2019-07-28 07:53] VITALS: BP 111/62
[2019-07-28] MEDS: ZINC SULFATE 220 MG CAPSULE PO SCH (10:06)
[2019-07-28] MEDS: ACYCLOVIR 400 MG TABLET PO SCH ×2 (10:06→21:50)
[2019-07-28] MEDS: GABAPENTIN 300 MG CAPSULE PO SCH ×3 (10:06→21:50)
[2019-07-28] MEDS: ATOVAQUONE 150 MG/ML PO SCH (10:06)
[2019-07-28] MEDS: MULTIVITS,STRESS FORMULA 1 TABLET PO SCH (10:06)
[2019-07-28] MEDS: ONDANSETRON 2MG/ML, 2ML IVPush PRN (10:20)
[2019-07-28 13:56] VITALS: BP 121/77
[2019-07-28] MEDS: DAPTOMYCIN 400 MG in SODIUM CHLORIDE 0.9% 100 ML IV SCH (16:13)
[2019-07-28] MEDS: CHOLECALCIFEROL 400 UNITS TABLET PO SCH (16:16)
[2019-07-28 19:05] VITALS: BP 120/74
[2019-07-28] MEDS: MIRTAZAPINE 30 MG TABLET PO SCH (21:50)
[2019-07-29] VITALS (7 sets, daily range): BP systolic 94–108; BP diastolic 59–69
[2019-07-29] MEDS: CEFEPIME 2 GM in DEXTROSE 5% 100 ML IV SCH ×2 (03:11→14:32)
[2019-07-29] MEDS: DEXTROSE 5% IV SCH ×2 (04:23→17:28)
[2019-07-29] MEDS: VANCOMYCIN 50 MG/ML ORAL SUSP PO SCH ×4 (04:23→21:07)
[2019-07-29] MEDS: VORICONAZOLE IV SCH ×2 (04:23→17:28)
[2019-07-29] MEDS: NYSTATIN 500,000 UNITS/5 ML UDC PO SCH ×4 (04:27→21:00)
[2019-07-29 06:21] LABS: ANION GAP 9 mmol/L (5-15); CALCIUM 8.6 mg/dL (8.5-10.1); CHLORIDE 111 mmol/L (98-107); CREATININE 0.65 mg/dL (0.55-1.02)
[2019-07-29 06:42] LABS: MEAN CORPUSCULAR HGB CONC 34.3 g/dL (32.4-35.8); MEAN CORPUSCULAR VOLUME 93.2 fL (80-100); MEAN PLATELET VOLUME 8.3 fL (7.4-10.4); RED BLOOD COUNT 2.03 x10^6/uL (3.82-5.3); RED CELL DISTRIBUTION WIDTH 14.8 % (9.6-15.2)
[2019-07-29 07:38] LABS: HEMOGRAM NOTE RECHECKED; MD YES; PLATELET COUNT 12 x10^3/uL (130-400)
[2019-07-29 07:39] LABS: LYMPH#(MANUAL) 0.49 x10^3/uL (1-3.4); LYMPHS% (MANUAL) 82 % (22-44); REACTIVE LYMPHS # (MANUAL) 0.01 x10^3/uL (0-0); REACTIVE LYMPHS % (MANUAL) 1 % (0-0); SEGS% (MANUAL) 17 % (42-75)
[2019-07-29 07:41] LABS: <PLATELET ESTIMATE> DECREASED; <PLT MORPHOLOGY> NORMAL PLT MORPH
[2019-07-29] MEDS ORDERED: DIPHENHYDRAMINE 25 MG CAPSULE PO ONE (08:30)
[2019-07-29] MEDS: MULTIVITS,STRESS FORMULA 1 TABLET PO SCH (09:53)
[2019-07-29] MEDS: ZINC SULFATE 220 MG CAPSULE PO SCH (09:53)
[2019-07-29] MEDS: ACETAMINOPHEN 325 MG TABLET PO PRN (09:53)
[2019-07-29] MEDS: ACYCLOVIR 400 MG TABLET PO SCH ×2 (09:53→21:06)
[2019-07-29] MEDS: GABAPENTIN 300 MG CAPSULE PO SCH ×3 (09:53→21:06)
[2019-07-29] MEDS: ATOVAQUONE 150 MG/ML PO SCH (10:45)
[2019-07-29] MEDS: DAPTOMYCIN 400 MG in SODIUM CHLORIDE 0.9% 100 ML IV SCH (16:18)
[2019-07-29] MEDS: CHOLECALCIFEROL 400 UNITS TABLET PO SCH (17:28)
[2019-07-29] MEDS: MIRTAZAPINE 30 MG TABLET PO SCH (21:06)
[2019-07-30] VITALS (8 sets, daily range): BP systolic 96–109; BP diastolic 64–73
[2019-07-30] MEDS: CEFEPIME 2 GM in DEXTROSE 5% 100 ML IV SCH ×2 (03:07→14:27)
[2019-07-30] MEDS: VANCOMYCIN 50 MG/ML ORAL SUSP PO SCH ×4 (04:11→22:21)
[2019-07-30] MEDS: VORICONAZOLE IV SCH ×2 (04:11→18:26)
[2019-07-30] MEDS: DEXTROSE 5% IV SCH ×2 (04:11→18:26)
[2019-07-30] MEDS: NYSTATIN 500,000 UNITS/5 ML UDC PO SCH ×4 (05:33→21:00)
[2019-07-30] MEDS: MULTIVITS,STRESS FORMULA 1 TABLET PO SCH (10:12)
[2019-07-30] MEDS: ACYCLOVIR 400 MG TABLET PO SCH ×2 (10:12→21:37)
[2019-07-30] MEDS: ATOVAQUONE 150 MG/ML PO SCH (10:12)
[2019-07-30] MEDS: ZINC SULFATE 220 MG CAPSULE PO SCH (10:12)
[2019-07-30] MEDS: GABAPENTIN 300 MG CAPSULE PO SCH ×3 (10:12→21:37)
[2019-07-30 12:02] LABS: MEAN CORPUSCULAR HEMOGLOBIN 32.1 pg (27.0-34.8); MEAN CORPUSCULAR HGB CONC 35.3 g/dL (32.4-35.8); MEAN CORPUSCULAR VOLUME 90.8 fL (80-100); MEAN PLATELET VOLUME 8.9 fL (7.4-10.4); RED BLOOD COUNT 2.38 x10^6/uL (3.82-5.3); RED CELL DISTRIBUTION WIDTH 15.4 % (9.6-15.2)
[2019-07-30 12:09] LABS: PLATELET COUNT 9 x10^3/uL (130-400)
[2019-07-30 12:27] LABS: MD YES
[2019-07-30 12:39] LABS: <PLATELET ESTIMATE> DECREASED; <PLT MORPHOLOGY> NORMAL PLT MORPH; <RBC MORPHOLOGY> NORMAL; EOS#(MANUAL) 0.01 x10^3/uL (0.0-0.4); EOS% (MANUAL) 1 % (1-7); LYMPH#(MANUAL) 0.43 x10^3/uL (1-3.4); LYMPHS% (MANUAL) 86 % (22-44); MONOS#(MANUAL) 0.02 x10^3/uL (0.3-2.7); MONOS% (MANUAL) 3 % (2-9); SEG#(MANUAL) 0.05 x10^3/uL (1.8-6.8); SEGS% (MANUAL) 10 % (42-75)
[2019-07-30 12:45] LABS: CHLORIDE 109 mmol/L (98-107)
[2019-07-30 12:54] LABS: ALANINE AMINOTRANSFERASE 25 U/L (12-78); ALBUMIN 2.1 g/dL (3.4-5.0); ALKALINE PHOSPHATASE 71 U/L (45-117); ANION GAP 7 mmol/L (5-15); BILIRUBIN,TOTAL 0.4 mg/dL (0.2-1.0); CALCIUM 8.8 mg/dL (8.5-10.1); TOTAL PROTEIN 7.6 g/dL (6.4-8.2)
[2019-07-30] MEDS ORDERED: LIDOCAINE 1%, 2ML INFIL ONE (13:00)
[2019-07-30] MEDS ORDERED: POTASSIUM CHLORIDE 20 MEQ TAB.ER.PRT PO ONE (14:00)
[2019-07-30] MEDS ORDERED: LIDOCAINE 1%, 10ML ONE (14:26)
[2019-07-30] MEDS: CHOLECALCIFEROL 400 UNITS TABLET PO SCH (16:53)
[2019-07-30] MEDS: DAPTOMYCIN 400 MG in SODIUM CHLORIDE 0.9% 100 ML IV SCH (16:53)
[2019-07-30] MEDS: MIRTAZAPINE 30 MG TABLET PO SCH (21:37)
[2019-07-31] MEDS: CEFEPIME 2 GM in DEXTROSE 5% 100 ML IV SCH ×2 (03:22→14:01)
[2019-07-31 03:33] VITALS: BP 114/82
[2019-07-31] MEDS: VANCOMYCIN 50 MG/ML ORAL SUSP PO SCH ×4 (04:26→22:13)
[2019-07-31] MEDS: NYSTATIN 500,000 UNITS/5 ML UDC PO SCH ×4 (04:44→20:36)
[2019-07-31 05:25] LABS: MEAN CORPUSCULAR HEMOGLOBIN 31.3 pg (27.0-34.8); MEAN CORPUSCULAR HGB CONC 34.2 g/dL (32.4-35.8); MEAN CORPUSCULAR VOLUME 91.4 fL (80-100); MEAN PLATELET VOLUME 7.4 fL (7.4-10.4); PLATELET COUNT 52 x10^3/uL (130-400); RED BLOOD COUNT 2.37 x10^6/uL (3.82-5.3); RED CELL DISTRIBUTION WIDTH 15.3 % (9.6-15.2)
[2019-07-31] MEDS: DEXTROSE 5% IV SCH ×2 (05:34→18:45)
[2019-07-31] MEDS: VORICONAZOLE IV SCH ×2 (05:34→18:45)
[2019-07-31 05:50] LABS: MD YES
[2019-07-31 06:01] LABS: <PLATELET ESTIMATE> DECREASED; <PLT MORPHOLOGY> NORMAL PLT MORPH; <RBC MORPHOLOGY> NORMAL; EOS#(MANUAL) 0.01 x10^3/uL (0.0-0.4); EOS% (MANUAL) 2 % (1-7); LYMPH#(MANUAL) 0.45 x10^3/uL (1-3.4); LYMPHS% (MANUAL) 90 % (22-44); MONOS#(MANUAL) 0.01 x10^3/uL (0.3-2.7); MONOS% (MANUAL) 2 % (2-9); SEG#(MANUAL) 0.03 x10^3/uL (1.8-6.8); SEGS% (MANUAL) 6 % (42-75)
[2019-07-31 06:30] LABS: ANION GAP 6 mmol/L (5-15); CHLORIDE 111 mmol/L (98-107); CREATININE 0.66 mg/dL (0.55-1.02)
[2019-07-31] MEDS: MULTIVITS,STRESS FORMULA 1 TABLET PO SCH (10:03)
[2019-07-31] MEDS: ZINC SULFATE 220 MG CAPSULE PO SCH (10:03)
[2019-07-31] MEDS: ACYCLOVIR 400 MG TABLET PO SCH ×2 (10:03→20:35)
[2019-07-31] MEDS: GABAPENTIN 300 MG CAPSULE PO SCH ×3 (10:03→20:35)
[2019-07-31] MEDS: ATOVAQUONE 150 MG/ML PO SCH (10:04)
[2019-07-31 13:07] VITALS: BP 108/74
[2019-07-31] MEDS: CHOLECALCIFEROL 400 UNITS TABLET PO SCH (16:26)
[2019-07-31] MEDS: DAPTOMYCIN 400 MG in SODIUM CHLORIDE 0.9% 100 ML IV SCH (17:20)
[2019-07-31 19:27] VITALS: BP 104/77
[2019-07-31] MEDS: MIRTAZAPINE 30 MG TABLET PO SCH (20:35)
[2019-08-01] MEDS: CEFEPIME 2 GM in DEXTROSE 5% 100 ML IV SCH (02:53)
[2019-08-01 04:12] VITALS: BP 108/80
[2019-08-01] MEDS: VANCOMYCIN 50 MG/ML ORAL SUSP PO SCH ×2 (04:12→09:16)
[2019-08-01] MEDS: NYSTATIN 500,000 UNITS/5 ML UDC PO SCH ×2 (05:38→09:17)
[2019-08-01] MEDS: VORICONAZOLE IV SCH (05:45)
[2019-08-01] MEDS: DEXTROSE 5% IV SCH (05:45)
[2019-08-01 06:35] LABS: MEAN CORPUSCULAR HEMOGLOBIN 31.7 pg (27.0-34.8); MEAN CORPUSCULAR HGB CONC 34.8 g/dL (32.4-35.8); MEAN CORPUSCULAR VOLUME 91.1 fL (80-100); RED BLOOD COUNT 2.33 x10^6/uL (3.82-5.3); RED CELL DISTRIBUTION WIDTH 14.9 % (9.6-15.2)
[2019-08-01 06:46] LABS: ANION GAP 9 mmol/L (5-15); CALCIUM 8.9 mg/dL (8.5-10.1); CHLORIDE 108 mmol/L (98-107); CREATININE 0.67 mg/dL (0.55-1.02)
[2019-08-01 07:19] LABS: MD YES
[2019-08-01 07:27] LABS: LYMPH#(MANUAL) 0.44 x10^3/uL (1-3.4); LYMPHS% (MANUAL) 88 % (22-44); MONOS#(MANUAL) 0.01 x10^3/uL (0.3-2.7); MONOS% (MANUAL) 2 % (2-9); SEG#(MANUAL) 0.05 x10^3/uL (1.8-6.8); SEGS% (MANUAL) 10 % (42-75)
[2019-08-01 07:28] LABS: PLATELET COUNT 43 x10^3/uL (130-400)
[2019-08-01 07:29] LABS: <PLATELET ESTIMATE> DECREASED; <PLT MORPHOLOGY> NORMAL PLT MORPH; <RBC MORPHOLOGY> NORMAL; MEAN PLATELET VOLUME 7.1 fL (7.4-10.4)
[2019-08-01 08:50] VITALS: BP 120/8
[2019-08-01] MEDS: ACYCLOVIR 400 MG TABLET PO SCH (09:16)
[2019-08-01] MEDS: MULTIVITS,STRESS FORMULA 1 TABLET PO SCH (09:16)
[2019-08-01] MEDS: GABAPENTIN 300 MG CAPSULE PO SCH (09:16)
[2019-08-01] MEDS: ZINC SULFATE 220 MG CAPSULE PO SCH (09:16)
[2019-08-01] MEDS: ATOVAQUONE 150 MG/ML PO SCH (09:17)
[2019-08-01] MEDS ORDERED: VANCOMYCIN 50 MG/ML ORAL SUSP PO SCH (10:00)
[2019-08-01] MEDS ORDERED: VORI200T2 PO (12:58)
[2019-08-01] MEDS ORDERED: VANC1VIA3 PO (12:58)
[2019-08-01] MEDS ORDERED: L. A1CAP12 PO (12:58)
[2019-08-01] MEDS ORDERED: DAPT500V6 IVPB (12:58)
[2019-08-01 13:30] VITALS: BP 116/88
== END 2019-08-01 17:30 | disposition home or self-care (01) | DRG 872 ==
LOC: 3WST 11:50
PROVIDERS: ADMIT Family Medicine; ATTEND Internal Medicine
PROC: 30277N1 Transfusion of Nonautologous Red Blood Cells into Products of Conception, Circulatory, Via Natural or Artificial Opening (ICD-10-PCS; 2019-07-20)
PROC: 0HBLXZX Excision of Left Lower Leg Skin, External Approach, Diagnostic (ICD-10-PCS; principal; 2019-07-22)
PROC: 302 Administration, Circulatory, Transfusion (ICD-10-PCS; 2019-07-30)
DX: A41.9 Sepsis, unspecified organism (principal); A04.72 Enterocolitis due to Clostridium difficile, not specified as recurrent; C92.00 Acute myeloblastic leukemia, not having achieved remission; D61.818 Other pancytopenia; L03.114 Cellulitis of left upper limb; C92.02 Acute myeloblastic leukemia, in relapse; D63.8 Anemia in other chronic diseases classified elsewhere; E87.6 Hypokalemia; F32.9 Major depressive disorder, single episode, unspecified; I10 Essential (primary) hypertension; I77.6 Arteritis, unspecified; F41.9 Anxiety disorder, unspecified; I95.9 Hypotension, unspecified; Z85.828 Personal history of other malignant neoplasm of skin
CPT/HCPCS: 36415; 87449; J3370; J3490; 80048; 80053; 80069; 81001; 82550; 83605; 83735; 84100; 85025; 85651; 86140; 86850; 86900; 86923; 87040; 87070; 87102; 87205; 87305; 87324; 88305; 88312; G0378; J0696; J0878; J1650; J2405; J3465; J3480; Q0162; J3475; J7030; J7040; J7050; J7120; P9037; P9040; Q0163

== ENCOUNTER 2019-08-13 11:25 | Inpatient (IN) | payer BC ==
[~2019-08-13] VITALS: Ht 172.7 cm; Wt 73.5 kg
[~2019-08-13 11:25] MED LIST changes: +DAPT500V6 IVPB; +L. A1CAP12 PO; +VANC1VIA3 PO; +VORI200T2 PO
--- NOTE | 2019-08-13 11:42 | NUR ---
PT WAS A CODE 250 FROM [facility] FOR A PLATELET INFUSION WHEN THEY WHERE GOING TO START AN IV AND SHE HAD A SYNCOPAL EVENT WITH A BP OF 68/45 HR 123.FEVER AND REDNESS AND SWELLING ON RIGHT FOOT. PT IB BED WITH CONT RADIO ENGINEER, SPO2, BP Q 30 MIN, SIDE RILAS UP X2, CALL LIGHT IN REACH.
--- NOTE | 2019-08-13 11:48 | NUR ---
PT REPORTS VOMITING ONCE TODAY
[2019-08-13] MEDS ORDERED: ACETAMINOPHEN 500 MG TABLET PO ONE (12:00)
[2019-08-13] MEDS ORDERED: SODIUM CHLORIDE 0.9% 1,000ML IVBOLUS ONE ×3 (12:00→16:00)
[2019-08-13] MEDS ORDERED: ACETAMINOPHEN 500 MG TABLET ONE (12:07)
--- NOTE | 2019-08-13 12:22 | NUR ---
ASSIST RN: PT MEDICATED FOR FEVER. STATES SHE'S FEELING A LITTLE BETTER, JUST TIRED. BP IMPROVED WITH IVF.
[2019-08-13 13:07] LABS: ALBUMIN 2.4 g/dL (3.4-5.0); ANION GAP 8 mmol/L (5-15); CHLORIDE 103 mmol/L (98-107)
[2019-08-13 13:14] LABS: ALANINE AMINOTRANSFERASE 31 U/L (12-78); ALKALINE PHOSPHATASE 89 U/L (45-117); BILIRUBIN,TOTAL 0.8 mg/dL (0.2-1.0); CALCIUM 7.9 mg/dL (8.5-10.1); CREATININE 1.91 mg/dL (0.55-1.02); TOTAL PROTEIN 7.8 g/dL (6.4-8.2); TROPONIN I < 0.015 ng/mL (0.000-0.045)
[2019-08-13 13:28] LABS: MEAN CORPUSCULAR HEMOGLOBIN 30.4 pg (27.0-34.8); MEAN CORPUSCULAR HGB CONC 34.6 g/dL (32.4-35.8); MEAN PLATELET VOLUME 7.6 fL (7.4-10.4); RED BLOOD COUNT 2.55 x10^6/uL (3.82-5.3); RED CELL DISTRIBUTION WIDTH 14.1 % (9.6-15.2)
[2019-08-13 13:29] LABS: PLATELET COUNT 7 x10^3/uL (130-400)
[2019-08-13 14:04] LABS: MD YES
[2019-08-13 14:43] VITALS: BP 90/47
[2019-08-13 14:58] VITALS: BP 86/47
[2019-08-13 15:59] LABS: LYMPH#(MANUAL) 0.56 x10^3/uL (1-3.4); LYMPHS% (MANUAL) 93 % (22-44); MONOS#(MANUAL) 0.01 x10^3/uL (0.3-2.7); MONOS% (MANUAL) 2 % (2-9); SEG#(MANUAL) 0.03 x10^3/uL (1.8-6.8); SEGS% (MANUAL) 5 % (42-75)
[2019-08-13] MEDS ORDERED: PIPERACILLIN/TAZO/PMX 3.375GM 50 ML IVPB ONE (16:00)
[2019-08-13] MEDS ORDERED: VANCOMYCIN PER PHARMACY MC ONE (16:00)
[2019-08-13 16:01] LABS: <PLATELET ESTIMATE> DECREASED; <PLT MORPHOLOGY> NORMAL PLT MORPH; <RBC MORPHOLOGY> NORMAL
--- NOTE | 2019-08-13 16:22 | NUR ---
PT SLEEPING, RR EVEN AND UNLABORED
[2019-08-13] MEDS ORDERED: VANCOMYCIN 1,800 MG in SODIUM CHLORIDE 0.9% 250 ML IV ONE (16:30)
[2019-08-13] MEDS ORDERED: TBO-FILGRASTIM 480 MCG/0.8 ML SQ ONE (16:30)
[2019-08-13] MEDS ORDERED: NOREPINEPHRINE 8 MG in SODIUM CHLORIDE 0.9% 242 ML IV PRN ×2 (17:03→17:30)
[2019-08-13 17:17] VITALS: BP 86/47
[2019-08-13] MEDS: PIPERACILLIN/TAZO/PMX 2.25GM 50 ML IV SCH (17:30)
[2019-08-13] MEDS ORDERED: MELATONIN 5 MG TABLET PO PRN (17:30)
[2019-08-13] MEDS ORDERED: VANCOMYCIN PER PHARMACY MC PRN (17:30)
[2019-08-13] MEDS: LACTATED RINGERS 1,000 ML IV SCH (17:30)
[2019-08-13] MEDS: VANCOMYCIN 50 MG/ML ORAL SUSP PO SCH (17:30)
[2019-08-13 17:37] VITALS: BP 111/67
--- NOTE | 2019-08-13 18:12 | NUR ---
PT PUT ON A HOSPITAL BED, NEW GOWN, WARM BLANKETS GIVEN, BEAR HUGER IN PLACE. MD NOTIFIED ABOUT BETTER BP.
[2019-08-13 18:45] LABS: D-DIMER 2.22 ug/mlFEU (0.00-0.52); INTERNATIONAL NORMALIZED RATIO 1.03 (0.93-1.1); PROTHROMBIN TIME 10.9 Seconds (9.6-11.5)
[2019-08-13 18:55] LABS: FREE T4 (FREE THYROXINE) 0.77 ng/dL (0.76-1.46)
[2019-08-13 18:58] LABS: C-REACTIVE PROTEIN, QUANT > 19.00 mg/dL (0.02-0.49)
[2019-08-13] MEDS ORDERED: ACETAMINOPHEN 325 MG TABLET ONE (19:16)
[2019-08-13] MEDS: ACETAMINOPHEN 325 MG TABLET PO PRN (19:17)
--- NOTE | 2019-08-13 19:55 | NUR ---
PT RESTING IN BED, BLOOD PRODUCTS FINISHED AT THIS TIME. PT C/O RIGHT ANKLE PAIN AT THIS TIME. ANKLE IS RED, SWOLLEN BUT PULSES PRESENT. WILL MENTION TO ADMITTING MD.
[2019-08-13] MEDS: GABAPENTIN 100 MG CAPSULE PO SCH (20:40)
[2019-08-13] MEDS: ACYCLOVIR 400 MG TABLET PO SCH (20:40)
[2019-08-13 21:38] LABS: MICROSCOPIC INDICATED
[2019-08-13] MEDS: LACTOBACILLUS CHEW TABLET PO SCH (21:46)
[2019-08-13] MEDS ORDERED: PHARMACOKINETIC MONITORING MC PRN (22:30)
[2019-08-13] MEDS ORDERED: PHARMACOKINETIC CONSULTATION MC ONE (22:30)
[2019-08-13 23:01] VITALS: BP 105/65
[2019-08-14] MEDS: PIPERACILLIN/TAZO/PMX 2.25GM 50 ML IV SCH ×2 (01:00→09:28)
[2019-08-14] MEDS: LACTATED RINGERS 1,000 ML IV SCH ×4 (01:00→22:49)
[2019-08-14] MEDS: VANCOMYCIN 50 MG/ML ORAL SUSP PO SCH ×2 (04:21→16:15)
[2019-08-14] MEDS: ONDANSETRON 2MG/ML, 2ML IVPush PRN (04:21)
[2019-08-14] MEDS: ACETAMINOPHEN 325 MG TABLET PO PRN ×3 (04:53→19:57)
[2019-08-14 05:22] VITALS: BP 112/68
[2019-08-14 05:32] LABS: MEAN CORPUSCULAR HEMOGLOBIN 29.6 pg (27.0-34.8); RED BLOOD COUNT 2.86 x10^6/uL (3.82-5.3); RED CELL DISTRIBUTION WIDTH 14.4 % (9.6-15.2)
[2019-08-14 05:35] LABS: ANION GAP 9 mmol/L (5-15); CALCIUM 8.1 mg/dL (8.5-10.1); CHLORIDE 106 mmol/L (98-107); CREATININE 1.25 mg/dL (0.55-1.02)
[2019-08-14 05:46] LABS: MEAN PLATELET VOLUME 9.1 fL (7.4-10.4)
[2019-08-14 05:47] LABS: PLATELET COUNT 33 x10^3/uL (130-400)
[2019-08-14 06:01] LABS: MD YES
[2019-08-14 06:01] LABS: MICROSCOPIC INDICATED
[2019-08-14 06:04] LABS: <PLATELET ESTIMATE> DECREASED; <PLT MORPHOLOGY> NORMAL PLT MORPH; <RBC MORPHOLOGY> NORMAL; BAND#(MANUAL) 0.01 x10^3/uL; BANDS%(MANUAL) 1 % (0-7); LYMPH#(MANUAL) 0.47 x10^3/uL (1-3.4); LYMPHS% (MANUAL) 93 % (22-44); MONOS#(MANUAL) 0.02 x10^3/uL (0.3-2.7); MONOS% (MANUAL) 3 % (2-9); SEG#(MANUAL) 0.02 x10^3/uL (1.8-6.8); SEGS% (MANUAL) 3 % (42-75)
[2019-08-14 06:28] LABS: CLOSTRIDIUM DIFFICILE ANTIGEN POSITIVE; CLOSTRIDIUM DIFFICILE TOXIN NEGATIVE (Negative)
[2019-08-14] MEDS ORDERED: MAGNESIUM SULFATE PMX 4GM/100M 100 ML IV ONE (07:30)
[2019-08-14] MEDS: [UNRECOGNIZED DRUG - OTHER] HOMEMEDPO SCH (09:00)
[2019-08-14] MEDS: CHOLECALCIFEROL 1,000 UNIT TABLET PO SCH (09:00)
[2019-08-14] MEDS: VANCOMYCIN 1,500 MG in SODIUM CHLORIDE 0.9% 250 ML IV SCH (09:57)
[2019-08-14] MEDS: FOLIC ACID 1 MG TABLET PO SCH (10:15)
[2019-08-14] MEDS: POTASSIUM CHLORIDE 20 MEQ TAB.ER.PRT PO SCH ×2 (10:15→16:14)
[2019-08-14] MEDS: LACTOBACILLUS CHEW TABLET PO SCH ×2 (10:15→22:48)
[2019-08-14] MEDS: GABAPENTIN 100 MG CAPSULE PO SCH ×3 (10:15→22:48)
[2019-08-14] MEDS: ATOVAQUONE 150 MG/ML PO SCH (10:15)
[2019-08-14] MEDS: ACYCLOVIR 400 MG TABLET PO SCH ×2 (10:15→22:48)
[2019-08-14] MEDS ORDERED: SODIUM PHOSPHATE 20 MMOL in SODIUM CHLORIDE 0.9% 500 ML IV ONE (12:00)
[2019-08-14] MEDS ORDERED: NOREPINEPHRINE 8 MG in SODIUM CHLORIDE 0.9% 242 ML IV PRN (14:00)
[2019-08-14] MEDS: PIPERACILLIN/TAZO/PMX 3.375GM 50 ML IV SCH ×2 (14:32→22:50)
[2019-08-14] MEDS ORDERED: MIRTAZAPINE 15 MG TABLET PO ONE (23:48)
[2019-08-15] MEDS: VANCOMYCIN 1,500 MG in SODIUM CHLORIDE 0.9% 250 ML IV SCH (03:40)
[2019-08-15 04:00] VITALS: BP 107/61
[2019-08-15] MEDS: VANCOMYCIN 50 MG/ML ORAL SUSP PO SCH ×2 (05:23→16:59)
[2019-08-15] MEDS: PIPERACILLIN/TAZO/PMX 3.375GM 50 ML IV SCH ×4 (05:24→23:01)
[2019-08-15] MEDS: ACETAMINOPHEN 325 MG TABLET PO PRN ×2 (05:32→19:54)
[2019-08-15 06:39] LABS: ALBUMIN 1.7 g/dL (3.4-5.0); ANION GAP 8 mmol/L (5-15); CALCIUM 7.9 mg/dL (8.5-10.1); CHLORIDE 108 mmol/L (98-107)
[2019-08-15 06:43] LABS: ALANINE AMINOTRANSFERASE 27 U/L (12-78); ALKALINE PHOSPHATASE 79 U/L (45-117); CREATININE 0.87 mg/dL (0.55-1.02); TOTAL PROTEIN 6.3 g/dL (6.4-8.2)
[2019-08-15] MEDS: CHOLECALCIFEROL 1,000 UNIT TABLET PO SCH (08:03)
[2019-08-15] MEDS: GABAPENTIN 100 MG CAPSULE PO SCH ×3 (08:03→19:55)
[2019-08-15] MEDS: ACYCLOVIR 400 MG TABLET PO SCH ×2 (08:03→20:10)
[2019-08-15] MEDS: LACTOBACILLUS CHEW TABLET PO SCH ×3 (08:03→19:54)
[2019-08-15] MEDS: FOLIC ACID 1 MG TABLET PO SCH (08:03)
[2019-08-15] MEDS: [UNRECOGNIZED DRUG - OTHER] HOMEMEDPO SCH (08:04)
[2019-08-15] MEDS: ATOVAQUONE 150 MG/ML PO SCH ×2 (08:04→09:00)
[2019-08-15] MEDS: LACTATED RINGERS 1,000 ML IV SCH (09:23)
[2019-08-15 10:00] VITALS: BP 105/69
[2019-08-15 14:00] VITALS: BP 125/75
[2019-08-15] MEDS: OXYcodone IR 5MG TABLET PO PRN ×2 (15:54→16:59)
[2019-08-15] MEDS: POTASSIUM CHLORIDE 20 MEQ TAB.ER.PRT PO SCH (15:54)
[2019-08-15] MEDS ORDERED: LACTATED RINGERS 1,000 ML IV SCH (17:30)
[2019-08-15 19:49] VITALS: BP 101/70
[2019-08-15] MEDS: MIRTAZAPINE 30 MG TABLET PO SCH (19:54)
[2019-08-16] VITALS (11 sets, daily range): BP systolic 85–117; BP diastolic 52–74
[2019-08-16] MEDS ORDERED: LACTATED RINGERS 500 ML IVBOLUS ONE (01:00)
[2019-08-16] MEDS: LACTATED RINGERS 1,000 ML IV SCH ×3 (01:04→21:14)
[2019-08-16] MEDS: PIPERACILLIN/TAZO/PMX 3.375GM 50 ML IV SCH ×4 (05:22→23:23)
[2019-08-16] MEDS: VANCOMYCIN 50 MG/ML ORAL SUSP PO SCH ×2 (05:22→16:48)
[2019-08-16 06:40] LABS: MEAN CORPUSCULAR HEMOGLOBIN 29.7 pg (27.0-34.8); MEAN CORPUSCULAR HGB CONC 33.6 g/dL (32.4-35.8); RED BLOOD COUNT 2.32 x10^6/uL (3.82-5.3); RED CELL DISTRIBUTION WIDTH 14.2 % (9.6-15.2)
[2019-08-16 06:42] LABS: CHLORIDE 107 mmol/L (98-107); PLATELET COUNT 15 x10^3/uL (130-400)
[2019-08-16 06:50] LABS: ANION GAP 7 mmol/L (5-15); CALCIUM 8.4 mg/dL (8.5-10.1); CREATININE 0.87 mg/dL (0.55-1.02)
[2019-08-16 07:16] LABS: MD YES
[2019-08-16 07:37] LABS: <PLATELET ESTIMATE> DECREASED; <RBC MORPHOLOGY> NORMAL; BASOS#(MANUAL) 0.01 x10^3/uL (0-0.1); BASOS% (MANUAL) 2 % (0-1); EOS% (MANUAL) 1 % (1-7); LYMPH#(MANUAL) 0.24 x10^3/uL (1-3.4); MONOS% (MANUAL) 1 % (2-9); REACTIVE LYMPHS # (MANUAL) 0.01 x10^3/uL (0-0); SEG#(MANUAL) 0.04 x10^3/uL (1.8-6.8); SEGS% (MANUAL) 13 % (42-75); TOXIC GRAN 1+
[2019-08-16 07:38] LABS: <PLT MORPHOLOGY> NORMAL PLT MORPH; LYMPHS% (MANUAL) 81 % (22-44); REACTIVE LYMPHS % (MANUAL) 2 % (0-0)
[2019-08-16] MEDS: ACETAMINOPHEN 325 MG TABLET PO PRN ×2 (08:43→19:50)
[2019-08-16] MEDS: [UNRECOGNIZED DRUG - OTHER] HOMEMEDPO SCH (09:00)
[2019-08-16] MEDS: CHOLECALCIFEROL 1,000 UNIT TABLET PO SCH (10:42)
[2019-08-16] MEDS: ACYCLOVIR 400 MG TABLET PO SCH ×2 (10:42→21:14)
[2019-08-16] MEDS: LACTOBACILLUS CHEW TABLET PO SCH ×2 (10:42→21:14)
[2019-08-16] MEDS: GABAPENTIN 100 MG CAPSULE PO SCH ×3 (10:42→21:14)
[2019-08-16] MEDS: FOLIC ACID 1 MG TABLET PO SCH (10:42)
[2019-08-16] MEDS: POTASSIUM CHLORIDE 20 MEQ TAB.ER.PRT PO SCH (10:43)
[2019-08-16] MEDS: OXYcodone IR 5MG TABLET PO PRN ×2 (10:43→16:47)
[2019-08-16] MEDS: ATOVAQUONE 150 MG/ML PO SCH (10:43)
[2019-08-16] MEDS: MIRTAZAPINE 30 MG TABLET PO SCH (21:14)
[2019-08-17] VITALS (20 sets, daily range): BP systolic 71–120; BP diastolic 40–70
[2019-08-17] MEDS: PIPERACILLIN/TAZO/PMX 3.375GM 50 ML IV SCH ×3 (05:20→19:57)
[2019-08-17] MEDS: LACTATED RINGERS 1,000 ML IV SCH ×2 (05:21→18:42)
[2019-08-17] MEDS: VANCOMYCIN 50 MG/ML ORAL SUSP PO SCH ×2 (05:22→16:31)
[2019-08-17] MEDS: OXYcodone IR 5MG TABLET PO PRN ×2 (05:41→09:31)
[2019-08-17] MEDS: [UNRECOGNIZED DRUG - OTHER] HOMEMEDPO SCH (08:28)
[2019-08-17 08:30] LABS: ALBUMIN 1.3 g/dL (3.4-5.0); ANION GAP 6 mmol/L (5-15); CALCIUM 8.3 mg/dL (8.5-10.1); CHLORIDE 108 mmol/L (98-107)
[2019-08-17 08:33] LABS: ALANINE AMINOTRANSFERASE 20 U/L (12-78); ALKALINE PHOSPHATASE 78 U/L (45-117); BILIRUBIN,TOTAL 3.8 mg/dL (0.2-1.0); CREATININE 0.79 mg/dL (0.55-1.02); MEAN CORPUSCULAR HEMOGLOBIN 30.2 pg (27.0-34.8); MEAN CORPUSCULAR HGB CONC 34.2 g/dL (32.4-35.8); MEAN PLATELET VOLUME 9.5 fL (7.4-10.4); RED BLOOD COUNT 2.29 x10^6/uL (3.82-5.3); RED CELL DISTRIBUTION WIDTH 14.6 % (9.6-15.2); TOTAL PROTEIN 5.6 g/dL (6.4-8.2)
[2019-08-17 08:34] LABS: PLATELET COUNT 7 x10^3/uL (130-400)
[2019-08-17 08:43] LABS: MD YES
[2019-08-17 09:16] LABS: LYMPH#(MANUAL) 0.14 x10^3/uL (1-3.4); LYMPHS% (MANUAL) 68 % (22-44); MONOS#(MANUAL) 0.02 x10^3/uL (0.3-2.7); MONOS% (MANUAL) 8 % (2-9); SEG#(MANUAL) 0.05 x10^3/uL (1.8-6.8); SEGS% (MANUAL) 24 % (42-75)
[2019-08-17 09:17] LABS: <PLATELET ESTIMATE> DECREASED; <PLT MORPHOLOGY> QNS FOR PLT MORPH; <RBC MORPHOLOGY> NORMAL
[2019-08-17] MEDS ORDERED: DIPHENHYDRAMINE 25 MG CAPSULE ONE (09:17)
[2019-08-17] MEDS ORDERED: DIPHENHYDRAMINE 25 MG CAPSULE PO ONE (09:30)
[2019-08-17] MEDS: ACETAMINOPHEN 325 MG TABLET PO PRN ×2 (09:32→18:21)
[2019-08-17] MEDS: ATOVAQUONE 150 MG/ML PO SCH (09:32)
[2019-08-17] MEDS: LACTOBACILLUS CHEW TABLET PO SCH ×2 (09:32→20:10)
[2019-08-17] MEDS: ACYCLOVIR 400 MG TABLET PO SCH ×2 (09:32→20:10)
[2019-08-17] MEDS: GABAPENTIN 100 MG CAPSULE PO SCH ×3 (09:32→20:10)
[2019-08-17] MEDS: FOLIC ACID 1 MG TABLET PO SCH (09:32)
[2019-08-17] MEDS: CHOLECALCIFEROL 1,000 UNIT TABLET PO SCH (09:32)
[2019-08-17] MEDS ORDERED: SODIUM CHLORIDE 0.9% 1,000ML IVBOLUS ONE (11:10)
[2019-08-17] MEDS: POTASSIUM CHLORIDE 20 MEQ TAB.ER.PRT PO SCH ×2 (16:30→16:53)
[2019-08-17] MEDS: MIRTAZAPINE 30 MG TABLET PO SCH (20:10)
[2019-08-17] MEDS ORDERED: SODIUM CHLORIDE 0.9%, 500ML IVBOLUS ONE (21:00)
[2019-08-18] MEDS: PIPERACILLIN/TAZO/PMX 3.375GM 50 ML IV SCH ×4 (02:55→20:32)
[2019-08-18 02:56] VITALS: BP 126/75
[2019-08-18] MEDS: OXYcodone IR 5MG TABLET PO PRN (02:56)
[2019-08-18] MEDS: LACTATED RINGERS 1,000 ML IV SCH ×2 (04:43→15:21)
[2019-08-18] MEDS: VANCOMYCIN 50 MG/ML ORAL SUSP PO SCH ×2 (04:43→17:26)
[2019-08-18 05:00] LABS: ANION GAP 7 mmol/L (5-15); CALCIUM 8.3 mg/dL (8.5-10.1); CHLORIDE 110 mmol/L (98-107); CREATININE 0.73 mg/dL (0.55-1.02)
[2019-08-18 05:14] LABS: MEAN CORPUSCULAR HEMOGLOBIN 30.4 pg (27.0-34.8); MEAN CORPUSCULAR HGB CONC 34.5 g/dL (32.4-35.8); MEAN PLATELET VOLUME 8.2 fL (7.4-10.4); RED BLOOD COUNT 2.59 x10^6/uL (3.82-5.3); RED CELL DISTRIBUTION WIDTH 14.3 % (9.6-15.2)
[2019-08-18 05:16] LABS: PLATELET COUNT 29 x10^3/uL (130-400)
[2019-08-18 06:43] LABS: MD YES
[2019-08-18 06:53] LABS: EOS% (MANUAL) 2 % (1-7); LYMPH#(MANUAL) 0.17 x10^3/uL (1-3.4); LYMPHS% (MANUAL) 84 % (22-44); MONOS#(MANUAL) 0.01 x10^3/uL (0.3-2.7); MONOS% (MANUAL) 4 % (2-9); REACTIVE LYMPHS # (MANUAL) 0.01 x10^3/uL (0-0); REACTIVE LYMPHS % (MANUAL) 3 % (0-0); SEG#(MANUAL) 0.01 x10^3/uL (1.8-6.8); SEGS% (MANUAL) 7 % (42-75)
[2019-08-18 06:54] LABS: <PLATELET ESTIMATE> DECREASED; <PLT MORPHOLOGY> NORMAL PLT MORPH; <RBC MORPHOLOGY> NORMAL
[2019-08-18 07:28] VITALS: BP 116/71
[2019-08-18] MEDS: POTASSIUM CHLORIDE 20 MEQ TAB.ER.PRT PO SCH ×2 (07:42→17:26)
[2019-08-18] MEDS: ACETAMINOPHEN 325 MG TABLET PO PRN ×2 (07:48→17:26)
[2019-08-18] MEDS ORDERED: POTASSIUM CHLORIDE 20 MEQ TAB.ER.PRT PO ONE (08:30)
[2019-08-18] MEDS ORDERED: MAGNESIUM SULFATE PMX 2GM/50ML 50 ML IV ONE (09:00)
[2019-08-18] MEDS: FOLIC ACID 1 MG TABLET PO SCH (09:49)
[2019-08-18] MEDS: CHOLECALCIFEROL 1,000 UNIT TABLET PO SCH (09:49)
[2019-08-18] MEDS: ACYCLOVIR 400 MG TABLET PO SCH ×2 (09:49→20:32)
[2019-08-18] MEDS: LACTOBACILLUS CHEW TABLET PO SCH ×2 (09:49→20:32)
[2019-08-18] MEDS: ATOVAQUONE 150 MG/ML PO SCH (09:53)
[2019-08-18] MEDS: GABAPENTIN 100 MG CAPSULE PO SCH ×3 (09:53→20:32)
[2019-08-18 10:31] VITALS: BP 90/50
[2019-08-18 14:55] VITALS: BP 93/63
[2019-08-18] MEDS: ALBUMIN HUMAN 25% 100 ML IV SCH ×2 (15:00→21:09)
[2019-08-18 19:44] VITALS: BP 99/59
[2019-08-18] MEDS: MIRTAZAPINE 30 MG TABLET PO SCH (20:32)
[2019-08-19] VITALS (10 sets, daily range): BP systolic 97–133; BP diastolic 59–87
[2019-08-19] MEDS: PIPERACILLIN/TAZO/PMX 3.375GM 50 ML IV SCH ×4 (02:04→22:08)
[2019-08-19] MEDS: ALBUMIN HUMAN 25% 100 ML IV SCH ×4 (02:36→22:51)
[2019-08-19] MEDS: LACTATED RINGERS 1,000 ML IV SCH ×3 (02:37→14:30)
[2019-08-19] MEDS: VANCOMYCIN 50 MG/ML ORAL SUSP PO SCH ×2 (05:00→18:13)
[2019-08-19 06:20] LABS: ANION GAP 8 mmol/L (5-15); CALCIUM 8.8 mg/dL (8.5-10.1); CHLORIDE 110 mmol/L (98-107); CREATININE 0.83 mg/dL (0.55-1.02)
[2019-08-19 07:37] LABS: MEAN CORPUSCULAR HEMOGLOBIN 29.9 pg (27.0-34.8); MEAN CORPUSCULAR HGB CONC 33.7 g/dL (32.4-35.8); MEAN PLATELET VOLUME 8.4 fL (7.4-10.4); RED BLOOD COUNT 2.23 x10^6/uL (3.82-5.3)
[2019-08-19 07:40] LABS: PLATELET COUNT 15 x10^3/uL (130-400)
[2019-08-19] MEDS: FOLIC ACID 1 MG TABLET PO SCH (07:52)
[2019-08-19] MEDS: POTASSIUM CHLORIDE 20 MEQ TAB.ER.PRT PO SCH ×2 (07:52→16:05)
[2019-08-19] MEDS: CHOLECALCIFEROL 1,000 UNIT TABLET PO SCH (07:53)
[2019-08-19] MEDS: LACTOBACILLUS CHEW TABLET PO SCH ×2 (07:53→21:39)
[2019-08-19] MEDS: GABAPENTIN 100 MG CAPSULE PO SCH ×3 (07:53→22:11)
[2019-08-19] MEDS: ATOVAQUONE 150 MG/ML PO SCH (07:58)
[2019-08-19] MEDS: ACYCLOVIR 400 MG TABLET PO SCH ×2 (07:58→21:39)
[2019-08-19] MEDS ORDERED: MAGNESIUM SULFATE PMX 2GM/50ML 50 ML IV ONE (09:00)
[2019-08-19] MEDS ORDERED: DIPHENHYDRAMINE 25 MG CAPSULE PO PRN (09:00)
[2019-08-19] MEDS ORDERED: NALOXONE 1 MG/ML, 2ML ONE (09:24)
[2019-08-19] MEDS ORDERED: FENTANYL PF 100 MCG/2ML ONE (09:24)
[2019-08-19 09:29] LABS: MD YES
[2019-08-19 09:42] LABS: EOS#(MANUAL) 0.01 x10^3/uL (0.0-0.4); EOS% (MANUAL) 4 % (1-7); LYMPH#(MANUAL) 0.17 x10^3/uL (1-3.4); SEG#(MANUAL) 0.01 x10^3/uL (1.8-6.8); SEGS% (MANUAL) 5 % (42-75)
[2019-08-19 09:43] LABS: LYMPHS% (MANUAL) 84 % (22-44); MONOS#(MANUAL) 0.01 x10^3/uL (0.3-2.7); MONOS% (MANUAL) 4 % (2-9); REACTIVE LYMPHS # (MANUAL) 0.01 x10^3/uL (0-0); REACTIVE LYMPHS % (MANUAL) 3 % (0-0)
[2019-08-19 09:44] LABS: <PLATELET ESTIMATE> DECREASED; <PLT MORPHOLOGY> NORMAL PLT MORPH; <RBC MORPHOLOGY> NORMAL
[2019-08-19] MEDS ORDERED: POTASSIUM CHLORIDE 40 MEQ in SODIUM CHLORIDE 0.9% 500 ML IV ONE (11:00)
[2019-08-19] MEDS ORDERED: SODIUM PHOSPHATE 30 MMOL in SODIUM CHLORIDE 0.9% 500 ML IV ONE (13:00)
[2019-08-19] MEDS: ACETAMINOPHEN 325 MG TABLET PO PRN (16:05)
[2019-08-19] MEDS: ONDANSETRON 2MG/ML, 2ML IVPush PRN (16:09)
[2019-08-19] MEDS: OXYcodone IR 5MG TABLET PO PRN (18:13)
[2019-08-19] MEDS: MIRTAZAPINE 30 MG TABLET PO SCH (21:39)
[2019-08-20] VITALS (8 sets, daily range): BP systolic 112–136; BP diastolic 70–85
[2019-08-20 02:42] LABS: ALANINE AMINOTRANSFERASE 8 U/L (12-78); ANION GAP 9 mmol/L (5-15); CALCIUM 8.1 mg/dL (8.5-10.1); CHLORIDE 109 mmol/L (98-107); CREATININE 0.94 mg/dL (0.55-1.02)
[2019-08-20 02:45] LABS: ALKALINE PHOSPHATASE 72 U/L (45-117); BILIRUBIN,TOTAL 4.4 mg/dL (0.2-1.0); TOTAL PROTEIN 6.3 g/dL (6.4-8.2)
[2019-08-20 03:35] LABS: MEAN CORPUSCULAR HEMOGLOBIN 30.1 pg (27.0-34.8); MEAN CORPUSCULAR HGB CONC 34.4 g/dL (32.4-35.8); MEAN PLATELET VOLUME 7.9 fL (7.4-10.4); RED BLOOD COUNT 2.37 x10^6/uL (3.82-5.3); RED CELL DISTRIBUTION WIDTH 14.9 % (9.6-15.2)
[2019-08-20 03:38] LABS: PLATELET COUNT 8 x10^3/uL (130-400)
[2019-08-20 03:40] LABS: MD YES
[2019-08-20] MEDS: PIPERACILLIN/TAZO/PMX 3.375GM 50 ML IV SCH ×3 (03:46→20:02)
[2019-08-20 04:04] LABS: EOS% (MANUAL) 1 % (1-7); LYMPH#(MANUAL) 0.17 x10^3/uL (1-3.4); LYMPHS% (MANUAL) 87 % (22-44); MONOS#(MANUAL) 0.01 x10^3/uL (0.3-2.7); MONOS% (MANUAL) 3 % (2-9); REACTIVE LYMPHS # (MANUAL) 0.01 x10^3/uL (0-0); REACTIVE LYMPHS % (MANUAL) 4 % (0-0); SEG#(MANUAL) 0.01 x10^3/uL (1.8-6.8); SEGS% (MANUAL) 5 % (42-75)
[2019-08-20 04:05] LABS: <PLATELET ESTIMATE> DECREASED; <PLT MORPHOLOGY> NORMAL PLT MORPH; <RBC MORPHOLOGY> NORMAL
[2019-08-20] MEDS: ALBUMIN HUMAN 25% 100 ML IV SCH ×2 (04:55→16:36)
[2019-08-20] MEDS: VANCOMYCIN 50 MG/ML ORAL SUSP PO SCH ×2 (04:56→16:34)
[2019-08-20] MEDS: LACTATED RINGERS 1,000 ML IV SCH ×3 (06:30→12:54)
[2019-08-20] MEDS ORDERED: MIDAZOLAM 1 MG/ML, 5ML ONE (07:52)
[2019-08-20] MEDS ORDERED: FENTANYL PF 100 MCG/2ML ONE (07:52)
[2019-08-20] MEDS ORDERED: FLUMAZENIL 0.1 MG/1 ML, 5ML ONE (07:53)
[2019-08-20] MEDS ORDERED: NALOXONE 1 MG/ML, 2ML ONE (07:53)
[2019-08-20] MEDS: POTASSIUM CHLORIDE 20 MEQ TAB.ER.PRT PO SCH ×2 (09:10→16:34)
[2019-08-20] MEDS: ACYCLOVIR 400 MG TABLET PO SCH ×2 (09:10→20:02)
[2019-08-20] MEDS: LACTOBACILLUS CHEW TABLET PO SCH ×2 (09:10→20:02)
[2019-08-20] MEDS: CHOLECALCIFEROL 1,000 UNIT TABLET PO SCH (09:10)
[2019-08-20] MEDS: FOLIC ACID 1 MG TABLET PO SCH (09:10)
[2019-08-20] MEDS: GABAPENTIN 100 MG CAPSULE PO SCH ×3 (09:10→20:02)
[2019-08-20] MEDS: ATOVAQUONE 150 MG/ML PO SCH (09:14)
[2019-08-20] MEDS: ACETAMINOPHEN 325 MG TABLET PO PRN (10:51)
[2019-08-20] MEDS ORDERED: OMNIPAQUE 350 MG/ML, 100ML BOTTLE ONE (16:04)
[2019-08-20] MEDS: OXYcodone IR 5MG TABLET PO PRN (16:36)
[2019-08-20] MEDS: MIRTAZAPINE 30 MG TABLET PO SCH (20:02)
[2019-08-21] VITALS (8 sets, daily range): BP systolic 97–128; BP diastolic 22–82
[2019-08-21] MEDS: PIPERACILLIN/TAZO/PMX 3.375GM 50 ML IV SCH ×4 (01:27→21:17)
[2019-08-21] MEDS: ALBUMIN HUMAN 25% 100 ML IV SCH ×2 (05:04→17:54)
[2019-08-21] MEDS: VANCOMYCIN 50 MG/ML ORAL SUSP PO SCH ×2 (05:04→18:03)
[2019-08-21] MEDS: OXYcodone IR 5MG TABLET PO PRN ×3 (05:37→17:55)
[2019-08-21] MEDS: LACTATED RINGERS 1,000 ML IV SCH ×2 (08:03→18:04)
[2019-08-21] MEDS: LACTOBACILLUS CHEW TABLET PO SCH ×2 (08:04→21:16)
[2019-08-21] MEDS: POTASSIUM CHLORIDE 20 MEQ TAB.ER.PRT PO SCH ×2 (08:04→17:54)
[2019-08-21] MEDS: ACYCLOVIR 400 MG TABLET PO SCH ×2 (08:04→21:16)
[2019-08-21] MEDS: FOLIC ACID 1 MG TABLET PO SCH (08:04)
[2019-08-21] MEDS: ATOVAQUONE 150 MG/ML PO SCH (08:04)
[2019-08-21] MEDS: GABAPENTIN 100 MG CAPSULE PO SCH ×3 (08:04→21:16)
[2019-08-21] MEDS: CHOLECALCIFEROL 1,000 UNIT TABLET PO SCH (08:05)
[2019-08-21 09:37] LABS: CHLORIDE 111 mmol/L (98-107)
[2019-08-21 09:45] LABS: ALANINE AMINOTRANSFERASE 10 U/L (12-78); ALBUMIN 2.2 g/dL (3.4-5.0); ALKALINE PHOSPHATASE 87 U/L (45-117); ANION GAP 7 mmol/L (5-15); BILIRUBIN, DIRECT 2.6 mg/dL (0.1-0.2); BILIRUBIN,INDIRECT 1.1 mg/dL (0.0-2.0); BILIRUBIN,TOTAL 3.7 mg/dL (0.2-1.0); CALCIUM 8.3 mg/dL (8.5-10.1); CREATININE 0.84 mg/dL (0.55-1.02); TOTAL PROTEIN 6.4 g/dL (6.4-8.2)
[2019-08-21 10:06] LABS: MEAN CORPUSCULAR HGB CONC 34.5 g/dL (32.4-35.8); MEAN PLATELET VOLUME 7.2 fL (7.4-10.4); RED BLOOD COUNT 2.19 x10^6/uL (3.82-5.3)
[2019-08-21 10:08] LABS: PLATELET COUNT 35 x10^3/uL (130-400)
[2019-08-21 10:49] LABS: MD YES
[2019-08-21 10:56] LABS: <PLATELET ESTIMATE> DECREASED; <PLT MORPHOLOGY> NORMAL PLT MORPH; <RBC MORPHOLOGY> NORMAL; EOS% (MANUAL) 1 % (1-7); LYMPH#(MANUAL) 0.17 x10^3/uL (1-3.4); LYMPHS% (MANUAL) 86 % (22-44); MONOS#(MANUAL) 0.01 x10^3/uL (0.3-2.7); MONOS% (MANUAL) 3 % (2-9); SEG#(MANUAL) 0.02 x10^3/uL (1.8-6.8); SEGS% (MANUAL) 10 % (42-75)
[2019-08-21] MEDS: ACETAMINOPHEN 325 MG TABLET PO PRN (12:13)
[2019-08-21] MEDS: MIRTAZAPINE 30 MG TABLET PO SCH (21:16)
[2019-08-22 00:04] VITALS: BP 118/74
[2019-08-22] MEDS: PIPERACILLIN/TAZO/PMX 3.375GM 50 ML IV SCH ×4 (00:53→18:35)
[2019-08-22] MEDS: LACTATED RINGERS 1,000 ML IV SCH (00:55)
[2019-08-22] MEDS: VANCOMYCIN 50 MG/ML ORAL SUSP PO SCH ×2 (05:13→17:20)
[2019-08-22] MEDS: ALBUMIN HUMAN 25% 100 ML IV SCH ×2 (05:13→17:20)
[2019-08-22] MEDS: OXYcodone IR 5MG TABLET PO PRN ×4 (05:41→20:49)
[2019-08-22 06:06] LABS: RED BLOOD COUNT 2.43 x10^6/uL (3.82-5.3)
[2019-08-22 07:25] VITALS: BP 109/71
[2019-08-22 07:39] LABS: ANION GAP 6 mmol/L (5-15); CALCIUM 7.9 mg/dL (8.5-10.1); CHLORIDE 110 mmol/L (98-107); CREATININE 0.72 mg/dL (0.55-1.02)
[2019-08-22 07:45] LABS: ALANINE AMINOTRANSFERASE 9 U/L (12-78); ALKALINE PHOSPHATASE 89 U/L (45-117); BILIRUBIN,TOTAL 3.6 mg/dL (0.2-1.0); TOTAL PROTEIN 6.4 g/dL (6.4-8.2)
[2019-08-22 08:41] LABS: MEAN CORPUSCULAR HEMOGLOBIN 30.3 pg (27.0-34.8); MEAN CORPUSCULAR HGB CONC 34.1 g/dL (32.4-35.8); MEAN PLATELET VOLUME 7.3 fL (7.4-10.4); RED BLOOD COUNT 2.28 x10^6/uL (3.82-5.3); RED CELL DISTRIBUTION WIDTH 14.7 % (9.6-15.2)
[2019-08-22 08:42] LABS: PLATELET COUNT 18 x10^3/uL (130-400)
[2019-08-22 09:08] LABS: MD YES
[2019-08-22 09:26] LABS: EOS% (MANUAL) 2 % (1-7); LYMPH#(MANUAL) 0.18 x10^3/uL (1-3.4); LYMPHS% (MANUAL) 90 % (22-44); MONOS#(MANUAL) 0.01 x10^3/uL (0.3-2.7); MONOS% (MANUAL) 4 % (2-9); SEG#(MANUAL) 0.01 x10^3/uL (1.8-6.8); SEGS% (MANUAL) 4 % (42-75)
[2019-08-22 09:35] LABS: <RBC MORPHOLOGY> NORMAL
[2019-08-22 09:36] LABS: <PLATELET ESTIMATE> DECREASED; <PLT MORPHOLOGY> NORMAL PLT MORPH
[2019-08-22] MEDS: LACTOBACILLUS CHEW TABLET PO SCH ×2 (10:02→20:49)
[2019-08-22] MEDS: ATOVAQUONE 150 MG/ML PO SCH (10:02)
[2019-08-22] MEDS: POTASSIUM CHLORIDE 20 MEQ TAB.ER.PRT PO SCH ×2 (10:02→17:20)
[2019-08-22] MEDS: GABAPENTIN 100 MG CAPSULE PO SCH ×3 (10:03→20:49)
[2019-08-22] MEDS: FOLIC ACID 1 MG TABLET PO SCH (10:03)
[2019-08-22] MEDS: CHOLECALCIFEROL 1,000 UNIT TABLET PO SCH (10:03)
[2019-08-22] MEDS: ACYCLOVIR 400 MG TABLET PO SCH ×2 (10:03→20:49)
[2019-08-22 13:40] VITALS: BP 130/88
[2019-08-22] MEDS: ACETAMINOPHEN 325 MG TABLET PO PRN (18:40)
[2019-08-22 19:02] VITALS: BP 125/77
[2019-08-22] MEDS: MIRTAZAPINE 30 MG TABLET PO SCH (20:49)
[2019-08-23] VITALS (8 sets, daily range): BP systolic 106–126; BP diastolic 63–78
[2019-08-23] MEDS: PIPERACILLIN/TAZO/PMX 3.375GM 50 ML IV SCH ×4 (00:43→18:26)
[2019-08-23] MEDS: ALBUMIN HUMAN 25% 100 ML IV SCH ×2 (04:14→17:09)
[2019-08-23] MEDS: VANCOMYCIN 50 MG/ML ORAL SUSP PO SCH ×2 (06:06→17:10)
[2019-08-23 06:12] LABS: ALBUMIN 2.3 g/dL (3.4-5.0); ANION GAP 7 mmol/L (5-15); CALCIUM 8.1 mg/dL (8.5-10.1); CHLORIDE 107 mmol/L (98-107)
[2019-08-23 06:15] LABS: ALANINE AMINOTRANSFERASE 9 U/L (12-78); ALKALINE PHOSPHATASE 71 U/L (45-117); BILIRUBIN,TOTAL 3.4 mg/dL (0.2-1.0); CREATININE 0.65 mg/dL (0.55-1.02); TOTAL PROTEIN 6.4 g/dL (6.4-8.2)
[2019-08-23] MEDS: OXYcodone IR 5MG TABLET PO PRN ×3 (06:30→20:57)
[2019-08-23 06:58] LABS: MEAN CORPUSCULAR HEMOGLOBIN 30.6 pg (27.0-34.8); MEAN CORPUSCULAR HGB CONC 34.5 g/dL (32.4-35.8); MEAN PLATELET VOLUME 7.1 fL (7.4-10.4); RED BLOOD COUNT 2.19 x10^6/uL (3.82-5.3); RED CELL DISTRIBUTION WIDTH 14.1 % (9.6-15.2)
[2019-08-23 06:59] LABS: PLATELET COUNT 10 x10^3/uL (130-400)
[2019-08-23 07:00] LABS: MD YES
[2019-08-23 07:02] LABS: <RBC MORPHOLOGY> NORMAL; BANDS%(MANUAL) 1 % (0-7); EOS% (MANUAL) 1 % (1-7); LYMPH#(MANUAL) 0.27 x10^3/uL (1-3.4); LYMPHS% (MANUAL) 90 % (22-44); MONOS#(MANUAL) 0.01 x10^3/uL (0.3-2.7); MONOS% (MANUAL) 2 % (2-9); REACTIVE LYMPHS # (MANUAL) 0.01 x10^3/uL (0-0); REACTIVE LYMPHS % (MANUAL) 2 % (0-0); SEG#(MANUAL) 0.01 x10^3/uL (1.8-6.8); SEGS% (MANUAL) 4 % (42-75)
[2019-08-23 07:03] LABS: <PLATELET ESTIMATE> DECREASED; <PLT MORPHOLOGY> QNS FOR PLT MORPH
[2019-08-23] MEDS: LACTOBACILLUS CHEW TABLET PO SCH ×2 (08:57→20:56)
[2019-08-23] MEDS: CHOLECALCIFEROL 1,000 UNIT TABLET PO SCH (08:57)
[2019-08-23] MEDS: FOLIC ACID 1 MG TABLET PO SCH (08:57)
[2019-08-23] MEDS: ACYCLOVIR 400 MG TABLET PO SCH ×2 (08:57→20:57)
[2019-08-23] MEDS: ACETAMINOPHEN 325 MG TABLET PO PRN (08:57)
[2019-08-23] MEDS: POTASSIUM CHLORIDE 20 MEQ TAB.ER.PRT PO SCH ×2 (08:58→17:09)
[2019-08-23] MEDS: GABAPENTIN 100 MG CAPSULE PO SCH ×3 (08:58→20:57)
[2019-08-23] MEDS: ATOVAQUONE 150 MG/ML PO SCH (10:42)
[2019-08-23] MEDS: MIRTAZAPINE 30 MG TABLET PO SCH (20:56)
[2019-08-24] MEDS: PIPERACILLIN/TAZO/PMX 3.375GM 50 ML IV SCH ×4 (00:34→18:17)
[2019-08-24 00:37] VITALS: BP 128/79
[2019-08-24] MEDS: ALBUMIN HUMAN 25% 100 ML IV SCH (04:15)
[2019-08-24] MEDS: VANCOMYCIN 50 MG/ML ORAL SUSP PO SCH ×2 (05:15→18:17)
[2019-08-24] MEDS: OXYcodone IR 5MG TABLET PO PRN ×5 (05:17→19:37)
[2019-08-24 05:55] LABS: MEAN CORPUSCULAR HEMOGLOBIN 30.6 pg (27.0-34.8); MEAN PLATELET VOLUME 8.5 fL (7.4-10.4); RED BLOOD COUNT 2.51 x10^6/uL (3.82-5.3); RED CELL DISTRIBUTION WIDTH 14.6 % (9.6-15.2)
[2019-08-24 05:56] LABS: PLATELET COUNT 8 x10^3/uL (130-400)
[2019-08-24 06:00] LABS: ALBUMIN 2.4 g/dL (3.4-5.0); ANION GAP 8 mmol/L (5-15); CALCIUM 8.2 mg/dL (8.5-10.1); CHLORIDE 106 mmol/L (98-107)
[2019-08-24 06:04] LABS: ALANINE AMINOTRANSFERASE 9 U/L (12-78); ALKALINE PHOSPHATASE 65 U/L (45-117); BILIRUBIN,TOTAL 2.8 mg/dL (0.2-1.0); CREATININE 0.62 mg/dL (0.55-1.02); TOTAL PROTEIN 6.4 g/dL (6.4-8.2)
[2019-08-24 06:31] LABS: MD YES
[2019-08-24 06:34] LABS: LYMPH#(MANUAL) 0.28 x10^3/uL (1-3.4); LYMPHS% (MANUAL) 94 % (22-44); METAMYELOCYTES% (MANUAL) 1 % (0-1); MONOS#(MANUAL) 0.01 x10^3/uL (0.3-2.7); MONOS% (MANUAL) 3 % (2-9); REACTIVE LYMPHS % (MANUAL) 1 % (0-0); SEGS% (MANUAL) 1 % (42-75)
[2019-08-24 06:35] LABS: <PLATELET ESTIMATE> DECREASED; <PLT MORPHOLOGY> QNS FOR PLT MORPH; <RBC MORPHOLOGY> NORMAL
[2019-08-24 06:50] VITALS: BP 120/69
[2019-08-24] MEDS: LACTOBACILLUS CHEW TABLET PO SCH ×2 (08:10→19:36)
[2019-08-24] MEDS: ACYCLOVIR 400 MG TABLET PO SCH ×2 (08:10→19:37)
[2019-08-24] MEDS: POTASSIUM CHLORIDE 20 MEQ TAB.ER.PRT PO SCH ×2 (08:10→16:27)
[2019-08-24] MEDS: FOLIC ACID 1 MG TABLET PO SCH (08:11)
[2019-08-24] MEDS: GABAPENTIN 100 MG CAPSULE PO SCH ×3 (08:11→19:37)
[2019-08-24] MEDS: CHOLECALCIFEROL 1,000 UNIT TABLET PO SCH (08:11)
[2019-08-24] MEDS: ACETAMINOPHEN 325 MG TABLET PO PRN (08:56)
[2019-08-24] MEDS ORDERED: DIPHENHYDRAMINE 25 MG CAPSULE PO ONE (09:00)
[2019-08-24] MEDS: ATOVAQUONE 150 MG/ML PO SCH (10:48)
[2019-08-24 10:59] VITALS: BP 113/65
[2019-08-24 11:32] VITALS: BP 105/66
[2019-08-24] MEDS: FLUCONAZOLE 200 MG TABLET PO SCH (13:47)
[2019-08-24 14:05] VITALS: BP 110/67
[2019-08-24] MEDS ORDERED: CALCIUM CARBONATE 500 MG TAB.CHEW PO PRN (19:30)
[2019-08-24] MEDS ORDERED: FAMOTIDINE 20 MG/2 ML IVPush ONE (19:30)
[2019-08-24] MEDS: MIRTAZAPINE 30 MG TABLET PO SCH (19:37)
[2019-08-24 19:51] VITALS: BP 142/90
[2019-08-25 00:07] VITALS: BP 119/70
[2019-08-25] MEDS: ACETAMINOPHEN 325 MG TABLET PO PRN ×2 (00:09→19:56)
[2019-08-25 06:12] LABS: CHLORIDE 105 mmol/L (98-107)
[2019-08-25 06:17] LABS: MEAN CORPUSCULAR HEMOGLOBIN 30.2 pg (27.0-34.8); MEAN CORPUSCULAR HGB CONC 34.2 g/dL (32.4-35.8); RED BLOOD COUNT 2.73 x10^6/uL (3.82-5.3); RED CELL DISTRIBUTION WIDTH 14.4 % (9.6-15.2)
[2019-08-25 06:19] LABS: ALANINE AMINOTRANSFERASE 8 U/L (12-78); ALBUMIN 2.2 g/dL (3.4-5.0); ALKALINE PHOSPHATASE 64 U/L (45-117); ANION GAP 6 mmol/L (5-15); BILIRUBIN,TOTAL 3.1 mg/dL (0.2-1.0); CALCIUM 8.3 mg/dL (8.5-10.1); CREATININE 0.76 mg/dL (0.55-1.02); PLATELET COUNT 16 x10^3/uL (130-400); TOTAL PROTEIN 6.8 g/dL (6.4-8.2)
[2019-08-25] MEDS: PIPERACILLIN/TAZO/PMX 3.375GM 50 ML IV SCH ×4 (06:19→19:56)
[2019-08-25] MEDS: VANCOMYCIN 50 MG/ML ORAL SUSP PO SCH ×2 (06:20→18:18)
[2019-08-25] MEDS: OXYcodone IR 5MG TABLET PO PRN ×4 (06:20→20:03)
[2019-08-25 07:12] LABS: MD YES
[2019-08-25 07:23] LABS: <PLATELET ESTIMATE> DECREASED; <PLT MORPHOLOGY> NORMAL PLT MORPH; <RBC MORPHOLOGY> NORMAL; EOS#(MANUAL) 0.01 x10^3/uL (0.0-0.4); EOS% (MANUAL) 4 % (1-7); LYMPH#(MANUAL) 0.16 x10^3/uL (1-3.4); LYMPHS% (MANUAL) 78 % (22-44); MONOS#(MANUAL) 0.01 x10^3/uL (0.3-2.7); MONOS% (MANUAL) 6 % (2-9); REACTIVE LYMPHS % (MANUAL) 2 % (0-0); SEG#(MANUAL) 0.02 x10^3/uL (1.8-6.8); SEGS% (MANUAL) 10 % (42-75)
[2019-08-25] MEDS: CHOLECALCIFEROL 1,000 UNIT TABLET PO SCH (08:12)
[2019-08-25] MEDS: GABAPENTIN 100 MG CAPSULE PO SCH ×3 (08:12→19:56)
[2019-08-25] MEDS: POTASSIUM CHLORIDE 20 MEQ TAB.ER.PRT PO SCH ×2 (08:12→18:17)
[2019-08-25] MEDS: LACTOBACILLUS CHEW TABLET PO SCH ×2 (08:12→19:56)
[2019-08-25] MEDS: FOLIC ACID 1 MG TABLET PO SCH (08:12)
[2019-08-25] MEDS: ATOVAQUONE 150 MG/ML PO SCH (08:12)
[2019-08-25] MEDS: ACYCLOVIR 400 MG TABLET PO SCH ×2 (08:12→19:56)
[2019-08-25 08:22] VITALS: BP 122/80
[2019-08-25] MEDS: FLUCONAZOLE 200 MG TABLET PO SCH (13:24)
[2019-08-25 14:58] VITALS: BP 141/88
[2019-08-25 19:33] VITALS: BP 131/71
[2019-08-25] MEDS: MIRTAZAPINE 30 MG TABLET PO SCH (19:56)
[2019-08-26] MEDS: PIPERACILLIN/TAZO/PMX 3.375GM 50 ML IV SCH ×4 (01:27→18:38)
[2019-08-26] MEDS: OXYcodone IR 5MG TABLET PO PRN ×3 (01:33→18:42)
[2019-08-26 01:50] VITALS: BP 127/75
[2019-08-26] MEDS: VANCOMYCIN 50 MG/ML ORAL SUSP PO SCH ×2 (05:54→18:37)
[2019-08-26] MEDS: ATOVAQUONE 150 MG/ML PO SCH (08:15)
[2019-08-26] MEDS: GABAPENTIN 100 MG CAPSULE PO SCH ×2 (08:16→18:38)
[2019-08-26] MEDS: CHOLECALCIFEROL 1,000 UNIT TABLET PO SCH (08:16)
[2019-08-26] MEDS: ACYCLOVIR 400 MG TABLET PO SCH ×2 (08:16→20:00)
[2019-08-26] MEDS: LACTOBACILLUS CHEW TABLET PO SCH ×2 (08:16→20:00)
[2019-08-26] MEDS: POTASSIUM CHLORIDE 20 MEQ TAB.ER.PRT PO SCH ×2 (08:16→18:37)
[2019-08-26] MEDS: FOLIC ACID 1 MG TABLET PO SCH (08:16)
[2019-08-26 09:40] LABS: ANION GAP 7 mmol/L (5-15); CALCIUM 8.4 mg/dL (8.5-10.1); CHLORIDE 102 mmol/L (98-107); CREATININE 0.69 mg/dL (0.55-1.02)
[2019-08-26 10:29] LABS: MD YES; MEAN CORPUSCULAR HEMOGLOBIN 29.6 pg (27.0-34.8); MEAN CORPUSCULAR HGB CONC 33.6 g/dL (32.4-35.8); RED BLOOD COUNT 2.44 x10^6/uL (3.82-5.3); RED CELL DISTRIBUTION WIDTH 14.3 % (9.6-15.2)
[2019-08-26 10:31] LABS: MONOS% (MANUAL) 1 % (2-9); REACTIVE LYMPHS % (MANUAL) 2 % (0-0); SEGS% (MANUAL) 4 % (42-75)
[2019-08-26 10:35] LABS: <PLATELET ESTIMATE> DECREASED; <PLT MORPHOLOGY> NORMAL PLT MORPH; <RBC MORPHOLOGY> NORMAL
[2019-08-26 10:36] LABS: MEAN PLATELET VOLUME 8.2 fL (7.4-10.4)
[2019-08-26 10:39] LABS: LYMPH#(MANUAL) 0.19 x10^3/uL (1-3.4); SEG#(MANUAL) 0.01 x10^3/uL (1.8-6.8)
[2019-08-26 10:40] LABS: PLATELET COUNT 7 x10^3/uL (130-400)
[2019-08-26 10:41] LABS: LYMPHS% (MANUAL) 93 % (22-44)
[2019-08-26] MEDS ORDERED: DIPHENHYDRAMINE 25 MG CAPSULE PO ONE (11:00)
[2019-08-26] MEDS: FLUCONAZOLE 200 MG TABLET PO SCH (12:34)
[2019-08-26] MEDS: ACETAMINOPHEN 325 MG TABLET PO PRN (12:34)
[2019-08-26 14:05] VITALS: BP 111/72
[2019-08-26 15:46] VITALS: BP 109/72
[2019-08-26 16:11] VITALS: BP 116/85
[2019-08-26 18:04] VITALS: BP 135/83
[2019-08-26 19:19] VITALS: BP 143/79
[2019-08-26] MEDS: MIRTAZAPINE 30 MG TABLET PO SCH (20:00)
[2019-08-27] VITALS (7 sets, daily range): BP systolic 100–124; BP diastolic 64–77
[2019-08-27] MEDS: GABAPENTIN 100 MG CAPSULE PO SCH ×4 (00:53→20:08)
[2019-08-27] MEDS: PIPERACILLIN/TAZO/PMX 3.375GM 50 ML IV SCH ×4 (00:53→18:27)
[2019-08-27] MEDS: ACETAMINOPHEN 325 MG TABLET PO PRN (01:01)
[2019-08-27] MEDS: OXYcodone IR 5MG TABLET PO PRN ×2 (01:10→16:25)
[2019-08-27 06:06] LABS: MEAN CORPUSCULAR HEMOGLOBIN 29.6 pg (27.0-34.8); MEAN CORPUSCULAR HGB CONC 33.5 g/dL (32.4-35.8); MEAN PLATELET VOLUME 8.4 fL (7.4-10.4); RED BLOOD COUNT 2.07 x10^6/uL (3.82-5.3); RED CELL DISTRIBUTION WIDTH 14.6 % (9.6-15.2)
[2019-08-27 06:07] LABS: PLATELET COUNT 39 x10^3/uL (130-400)
[2019-08-27 06:15] LABS: CHLORIDE 104 mmol/L (98-107)
[2019-08-27] MEDS: VANCOMYCIN 50 MG/ML ORAL SUSP PO SCH ×2 (06:16→17:55)
[2019-08-27 06:40] LABS: ANION GAP 6 mmol/L (5-15); CREATININE 0.63 mg/dL (0.55-1.02)
[2019-08-27 07:16] LABS: MD YES
[2019-08-27 07:20] LABS: LYMPH#(MANUAL) 0.18 x10^3/uL (1-3.4); LYMPHS% (MANUAL) 88 % (22-44); MONOS#(MANUAL) 0.01 x10^3/uL (0.3-2.7); MONOS% (MANUAL) 4 % (2-9); REACTIVE LYMPHS % (MANUAL) 2 % (0-0); SEG#(MANUAL) 0.01 x10^3/uL (1.8-6.8); SEGS% (MANUAL) 6 % (42-75)
[2019-08-27 07:22] LABS: <PLATELET ESTIMATE> DECREASED; <PLT MORPHOLOGY> NORMAL PLT MORPH; <RBC MORPHOLOGY> NORMAL
[2019-08-27] MEDS: CHOLECALCIFEROL 1,000 UNIT TABLET PO SCH (09:00)
[2019-08-27] MEDS: FLUCONAZOLE 200 MG TABLET PO SCH (11:29)
[2019-08-27] MEDS: LACTOBACILLUS CHEW TABLET PO SCH ×2 (11:30→20:08)
[2019-08-27] MEDS: ACYCLOVIR 400 MG TABLET PO SCH ×2 (11:30→20:08)
[2019-08-27] MEDS: ATOVAQUONE 150 MG/ML PO SCH (11:30)
[2019-08-27] MEDS: FOLIC ACID 1 MG TABLET PO SCH (11:30)
[2019-08-27] MEDS: POTASSIUM CHLORIDE 20 MEQ TAB.ER.PRT PO SCH ×2 (11:30→16:25)
[2019-08-27] MEDS: MIRTAZAPINE 30 MG TABLET PO SCH (20:08)
[2019-08-27 21:03] LABS: MICROSCOPIC INDICATED
[2019-08-28] MEDS: PIPERACILLIN/TAZO/PMX 3.375GM 50 ML IV SCH ×2 (00:26→06:03)
[2019-08-28 00:29] VITALS: BP 120/67
[2019-08-28] MEDS: ACETAMINOPHEN 325 MG TABLET PO PRN (00:30)
[2019-08-28] MEDS: OXYcodone IR 5MG TABLET PO PRN ×3 (00:30→16:25)
[2019-08-28 05:41] LABS: CHLORIDE 101 mmol/L (98-107)
[2019-08-28 05:47] LABS: ALANINE AMINOTRANSFERASE 11 U/L (12-78); ALBUMIN 1.9 g/dL (3.4-5.0); ALKALINE PHOSPHATASE 76 U/L (45-117); ANION GAP 7 mmol/L (5-15); BILIRUBIN,TOTAL 2.1 mg/dL (0.2-1.0); CALCIUM 8.2 mg/dL (8.5-10.1); CREATININE 0.66 mg/dL (0.55-1.02); TOTAL PROTEIN 6.8 g/dL (6.4-8.2)
[2019-08-28] MEDS: VANCOMYCIN 50 MG/ML ORAL SUSP PO SCH ×2 (06:03→16:25)
[2019-08-28 06:24] LABS: MEAN CORPUSCULAR HGB CONC 34.6 g/dL (32.4-35.8); MEAN PLATELET VOLUME 9.1 fL (7.4-10.4); RED BLOOD COUNT 2.35 x10^6/uL (3.82-5.3); RED CELL DISTRIBUTION WIDTH 15.6 % (9.6-15.2)
[2019-08-28 06:26] LABS: PLATELET COUNT 29 x10^3/uL (130-400)
[2019-08-28 06:37] LABS: MD YES
[2019-08-28 06:43] LABS: BASOS#(MANUAL) 0.01 x10^3/uL (0-0.1); BASOS% (MANUAL) 2 % (0-1); EOS% (MANUAL) 1 % (1-7); LYMPH#(MANUAL) 0.27 x10^3/uL (1-3.4); LYMPHS% (MANUAL) 89 % (22-44); REACTIVE LYMPHS # (MANUAL) 0.01 x10^3/uL (0-0); REACTIVE LYMPHS % (MANUAL) 3 % (0-0); SEG#(MANUAL) 0.01 x10^3/uL (1.8-6.8); SEGS% (MANUAL) 4 % (42-75)
[2019-08-28 06:46] LABS: MONOS% (MANUAL) 1 % (2-9)
[2019-08-28 06:48] LABS: <PLATELET ESTIMATE> DECREASED; <PLT MORPHOLOGY> NORMAL PLT MORPH; <RBC MORPHOLOGY> NORMAL
[2019-08-28 07:05] VITALS: BP 109/62
[2019-08-28] MEDS: TBO-FILGRASTIM 300 MCG/0.5 ML SQ SCH (09:47)
[2019-08-28] MEDS: CHOLECALCIFEROL 1,000 UNIT TABLET PO SCH (09:47)
[2019-08-28] MEDS: ACYCLOVIR 400 MG TABLET PO SCH ×2 (09:47→20:07)
[2019-08-28] MEDS: LACTOBACILLUS CHEW TABLET PO SCH ×2 (09:47→20:07)
[2019-08-28] MEDS: GABAPENTIN 100 MG CAPSULE PO SCH ×3 (09:48→20:07)
[2019-08-28] MEDS: FOLIC ACID 1 MG TABLET PO SCH (09:48)
[2019-08-28] MEDS: POTASSIUM CHLORIDE 20 MEQ TAB.ER.PRT PO SCH ×2 (09:48→16:25)
[2019-08-28] MEDS: ATOVAQUONE 150 MG/ML PO SCH (09:50)
[2019-08-28 12:34] VITALS: BP 111/74
[2019-08-28] MEDS: MEROPENEM 1 GM in SODIUM CHLORIDE 0.9% 100 ML IV SCH ×2 (15:09→22:47)
[2019-08-28] MEDS: MICAFUNGIN 100 MG in SODIUM CHLORIDE 0.9% 100 ML IV SCH (15:51)
[2019-08-28 19:04] VITALS: BP 112/63
[2019-08-28] MEDS: MIRTAZAPINE 30 MG TABLET PO SCH (20:07)
[2019-08-29] MEDS: VANCOMYCIN 50 MG/ML ORAL SUSP PO SCH ×2 (04:57→17:35)
[2019-08-29 05:02] VITALS: BP 143/66
[2019-08-29] MEDS: ACETAMINOPHEN 325 MG TABLET PO PRN ×2 (05:05→19:34)
[2019-08-29 05:18] LABS: ANION GAP 7 mmol/L (5-15); CALCIUM 8.2 mg/dL (8.5-10.1); CHLORIDE 100 mmol/L (98-107); CREATININE 0.59 mg/dL (0.55-1.02)
[2019-08-29 05:22] LABS: MEAN CORPUSCULAR HEMOGLOBIN 30.1 pg (27.0-34.8); MEAN CORPUSCULAR HGB CONC 34.9 g/dL (32.4-35.8); MEAN PLATELET VOLUME 8.9 fL (7.4-10.4); RED BLOOD COUNT 2.35 x10^6/uL (3.82-5.3); RED CELL DISTRIBUTION WIDTH 14.9 % (9.6-15.2)
[2019-08-29 05:32] LABS: PLATELET COUNT 23 x10^3/uL (130-400)
[2019-08-29] MEDS: MEROPENEM 1 GM in SODIUM CHLORIDE 0.9% 100 ML IV SCH ×3 (06:11→23:07)
[2019-08-29 06:16] LABS: MD YES
[2019-08-29] MEDS: OXYcodone IR 5MG TABLET PO PRN ×3 (06:17→19:34)
[2019-08-29 06:21] LABS: LYMPH#(MANUAL) 0.16 x10^3/uL (1-3.4); LYMPHS% (MANUAL) 80 % (22-44); MONOS#(MANUAL) 0.01 x10^3/uL (0.3-2.7); MONOS% (MANUAL) 6 % (2-9); REACTIVE LYMPHS # (MANUAL) 0.01 x10^3/uL (0-0); REACTIVE LYMPHS % (MANUAL) 4 % (0-0); SEG#(MANUAL) 0.02 x10^3/uL (1.8-6.8); SEGS% (MANUAL) 10 % (42-75)
[2019-08-29 06:22] LABS: <PLATELET ESTIMATE> DECREASED; <PLT MORPHOLOGY> NORMAL PLT MORPH; <RBC MORPHOLOGY> NORMAL
[2019-08-29 08:00] VITALS: BP 97/62
[2019-08-29] MEDS ORDERED: SODIUM CHLORIDE 0.9% 1,000 ML IV SCH (08:00)
[2019-08-29] MEDS: POTASSIUM CHLORIDE 20 MEQ TAB.ER.PRT PO SCH ×2 (08:00→17:35)
[2019-08-29] MEDS: TBO-FILGRASTIM 300 MCG/0.5 ML SQ SCH (09:00)
[2019-08-29] MEDS: LACTOBACILLUS CHEW TABLET PO SCH ×2 (09:00→21:49)
[2019-08-29] MEDS: ATOVAQUONE 150 MG/ML PO SCH (09:00)
[2019-08-29] MEDS: FOLIC ACID 1 MG TABLET PO SCH (09:00)
[2019-08-29] MEDS: CHOLECALCIFEROL 1,000 UNIT TABLET PO SCH (09:00)
[2019-08-29] MEDS: GABAPENTIN 100 MG CAPSULE PO SCH ×3 (09:00→21:49)
[2019-08-29] MEDS: ACYCLOVIR 400 MG TABLET PO SCH ×2 (09:00→21:49)
[2019-08-29 13:00] VITALS: BP 113/75
[2019-08-29] MEDS: MICAFUNGIN 100 MG in SODIUM CHLORIDE 0.9% 100 ML IV SCH (15:42)
[2019-08-29 19:49] VITALS: BP 137/79
[2019-08-29] MEDS: MIRTAZAPINE 30 MG TABLET PO SCH (21:49)
[2019-08-30 04:19] VITALS: BP 138/81
[2019-08-30] MEDS: VANCOMYCIN 50 MG/ML ORAL SUSP PO SCH ×2 (05:37→16:35)
[2019-08-30 05:55] LABS: ANION GAP 7 mmol/L (5-15); CALCIUM 8.4 mg/dL (8.5-10.1); CHLORIDE 100 mmol/L (98-107)
[2019-08-30 05:59] LABS: CREATININE 0.53 mg/dL (0.55-1.02)
[2019-08-30 06:21] LABS: MEAN CORPUSCULAR HGB CONC 34.5 g/dL (32.4-35.8); MEAN PLATELET VOLUME 8.3 fL (7.4-10.4); RED BLOOD COUNT 2.38 x10^6/uL (3.82-5.3); RED CELL DISTRIBUTION WIDTH 15.1 % (9.6-15.2)
[2019-08-30 06:22] LABS: PLATELET COUNT 14 x10^3/uL (130-400)
[2019-08-30] MEDS: MEROPENEM 1 GM in SODIUM CHLORIDE 0.9% 100 ML IV SCH ×3 (06:39→23:10)
[2019-08-30 07:45] LABS: MD YES
[2019-08-30 07:52] LABS: BANDS%(MANUAL) 1 % (0-7); MONOS% (MANUAL) 1 % (2-9); SEG#(MANUAL) 0.01 x10^3/uL (1.8-6.8)
[2019-08-30 07:54] LABS: BLASTS % (MANUAL) 1 % (0-0); LYMPH#(MANUAL) 0.27 x10^3/uL (1-3.4); LYMPHS% (MANUAL) 91 % (22-44); REACTIVE LYMPHS # (MANUAL) 0.01 x10^3/uL (0-0); REACTIVE LYMPHS % (MANUAL) 2 % (0-0); SEGS% (MANUAL) 4 % (42-75)
[2019-08-30 07:55] LABS: <PLATELET ESTIMATE> DECREASED; <PLT MORPHOLOGY> NORMAL PLT MORPH; <RBC MORPHOLOGY> NORMAL
[2019-08-30 08:25] VITALS: BP 115/68
[2019-08-30] MEDS: FOLIC ACID 1 MG TABLET PO SCH (10:00)
[2019-08-30] MEDS: CHOLECALCIFEROL 1,000 UNIT TABLET PO SCH (10:00)
[2019-08-30] MEDS: POTASSIUM CHLORIDE 20 MEQ TAB.ER.PRT PO SCH ×2 (10:00→16:35)
[2019-08-30] MEDS: GABAPENTIN 100 MG CAPSULE PO SCH ×3 (10:01→20:49)
[2019-08-30] MEDS: ACYCLOVIR 400 MG TABLET PO SCH ×2 (10:01→20:49)
[2019-08-30] MEDS: LACTOBACILLUS CHEW TABLET PO SCH ×2 (10:01→20:49)
[2019-08-30] MEDS: ATOVAQUONE 150 MG/ML PO SCH (10:02)
[2019-08-30] MEDS: TBO-FILGRASTIM 300 MCG/0.5 ML SQ SCH (10:30)
[2019-08-30 12:56] VITALS: BP 111/70
[2019-08-30] MEDS: MICAFUNGIN 100 MG in SODIUM CHLORIDE 0.9% 100 ML IV SCH (15:07)
[2019-08-30] MEDS: ACETAMINOPHEN 325 MG TABLET PO PRN (15:08)
[2019-08-30 20:00] VITALS: BP 108/69
[2019-08-30] MEDS: MIRTAZAPINE 30 MG TABLET PO SCH (20:49)
[2019-08-30] MEDS: OXYcodone IR 5MG TABLET PO PRN (21:06)
[2019-08-31] VITALS (10 sets, daily range): BP systolic 105–133; BP diastolic 63–84
[2019-08-31] MEDS: ACETAMINOPHEN 325 MG TABLET PO PRN (01:55)
[2019-08-31] MEDS: VANCOMYCIN 50 MG/ML ORAL SUSP PO SCH ×2 (05:52→17:56)
[2019-08-31] MEDS: MEROPENEM 1 GM in SODIUM CHLORIDE 0.9% 100 ML IV SCH ×2 (06:31→17:05)
[2019-08-31 08:17] LABS: ALANINE AMINOTRANSFERASE 15 U/L (12-78); ALBUMIN 1.7 g/dL (3.4-5.0); ANION GAP 8 mmol/L (5-15); CHLORIDE 101 mmol/L (98-107); CREATININE 0.58 mg/dL (0.55-1.02)
[2019-08-31 08:19] LABS: ALKALINE PHOSPHATASE 84 U/L (45-117); BILIRUBIN,TOTAL 1.6 mg/dL (0.2-1.0); TOTAL PROTEIN 7.4 g/dL (6.4-8.2)
[2019-08-31 08:35] LABS: MEAN CORPUSCULAR HEMOGLOBIN 29.3 pg (27.0-34.8); MEAN CORPUSCULAR HGB CONC 33.8 g/dL (32.4-35.8); RED BLOOD COUNT 2.25 x10^6/uL (3.82-5.3); RED CELL DISTRIBUTION WIDTH 14.6 % (9.6-15.2)
[2019-08-31 08:36] LABS: PLATELET COUNT 8 x10^3/uL (130-400)
[2019-08-31 08:38] LABS: MD YES
[2019-08-31 08:53] LABS: EOS% (MANUAL) 1 % (1-7); LYMPH#(MANUAL) 0.25 x10^3/uL (1-3.4); LYMPHS% (MANUAL) 83 % (22-44); MONOS#(MANUAL) 0.02 x10^3/uL (0.3-2.7); MONOS% (MANUAL) 5 % (2-9); SEG#(MANUAL) 0.02 x10^3/uL (1.8-6.8); SEGS% (MANUAL) 8 % (42-75)
[2019-08-31 08:54] LABS: <PLATELET ESTIMATE> DECREASED; <PLT MORPHOLOGY> NORMAL PLT MORPH; <RBC MORPHOLOGY> NORMAL; BLASTS # (MANUAL) 0.01 x10^3/uL (0-0); BLASTS % (MANUAL) 2 % (0-0); REACTIVE LYMPHS % (MANUAL) 1 % (0-0)
[2019-08-31] MEDS: CHOLECALCIFEROL 1,000 UNIT TABLET PO SCH (09:03)
[2019-08-31] MEDS: ACYCLOVIR 400 MG TABLET PO SCH ×2 (09:03→19:49)
[2019-08-31] MEDS: GABAPENTIN 100 MG CAPSULE PO SCH ×3 (09:03→19:49)
[2019-08-31] MEDS: POTASSIUM CHLORIDE 20 MEQ TAB.ER.PRT PO SCH ×3 (09:03→19:49)
[2019-08-31] MEDS: LACTOBACILLUS CHEW TABLET PO SCH ×2 (09:03→19:49)
[2019-08-31] MEDS: FOLIC ACID 1 MG TABLET PO SCH (09:03)
[2019-08-31] MEDS: TBO-FILGRASTIM 300 MCG/0.5 ML SQ SCH (09:04)
[2019-08-31] MEDS: ATOVAQUONE 150 MG/ML PO SCH (09:04)
[2019-08-31] MEDS: OXYcodone IR 5MG TABLET PO PRN ×2 (11:48→19:49)
[2019-08-31 14:09] LABS: MICROSCOPIC INDICATED
[2019-08-31] MEDS: MICAFUNGIN 100 MG in SODIUM CHLORIDE 0.9% 100 ML IV SCH (17:51)
[2019-08-31] MEDS: MIRTAZAPINE 30 MG TABLET PO SCH (19:49)
[2019-09-01 00:19] VITALS: BP 122/68
[2019-09-01] MEDS: MEROPENEM 1 GM in SODIUM CHLORIDE 0.9% 100 ML IV SCH ×3 (00:21→17:02)
[2019-09-01] MEDS: ACETAMINOPHEN 325 MG TABLET PO PRN (00:21)
[2019-09-01 05:06] LABS: MEAN CORPUSCULAR HEMOGLOBIN 29.9 pg (27.0-34.8); MEAN CORPUSCULAR HGB CONC 34.3 g/dL (32.4-35.8); MEAN PLATELET VOLUME 7.4 fL (7.4-10.4); RED BLOOD COUNT 2.44 x10^6/uL (3.82-5.3); RED CELL DISTRIBUTION WIDTH 14.5 % (9.6-15.2)
[2019-09-01 05:07] LABS: CHLORIDE 101 mmol/L (98-107)
[2019-09-01 05:09] LABS: PLATELET COUNT 37 x10^3/uL (130-400)
[2019-09-01 05:10] LABS: HCT (SEDRATE) 21.3 % (34.6-47.8)
[2019-09-01] MEDS: VANCOMYCIN 50 MG/ML ORAL SUSP PO SCH ×2 (05:20→17:01)
[2019-09-01 05:21] LABS: ALANINE AMINOTRANSFERASE 15 U/L (12-78); ALBUMIN 1.9 g/dL (3.4-5.0); ALKALINE PHOSPHATASE 86 U/L (45-117); ANION GAP 8 mmol/L (5-15); CALCIUM 8.5 mg/dL (8.5-10.1); CREATININE 0.55 mg/dL (0.55-1.02); TOTAL PROTEIN 8.1 g/dL (6.4-8.2)
[2019-09-01 05:24] LABS: C-REACTIVE PROTEIN, QUANT > 19.00 mg/dL (0.02-0.49)
[2019-09-01 05:36] LABS: SEDIMENTATION RATE > 120 mm/hr (0-20)
[2019-09-01 06:12] LABS: MD YES
[2019-09-01 06:18] LABS: BANDS%(MANUAL) 1 % (0-7); EOS% (MANUAL) 1 % (1-7); LYMPH#(MANUAL) 0.27 x10^3/uL (1-3.4); LYMPHS% (MANUAL) 89 % (22-44); MONOS#(MANUAL) 0.01 x10^3/uL (0.3-2.7); MONOS% (MANUAL) 4 % (2-9); SEG#(MANUAL) 0.02 x10^3/uL (1.8-6.8); SEGS% (MANUAL) 5 % (42-75)
[2019-09-01 06:21] LABS: <PLATELET ESTIMATE> DECREASED; <PLT MORPHOLOGY> NORMAL PLT MORPH; <RBC MORPHOLOGY> NORMAL
[2019-09-01] MEDS: CHOLECALCIFEROL 1,000 UNIT TABLET PO SCH (09:00)
[2019-09-01 09:33] VITALS: BP 132/76
[2019-09-01] MEDS ORDERED: VANCOMYCIN PER PHARMACY MC PRN (10:00)
[2019-09-01] MEDS: ACYCLOVIR 400 MG TABLET PO SCH ×2 (10:27→20:44)
[2019-09-01] MEDS: FOLIC ACID 1 MG TABLET PO SCH (10:27)
[2019-09-01] MEDS: POTASSIUM CHLORIDE 20 MEQ TAB.ER.PRT PO SCH ×3 (10:27→20:44)
[2019-09-01] MEDS: GABAPENTIN 100 MG CAPSULE PO SCH ×3 (10:27→20:44)
[2019-09-01] MEDS: LACTOBACILLUS CHEW TABLET PO SCH ×2 (10:27→20:44)
[2019-09-01] MEDS: ATOVAQUONE 150 MG/ML PO SCH (10:27)
[2019-09-01] MEDS ORDERED: PHARMACOKINETIC MONITORING MC PRN (10:30)
[2019-09-01] MEDS ORDERED: PHARMACOKINETIC CONSULTATION MC ONE (10:30)
[2019-09-01] MEDS ORDERED: VANCOMYCIN 2,000 MG in SODIUM CHLORIDE 0.9% 500 ML IV ONE (11:00)
[2019-09-01 14:00] VITALS: BP 133/84
[2019-09-01] MEDS: VANCOMYCIN 1,600 MG in SODIUM CHLORIDE 0.9% 250 ML IV SCH (14:06)
[2019-09-01] MEDS: OXYcodone IR 5MG TABLET PO PRN (17:02)
[2019-09-01] MEDS: MICAFUNGIN 100 MG in SODIUM CHLORIDE 0.9% 100 ML IV SCH (17:02)
[2019-09-01 18:27] VITALS: BP 149/91
[2019-09-01] MEDS: MIRTAZAPINE 30 MG TABLET PO SCH (20:44)
[2019-09-02] MEDS: MEROPENEM 1 GM in SODIUM CHLORIDE 0.9% 100 ML IV SCH ×2 (00:05→08:36)
[2019-09-02 01:49] VITALS: BP 113/69
[2019-09-02] MEDS: VANCOMYCIN 50 MG/ML ORAL SUSP PO SCH (05:30)
[2019-09-02 07:23] VITALS: BP 117/84
[2019-09-02] MEDS: LACTOBACILLUS CHEW TABLET PO SCH (08:35)
[2019-09-02] MEDS: ACYCLOVIR 400 MG TABLET PO SCH (08:36)
[2019-09-02] MEDS: GABAPENTIN 100 MG CAPSULE PO SCH (08:36)
[2019-09-02] MEDS: CHOLECALCIFEROL 1,000 UNIT TABLET PO SCH (08:36)
[2019-09-02] MEDS: POTASSIUM CHLORIDE 20 MEQ TAB.ER.PRT PO SCH (08:36)
[2019-09-02] MEDS: FOLIC ACID 1 MG TABLET PO SCH (08:36)
[2019-09-02] MEDS: ATOVAQUONE 150 MG/ML PO SCH (08:36)
[2019-09-02] MEDS: VANCOMYCIN 1,600 MG in SODIUM CHLORIDE 0.9% 250 ML IV SCH (11:40)
[2019-09-02] MEDS: OXYcodone IR 5MG TABLET PO PRN (11:45)
[2019-09-02 13:37] VITALS: BP 127/79
== END 2019-09-02 16:34 | disposition hospice, home (50) | DRG 871 ==
LOC: ED 12:01 → EDIP 16:17 → SUATTDRO 16:20 → ICU 21:56 → CCU 08-14 21:56 → 3WST 08-15 10:12 → 4NW 09-02 15:03
PROVIDERS: ADMIT Hospitalist; ATTEND Internal Medicine
PROC: 30233N1 Transfusion of Nonautologous Red Blood Cells into Peripheral Vein, Percutaneous Approach (ICD-10-PCS; 2019-08-13)
PROC: 07DR3ZX Extraction of Iliac Bone Marrow, Percutaneous Approach, Diagnostic (ICD-10-PCS; principal; 2019-08-20)
PROC: 30233R1 Transfusion of Nonautologous Platelets into Peripheral Vein, Percutaneous Approach (ICD-10-PCS; 2019-08-24)
PROC: 0T9B70Z Drainage of Bladder with Drainage Device, Via Natural or Artificial Opening (ICD-10-PCS; 2019-08-27)
DX: A41.59 Other Gram-negative sepsis (principal); E43 Unspecified severe protein-calorie malnutrition; J18.9 Pneumonia, unspecified organism; N17.0 Acute kidney failure with tubular necrosis; C92.02 Acute myeloblastic leukemia, in relapse; A04.72 Enterocolitis due to Clostridium difficile, not specified as recurrent; E87.1 Hypo-osmolality and hyponatremia; L03.115 Cellulitis of right lower limb; B96.1 Klebsiella pneumoniae [K. pneumoniae] as the cause of diseases classified elsewhere; D63.0 Anemia in neoplastic disease; E83.42 Hypomagnesemia; E87.6 Hypokalemia; R65.20 Severe sepsis without septic shock; S90.821A Blister (nonthermal), right foot, initial encounter; Z20.828 Contact with and (suspected) exposure to other viral communicable diseases; Z51.5 Encounter for palliative care; Z85.828 Personal history of other malignant neoplasm of skin; Z66 Do not resuscitate; Z68.24 Body mass index [BMI] 24.0-24.9, adult; D70.9 Neutropenia, unspecified; R50.81 Fever presenting with conditions classified elsewhere
CPT/HCPCS: 36415; 73610; 73630; 84145; 87449; 96361; 96372; 96374; 96375; 99291; J3370; J3490; 38222; 71045; 74177; 77012; 80048; 80053; 81001; 82140; 82247; 82248; 82533; 83010; 83605; 83615; 83735; 84100; 84439; 84443; 84484; 85014; 85018; 85025; 85045; 85060; 85097; 85379; 85610; 85651; 86140; 86850; 86900; 86923; 87040; 87077; 87081; 87186; 87324; 87493; 87635; 88237; 88264; 88280; 88305; 88311; 88313; 93005; 99156; G0378; J2185; J2248; J2250; J2405; J2543; J3010; J3480; J7120; P9047; Q9967; J1447; J2310; J3475; J7030; J7040; J7050; P9037; P9040; Q0163